=== PATIENT | female | born 1950 | race Caucasian/White ===

== ENCOUNTER 2017-10-19 19:33 | Emergency (ER) | payer MEDICARE, OTHER, SELFPAY ==
[2017-10-19 19:34] VITALS: BP 145/79; PULSE 77; RESP 16; O2SAT 100; BMI 30.2
--- NOTE | 2017-10-19 19:53 | XR_ITS ---
XR chest portable HISTORY: ITS.REASON: HEART PALPATIONS ORDERING PHYSICIAN: Nico Alexander MD PATIENT AGE: 905/11/2014 COMPARISON: None available FINDINGS: Mild cardiomegaly without failure. Lungs are clear bilaterally. No acute bony anomalies. IMPRESSION: Mild cardiomegaly otherwise negative.
[2017-10-19 20:18] LABS: Microscopic, Urine URINE MICROSCOPIC (MICROSCOPIC)
[2017-10-19 20:20] LABS: Basophils # 0.1 K/mm3 (0-0.2); Basophils % 0.8 % (0.1-2.0); Eosinophils # 0.1 K/mm3 (0.0-0.4); Eosinophils % 1.2 % (0.1-12.0); Hematocrit 39.7 % (37.0-47.0); Hemoglobin 12.9 g/dL (12.2-16.2); Lymphocytes # 1.8 K/mm3 (0.7-4.5); Mean Corpuscular HGB Conc 32.4 g/dL (31.8-35.4); Mean Corpuscular Hemoglobin 27.6 pg (27.0-31.2); Mean Corpuscular Volume 85.2 fl (81-99); Mean Platelet Volume 7.4 fl (7.4-10.4); Monocytes # 0.4 K/mm3 (0.1-1.0); Monocytes % 6.4 % (1.7-9.3); Neutrophils # 3.3 K/mm3 (1.8-7.8); Neutrophils % 59.7 % (37.0-80.0); Platelet Count 163 K/mm3 (142-424); Red Blood Count 4.66 M/mm3 (4.20-5.40); Red Cell Distribution Width 14.5 % (11.5-17.5); White Blood Count 5.5 K/mm3 (4.8-10.8)
[2017-10-19 20:28] LABS: Appearance,Urine CLEAR (Clear); Bilirubin,Urine Negative (Negative); Blood, Urine TRACE-I (Negative); Color,Urine YELLOW (Yellow); Glucose,Urine (UA) Negative (Negative); Ketones,Urine Negative (Negative); Leukocyte Esterase,Urine 1+ (Negative); Nitrate,Urine Negative (Negative); Protein,Urine Negative (Negative); Urobilinogen,Urine 0.2 EU/dl (0.2)
[2017-10-19 20:36] LABS: Alanine Aminotransferase 27 U/L (12-78); Albumin Level 4.1 gm/dL (3.4-5.0); Albumin/Globulin Ratio 1.4 (1.1-1.8); Alkaline Phosphatase 68 U/L (46-116); Anion Gap 10.5 mEq/L (5-15); Aspartate Amino Transferase 16 U/L (15-37); Bilirubin,Total 0.3 mg/dL (0.2-1.0); CKMB Relative Index 1.3 U/L (0-4.0); Calcium 8.9 mg/dL (8.5-10.1); Carbon Dioxide 30 mmol/L (21.0-32.0); Chloride 106 mmol/L (98-107); Creatine Kinase 76 U/L (26-192); Creatinine Clearance Estimated 53 mL/min (0-300); Creatinine,Serum 1.36 mg/dL (0.55-1.02); Estimated Glomerular Filt Rate 39 ml/min (>60); GFR (African American) 47 ML/MIN (>60); Globulin 2.9 gm/dl (1.3-3.2); Glucose 95 mg/dL (74-106); Potassium 3.5 mmoL/L (3.5-5.1); Sodium 143 mmol/L (136-145); Troponin I < 0.02 ng/ml (0.00-0.06)
[2017-10-19 20:41] LABS: Blood Urea Nitrogen 18 mg/dL (7-18)
[2017-10-19 20:49] LABS: Bacteria,Urine 3+ /lpf; Squamous Epithelial Cell,Urine TNTC #/hpf (0-5)
[2017-10-19 21:48] VITALS: BP 125/73; PULSE 68; RESP 16; O2SAT 98
--- NOTE | 2017-10-19 21:58 | HMH.EDARPALP ---
ED Disposition Clinical Impression: Palpitations Disposition: Home, Self-Care Condition on Discharge: Good Instructions: DI for Palpitations Additional Instructions: call pcp for follow up Referrals: Nestor Rao MD [Primary Care Provider] - - Critical Care Critical Care Time: No Attestation: On 10/19/17, the high probability of a clinically significant, sudden or life threatening deterioration of the following system(s) required my full and direct attention, intervention and personal management. The time I documented below is in addition to time spent performing reported procedures but includes the following listed in this critical care notation. Medical Decision Making - Medical Records Medical records reviewed: Yes: I reviewed the patient's medical records. Vital Signs: 10/19/17 19:34 10/19/17 21:48 Pulse Rate [Right] 77 68 Respiratory Rate 16 16 Blood Pressure [Right Arm] 145/79 125/73 Blood Pressure Mean [Right Arm] 101 90 Blood Pressure Source [Right Arm] Automatic Cuff Automatic Cuff Blood Pressure Position [Right Arm] Sitting Sitting 02 Sat by Pulse Oximetry 100 98 Oxygen Delivery Method Room Air Room Air - Lab Data Lab results reviewed: Yes: I reviewed the patient's lab results. Lab Results 10/19/17 20:00: WBC 5.5, RBC 4.66, Hgb 12.9, Hct 39.7, MCV 85.2, MCH 27.6, MCHC 32.4, RDW 14.5, Plt Count 163, MPV 7.4, Neut % (Auto) 59.7, Lymph % (Auto) 32.0, Rains % (Auto) 6.4, Eos % (Auto) 1.2, Baso % (Auto) 0.8, Neut # (Auto) 3.3, Lymph # (Auto) 1.8, Rains # (Auto) 0.4, Eos # (Auto) 0.1, Baso # (Auto) 0.1 10/19/17 20:00: Sodium 143, Potassium 3.5, Chloride 106, Carbon Dioxide 30, Anion Gap 10.5, BUN 18, Creatinine 1.36 H, Estimated Creat Clear 53, Estimated GFR 39 L, Est GFR ( Amer) 47 L, Glucose 95, Calcium 8.9, Total Bilirubin 0.3, AST 16, ALT 27, Alkaline Phosphatase 68, Total Creatine Kinase 76, CK-MB (CK-2) 1.0, CK-MB (CK-2) Rel Index 1.3, Troponin I < 0.02, Total Protein 7.0, Albumin 4.1, Globulin 2.9, Albumin/Globulin Ratio 1.4 10/19/17 20:05: Urine Color Yellow, Urine Appearance Clear, Urine pH 6.0, Ur Specific [place] 1.010, Urine Protein Negative, Urine Glucose (UA) Negative, Urine Ketones Negative, Urine Blood Trace-i, Urine Nitrate Negative, Urine Bilirubin Negative, Urine Urobilinogen 0.2, Ur Leukocyte Esterase 1+ A, Urine RBC None, Urine WBC 10-20, Ur Squamous Epith Cells Tntc, Urine Bacteria 3+ Result diagrams: 10/19/17 20:00 10/19/17 20:00 Orders (Tests/Meds): ORDERS Category Date Time Status Chest XR -- portable [XR chest portable] Stat Exams 10/19/17 19:53 Taken Urine Culture Stat Micro 10/19/17 20:05 Received ECG Request by /Jordyn Stat Y 10/19/17 19:52 Ordered - Radiology Data #1 Image(s): Chest Image Reviewed: Yes I reviewed the patient's radiology image Preliminary Findings: Normal/NAD - ECG Data Tracing #1 I reviewed this ECG and interpreted as documented below: Normal Sinus Rhythm: Yes Ischemic changes: non-specific ST-T wave changes - Narciso Inquiry Pt receiving controlled substance: No Arrhythmia/Palpitations HPI - General Chief Complaint: Arrhythmia/Palpitations Stated Complaint: Heart Palpations Time Seen by Provider: 10/19/17 20:30 Mode of Arrival: Ambulatory Source of Information: Patient, Spouse, Medical Record Limitations: No Limitations - History of Present Illness HPI narrative: pt with episode of fluttering hr with anxious and no syncope or chest pain and no sob MD complaint: palpitations Onset (ago): hour(s) Duration: intermittent Severity: moderate Arrhythmia history: atrial fibrillation Associated symptoms: anxiety Treatments prior to arrival: beta-pamela - Related Data Home Medications Medication Instructions Recorded Confirmed ALPRAZolam [Xanax 0.5mg tab] 0.5 mg PO NEEDED PRN 10/19/17 10/19/17 Aspirin [Aspirin 81mg EC Tab] 81 mg PO DAILY 10/19/17 10/19/17 Metoprolol Tartrate
--- NOTE | 2017-10-19 22:01 | ED_ITS ---
ED Disposition Clinical Impression: Palpitations Disposition: Home, Self-Care Condition on Discharge: Good Instructions: DI for Palpitations Additional Instructions: call pcp for follow up Referrals: Nestor Rao MD [Primary Care Provider] - - Critical Care Critical Care Time: No Attestation: On 10/19/17, the high probability of a clinically significant, sudden or life threatening deterioration of the following system(s) required my full and direct attention, intervention and personal management. The time I documented below is in addition to time spent performing reported procedures but includes the following listed in this critical care notation. Medical Decision Making - Medical Records Medical records reviewed: Yes: I reviewed the patient's medical records. Vital Signs: 10/19/17 19:34 10/19/17 21:48 Pulse Rate [Right] 77 68 Respiratory Rate 16 16 Blood Pressure [Right Arm] 145/79 125/73 Blood Pressure Mean [Right Arm] 101 90 Blood Pressure Source [Right Arm] Automatic Cuff Automatic Cuff Blood Pressure Position [Right Arm] Sitting Sitting 02 Sat by Pulse Oximetry 100 98 Oxygen Delivery Method Room Air Room Air - Lab Data Lab results reviewed: Yes: I reviewed the patient's lab results. Lab Results 10/19/17 20:00: WBC 5.5, RBC 4.66, Hgb 12.9, Hct 39.7, MCV 85.2, MCH 27.6, MCHC 32.4, RDW 14.5, Plt Count 163, MPV 7.4, Neut % (Auto) 59.7, Lymph % (Auto) 32.0 , [place] % (Auto) 6.4, Eos % (Auto) 1.2, Baso % (Auto) 0.8, Neut # (Auto) 3.3, Lymph # (Auto) 1.8, [place] # (Auto) 0.4, Eos # (Auto) 0.1, Baso # (Auto) 0.1 10/19/17 20:00: Sodium 143, Potassium 3.5, Chloride 106, Carbon Dioxide 30, Anion Gap 10.5, BUN 18, Creatinine 1.36 H, Estimated Creat Clear 53, Estimated GFR 39 L, Est GFR ( Amer) 47 L, Glucose 95, Calcium 8.9, Total Bilirubin 0.3, AST 16, ALT 27, Alkaline Phosphatase 68, Total Creatine Kinase 76, CK-MB ( CK-2) 1.0, CK-MB (CK-2) Rel Index 1.3, Troponin I < 0.02, Total Protein 7.0, Albumin 4.1, Globulin 2.9, Albumin/Globulin Ratio 1.4 10/19/17 20:05: Urine Color Yellow, Urine Appearance Clear, Urine pH 6.0, Ur Specific [place] 1.010, Urine Protein Negative, Urine Glucose (UA) Negative, Urine Ketones Negative, Urine Blood Trace-i, Urine Nitrate Negative, Urine Bilirubin Negative, Urine Urobilinogen 0.2, Ur Leukocyte Esterase 1+ A, Urine RBC None, Urine WBC 10-20, Ur Squamous Epith Cells Tntc, Urine Bacteria 3+ Result diagrams: 10/19/17 20:00 10/19/17 20:00 Orders (Tests/Meds): ORDERS Category Date Time Status Chest XR -- portable [XR chest portable] Stat Exams 10/19/17 19:53 Taken Urine Culture Stat Micro 10/19/17 20:05 Received ECG Request by /Jordyn Stat Y 10/19/17 19:52 Ordered - Radiology Data #1 Image(s): Chest Image Reviewed: Yes I reviewed the patient's radiology image Preliminary Findings: Normal/NAD - ECG Data Tracing #1 I reviewed this ECG and interpreted as documented below: Normal Sinus Rhythm: Yes Ischemic changes: non-specific ST-T wave changes - Narciso Inquiry Pt receiving controlled substance: No Arrhythmia/Palpitations HPI - General Chief Complaint: Arrhythmia/Palpitations Stated Complaint: Heart Palpations Time Seen by Provider: 10/19/17 20:30 Mode of Arrival: Ambulatory Source of Information: Patient, Spouse, Medical Record Limitations: No Limitations - History of Present Illness HPI narrative:
[2017-10-19 22:08] VITALS: BP 138/78; PULSE 63; RESP 12; TEMP 36.8; O2SAT 97
== END 2017-10-19 22:10 | disposition home or self-care (01) ==
PROVIDERS: Emergency Provider Emergency Medicine; Family Provider Internal Medicine Adolescent Medicine; PCP Internal Medicine Adolescent Medicine
DX: R00.2 Palpitations (principal); I48.2 Chronic atrial fibrillation; I10 Essential (primary) hypertension; Z88.1 Allergy status to other antibiotic agents; Z79.82 Long term (current) use of aspirin; R82.90 Unspecified abnormal findings in urine
CPT/HCPCS: 71045; 80053; 81001; 82550; 82553; 84484; 85025; 87086; 93005; 93041; 99283

== ENCOUNTER → 2018-05-11 06:35 | Outpatient (CLI) | payer MEDICARE, OTHER, SELFPAY ==
--- NOTE | 2018-05-11 06:37 | NM_ITS ---
CARDIOLITE SPECT MYOCARDIAL PERFUSION SCAN, REST AND STRESS: EXERCISE STRESS [facility] REVIEW QGS EF AND WALL MOTION EVALUATION: QPS - PERFUSION EVALUATION HISTORY: short f breath DOSE: 10.04 mCi technetium 99m mibi intravenously at rest followed by 31.6 mCi technetium 99m mibi following the intravenous ministration of 0.4 mg of Lexiscan. Resting blood pressure is 148/76. Stress blood pressure 145/72. FINDINGS: Ejection fraction is calculated to be 73%. Stress images reveal mildly decreased activity in the anterior wall and apex with rest images reveal uniform myocardial activity. Gated images calculated ejection fraction of 73% with normal wall motion IMPRESSION: Mild anterior wall reversible ischemia with normal ejection fraction normal wall motion. Clinical correlation is advised
--- NOTE | 2018-05-11 07:34 | HMH.ITSHM ---
ASA METOPROLOL NEXIUM SERTRALINE ALPRAZOLAM
== END ==
PROVIDERS: Family Provider Internal Medicine Adolescent Medicine; PCP Internal Medicine Adolescent Medicine; Visit Provider Internal Medicine Adolescent Medicine
DX: R07.9 Chest pain, unspecified (principal)
CPT/HCPCS: 78452; 93017; A9502; J2785

== ENCOUNTER → 2019-11-15 08:00 | Outpatient (CLI) | payer MEDICARE, OTHER, SELFPAY ==
[2019-11-15 14:20] LABS: Eosinophils # 0.1 K/mm3 (0.0-0.4); Hematocrit 41.9 % (37.0-47.0); Hemoglobin 13.2 g/dL (12.2-16.2); Lymphocytes # 1.4 K/mm3 (0.7-4.5); Mean Corpuscular HGB Conc 31.5 g/dL (31.8-35.4); Mean Corpuscular Hemoglobin 27.3 pg (27.0-31.2); Mean Corpuscular Volume 86.6 fl (81-99); Monocytes # 0.2 K/mm3 (0.1-1.0); Monocytes % 5.3 % (1.7-9.3); Neutrophils # 2.3 K/mm3 (1.8-7.8); Neutrophils % 56.6 % (37.0-80.0); Platelet Count 167 K/mm3 (142-424); Red Blood Count 4.83 M/mm3 (4.20-5.40); Red Cell Distribution Width 14.2 % (11.5-17.5)
[2019-11-15 14:45] LABS: Alanine Aminotransferase 18 U/L (12-78); Albumin Level 4.1 g/dl (3.5-5.0); Albumin/Globulin Ratio 1.6 (1.1-1.8); Alkaline Phosphatase 48 U/L (38-126); Anion Gap 13.2 mEq/L (5-15); Aspartate Amino Transferase 29 U/L (14-36); Bilirubin,Total 0.2 mg/dl (0.2-1.3); Blood Urea Nitrogen 15 mg/dl (7-17); Calcium 9.7 mg/dl (8.4-10.2); Carbon Dioxide 30 mmol/L (22.0-30.0); Chloride 103 mmol/L (98-107); Estimated Glomerular Filt Rate 55 ml/min (>60); GFR (African American) 67 ML/MIN (>60); Globulin 2.6 g/dL (1.3-3.2); Glucose 86 mg/dl (74-100); Potassium 4.2 mmoL/L (3.5-5.1); Sodium 142 mmol/L (136-145); Total Protein,Serum 6.7 g/dl (6.3-8.2)
== END ==
PROVIDERS: Visit Provider Internal Medicine Adolescent Medicine
DX: R55 Syncope and collapse (principal); R42 Dizziness and giddiness
CPT/HCPCS: 36415; 80053; 85025

== ENCOUNTER → 2020-05-15 15:45 | Outpatient (CLI) | payer MEDICARE, OTHER, SELFPAY ==
--- NOTE | 2020-05-15 15:50 | MM_ITS ---
PROCEDURE: MM DIG SCREENING MAMM BI W/CAD Digital Breast Tomosynthesis Included CLINICAL INDICATION: SCREENING There is no personal or family history of breast cancer. COMPARISON: MG DIGMAMMS MAMMOGRAM SCREEN-MULTIMEDIA SERVICES MANAGER N/C from 02/05/2010 MG DMSB DIG MAMM-SCREEN BROCK from 09/05/2013 MG DMSB DIG MAMM-SCREEN BROCK from 11/04/2015 TECHNIQUE: Standard CC and MLO images and 3D Tomosynthesis was obtained. R2 CAD reviewed. FINDINGS: Scattered fibroglandular densities are seen throughout both breast slightly more prominent upper-outer quadrant right breast. There is no suspicious lesion in either breast and no suspicious microcalcifications. There is a benign-appearing calcification left breast. IMPRESSION: Fibrofatty parenchyma with no suspicious lesions seen BI-RAD Category: 2 Benign Finding(s) FOLLOW-UP: 1YR 1 Year Follow-up (A letter has been sent to the patient regarding results of the study.) Dictated by: Dr. Devonte Bueno MD 05/17/2020 20:38 Dr. Devonte Bueno MD in [place] 05/17/2020 20:38
== END ==
PROVIDERS: PCP Internal Medicine Adolescent Medicine; Visit Provider Internal Medicine Adolescent Medicine
DX: Z12.31 Encounter for screening mammogram for malignant neoplasm of breast (principal)
CPT/HCPCS: 77063; 77067

== ENCOUNTER → 2020-06-15 16:32 | Outpatient (CLI) | payer MEDICARE, OTHER, SELFPAY | PROVIDERS: PCP Internal Medicine Adolescent Medicine; Visit Provider Internal Medicine Adolescent Medicine | DX: Z03.818 Encounter for observation for suspected exposure to other biological agents ruled out (principal) | CPT/HCPCS: U0003 ==

== ENCOUNTER → 2020-10-29 20:03 | Outpatient (CLI) | payer MEDICARE, OTHER, SELFPAY ==
[2020-10-29 20:21] LABS: Basophils # 0.1 K/mm3 (0-0.2); Basophils % 1.2 % (0.1-2.0); Eosinophils # 0.1 K/mm3 (0.0-0.4); Eosinophils % 2.5 % (0.1-12.0); Hemoglobin 12.9 g/dL (12.2-16.2); Lymphocytes # 1.5 K/mm3 (0.7-4.5); Lymphocytes % 35.9 % (10-50); Mean Corpuscular HGB Conc 30.8 g/dL (31.8-35.4); Mean Corpuscular Hemoglobin 27.2 pg (27.0-31.2); Mean Corpuscular Volume 88.4 fl (81-99); Mean Platelet Volume 8.7 fl (7.4-10.4); Monocytes # 0.3 K/mm3 (0.1-1.0); Monocytes % 7.1 % (1.7-9.3); Neutrophils # 2.2 K/mm3 (1.8-7.8); Neutrophils % 53.3 % (37.0-80.0); Platelet Count 152 K/mm3 (142-424); Red Blood Count 4.76 M/mm3 (4.20-5.40); Red Cell Distribution Width 14.4 % (11.5-17.5); White Blood Count 4.1 K/mm3 (4.8-10.8)
[2020-10-29 22:03] LABS: Chloride 106 mmol/L (98-107); Potassium 3.8 mmoL/L (3.5-5.1); Sodium 142 mmol/L (136-145)
[2020-10-29 22:06] LABS: Alanine Aminotransferase 13 U/L (12-78); Albumin Level 4.4 g/dl (3.5-5.0); Albumin/Globulin Ratio 1.8 (1.1-1.8); Alkaline Phosphatase 59 U/L (38-126); Anion Gap 8.8 mEq/L (5-15); Aspartate Amino Transferase 43 U/L (14-36); Bilirubin,Total 0.5 mg/dl (0.2-1.3); Blood Urea Nitrogen 14 mg/dl (7-17); Carbon Dioxide 31 mmol/L (22.0-30.0); Cholesterol 189 mg/dl (140-200); Estimated Glomerular Filt Rate 49 ml/min (>60); GFR (African American) 60 ML/MIN (>60); Globulin 2.5 g/dL (1.3-3.2); Total Protein,Serum 6.9 g/dl (6.3-8.2); Triglycerides 76 mg/dl (30-150); VLDL Cholesterol 15 mg/dL (0-40)
[2020-10-29 22:07] LABS: Calcium 9.8 mg/dl (8.4-10.2); Chol/HDL Ratio 3.9 (1-3.5); Glucose 87 mg/dl (74-100); HDL Cholesterol 48 mg/dl (40-60)
[2020-10-29 22:18] LABS: Direct LDL Cholesterol 115.04 mg/dL (100-129)
[2020-10-29 22:23] LABS: Triiodothryronine (T3) Uptake 34 % (23.5-40.5)
[2020-10-29 22:24] LABS: 25-OH Vitamin D, Total 54.1 ng/mL (30-100); Free Thyroxine Index 2.6 ug/dL (5.93-13.13); T4 (Thyroxine) 7.7 ug/dl (5.53-11.0)
[2020-10-29 22:57] LABS: Vitamin B12 371 pg/mL (239-931)
[2020-11-03 19:12] LABS: Methylmalonic Acid 149 nmol/L (0-378)
== END ==
PROVIDERS: Visit Provider Internal Medicine Adolescent Medicine
DX: I48.0 Paroxysmal atrial fibrillation (principal); E55.9 Vitamin D deficiency, unspecified; Z86.39 Personal history of other endocrine, nutritional and metabolic disease; Z79.899 Other long term (current) drug therapy
CPT/HCPCS: 80053; 80061; 82131; 82306; 82607; 84436; 84443; 84479; 85025

== ENCOUNTER → 2020-12-02 10:47 | Outpatient (CLI) | payer MEDICARE, OTHER, SELFPAY ==
--- NOTE | 2020-12-02 10:55 | MR_ITS ---
PROCEDURE: MR LUMBAR SPINE WO CON CLINICAL INDICATION: ACUTE RIGHT SIDED BACK PAIN COMPARISON: No exams were available for comparison TECHNIQUE: Standard multiplanar multiecho sequences are performed without contrast. 3-D MIP and myelographic images are also rendered and reviewed FINDINGS: There is normal lumbar lordosis. Vertebral body heights and alignment are maintained. Bone marrow signal intensity is within normal limits without marrow infiltrative process. The conus terminates at T12-L1 level. Paravertebral soft tissues are unremarkable. Further details as described below: T12-L1: Small broad-based disc bulge and bilateral facet joint hypertrophy causes mild canal narrowing. There is moderate right foraminal narrowing. L1-2: Broad-based disc bulge, bilateral facet joint and ligamentum flavum hypertrophy causes moderate canal narrowing. There is mild to moderate right and moderate to severe left foraminal narrowing. L2-3: Broad-based disc bulge, bilateral facet joint and ligamentum flavum hypertrophy causes moderate to severe canal narrowing with crowding of the nerve roots within the thecal sac. There is moderate bilateral foraminal narrowing. L3-4: Broad-based disc bulge with annular tear, worse on the left , and bilateral facet joint hypertrophy, [id number] canal narrowing. There is moderate bilateral foraminal narrowing. L4-5: Broad-based disc bulge, bilateral facet joint and ligamentum flavum hypertrophy causes severe right and moderate to severe left foraminal narrowing. Mild to moderate canal narrowing is noted at this level. L5-S1: Broad-based disc bulge with annular tear is noted. Mild bilateral facet joint hypertrophy. There is mild thecal sac indentation. Minor effacement of the right lateral recess is noted. There is severe bilateral foraminal narrowing. IMPRESSION: Multilevel degenerative changes, worse at L4-5 and L5-S1 as described above. Dictated by: Lizbeth Herrera 12/02/2020 12:28 Lizbeth Herrera in [place] 12/02/2020 12:28
== END ==
PROVIDERS: PCP Internal Medicine Adolescent Medicine; Visit Provider Internal Medicine Adolescent Medicine
DX: M54.41 Lumbago with sciatica, right side (principal)
CPT/HCPCS: 72148; 76376

== ENCOUNTER 2021-03-05 17:06 | Emergency (ER) | payer MEDICARE, OTHER, SELFPAY ==
[2021-03-05 17:07] VITALS: BP 138/71; PULSE 72; RESP 14; TEMP 36.8; O2SAT 99; BMI 26.5
--- NOTE | 2021-03-05 17:21 | HMH.EDWEAK ---
ED Disposition Clinical Impression: Dehydration Disposition: Home, Self-Care Condition on Discharge: Good Referrals: Nestor Rao MD [Primary Care Provider] - - Critical Care Critical Care Time: No Attestation: On 03/05/21, the high probability of a clinically significant, sudden or life threatening deterioration of the following system(s) required my full and direct attention, intervention and personal management. The time I documented below is in addition to time spent performing reported procedures but includes the following listed in this critical care notation. Medical Decision Making - Medical Records MR Comment: Patient has no symptoms in the emergency room. She was working outside [employer] for 2 hours. All labs were normal. She received 1 L of IV fluid. EKG was normal no acute findings. no chest pain. All labs were normal. She does not have any symptoms the emergency room. - Narciso Inquiry Pt receiving controlled substance: No Narciso was queried for this patient: No Vital Signs: 03/05/21 17:07 Temperature 98.3 F Temperature Source Oral Pulse Rate [Radial] 72 Respiratory Rate 14 Blood Pressure [Right Arm] 138/71 Blood Pressure Mean [Right Arm] 93 02 Sat by Pulse Oximetry 99 Oxygen Delivery Method Room Air - Lab Data Lab Results 03/05/21 17:00: WBC 6.0, RBC 5.02, Hgb 13.5, Hct 42.3, MCV 84.3, MCH 26.9 L, MCHC 31.9, RDW 14.1, Plt Count 167, MPV 7.9, Neut % (Auto) 60.4, Lymph % (Auto) 31.2, [place] % (Auto) 5.4, Eos % (Auto) 2.2, Baso % (Auto) 0.8, Neut # (Auto) 3.6, Lymph # (Auto) 1.9, [place] # (Auto) 0.3, Eos # (Auto) 0.1, Baso # (Auto) 0.1 03/05/21 17:00: Sodium 143, Potassium 3.9, Chloride 105, Carbon Dioxide 30, Anion Gap 11.9, BUN 16, Creatinine 1.10 H, Estimated Creat Clear 51, Estimated GFR 49 L, Est GFR ( Amer) 59, Glucose 99, Calcium 9.4, Troponin I < 0.01 Result diagrams: 03/05/21 17:00 03/05/21 17:00 Orders (Tests/Meds): ED MEDICATIONS Generic Name Dose Route Start Last Admin Trade Name Jyoti PRN Reason Stop Dose Admin Sodium Chloride 1,000 mls @ 999 mls/hr 03/05/21 17:30 03/05/21 17:52 Sod Chlor 0.9% 1000ml Bag IV 03/05/21 18:30 999 mls/hr .Q1H1M JESSICA Administration ORDERS Category Date Time Status Troponin I Q3H Lab 03/05/21 20:30 Ordered Troponin I Q3H Lab 03/05/21 23:30 Ordered Urinalysis and Microscopic Stat Lab 03/05/21 17:54 Ordered Blood Culture Stat Micro 03/05/21 17:00 Received Weakness HPI - General Chief complaint: Weakness Stated complaint: weakness Time Seen by Provider: 03/05/21 17:21 Source of Information: Patient Limitations: No Limitations - History of Present Illness HPI Narrative: Patient is 71 years old female walked to the emergency room complaining of weakness. She said she did walk gardening for 2 hours outside and it was hot when she came home she felt weak and so she came to the emergency room for evaluation. She denies any chest pain or shortness of breath. She denies any nausea or vomiting. She denied headache or dizziness. She denies any weakness in upper or lower extremities. She said she takes medication for UTI for the past 10 days. She denies any dysuria or urinary frequency. He looks comfortable with no distress. In the emergency room she confirmed that the symptoms resolved completely. - Related Data Home Medications Medication Instructions Recorded Confirmed ALPRAZolam [Xanax 0.5mg tab] 0.5 mg PO NEEDED PRN 10/19/17 10/19/17 Aspirin [Aspirin 81mg EC Tab] 81 mg PO DAILY 10/19/17 10/19/17 Metoprolol Tartrate [Lopressor 25 mg PO BID 10/19/17 10/19/17 25mg tablet] Sertraline HCl [Zoloft 100mg 0 mg PO DAILY 10/19/17 10/19/17 tablet] Previous Rx's Medication Instructions Recorded Apixaban [Eliquis] 5 mg PO BID #30 tab 12/26/17 Cefdinir [Omnicef 300mg Capsule] 300 mg PO BID #20 cap 04/22/18 Allergies Allergy/AdvReac Type Severity Reaction Status Date
[2021-03-05 17:38] LABS: Anion Gap 11.9 mEq/L (5-15); Blood Urea Nitrogen 16 mg/dl (7-17); Calcium 9.4 mg/dl (8.4-10.2); Carbon Dioxide 30 mmol/L (22.0-30.0); Chloride 105 mmol/L (98-107); Creatinine Clearance Estimated 51 mL/min (50-200); Estimated Glomerular Filt Rate 49 ml/min (>60); GFR (African American) 59 ML/MIN (>60); Glucose 99 mg/dl (74-100); Potassium 3.9 mmoL/L (3.5-5.1); Sodium 143 mmol/L (136-145)
[2021-03-05 17:39] LABS: Basophils # 0.1 K/mm3 (0-0.2); Basophils % 0.8 % (0.1-2.0); Eosinophils # 0.1 K/mm3 (0.0-0.4); Eosinophils % 2.2 % (0.1-12.0); Hematocrit 42.3 % (37.0-47.0); Hemoglobin 13.5 g/dL (12.2-16.2); Lymphocytes # 1.9 K/mm3 (0.7-4.5); Lymphocytes % 31.2 % (10-50); Mean Corpuscular HGB Conc 31.9 g/dL (31.8-35.4); Mean Corpuscular Hemoglobin 26.9 pg (27.0-31.2); Mean Corpuscular Volume 84.3 fl (81-99); Mean Platelet Volume 7.9 fl (7.4-10.4); Monocytes # 0.3 K/mm3 (0.1-1.0); Monocytes % 5.4 % (1.7-9.3); Neutrophils # 3.6 K/mm3 (1.8-7.8); Neutrophils % 60.4 % (37.0-80.0); Platelet Count 167 K/mm3 (142-424); Red Blood Count 5.02 M/mm3 (4.20-5.40); Red Cell Distribution Width 14.1 % (11.5-17.5)
--- NOTE | 2021-03-05 17:40 | ECG_ITS ---
APPROVED REPORT Exam: Resting ECG HR:67 bpm ECG Measurements Heart Rate 67 AXES AK 170 P 39 QRSd 80 QRS 4 QT 408 T 42 QTc 431 Conclusion Normal sinus rhythm Cannot rule out Anterior infarct, age undetermined Abnormal ECG Electronically signed by : Nestor Rao, 03/06/2021 17:01:09
[2021-03-05 17:56] LABS: Troponin I < 0.01 ng/ml (0.00-0.034)
[2021-03-05 18:11] LABS: Microscopic, Urine URINE MICROSCOPIC (MICROSCOPIC)
[2021-03-05 18:12] LABS: Appearance,Urine CLEAR (Clear); Bilirubin,Urine Negative (Negative); Blood, Urine Negative (Negative); Color,Urine YELLOW (Yellow); Glucose,Urine (UA) Negative (Negative); Ketones,Urine Negative (Negative); Leukocyte Esterase,Urine Negative (Negative); Nitrate,Urine Negative (Negative); Protein,Urine Negative (Negative); Urobilinogen,Urine 0.2 EU/dl (0.2)
[2021-03-05 18:28] LABS: Squamous Epithelial Cell,Urine Occasional #/hpf (0-5)
[2021-03-05 19:02] VITALS: BP 125/76; PULSE 78; RESP 16; TEMP 36.8; O2SAT 99
== END 2021-03-05 19:04 | disposition home or self-care (01) ==
PROVIDERS: Emergency Provider Internal Medicine; PCP Internal Medicine Adolescent Medicine
DX: E86.0 Dehydration (principal); R53.83 Other fatigue
CPT/HCPCS: 80048; 81001; 84484; 85025; 87040; 93005; 96365; 99284

== ENCOUNTER → 2022-04-23 20:00 | Outpatient (CLI) | payer MEDICARE, OTHER, SELFPAY ==
[2022-04-23 21:43] LABS: Basophils % 1.1 % (0.1-2.0); Eosinophils # 0.1 K/mm3 (0.0-0.4); Eosinophils % 3.6 % (0.1-12.0); Hemoglobin 12.7 g/dL (12.2-16.2); Lymphocytes % 29.4 % (10-50); Mean Corpuscular Hemoglobin 27.1 pg (27.0-31.2); Mean Corpuscular Volume 87.3 fl (81-99); Mean Platelet Volume 8.8 fl (7.4-10.4); Monocytes # 0.2 K/mm3 (0.1-1.0); Monocytes % 7.2 % (1.7-9.3); Neutrophils % 58.7 % (37.0-80.0); Platelet Count 166 K/mm3 (142-424); Red Blood Count 4.69 M/mm3 (4.20-5.40); Red Cell Distribution Width 14.8 % (11.5-17.5); White Blood Count 3.4 K/mm3 (4.8-10.8)
[2022-04-23 22:02] LABS: Alanine Aminotransferase 10 U/L (12-78); Albumin/Globulin Ratio 1.7 (1.1-1.8); Alkaline Phosphatase 63 U/L (38-126); Anion Gap 8.1 mEq/L (5-15); Aspartate Amino Transferase 25 U/L (14-36); Blood Urea Nitrogen 11 mg/dl (7-17); Carbon Dioxide 30 mmol/L (22.0-30.0); Chloride 106 mmol/L (98-107); Chol/HDL Ratio 4.6 (1-3.5); Cholesterol 179 mg/dl (140-200); Estimated Glomerular Filt Rate 55 ml/min (>60); GFR (African American) 66 ML/MIN (>60); Globulin 2.3 g/dL (1.3-3.2); Glucose 51 mg/dl (74-100); HDL Cholesterol 39 mg/dl (40-60); Potassium 4.1 mmoL/L (3.5-5.1); Sodium 140 mmol/L (136-145); Total Protein,Serum 6.3 g/dl (6.3-8.2); Triglycerides 81 mg/dl (30-150); VLDL Cholesterol 16 mg/dL (0-40)
[2022-04-23 22:06] LABS: Bilirubin,Total 0.1 mg/dl (0.2-1.3)
[2022-04-23 22:17] LABS: Calcium 9.5 mg/dl (8.4-10.2)
[2022-04-23 22:18] LABS: 25-OH Vitamin D, Total 51.7 ng/mL (30-100)
[2022-04-23 22:33] LABS: Thyroid Stimulating Hormone 0.83 uIU/mL (0.465-4.68)
[2022-04-23 22:51] LABS: Vitamin B12 263 pg/mL (239-931)
[2022-04-25 09:37] LABS: Direct LDL Cholesterol 120 mg/dL (100-129)
== END ==
PROVIDERS: PCP Internal Medicine Adolescent Medicine; Visit Provider Internal Medicine Adolescent Medicine
DX: R53.81 Other malaise (principal); E78.5 Hyperlipidemia, unspecified; E55.9 Vitamin D deficiency, unspecified; E53.8 Deficiency of other specified B group vitamins
CPT/HCPCS: 80053; 80061; 82306; 82607; 84443; 85025

== ENCOUNTER → 2022-05-07 12:30 | Outpatient (CLI) | payer MEDICARE, OTHER, SELFPAY ==
[2022-05-07 18:16] LABS: Chloride 104 mmol/L (98-107); Potassium 4.2 mmoL/L (3.5-5.1); Sodium 142 mmol/L (136-145)
[2022-05-07 18:19] LABS: Anion Gap 12.2 mEq/L (5-15); Blood Urea Nitrogen 13 mg/dl (7-17); Calcium 9.5 mg/dl (8.4-10.2); Carbon Dioxide 30 mmol/L (22.0-30.0); Estimated Glomerular Filt Rate 55 ml/min (>60); GFR (African American) 66 ML/MIN (>60); Glucose 85 mg/dl (74-100)
[2022-05-09 11:11] LABS: Insulin Level Total 7.3 uIU/mL (2.6-24.9)
[2022-05-09 14:13] LABS: C-Peptide 3.4 ng/mL (1.1-4.4)
== END ==
PROVIDERS: PCP Internal Medicine Adolescent Medicine; Visit Provider Internal Medicine Adolescent Medicine
DX: E16.2 Hypoglycemia, unspecified (principal); I48.0 Paroxysmal atrial fibrillation; I10 Essential (primary) hypertension
CPT/HCPCS: 80048; 83525; 84443; 84681

== ENCOUNTER → 2023-01-11 18:30 | Outpatient (CLI) | payer MEDICARE, OTHER, SELFPAY | PROVIDERS: PCP Family Medicine; Visit Provider Family Medicine | DX: R30.0 Dysuria (principal) | CPT/HCPCS: 87086 ==

== ENCOUNTER → 2023-03-24 12:24 | Outpatient (CLI) | payer MEDICARE, OTHER, SELFPAY ==
[2023-03-24 12:51] LABS: Basophils % 0.6 % (0.1-2.0); Eosinophils # 0.1 K/mm3 (0.0-0.4); Hematocrit 41.2 % (37.0-47.0); Lymphocytes # 1.2 K/mm3 (0.7-4.5); Lymphocytes % 26.5 % (10-50); Mean Corpuscular HGB Conc 31.5 g/dL (31.8-35.4); Mean Corpuscular Hemoglobin 26.3 pg (27.0-31.2); Mean Corpuscular Volume 83.3 fl (81-99); Monocytes # 0.2 K/mm3 (0.1-1.0); Neutrophils # 2.9 K/mm3 (1.8-7.8); Neutrophils % 65.9 % (37.0-80.0); Platelet Count 158 K/mm3 (142-424); Red Blood Count 4.94 M/mm3 (4.20-5.40); Red Cell Distribution Width 14.5 % (11.5-17.5); White Blood Count 4.3 K/mm3 (4.8-10.8)
[2023-03-24 13:24] LABS: Alanine Aminotransferase 14 U/L (12-78); Albumin Level 4.3 g/dl (3.5-5.0); Albumin/Globulin Ratio 1.9 (1.1-1.8); Alkaline Phosphatase 66 U/L (38-126); Anion Gap 9.5 mEq/L (5-15); Aspartate Amino Transferase 25 U/L (14-36); Bilirubin,Total 0.5 mg/dl (0.2-1.3); Blood Urea Nitrogen 15 mg/dl (7-17); Calcium 9.3 mg/dl (8.4-10.2); Carbon Dioxide 30 mmol/L (22.0-30.0); Chloride 107 mmol/L (98-107); Chol/HDL Ratio 3.3 (1-3.5); Cholesterol 179 mg/dl (140-200); Estimated Glomerular Filt Rate 49 ml/min (>60); GFR (African American) 59 ML/MIN (>60); Globulin 2.3 g/dL (1.3-3.2); Glucose 93 mg/dl (74-100); HDL Cholesterol 54 mg/dl (40-60); Potassium 4.5 mmoL/L (3.5-5.1); Sodium 142 mmol/L (136-145); Total Protein,Serum 6.6 g/dl (6.3-8.2); Triglycerides 49 mg/dl (30-150); VLDL Cholesterol 10 mg/dL (0-40)
[2023-03-24 13:36] LABS: Direct LDL Cholesterol 109.17 mg/dL (100-129)
[2023-03-24 13:42] LABS: 25-OH Vitamin D, Total 27.6 ng/mL (30-100)
[2023-03-24 13:43] LABS: Free Thyroxine Index 2.6 ug/dL (5.93-13.13); T4 (Thyroxine) 7.3 ug/dl (5.53-11.0); Triiodothryronine (T3) Uptake 35 % (23.5-40.5)
[2023-03-24 13:56] LABS: Thyroid Stimulating Hormone 0.84 uIU/mL (0.465-4.68)
[2023-03-24 14:13] LABS: Vitamin B12 241 pg/mL (239-931)
== END ==
PROVIDERS: PCP Internal Medicine Adolescent Medicine; Visit Provider Internal Medicine Adolescent Medicine
DX: I48.0 Paroxysmal atrial fibrillation (principal); E78.5 Hyperlipidemia, unspecified; E55.9 Vitamin D deficiency, unspecified; F41.1 Generalized anxiety disorder; J45.20 Mild intermittent asthma, uncomplicated; G31.84 Mild cognitive impairment of uncertain or unknown etiology; Z86.39 Personal history of other endocrine, nutritional and metabolic disease
CPT/HCPCS: 36415; 80053; 80061; 82306; 82607; 84436; 84443; 84479; 85025

== ENCOUNTER 2023-04-23 16:10 | Inpatient (IN) | payer MEDICARE, OTHER, SELFPAY ==
[2023-04-23] VITALS (11 sets, daily range): BP systolic 119–150; BP diastolic 54–82; PULSE 61–88; RESP 16–21; TEMP 36.5–37.1; O2SAT 97–100; BMI 23.1; BMI 26.1
--- NOTE | 2023-04-23 16:15 | ECG_ITS ---
APPROVED REPORT Exam: Resting ECG HR:83 bpm ECG Measurements Heart Rate 83 AXES PA 174 P 54 QRSd 89 QRS 15 QT 375 T 61 QTc 415 Conclusion SINUS RHYTHM MINIMAL ST DEPRESSION [0.025+ mV ST DEPRESSION] BORDERLINE ECG UNCONFIRMED REPORT Electronically signed by : Nestor Rao MD 04/24/2023 21:01:47
--- NOTE | 2023-04-23 16:19 | XR_ITS ---
PROCEDURE INFORMATION: Exam: XR Chest Exam date and time: 04/23/2023 5:05 PM Age: 73 years old Clinical indication: Shortness of breath; Additional info: Dizzy, SOA TECHNIQUE: Imaging protocol: Radiologic exam of the chest. Views: 1 view. COMPARISON: CR CXR2V XR chest 2V 12/26/2017 8:54 AM FINDINGS: Lungs: Unremarkable. No consolidation. Pleural spaces: Unremarkable. No pleural effusion. No pneumothorax. Heart/Mediastinum: Mild cardiac prominence. Bones/joints: Unremarkable. IMPRESSION: 1. No acute pulmonary findings. 2. Mild cardiac prominence.
--- NOTE | 2023-04-23 16:20 | HMH.EDGENADL ---
Discharge Plan Disposition Patient Disposition: Admitted Condition: Fair Chief Complaint: Arrhythmia/Palpitations Prescriptions Prescriptions: No Action ergocalciferol (vitamin D2) [Vitamin D2] 1,250 mcg (50,000 unit) capsule 50,000 unit PO WEEKLY Patient Comments: TAKE 1 CAPSULE 1 TIME EACH WEEK sertraline 100 mg tablet 150 mg PO DAILY Qty: 60 2RF alprazolam 0.5 mg tablet 0.25 mg PO TID PRN (Reason: Anxiety) Qty: 60 2RF nitrofurantoin monohyd/m-cryst [Macrobid] 100 mg capsule 100 mg PO Q12H 7 Days Qty: 14 0RF Rx Instructions: must administer with a meal/food aspirin 81 MG tablet,delayed release (DR/EC) 81 mg PO DAILY metoprolol tartrate 25 MG tablet 25 mg PO BID Referrals Follow up/Referrals: Nestor Rao MD [Primary Care Provider] - See instructions Clinical Impressions Clinical Impression: Non-sustained ventricular tachycardia Discharge ED Provider: Tommy Rubalcava General Adult HPI General Chief complaint: Arrhythmia/Palpitations Stated complaint: arrythmia Time Seen by Provider: 04/23/23 16:10 History of Present Illness HPI narrative: Patient is a 73-year-old female with history of paroxysmal atrial fibrillation, palpitations, hyperlipidemia who presents emergency department for not feeling right history is obtained by patient at bedside. Over the last few days upon rising from a seated position she has felt dizzy which is hard for her to further qualify. Patient denies falls. States she is on a blood thinner. 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 Due to not feeling right she presents here for continued evaluation. In route EMS noticed multiple episodes of nonsustained V. tach for which 300 mg of amiodarone was administered. Upon arrival patient is hemodynamically stable. Patient denies chest pain, abdominal pain, headache, isolated extremity weakness, vision changes, trauma. Related Data Home Medications Medication Instructions Recorded Confirmed aspirin 81 mg tablet,delayed 81 mg PO DAILY AFIB 10/19/17 01/11/23 release metoprolol tartrate 25 mg tablet 25 mg PO BID AFIB 10/19/17 01/11/23 ergocalciferol (vitamin D2) 1,250 50,000 unit PO WEEKLY 09/01/22 05/08/23 mcg (50,000 unit) capsule (Vitamin D2) Previous Rx's Medication Instructions Recorded sertraline 100 mg tablet 150 mg PO DAILY ANIXETY #60 tabs 05/07/22 alprazolam 0.5 mg tablet 0.25 mg PO TID PRN Anxiety #60 tabs 01/11/23 nitrofurantoin 100 mg PO Q12H 7 days #14 caps 01/11/23 monohydrate/macrocrystals 100 mg capsule (Macrobid) Allergies Allergy/AdvReac Type Severity Reaction Status Date / Time doxycycline Allergy Verified 01/11/23 15:31 Sulfa (Sulfonamide Allergy Verified 01/11/23 15:31 Antibiotics) From CIPROFLOXACIN PO TAB Allergy Unknown Uncoded 01/11/23 15:31 100 MG LIDOCAINE Allergy Unknown Hypotension Uncoded 01/11/23 15:31 From AUGMENTIN Allergy Uncoded 01/11/23 15:31 [facility] Disclaimer: The information contained in this section may have been updated after the patient was seen, as this information can be updated by other users. Medical History Asthma Chronic GERD Depression Dyspareunia Hyperlipidemia IBS (irritable bowel syndrome) Palpitations Paroxysmal atrial fibrillation Surgical History H/O: section Hx of cholecystectomy Family History Father Hypertension Mother CHF (congestive heart failure) Cancer Daughter Seizure Stroke Social History Smoking Status: Former smoker second hand exposure: No alcohol intake: never counseling given: No current occupational status: retired
[2023-04-23 16:29] LABS: Basophils % 0.6 % (0.1-2.0); Eosinophils # 0.1 K/mm3 (0.0-0.4); Eosinophils % 2.8 % (0.1-12.0); Hematocrit 39.1 % (37.0-47.0); Lymphocytes # 1.5 K/mm3 (0.7-4.5); Lymphocytes % 29.6 % (10-50); Mean Corpuscular HGB Conc 33.3 g/dL (31.8-35.4); Mean Corpuscular Hemoglobin 27.6 pg (27.0-31.2); Mean Corpuscular Volume 82.7 fl (81-99); Mean Platelet Volume 7.6 fl (7.4-10.4); Monocytes # 0.3 K/mm3 (0.1-1.0); Monocytes % 5.6 % (1.7-9.3); Neutrophils % 61.4 % (37.0-80.0); Platelet Count 165 K/mm3 (142-424); Red Blood Count 4.73 M/mm3 (4.20-5.40); Red Cell Distribution Width 14.4 % (11.5-17.5); White Blood Count 4.9 K/mm3 (4.8-10.8)
[2023-04-23 16:36] LABS: Alanine Aminotransferase 22 U/L (12-78); Albumin Level 4.4 g/dl (3.5-5.0); Albumin/Globulin Ratio 1.4 (1.1-1.8); Alkaline Phosphatase 62 U/L (38-126); Anion Gap 12.7 mEq/L (5-15); Aspartate Amino Transferase 37 U/L (14-36); Bilirubin,Total 0.4 mg/dl (0.2-1.3); Blood Urea Nitrogen 18 mg/dl (7-17); Calcium 9.5 mg/dl (8.4-10.2); Carbon Dioxide 26 mmol/L (22.0-30.0); Chloride 106 mmol/L (98-107); Creatinine Clearance Estimated 49 mL/min (50-200); Estimated Glomerular Filt Rate 55 ml/min (>60); GFR (African American) 66 ML/MIN (>60); Globulin 3.1 g/dL (1.3-3.2); Glucose 182 mg/dl (74-100); Magnesium 2.2 mg/dl (1.6-2.3); Potassium 3.7 mmoL/L (3.5-5.1); Sodium 141 mmol/L (136-145); Total Protein,Serum 7.5 g/dl (6.3-8.2)
[2023-04-23 16:40] LABS: VBG Base Excess 3.1 mmol/L (-2.4-2.3); VBG HCO3 27.2 mmol/L (23-30); VBG Oxygen Saturation 98.6 % (50-70); VBG PCO2 40.9 mmol/L (35-51); VBG PH 7.44 mmol/L (7.31-7.41); VBG PO2 125.4 mmol/L (28-40); VBG Total CO2 28.5 mmol/L (23-27)
--- NOTE | 2023-04-23 16:41 | PC.NURSE ---
paged Dr. Pickens
--- NOTE | 2023-04-23 16:42 | PC.NURSE ---
Dr. Rubalcava s/w Dr. Pickens regarding pt for cardiac consult.
[2023-04-23 16:43] LABS: Coronavirus 19, PCR Not Detected (NotDetected); Influenza A, PCR Not Detected (NotDetected); Influenza B, PCR Not Detected (NotDetected)
--- NOTE | 2023-04-23 17:45 | PC.NURSE ---
Assisted pt to stand at bedside and she tolerated well and proceeded to BSC. Obtained urine sample. Denied any dizziness or fatigue with ambulation.
[2023-04-23 17:57] LABS: Microscopic, Urine URINE MICROSCOPIC (MICROSCOPIC)
[2023-04-23 18:07] LABS: Appearance,Urine CLEAR (Clear); Bilirubin,Urine Negative (Negative); Blood, Urine TRACE-I (Negative); Color,Urine YELLOW (Yellow); Glucose,Urine (UA) Negative (Negative); Ketones,Urine Negative (Negative); Leukocyte Esterase,Urine Negative (Negative); Nitrate,Urine Negative (Negative); Protein,Urine Negative (Negative); Specific Gravity, Urine 1.015 (1.005-1.030); Urobilinogen,Urine 0.2 EU/dl (0.2)
[2023-04-23 18:48] LABS: Bacteria,Urine Trace /lpf; RBC,Urine Occasional #/hpf (0-3); Squamous Epithelial Cell,Urine Occasional #/hpf (0-5)
--- NOTE | 2023-04-23 18:51 | EXP.HP ---
History of Present Illness *Admission Date: 04/23/23 *Reason for visit:: non-sustained vtach *History of present illness: 73 year old female presented to the ED today for c/o dizziness. The patient called 911 after feeling extremely dizzy today. She states dizziness has been progressively worsening for the past few days. PMHX of paroxysmal atrial fibrillation, palpations, anxiety, and HLD. The EMS reported multiple runs of nonsustaining vtach and the patient was given 300 mg amiodarone bolus in route to [facility]. The ED physician spoke with cardiology and the hospitalist team for further medical management. The patient was admitted to the medical floor for a cardiology consult, amiodarone infusion, and increase in metoprolol to 50 mg BID from once daily. Upon admission assessment she is hemodynamically stable, on room air, and has no c/o pain or dizziness. [facility] Disclaimer: The information contained in this section may have been updated after the patient was seen, as this information can be updated by other users. Medical History Asthma Chronic GERD Depression Dyspareunia Hyperlipidemia IBS (irritable bowel syndrome) Palpitations Paroxysmal atrial fibrillation Surgical History H/O: section Hx of cholecystectomy Family History Father Hypertension Mother CHF (congestive heart failure) Cancer Daughter Seizure Stroke Social History (Updated 04/23/23 @ 19:11 by Luz Jimenez RN) Smoking Status: Never smoker second hand exposure: No alcohol intake: never counseling given: No current occupational status: retired Travel in the last 8 weeks: None household members: family housing: house marital status: Review of Systems Review of Systems Review of systems:: pertinent systems reviewed and negative unless documented below Constitutional Constitutional: Reports as per HPI Eyes Eyes: Reports system reviewed and no additional complaints, except as documented ENT Ears, Nose, Mouth, and Throat: Reports system reviewed and no additional complaints, except as documented *Cardiovascular Cardiovascular: Reports as per HPI Comments: dizziness *Respiratory Respiratory: Reports system reviewed and no additional complaints, except as documented *Gastrointestinal Gastrointestinal: Reports system reviewed and no additional complaints, except as documented *Genitourinary Genitourinary: Reports system reviewed and no additional complaints, except as documented *Musculoskeletal Musculoskeletal: Reports system reviewed and no additional complaints, except as documented Integumentary/Breasts Skin/Breast: Reports system reviewed and no additional complaints, except as documented *Neurologic Neurologic: Reports system reviewed and no additional complaints, except as documented Psychiatric Psychiatric: Reports system reviewed and no additional complaints, except as documented Meds Home Medications and Allergies Home Medications Medication Instructions Recorded Confirmed Type aspirin 81 mg tablet,delayed 81 mg PO DAILY AFIB 10/19/17 04/23/23 History release metoprolol tartrate 25 mg tablet 25 mg PO HS AFIB 10/19/17 04/23/23 History sertraline 100 mg tablet 150 mg PO DAILY ANIXETY #60 tabs 05/07/22 04/23/23 Rx alprazolam 0.5 mg tablet 0.25 mg PO TID PRN Anxiety #60 tabs 01/11/23 04/23/23 Rx New Prescriptions to Start Prescriptions: Allergies Allergy/AdvReac Type Severity Reaction Status Date / Time doxycycline Allergy Verified 01/11/23 15:31 Sulfa (Sulfonamide Allergy Verified 01/11/23 15:31 Antibiotics) From CIPROFLOXACIN PO TAB Allergy Unknown Uncoded 01/11/23 15:31 100 MG LIDOCAINE Allergy Unknown Hypotension Uncoded 01/11/23 15:31 From AUGMENTIN Allergy Uncoded 01/11/23 15:31
--- NOTE | 2023-04-23 22:58 | PC.NURSE ---
Amio drip changed to 0.5mg/min at 2254.
[2023-04-24] VITALS (10 sets, daily range): BP systolic 108–141; BP diastolic 62–75; PULSE 53–70; RESP 15–18; TEMP 36.6–37.3; O2SAT 93–98; BMI 25.7
--- NOTE | 2023-04-24 07:52 | EXP.PN ---
Subjective *Date: 04/24/23 *Time: 13:00 Interval history: No acute events overnight. No chest pain, palpitations, shortness of breath or lightheadedness. Exam Data for Last 24 hours Vital signs and Labs for Last 24 Hours: Temp Pulse Resp BP Pulse Ox O2 Del Method 97.9 F 53 L 15 119/65 94 L Room Air 04/24/23 00:00 04/24/23 06:00 04/24/23 06:00 04/24/23 06:00 04/24/23 06:00 04/24/23 07:00 Laboratory Results - last 24 hr 04/23/23 16:18: WBC 4.9, RBC 4.73, Hgb 13.0, Hct 39.1, MCV 82.7, MCH 27.6, MCHC 33.3, RDW 14.4, Plt Count 165, MPV 7.6, Neut % (Auto) 61.4, Lymph % (Auto) 29.6, [place] % (Auto) 5.6, Eos % (Auto) 2.8, Baso % (Auto) 0.6, Neut # (Auto) 3.0, Lymph # (Auto) 1.5, [place] # (Auto) 0.3, Eos # (Auto) 0.1, Baso # (Auto) 0.0, Sodium 141, Potassium 3.7, Chloride 106, Carbon Dioxide 26, Anion Gap 12.7, BUN 18 H, Creatinine 1.00, Estimated Creat Clear 49, Estimated GFR 55 L, Est GFR ( Amer) 66, Glucose 182 H, Calcium 9.5, Magnesium 2.2, Total Bilirubin 0.4, AST 37 H, ALT 22, Alkaline Phosphatase 62, Total Protein 7.5, Albumin 4.4, Globulin 3.1, Albumin/Globulin Ratio 1.4 04/23/23 16:19: VBG pH 7.44 H, VBG pCO2 40.9, VBG pO2 125.4 H, VBG HCO3 27.2, VBG Total CO2 28.5 H, VBG O2 Saturation 98.6 H, VBG Base Excess 3.1 H 04/23/23 16:40: SARS-CoV-2 (PCR) Not detected, Influenza A Untype (PCR) Not detected, Influenza Type B (PCR) Not detected 04/23/23 17:55: Urine Color Yellow, Urine Appearance Clear, Urine pH 6.0, Ur Specific Seltzer 1.015, Urine Protein Negative, Urine Glucose (UA) Negative, Urine Ketones Negative, Urine Blood Trace-i, Urine Nitrate Negative, Urine Bilirubin Negative, Urine Urobilinogen 0.2, Ur Leukocyte Esterase Negative, Urine RBC Occasional, Urine WBC None, Ur Squamous Epith Cells Occasional, Urine Bacteria Trace I & O for Last 24 hours: Intake & Output 04/21/23 04/22/23 04/23/23 04/24/23 23:59 23:59 23:59 23:59 Intake Total 759 / 759 Output Total 400 / 400 Balance -400 / -400 759 / 759 Weight 69.059 kg 68.181 kg Constitutional Constitutional: no acute distress *Routine HEENT Exam Head: Present normocephalic Eye: Present EOMI and PERRL ENT: Present mucous membranes moist *Routine Neck Exam Neck: Present supple; Absent lymphadenopathy *Routine Respiratory Exam Respiratory: Present CTA bilaterally *Routine Cardiovascular Exam Cardiovascular: Present RRR *Routine Abdominal Exam Abdominal: Present soft and normoactive bowel sounds; Absent tenderness *Routine Extremities Exam Extremities: Absent cyanosis, clubbing or edema *Routine Skin Exam Skin: Present warm; Absent rash *Routine Neurological Exam Neurological: Present alert and oriented X3 Assessment and Plan *Assessment and plan (1) Non-sustained ventricular tachycardia: Status: Acute Category: Medical Code(s): I47.29 - Other ventricular tachycardia (2) Paroxysmal atrial fibrillation: Status: Acute Category: Medical Code(s): I48.0 - Paroxysmal atrial fibrillation (3) Generalized anxiety disorder: Status: Acute Category: Medical Code(s): F41.1 - Generalized anxiety disorder Plan #nonsustained ventricular tachycardia #paroxysmal atrial fibrillation #anxiety Will transition from IV to PO amiodarone later today. Continue metoprolol PO 50mg BID. I really appreciate Cardiology's help. Continue telemetry. FULL CODE CARDIAC DIET DVT: SUB Q heparin
--- NOTE | 2023-04-24 09:44 | HMH.PHAINT1 ---
Pharmacy Intervention Comments: home medication list reviewed with patient and compared to outpatient pharmacy list. Pt reports taking metoprolol, but hasn't filled the medication since August 2022.
--- NOTE | 2023-04-24 18:30 | PC.NURSE ---
Patient has remained in NSR this shift, amiodarone drip completed at 1654 this afternoon, remains on RA, alert and oriented x4, has been up to BR with standby assist, denies any cp or soa, bed in lowest position with call light in reach, family at bedside.
[2023-04-25] VITALS: BP 125/71; PULSE 50; PULSE 60; RESP 16; TEMP 36.9; O2SAT 98
[2023-04-25 04:00] VITALS: BP 119/88; PULSE 50; PULSE 71; RESP 16; TEMP 36.9; O2SAT 99; BMI 25.2
--- NOTE | 2023-04-25 05:53 | PC.NURSE ---
Pt VSS, electronic device monitor shows NSR/Sinus Clark throughout shift. Pt has no complaints of dizziness or chest pain when standing to go to bathroom. Pt slept throughout shift with no complaints noted.
[2023-04-25 08:00] VITALS: BP 130/56; PULSE 61; PULSE 63; RESP 17; TEMP 36.9; O2SAT 97
--- NOTE | 2023-04-25 08:35 | EXP.PN ---
Subjective *Date: 04/25/23 *Time: 23:56 Interval history: No acute events overnight. No chest pain or shortness of breath. Exam Data for Last 24 hours Vital signs and Labs for Last 24 Hours: Temp Pulse Resp BP Pulse Ox O2 Del Method 98.5 F 71 16 119/88 99 Room Air 04/25/23 04:00 04/25/23 04:00 04/25/23 04:00 04/25/23 04:00 04/25/23 04:00 04/25/23 07:00 I & O for Last 24 hours: Intake & Output 04/22/23 04/23/23 04/24/23 04/25/23 23:59 23:59 23:59 23:59 Intake Total 1903 / 2143 240 / 240 Output Total 400 / 400 0 / 0 Balance -400 / -400 1903 / 2143 240 / 240 Weight 69.059 kg 68.181 kg 66.95 kg Constitutional Constitutional: no acute distress *Routine HEENT Exam Head: Present normocephalic Eye: Present EOMI and PERRL ENT: Present mucous membranes moist *Routine Neck Exam Neck: Present supple; Absent lymphadenopathy *Routine Respiratory Exam Respiratory: Present CTA bilaterally *Routine Cardiovascular Exam Cardiovascular: Present RRR *Routine Abdominal Exam Abdominal: Present soft and normoactive bowel sounds; Absent tenderness *Routine Extremities Exam Extremities: Absent cyanosis, clubbing or edema *Routine Skin Exam Skin: Present warm; Absent rash *Routine Neurological Exam Neurological: Present alert and oriented X3 Assessment and Plan *Assessment and plan (1) Non-sustained ventricular tachycardia: Status: Acute Category: Medical Code(s): I47.29 - Other ventricular tachycardia (2) Paroxysmal atrial fibrillation: Status: Acute Category: Medical Code(s): I48.0 - Paroxysmal atrial fibrillation (3) Generalized anxiety disorder: Status: Acute Category: Medical Code(s): F41.1 - Generalized anxiety disorder Plan #nonsustained ventricular tachycardia #paroxysmal atrial fibrillation #anxiety She hasn't had any more episodes of nonsustained ventricular tachycardia during this hospitalisation. Will continue telemetry. Continue amiodarone and metoprolol. Will order an echocardiogram. FULL CODE CARDIAC DIET DVT: SUB Q heparin
[2023-04-25 11:27] VITALS: BMI 25.2
[2023-04-25 12:00] VITALS: BP 130/66; PULSE 57; PULSE 60; RESP 17; TEMP 37.1; O2SAT 94
[2023-04-25 16:00] VITALS: BP 142/63; PULSE 60; PULSE 63; RESP 17; TEMP 37; O2SAT 96
--- NOTE | 2023-04-25 17:33 | PC.NURSE ---
Report given to Jens Hernandez RN who assumes care of patient at this time.
[2023-04-25 20:00] VITALS: BP 114/58; PULSE 60; PULSE 63; RESP 18; TEMP 37.1; O2SAT 99
[2023-04-26] VITALS: BP 115/55; PULSE 50; PULSE 58; RESP 16; TEMP 37; O2SAT 97
[2023-04-26 04:00] VITALS: BP 130/68; PULSE 65; PULSE 80; RESP 16; TEMP 36.7; O2SAT 95; BMI 25.1
[2023-04-26 08:00] VITALS: BP 115/69; PULSE 62; PULSE 70; RESP 18; TEMP 37.1; O2SAT 99
--- NOTE | 2023-04-26 09:17 | CA_ITS ---
APPROVED REPORT EXAM: Comprehensive 2D, Doppler, and color-flow Echocardiogram Clinic Manager: Gina Montano RVT Ht: 5 ft 4 in Wt: 147lbs BSA: 1.72 BP: 135/71 mmHg Indications: VT,AF,PALPS 2D Dimensions LVOT 1.81 cm (M/F) 1.5-2.5 M-Mode Dimensions RVDd 2.15 cm (0.9-2.6) LA Diam 2.44 cm (1.9-4.0) LVDd 5.22 cm (3.5-5.7) Ao Diam 3.12 cm (2.0-3.7) LVDs 3.58 cm (3.5-5.7) IVSd 0.72 cm (0.6-1.1) PWd 0.68 cm (0.6-1.1) EF (Teich) 58.90% FS 31.40% EDV (Teich) 130.70 mL TAPSE 2.18 (<1.7) ESV (Teich) 53.70 mL LV Diastology E Decel Time 200.00 (160-240 msec) E/A Ratio 0.8 MED E' 7.90 (< 7 cm/sec) E'/MED E' Ratio 5.30 (>14) LAT E' 6.00 (<10 cm/sec) E/LAT E' Ratio 6.98 (>14) Mitral Valve MV E Max Travis. 42.00 (40-130 cm/s) MV A Velocity 55.00 (40-130 cm/s) E/A Ratio 0.76 MV Decel. Time 200.00 (160-240 ms) MV PHT 59.00 ms Left Ventricle The left ventricle is normal size. The left ventricular systolic function is normal. The left ventricular ejection fraction is within the normal range. There is normal left ventricular wall thickness. There is normal LV segmental wall motion. The left ventricular diastolic function is normal. LVEF is 65%. Right Ventricle The right ventricle is normal size. The right ventricular systolic function is normal. Atria The left atrium size is normal. The right atrium size is normal. There is no Doppler evidence of interatrial shunt. Aortic Valve The aortic valve is mildly thickened. There is no aortic valvular stenosis. No aortic regurgitation is present. Mitral Valve The mitral valve is normal in structure. No evidence of mitral valve stenosis. Trace mitral regurgitation. Tricuspid Valve The tricuspid valve leaflets are thin and pliable. Trace tricuspid regurgitation. There is insufficient TR jet to estimate RVSP. Pulmonic Valve The pulmonary valve is normal in structure. Trace pulmonic regurgitation. Great Vessels The aortic root is normal in size. The ascending aorta is normal in size. IVC is normal in size and collapses >50% with inspiration. Pericardium There is no pericardial effusion. Other Information Study Quality: Adequate Conclusion Normal biventricular systolic function. No significant valvular disease. Electronically signed by : Soniya Waite, 04/26/2023 13:33:30
--- NOTE | 2023-04-26 09:23 | EXP.CARD.CON ---
History of Present Illness History of Present Illness Consult date: 04/26/23 Requesting physician: Garham Mast Chief complaint: palpitations, nsvt History of present illness: 73-year-old white female with past medical history of paroxysmal atrial fibrillation with no oac, palpitations, anxiety and hyperlipidemia presented to emergency department on 04/23 with complaints of dizziness and palpitations. Patient reports she was working outside and got very hot when symptoms started. Patient reports when symptoms did not subside she decided to call EMS. EMS reported multiple runs of nonsustained VT in route to emergency department in which amiodarone 300 mg was given, patient was in normal sinus rhythm upon presentation to emergency department with minimal symptoms. Patient was started on amiodarone drip and home dose of metoprolol was increased to 50 mg twice daily. Patient was admitted for observation and cardiology evaluation. This morning patient is sitting up in chair reporting no complaints. [facility] Disclaimer: The information contained in this section may have been updated after the patient was seen, as this information can be updated by other users. Medical History Asthma Chronic GERD Depression Dyspareunia Hyperlipidemia IBS (irritable bowel syndrome) Palpitations Paroxysmal atrial fibrillation Surgical History H/O: section Hx of cholecystectomy Family History Father Hypertension Mother CHF (congestive heart failure) Cancer Daughter Seizure Stroke Social History (Updated 04/23/23 @ 19:11 by Luz Jimenez RN) Smoking Status: Never smoker second hand exposure: No alcohol intake: never counseling given: No current occupational status: retired Travel in the last 8 weeks: None household members: family housing: house marital status: Review of Systems Review of Systems Review of systems:: pertinent systems reviewed and negative unless documented below *Cardiovascular Comments: Palpitations *Neurologic Neurologic: Reports system reviewed and no additional complaints, except as documented Exam Data for Last 24 hours Vital signs and Labs for Last 24 Hours: Temp Pulse Resp BP Pulse Ox O2 Del Method 98.7 F 62 18 115/69 99 Room Air 04/26/23 08:00 04/26/23 08:00 04/26/23 08:00 04/26/23 08:00 04/26/23 08:00 04/26/23 08:00 I & O for Last 24 hours: Intake & Output 04/23/23 04/24/23 04/25/23 04/26/23 23:59 23:59 23:59 23:59 Intake Total 1902 / 2142 1440 / 1440 360 / 360 Output Total 400 / 400 0 / 0 200 / 200 0 / 0 Balance -400 / -400 1903 / 214 1240 / 1240 360 / 360 Weight 152 lb 4 oz 150 lb 5 oz 147 lb 7.828 oz 147 lb 3.2 oz Constitutional Constitutional: no acute distress *Routine Respiratory Exam Respiratory: Present CTA bilaterally and symmetric chest movement *Routine Cardiovascular Exam Cardiovascular: Present RRR, Normal S1 and Normal S2 *Routine Abdominal Exam Abdominal: Present soft and normoactive bowel sounds; Absent tenderness *Routine Extremities Exam Extremities: Present full ROM and normal capillary refill; Absent edema *Routine Skin Exam Skin: Present intact, dry and warm Detailed Neck Exam: Thyroids Thyroid: Absent bruit Meds Home Medications and Allergies Home Medications Medication Instructions Recorded Confirmed Type aspirin 81 mg tablet,delayed 81 mg PO DAILY Heart health 10/19/17 04/23/23 History release sertraline 100 mg tablet 150 mg PO DAILY ANIXETY #60 tabs 05/07/22 04/23/23 Rx alprazolam 0.5 mg tablet 0.25 mg PO TID PRN Anxiety #60 tabs 01/11/23 04/23/23 Rx memantine 5 mg tablet 5 mg PO BID memory 04/24/23 04/24/23 History metoprolol tartrate 25 mg tablet 25 mg PO HS heart rate 04/24/23 04/24/23 History New Prescriptions to S
[2023-04-26 11:55] VITALS: BP 123/64; PULSE 63; RESP 17; TEMP 36.6; O2SAT 99
[2023-04-26 12:00] VITALS: PULSE 60
[2023-04-26 16:00] VITALS: BP 115/64; PULSE 60; RESP 16; TEMP 36.6; O2SAT 100
--- NOTE | 2023-04-27 14:17 | CARE MANAGER ---
Contacted patient related to hospital discharge. She has her medications and is aware of follow up appointments. Denies questions or concerns at this time. JYOTSNA Rodriguez
== END 2023-04-26 16:47 | disposition home or self-care (01) | DRG 310 ==
LOC: ER 17:52 → 2ND 18:34
PROVIDERS: Admitting Provider Internal Medicine; Emergency Provider Emergency Medicine; PCP Internal Medicine Adolescent Medicine; Visit Provider Internal Medicine
DX: I47.29 Other ventricular tachycardia (principal); I48.0 Paroxysmal atrial fibrillation; E78.5 Hyperlipidemia, unspecified; K21.9 Gastro-esophageal reflux disease without esophagitis; F32.A Depression, unspecified; Z87.891 Personal history of nicotine dependence; F41.1 Generalized anxiety disorder
CPT/HCPCS: 71045; 80053; 81001; 82803; 83735; 85025; 87636; 93005; 93225; 93306; 99291; J0282; J2405; J7060

== ENCOUNTER → 2023-04-27 16:54 | Outpatient (CLI) | payer MEDICARE, OTHER, SELFPAY | PROVIDERS: PCP Internal Medicine Adolescent Medicine; Visit Provider Internal Medicine | DX: R00.2 Palpitations (principal) | CPT/HCPCS: 93270 ==

== ENCOUNTER 2023-09-15 16:39 | Outpatient (CLI) | payer MEDICARE, OTHER, SELFPAY ==
[2023-09-15 18:23] LABS: Hemoglobin A1C 5.3 % (4.0-6.0)
== END 2023-09-15 23:59 ==
LOC: LAB.DROPOF 16:40
PROVIDERS: PCP Family Medicine; Visit Provider Family Medicine
DX: R73.9 Hyperglycemia, unspecified (principal)
CPT/HCPCS: 83036

== ENCOUNTER 2023-11-24 02:44 | Emergency (ER) | payer MEDICARE, OTHER, SELFPAY ==
[2023-11-24 02:44] VITALS: BP 155/81; PULSE 60; RESP 18; TEMP 36.5; O2SAT 100; BMI 23.3
--- NOTE | 2023-11-24 02:45 | HMH.EDGENADL ---
Discharge Plan Disposition Patient Disposition: Home, Self-Care Chief Complaint: Nausea/Vomiting/Diarrhea Prescriptions Prescriptions: No Action alprazolam 0.5 mg tablet 0.25 mg PO TID PRN (Reason: Anxiety) Qty: 60 2RF sertraline 100 mg tablet 150 mg PO DAILY Qty: 60 2RF amiodarone 200 mg tablet 100 mg PO BID memantine 10 mg tablet 10 mg PO BID Patient Comments: TAKE 1 TABLET 2 TIMES EACH DAY Xarelto 20 mg tablet 20 mg PO DAILY metoprolol tartrate 50 mg tablet 50 mg PO BID Qty: 120 3RF aspirin 81 MG tablet,delayed release (DR/EC) 81 mg PO DAILY Referrals Follow up/Referrals: Provider,Referral, MD [Primary Care Provider] - See instructions Activity Restrictions/Add. Instructions Additional Instructions/Restrictions: Your labs show that your kidney function is worsening. It is important that you follow-up with Dr. Lynne in the next 24 to 48 hours for recheck of your labs. Please return to the emergency department with any new or worsening symptoms or if you become concerned for your health. Clinical Impressions Clinical Impression: CELINA (acute kidney injury), Nausea Instructions Patient Instructions: DI for Diarrhea and Traveler's Diarrhea -- Adult, DI for Diarrhea and Traveler's Diarrhea -- Child, DI for Nausea -- Adult, DI for Nausea -- Child Discharge ED Provider: Sandeep Hunt General Adult HPI General Chief complaint: Nausea/Vomiting/Diarrhea Stated complaint: nausea/chills Time Seen by Provider: 11/24/23 02:45 History of Present Illness HPI narrative: 73-year-old female with history of paroxysmal A-fib and anxiety presents with nausea. Patient reports that she thinks that she might have food poisoning. She reports that she ate at a restaurant in [place] last night, and she awoke with nausea this morning approximately 2 hours prior to arrival by EMS. She reports the nausea was very severe and it was making her shaky. She denies any vomiting however. She denies any chest pain at any time, denies any abdominal pain or shortness of breath either.. She and report that she has had similar symptoms once before after eating at that restaurant. She denies any cardiac history. She was given some Zofran by EMS and is already feeling much better. She denies any urinary symptoms. She reports that when she has had paroxysmal A-fib in the past she has gotten shaky, but did not feel like this. Related Data Home Medications Medication Instructions Recorded Confirmed aspirin 81 mg tablet,delayed 81 mg PO DAILY Heart health 10/19/17 09/15/23 release amiodarone 200 mg tablet 100 mg PO BID 05/27/23 09/15/23 memantine 10 mg tablet 10 mg PO BID 06/15/23 09/15/23 rivaroxaban 20 mg tablet (Xarelto) 20 mg PO DAILY 06/15/23 09/15/23 Previous Rx's Medication Instructions Recorded sertraline 100 mg tablet 150 mg (1.5 x 100 mg) PO DAILY 05/07/22 ANIXETY #60 tabs metoprolol tartrate 50 mg tablet 50 mg PO BID #120 tabs 06/25/23 alprazolam 0.5 mg tablet 0.25 mg (1/2 x 0.5 mg) PO TID PRN 09/15/23 Anxiety #60 tabs Allergies Allergy/AdvReac Type Severity Reaction Status Date / Time doxycycline Allergy Verified 09/15/23 13:11 Sulfa (Sulfonamide Allergy Verified 09/15/23 13:11 Antibiotics) From CIPROFLOXACIN PO TAB Allergy Unknown Uncoded 09/15/23 13:11 100 MG LIDOCAINE Allergy Unknown Hypotension Uncoded 09/15/23 13:11 From AUGMENTIN Allergy Uncoded 09/15/23 13:11 PFSH [facility] Disclaimer: The information contained in this section may have been updated after the patient was seen, as this information can be updated by other users. Medical History Asthma Chronic GERD Depression Dyspareunia Hyperlipidemia IBS (irritable bowel syndrome) Palpitations Paroxysmal atrial fibrillation Surgical History H/O: section Hx of cholecystectomy Family History Father Hypertension Mother CHF (congestive heart failure) Cancer Daughter Seizure Stroke Social History Smoking Status: Never smoker second hand exposure: No alcohol intake: never counseling given: No current occupational status: retired Travel in the last 8 weeks: None household members: family housing: house marital status: ROS Obtained: Yes All systems reviewed & no additional complaints except as documented Physical Exam General General appearance: alert and in no apparent distress Head Head exam: atraumatic and normocephalic Eye Eye exam: Present normal appearance, PERRL and EOMI ENT ENT exam: Present normal oropharynx and normal external ear exam Neck Neck exam: Present normal inspection and full ROM Chest Chest inspection: Present normal inspection and symmetric chest wall rise; Absent tenderness Respiratory Respiratory exam: Present normal lung sounds bilaterally; Absent respiratory distress Cardiovascular Cardiovascular exam: Present normal rhythm and bradycardia Abdominal Exam Abdominal exam: Present soft; Absent distention, tenderness or guarding Extremities Exam Extremities exam: Present normal inspection; Absent edema or joint swelling Back Exam Back exam: Present normal inspection; Absent tenderness Neurological Exam Neurological exam: Present alert and oriented X3; Absent motor sensory deficit Psychiatric Psychiatric exam: Present normal affect and normal mood Skin Skin exam: Present warm, dry and normal color Lymphatic Lymphatic Findings: no adenopathy Medical Decision Making Medical Records Medical records reviewed: Yes I reviewed the patient's medical records. Narciso Inquiry Pt receiving controlled substance: No Narciso was queried for this patient: No Vital Signs: 11/24/23 02:44 Temperature 97.7 F Temperature Source Oral Pulse Rate [Left] 60 Respiratory Rate 18 Blood Pressure [Right Arm] 155/81 H Blood Pressure Mean [Right Arm] 105 Blood Pressure Source [Right Arm] Automatic Cuff 02 Sat by Pulse Oximetry 100 Oxygen Delivery Method Room Air Lab Data Lab results reviewed: Yes I reviewed the patient's lab results. Lab Results 11/24/23 02:50: WBC 4.8, RBC 4.86, Hgb 13.6, Hct 42.1, MCV 86.7, MCH 27.9, MCHC 32.2, RDW 15.0, Plt Count 147, MPV 8.3, Neut % (Auto) 54.2, Lymph % (Auto) 35.3, [place] % (Auto) 6.3, Eos % (Auto) 2.2, Baso % (Auto) 2.0, Neut # (Auto) 2.6, Lymph # (Auto) 1.7, [place] # (Auto) 0.3, Eos # (Auto) 0.1, Baso # (Auto) 0.1, Sodium 139, Potassium 4.0, Chloride 105, Carbon Dioxide 31 H, Anion Gap 7.0, BUN 19 H, Creatinine 1.70 H, Estimated Creat Clear 30, Estimated GFR 30 L, Est GFR ( Amer) 36 L, Glucose 105 H, Calcium 9.4, Total Bilirubin 0.5, AST 36, ALT 22, Alkaline Phosphatase 61, Total Protein 6.8, Albumin 4.2, Globulin 2.6, Albumin/Globulin Ratio 1.6 11/24/23 02:50 11/24/23 02:50 Orders (Tests/Meds): ED MEDICATIONS Generic Name Dose Route Start Last Admin Trade Name Freq PRN Reason Stop Dose Admin Lactated Ringer's 1,000 mls @ 999 mls/hr 11/24/23 03:00 11/24/23 03:04 Lactated Ringer's 1000 Ml Bag IV 11/24/23 04:00 999 mls/hr .Q1H1M JESSICA Administration Discontinued Medications Generic Name Dose Route Start Last Admin Trade Name Freq PRN Reason Stop Dose Admin Belladonna Alkaloids 60 ml 11/24/23 02:57 11/24/23 03:04 Belladonna Alkaloids 60 Ml Ml PO 11/24/23 02:58 60 ml ONCE ONE Administration ORDERS Category Date Time Status CBC w/Auto Diff [Complete Blood Count Auto Diff] Stat Lab 11/24/23 02:50 Completed CMP [Comprehensive Metabolic Panel] Stat Lab 11/24/23 02:50 Results Troponin I Q3H Lab 11/24/23 02:50 Results Troponin I Q3H Lab 11/24/23 06:00 Ordered ECG Data Tracing #1: I reviewed this ECG and interpreted as documented below: Sinus rhythm, bradycardic rate at 57, no concerning ST changes, no T wave changes, normal intervals. ECG initial impression date: 11/24/23 ECG initial impression time: 03:07 HEART Score History (anamnesis): Slightly suspicious ECG: Normal Age: >65 years Risk factors: No known risk factors Troponin: </= normal limit HEART Score: 2 Medical Decision Narrative: 73-year-old female with history of paroxysmal atrial fibrillation presents with nausea that awoke her from sleep, she thinks she ate something bad from a restaurant in [place] last night, nausea markedly improved prior to arrival with EMS administration of Zofran. History was obtained interactive discussion with patient, EMS, family, chart review. On arrival, patient is [afebrile, hemodynamically stable, satting appropriately, alert, oriented x4, GCS 15], moving all extremities spontaneously. Full physical exam performed and significant for benign abdominal exam. On my interpretation of rivet tapping machine operator, patient is in normal sinus rhythm, intermittently mildly bradycardic with rates in the high 50s. Differential includes but is not limited to ACS, GERD, gastroenteritis, food poisoning, hypoglycemia, arrhythmia. Patient was given 4 mg IV Zofran prior to arrival with EMS, received a cocktail and 1 L fluid bolus in ED for symptomatic management and correction of underlying abnormalities. Workup initiated including CBC CMP troponin EKG. Considered aspirin, but felt to be very low risk for ACS. It is possible that patient has cardiac pathology that is presenting as isolated nausea without chest pain, but given no history of ischemic heart disease, no significant risk factors, normal EKG and symptomatic improvement with antiemetics, it is felt to be extremely unlikely. Given this, we will obtain single set of labs including at least 1 troponin. The troponin was drawn approximately 2 hours after symptom onset. On re-evaluation, patient [remains afebrile, HD stable.] On my interpretation of rivet tapping machine operator, patient remains in sinus rhythm. Laboratory workup independently interpreted by me and significant for no leukocytosis, no hypoglycemia, elevated creatinine at 1.7 with baseline around 1.1. Initial troponin negative. EKG independently interpreted by me and significant for normal sinus rhythm with mild bradycardia. Radiographic imaging was considered, but deemed unnecessary due to benign physical exam. Given patient history, exam and workup, patient's presentation most likely represents nausea of uncertain etiology, may be related to what patient ate at this restaurant. She also has a mild acute kidney injury with creatinine 1.7, up from baseline of 1.1. I had extensive discussion with patient regarding her symptoms. She has had no recent medication changes. She has been eating and drinking normally. She has had no other significant symptoms or illness recently. I do not suspect that her CELINA is related to her relatively sudden onset (and now resolved) nausea, likely it was found incidentally. It is possible that it is related to her chronic amiodarone use, she is otherwise on no medications that should cause renal dysfunction. I offered the patient admission for further evaluation of CELINA. However, given she is otherwise well, I also discussed with her the possibility of discharge with rapid PCP follow-up. She reports that she sees Dr. Rao and is confident that she can be seen to have her labs rechecked in the next 24 to 48 hours. Given this, utilizing shared decision-making, we elected to discharge patient in stable condition with plans for PCP follow-up prior to the weekend. Return precautions were given. Procedures Risk/Benefits of Procedure(s) Were Explained: Yes Critical Care Critical Care Time Critical Care Time: No
--- NOTE | 2023-11-24 02:56 | PC.NURSE ---
[facility] administered 4 mg zofran IV
[2023-11-24] MEDS: BELLADONNA ALKALOIDS 60 ML ML PO (03:04)
[2023-11-24] MEDS: LACTATED RINGERS 1000ML 1,000 ML 999 ML IV (03:04)
[2023-11-24 03:05] LABS: Basophils # 0.1 K/mm3 (0-0.2); Eosinophils # 0.1 K/mm3 (0.0-0.4); Eosinophils % 2.2 % (0.1-12.0); Hematocrit 42.1 % (37.0-47.0); Hemoglobin 13.6 g/dL (12.2-16.2); Lymphocytes # 1.7 K/mm3 (0.7-4.5); Lymphocytes % 35.3 % (10-50); Mean Corpuscular HGB Conc 32.2 g/dL (31.8-35.4); Mean Corpuscular Hemoglobin 27.9 pg (27.0-31.2); Mean Corpuscular Volume 86.7 fl (81-99); Mean Platelet Volume 8.3 fl (7.4-10.4); Monocytes # 0.3 K/mm3 (0.1-1.0); Monocytes % 6.3 % (1.7-9.3); Neutrophils # 2.6 K/mm3 (1.8-7.8); Neutrophils % 54.2 % (37.0-80.0); Platelet Count 147 K/mm3 (142-424); Red Blood Count 4.86 M/mm3 (4.20-5.40); White Blood Count 4.8 K/mm3 (4.8-10.8)
--- NOTE | 2023-11-24 03:07 | ECG_ITS ---
APPROVED REPORT Exam: Resting ECG HR:57 bpm ECG Measurements Heart Rate 57 AXES [place] 203 P 89 QRSd 88 QRS 14 QT 438 T 62 QTc 433 Conclusion SINUS BRADYCARDIA LOW QRS VOLTAGE Electronically signed by : NORRIS BRINK, 11/24/2023 12:46:46
[2023-11-24 03:11] LABS: Chloride 105 mmol/L (98-107); Sodium 139 mmol/L (136-145)
[2023-11-24 03:13] LABS: Blood Urea Nitrogen 19 mg/dl (7-17); Creatinine Clearance Estimated 30 mL/min (50-200); Estimated Glomerular Filt Rate 30 ml/min (>60); GFR (African American) 36 ML/MIN (>60)
[2023-11-24 03:14] LABS: Alanine Aminotransferase 22 U/L (12-78); Albumin Level 4.2 g/dl (3.5-5.0); Albumin/Globulin Ratio 1.6 (1.1-1.8); Alkaline Phosphatase 61 U/L (38-126); Aspartate Amino Transferase 36 U/L (14-36); Bilirubin,Total 0.5 mg/dl (0.2-1.3); Calcium 9.4 mg/dl (8.4-10.2); Carbon Dioxide 31 mmol/L (22.0-30.0); Globulin 2.6 g/dL (1.3-3.2); Glucose 105 mg/dl (74-100); Total Protein,Serum 6.8 g/dl (6.3-8.2)
[2023-11-24 03:26] LABS: Troponin I < 0.01 ng/ml (0.00-0.034)
[2023-11-24 03:30] VITALS: BP 143/71; PULSE 59; O2SAT 99
[2023-11-24 03:51] VITALS: BP 141/73; PULSE 61; RESP 16; TEMP 36.5; O2SAT 99
== END 2023-11-24 03:58 | disposition home or self-care (01) ==
PROVIDERS: Emergency Provider Emergency Medicine
DX: N17.9 Acute kidney failure, unspecified (principal); R11.0 Nausea; I48.0 Paroxysmal atrial fibrillation; J45.909 Unspecified asthma, uncomplicated; E78.5 Hyperlipidemia, unspecified; R00.1 Bradycardia, unspecified
CPT/HCPCS: 80053; 84484; 85025; 93005; 96360; 99285

== ENCOUNTER 2024-01-24 12:57 | Emergency (ER) | payer MEDICARE, OTHER, SELFPAY ==
[2024-01-24 12:58] VITALS: BP 115/64; PULSE 66; RESP 13; TEMP 36.9; O2SAT 98; BMI 22.3
--- NOTE | 2024-01-24 13:22 | XR_ITS ---
FINAL REPORT TECHNIQUE: Chest PA & Lateral CLINICAL HISTORY: cough, congestion COMPARISON: 12/26/2017 FINDINGS: 2 views of the chest were performed. The heart size is normal. The mediastinum is within normal limits. There is no acute cardiopulmonary process. There are mild chronic changes in the lungs, similar to the prior study. There are no pleural effusions. There is no pneumothorax. The bony thorax appears intact. IMPRESSION: Mild chronic changes without acute cardiopulmonary process. Reviewed, Interpreted and Dictated by Nick Glynn MD Transcribed by Elizabeth Rowland Authenticated and [facility]
--- NOTE | 2024-01-24 13:28 | ED_ITS ---
Discharge Plan Disposition Patient Disposition: Home, Self-Care Prescriptions Prescriptions: New benzonatate 100 mg capsule 100 mg PO TID PRN (Reason: cough) 5 Days Qty: 20 0RF albuterol sulfate 90 mcg/actuation HFA aerosol inhaler 4 inh inhalation Q4H PRN (Reason: shortness of breath or wheezing) Qty: 8.5 0RF Rx Instructions: 4 puffs every 4 hours for 48 hours then as needed for shortness of breath or wheezing following loperamide 2 mg capsule 2 mg PO Q6H PRN (Reason: loose stool) 5 Days Qty: 20 0RF Rx Instructions: Please take 4 mg initially, followed by 2 mg after each loose stool, maximum 16 mg/day ondansetron 4 mg tablet,disintegrating 4 mg PO Q6H PRN (Reason: nausea and vomiting) 5 Days Qty: 20 0RF prednisone 50 mg tablet 50 mg PO DAILY 5 Days Qty: 5 0RF Rx Instructions: Please begin 1 day after ED visit No Action alprazolam 0.5 mg tablet 0.25 mg PO TID PRN (Reason: Anxiety) Qty: 60 2RF sertraline 100 mg tablet 150 mg PO DAILY Qty: 60 2RF amiodarone 200 mg tablet 100 mg PO BID memantine 10 mg tablet 10 mg PO BID Patient Comments: TAKE 1 TABLET 2 TIMES EACH DAY Xarelto 20 mg tablet 20 mg PO DAILY metoprolol tartrate 50 mg tablet 50 mg PO BID Qty: 120 3RF aspirin 81 MG tablet,delayed release (DR/EC) 81 mg PO DAILY ondansetron HCl 4 mg tablet 4 mg PO Q8H PRN (Reason: nausea and vomiting) 5 Days Qty: 30 0RF Referrals Follow up/Referrals: Nestor Rao MD [Primary Care Provider] - See instructions Activity Restrictions/Add. Instructions Additional Instructions/Restrictions: No evidence of cardiopulmonary emergency specifically pneumonia. With the laryngitis cough congestion and diarrhea this is consistent with a viral syndrome. COVID and flu are negative. Treatment is supportive return with any significant worsening of your symptoms. You may take Tylenol as needed at home for pain or fever. Otherwise supportive symptomatic medications have been prescribed. Clinical Impressions Clinical Impression: Cough, Laryngitis, Diarrhea, Viral syndrome Discharge ED Provider: Razia Iyer General Adult HPI General Chief complaint: Weakness Stated complaint: abd pain, nausea, weak, confusion, light headed Time Seen by Provider: 01/24/24 13:14 Mode of Arrival: Ambulatory Source of Information: Patient Limitations: No Limitations Description of Symptoms (Recalled from ER Triage Doc. by RN): pt presents to ED with granddaughter. pt reports feeling dizziness, weakness, nausea, productive cough. symptoms ongoing for the past week. granddaughter reports pt has been having times of confusion. pt reports last night she began to have hoarseness. History of Present Illness HPI narrative: Patient is a 74-year-old female brought in by granddaughter for multiple complaints. The patient states that she has had congestion diarrhea and cough over the last few days. She states she feels like she is cannot cough everythi ng up but has had some green sputum. She has subjective fever at home no objective temperature measurements. No antipyretics such as Tylenol or ibuprofen prior to arrival. She denies any significant shortness of breath or chest pain. She did not discuss with me feeling dizzy or weak but did disclose this in triage. She also has had some hoarseness to her voice that she previously had not had prior to yesterday. Related Data Home Medications Medication Instructions Recorded Confirmed aspirin 81 mg tablet,delayed 81 mg PO DAILY Heart health 10/19/17 09/15/23 release amiodarone 200 mg tablet 100 mg PO BID 05/27/23 09/15/23 memantine 10 mg tablet 10 mg PO BID 06/15/23 09/15/23 rivaroxaban 20 mg tablet (Xarelto) 20 mg PO DAILY 06/15/23 09/15/23 Previous Rx's Medication Instructions Recorded sertraline 100 mg tablet 150 mg (1.5 x 100 mg) PO DAILY 05/07/22 ANIXETY #60 tabs metoprolol tartrate 50 mg tablet 50 mg PO BID #120 tabs 06/25/23 alprazolam 0.5 mg tablet 0.25 mg (1/2 x 0.5 mg) PO TID PRN 09/15/23 Anxiety #60 tabs ondansetron HCl 4 mg tablet 4 mg PO Q8H PRN nausea and 11/24/23 vomiting 5 days #30 tabs albuterol sulfate 90 mcg/actuation 4 inh inhalation Q4H PRN shortness 01/24/24 aerosol inhaler of breath or wheezing #8.5 grams benzonatate 100 mg capsule 100 mg PO TID PRN cough 5 days #20 01/24/24 caps loperamide 2 mg capsule 2 mg PO Q6H PRN loose stool 5 days 01/24/24 #20 caps ondansetron 4 mg disintegrating 4 mg PO Q6H PRN nausea and 01/24/24 tablet vomiting 5 days #20 tabs prednisone 50 mg tablet 50 mg PO DAILY 5 days #5 tabs 01/24/24 Allergies Allergy/AdvReac Type Severity Reaction Status Date / Time doxycycline Allergy Verified 09/15/23 13:11 Sulfa (Sulfonamide Allergy Verified 09/15/23 13:11 Antibiotics) From CIPROFLOXACIN PO TAB Allergy Unknown Uncoded 09/15/23 13:11 100 MG LIDOCAINE Allergy Unknown Hypotension Uncoded 09/15/23 13:11 From AUGMENTIN Allergy Uncoded 09/15/23 13:11 PFSH [facility] Disclaimer: The information contained in this section may have been updated after the patient was seen, as this information can be updated by other users. Medical History Asthma Chronic GERD Depression Dyspareunia Hyperlipidemia IBS (irritable bowel syndrome) Palpitations Paroxysmal atrial fibrillation Surgical History H/O: section Hx of cholecystectomy Family History Father Hypertension Mother CHF (congestive heart failure) Cancer Daughter Seizure Stroke Social History Smoking Status: Never smoker second hand exposure: No alcohol intake: never counseling given: No current occupational status: retired Travel in the last 8 weeks: None household members: family housing: house marital status: ROS Obtained: Yes All systems reviewed & no additional complaints except as documented Physical Exam General General appearance: alert and in no apparent distress ENT ENT exam: Present normal exam and normal oropharynx Neck Neck exam: Present normal inspection and full ROM Chest Chest inspection: Present normal inspection and symmetric chest wall rise Respiratory Respiratory exam: Present normal lung sounds bilaterally and other (Oxygen saturation 100% on room air patient has a hoarse voice); Absent respiratory distress Cardiovascular Cardiovascular exam: Present regular rate and normal rhythm Abdominal Exam Abdominal exam: Present soft; Absent distention or tenderness Neurological Exam Neurological exam: Present alert and oriented X3 Medical Decision Making Narciso Inquiry Pt receiving controlled substance: No Vital Signs: 01/24/24 12:58 01/24/24 13:30 01/24/24 13:59 Temperature 98.5 F Temperature Source Oral Pulse Rate 60 60 Pulse Rate [Left Radial] 66 Respiratory Rate 13 Blood Pressure 107/54 L 121/62 Blood Pressure [Right Arm] 115/64 Blood Pressure Mean 78 Blood Pressure Mean [Right Arm] 81 02 Sat by Pulse Oximetry 98 98 100 Oxygen Delivery Method Room Air Room Air 01/24/24 14:30 Temperature Temperature Source Pulse Rate 58 L Pulse Rate [Left Radial] Respiratory Rate Blood Pressure 123/60 Blood Pressure [Right Arm] Blood Pressure Mean Blood Pressure Mean [Right Arm] 02 Sat by Pulse Oximetry 100 Oxygen Delivery Method Room Air Lab Data Lab results reviewed: Yes I reviewed the patient's lab results. Lab Results 01/24/24 13:30: SARS-CoV-2 (PCR) Not detected, Influenza A Untype (PCR) Not detected, Influenza Type B (PCR) Not detected Orders (Tests/Meds): ED MEDICATIONS Discontinued Medications Generic Name Dose Route Start Last Admin Trade Name Freq PRN Reason Stop Dose Admin Acetaminophen 1,000 mg 01/24/24 13:22 01/24/24 13:42 Acetaminophen 500mg Tab PO 01/24/24 13:23 1,000 mg ONCE ONE Administration Albuterol/Ipratropium 3 ml 01/24/24 13:22 01/24/24 13:43 Ipratropium/Albuterol 3 Ml Neb IH 01/24/24 13:23 3 ml ONCE ONE Administration Benzonatate 100 mg 01/24/24 13:30 01/24/24 13:42 Benzonatate 100mg Capsule PO 01/24/24 13:31 100 mg ONCE ONE Administration Prednisone 60 mg 01/24/24 13:30 01/24/24 14:00 Prednisone 20mg Tab PO 01/24/24 13:31 60 mg ONCE ONE Administration ORDERS Category Date Time Status Chest XR 2 view (NOT portable) [XR chest 2V] Stat Exams 01/24/24 13:22 Completed Rapid PCR Covid and Flu A/B Stat Lab 01/24/24 13:30 Completed Medical Decision Narrative: Very well-appearing 74-year-old female presents today with a hoarse voice cough and congestion subjective fever at home and some diarrhea. This is all consistent with a viral syndrome. Oxygen saturations respiratory effort or respiratory exam are normal at the low pretest probability for pneumonia but is certainly still in the differential we will get a two-view chest x-ray to further evaluate this. Will treat symptomatically with a DuoNeb benzonatate and steroids specifically for the laryngitis component of what is going on. I do not feel there is any indication for labs at the moment. Vital signs are completely stable and exam is otherwise unremarkable. I will reassess after initial workup is complete. Chest x-ray performed to person interpreted shows no acute cardiopulmonary emergency specifically no evidence of a focal or large lobar consolidation Reassessment 3:03 PM patient feeling much better serial respiratory exams are normal this is consistent with a viral syndrome COVID and flu were negative. Chest x-ray was unremarkable. Will treat symptomatically with albuterol benzonatate also Zofran and loperamide. Additionally 5 days of prednisone have been prescribed for laryngitis. Return precautions emphasized patient discharged in stable improved condition. Critical Care Critical Care Time Critical Care Time: No
[2024-01-24 13:30] VITALS: BP 107/54; PULSE 60; O2SAT 98
[2024-01-24 13:32] LABS: Coronavirus 19, PCR Not Detected (NotDetected); Influenza A, PCR Not Detected (NotDetected); Influenza B, PCR Not Detected (NotDetected)
[2024-01-24] MEDS: ACETAMINOPHEN 500MG TAB 1000 MG PO (13:42)
[2024-01-24] MEDS: BENZONATATE 100MG CAPSULE 100 MG PO (13:42)
[2024-01-24] MEDS: IPRATROPIUM/ALBUTEROL 3 ML NEB IH (13:43)
[2024-01-24 13:59] VITALS: BP 121/62; PULSE 60; O2SAT 100
[2024-01-24] MEDS: predniSONE 20MG TAB 60 MG PO (14:00)
[2024-01-24 14:30] VITALS: BP 123/60; PULSE 58; O2SAT 100
[2024-01-24 15:00] VITALS: BP 110/56; PULSE 57; O2SAT 100
[2024-01-24 15:22] VITALS: BP 110/56; PULSE 58; RESP 13; TEMP 36.7
== END 2024-01-24 15:23 | disposition home or self-care (01) ==
PROVIDERS: Emergency Provider Student in an Organized Health Care Education/Training Program; PCP Internal Medicine Adolescent Medicine
DX: R05.9 Cough, unspecified (principal); J04.0 Acute laryngitis; R19.7 Diarrhea, unspecified; B34.9 Viral infection, unspecified; R50.9 Fever, unspecified
CPT/HCPCS: 71046; 87636; 99283

== ENCOUNTER 2024-02-16 13:56 | Emergency (ER) | payer MEDICARE, OTHER, SELFPAY ==
--- NOTE | 2024-02-16 14:06 | ED_ITS ---
<Statement entered by Razia Iyer MD - 02/17/24 07:14> I was consulted by the DANIKA, and we discussed the complexity of the problems being addressed. I approved the treatment and management plan for this patient's care in the emergency department, thus performing a substantive portion of the medical decision making. Razia Iyer MD, ALBERT, FACEP Discharge Plan Disposition Patient Disposition: Home, Self-Care Condition: Good Prescriptions Prescriptions: No Action alprazolam 0.5 mg tablet 0.25 mg PO TID PRN (Reason: Anxiety) Qty: 60 2RF sertraline 100 mg tablet 150 mg PO DAILY Qty: 60 2RF amiodarone 200 mg tablet 100 mg PO BID memantine 10 mg tablet 10 mg PO BID Patient Comments: TAKE 1 TABLET 2 TIMES EACH DAY Xarelto 20 mg tablet 20 mg PO DAILY metoprolol tartrate 50 mg tablet 50 mg PO BID Qty: 120 3RF aspirin 81 MG tablet,delayed release (DR/EC) 81 mg PO DAILY benzonatate 100 mg capsule 100 mg PO TID PRN (Reason: cough) 5 Days Qty: 20 0RF albuterol sulfate 90 mcg/actuation HFA aerosol inhaler 4 inh inhalation Q4H PRN (Reason: shortness of breath or wheezing) Qty: 8.5 0RF Rx Instructions: 4 puffs every 4 hours for 48 hours then as needed for shortness of breath or wheezing following loperamide 2 mg capsule 2 mg PO Q6H PRN (Reason: loose stool) 5 Days Qty: 20 0RF Rx Instructions: Please take 4 mg initially, followed by 2 mg after each loose stool, maximum 16 mg/day ondansetron 4 mg tablet,disintegrating 4 mg PO Q6H PRN (Reason: nausea and vomiting) 5 Days Qty: 20 0RF prednisone 50 mg tablet 50 mg PO DAILY 5 Days Qty: 5 0RF Rx Instructions: Please begin 1 day after ED visit ondansetron HCl 4 mg tablet 4 mg PO Q8H PRN (Reason: nausea and vomiting) 5 Days Qty: 30 0RF Referrals Follow up/Referrals: Nestor Rao MD [Primary Care Provider] - See instructions Activity Restrictions/Add. Instructions Additional Instructions/Restrictions: Please call and schedule follow-up with your primary care physician for close follow-up and further workup of your adrenal mass. I recommend scheduling a colonoscopy with the provider your PCP recommends. Return to ER for any worsening signs or symptoms as needed. Clinical Impressions Clinical Impression: Asthenia, Constipation Instructions Patient Instructions: DI for Constipation, DI for Muscle Weakness Discharge ED Provider: Zechariah Madison General Adult HPI General Chief complaint: Weakness Stated complaint: Pain in L side of back Time Seen by Provider: 02/16/24 14:06 History of Present Illness HPI narrative: Patient presents for evaluation of generalized weakness and left-sided flank pain. Patient states for the last month she has been feeling weak in a nonspecific way. However yesterday and today she reports sitting down and falling immediately asleep and feeling groggy when she woke up. She denies any memory loss, difficulty with speech or memory, no chest pain short of breath fever chills hemoptysis hematochezia melena hematemesis hematuria vomiting or diarrhea but does endorse some nausea Related Data Home Medications Medication Instructions Recorded Confirmed aspirin 81 mg tablet,delayed 81 mg PO DAILY [facility] 10/19/17 09/15/23 release amiodarone 200 mg tablet 100 mg PO BID 05/27/23 09/15/23 memantine 10 mg tablet 10 mg PO BID 06/15/23 09/15/23 rivaroxaban 20 mg tablet (Xarelto) 20 mg PO DAILY 06/15/23 09/15/23 Previous Rx's Medication Instructions Recorded sertraline 100 mg tablet 150 mg (1.5 x 100 mg) PO DAILY 05/07/22 ANIXETY #60 tabs metoprolol tartrate 50 mg tablet 50 mg PO BID #120 tabs 06/25/23 alprazolam 0.5 mg tablet 0.25 mg (1/2 x 0.5 mg) PO TID PRN 09/15/23 Anxiety #60 tabs ondansetron HCl 4 mg tablet 4 mg PO Q8H PRN nausea and 11/24/23 vomiting 5 days #30 tabs albuterol sulfate 90 mcg/actuation 4 inh inhalation Q4H PRN shortness 01/24/24 aerosol inhaler of breath or wheezing #8.5 grams benzonatate 100 mg capsule 100 mg PO TID PRN cough 5 days #20 01/24/24 caps loperamide 2 mg capsule 2 mg PO Q6H PRN loose stool 5 days 01/24/24 #20 caps ondansetron 4 mg disintegrating 4 mg PO Q6H PRN nausea and 01/24/24 tablet vomiting 5 days #20 tabs prednisone 50 mg tablet 50 mg PO DAILY 5 days #5 tabs 01/24/24 Allergies Allergy/AdvReac Type Severity Reaction Status Date / Time doxycycline Allergy Verified 09/15/23 13:11 Sulfa (Sulfonamide Allergy Verified 09/15/23 13:11 Antibiotics) From CIPROFLOXACIN PO TAB Allergy Unknown Uncoded 09/15/23 13:11 100 MG LIDOCAINE Allergy Unknown Hypotension Uncoded 09/15/23 13:11 From AUGMENTIN Allergy Uncoded 09/15/23 13:11 PFSH PFS Disclaimer: The information contained in this section may have been updated after the patient was seen, as this information can be updated by other users. Medical History Asthma Chronic GERD Depression Dyspareunia Hyperlipidemia IBS (irritable bowel syndrome) Palpitations Paroxysmal atrial fibrillation Surgical History H/O: section Hx of cholecystectomy Family History Father Hypertension Mother CHF (congestive heart failure) Cancer Daughter Seizure Stroke Social History Smoking Status: Never smoker second hand exposure: No alcohol intake: never counseling given: No current occupational status: retired Travel in the last 8 weeks: None household members: family housing: house marital status: ROS Obtained: Yes Systems reviewed as appropriate & no additional complaints except as documented Physical Exam General General appearance: alert and in no apparent distress Head Head exam: atraumatic and normal inspection Eye Eye exam: Present normal appearance, PERRL and EOMI ENT ENT exam: Present normal exam, normal oropharynx and mucous membranes moist; Absent TM's normal bilaterally (Right TM is normal left TM is occluded by cerumen) Neck Neck exam: Present normal inspection, full ROM, trachea midline and other (No carotid bruits); Absent tenderness or lymphadenopathy Chest Chest inspection: Present normal inspection and symmetric chest wall rise Respiratory Respiratory exam: Present normal lung sounds bilaterally; Absent respiratory distress, wheezes or stridor Cardiovascular Cardiovascular exam: Present regular rate, normal rhythm, normal heart sounds, +S1 and +S2 Abdominal Exam Abdominal exam: Present soft and normal bowel sounds; Absent tenderness Extremities Exam Extremities exam: Present normal inspection and full ROM Back Exam Back exam: Present normal inspection, full ROM and tenderness (Tenderness to percussion on the left flank) Neurological Exam Neurological exam: Present alert, oriented X3 and CN II-XII intact Psychiatric Psychiatric exam: Present normal affect and normal mood Skin Skin exam: Present warm, dry and normal color Medical Decision Making Medical Records Medical records reviewed: Yes I reviewed the patient's medical records. Narciso Inquiry Pt receiving controlled substance: No Vital Signs: 02/16/24 14:11 Temperature 98.6 F Temperature Source Oral Pulse Rate [Left Radial] 62 Respiratory Rate 16 Blood Pressure [Right Arm] 150/70 H Blood Pressure Mean [Right Arm] 96 02 Sat by Pulse Oximetry 100 Oxygen Delivery Method Room Air Lab Data Lab results reviewed: Yes I reviewed the patient's lab results. Lab Results 02/16/24 14:39: WBC 3.2 L, RBC 4.52, Hgb 12.5, Hct 38.4, MCV 85.0, MCH 27.7, MCHC 32.5, RDW 14.8, Plt Count 120 L, MPV 8.4, Neut % (Auto) 65.8, Lymph % (Auto) 25.8, [place] % (Auto) 5.5, Eos % (Auto) 1.8, Baso % (Auto) 1.1, Neut # (Auto) 2.1, Lymph # (Auto) 0.8, [place] # (Auto) 0.2, Eos # (Auto) 0.1, Baso # (Auto) 0.0, PT 11.2, INR 1.04, Sodium 139, Potassium 4.0, Chloride 102, Carbon Dioxide 26, Anion Gap 15.0, BUN 19 H, Creatinine 1.30 H, Estimated Creat Clear 38, Estimated GFR 40 L, Est GFR ( Amer) 49 L, Glucose 83, Calcium 9.3, Magnesium 2.2, Total Bilirubin 0.6, AST 25, ALT 11 L, Alkaline Phosphatase 48, Troponin I < 0.01, Total Protein 6.3, Albumin 3.7, Globulin 2.6, Albumin/Globulin Ratio 1.4, TSH 0.82 02/16/24 14:53: Urine Color Yellow, Urine Appearance Clear, Urine pH 5.5, Ur Specific [place] >= 1.030, Urine Protein Negative, Urine Glucose (UA) Negative, Urine Ketones 1+, Urine Blood 1+, Urine Nitrate Negative, Urine Bilirubin 1+ A, Urine Urobilinogen 0.2, Ur Leukocyte Esterase Negative, Urine RBC Occasional, Urine WBC None, Ur Squamous Epith Cells Occasional, Urine Bacteria None 02/16/24 14:39 02/16/24 14:39 Orders (Tests/Meds): ED MEDICATIONS Discontinued Medications Generic Name Dose Route Start Last Admin Trade Name Freq PRN Reason Stop Dose Admin Acetaminophen 1,000 mg 02/16/24 14:25 02/16/24 14:42 Acetaminophen 1,000mg/100ml Vial IV 02/16/24 14:26 1,000 mg ONCE ONE Administration Lactated Ringer's 1,000 mls @ 999 mls/hr 02/16/24 14:25 02/16/24 14:42 Lactated Ringer's 1000 Ml Bag IV 02/16/24 15:25 999 mls/hr .Q1H1M ONE Administration Iopamidol 75 ml 02/16/24 15:24 02/16/24 15:25 Iopamidol-370 (76%);100ml Bottle IV 02/16/24 15:25 75 ml ONCE ONE Administration Iopamidol 75 ml 02/16/24 15:30 02/16/24 15:30 Iopamidol-370 (76%);100ml Bottle IV 02/16/24 15:31 75 ml ONCE ONE Administration Ondansetron HCl 4 mg 02/16/24 14:25 02/16/24 14:42 Ondansetron 4mg/2ml Vial IV 02/16/24 14:26 4 mg ONCE ONE Administration Sodium Chloride 10 ml 02/16/24 15:24 02/16/24 15:25 Sodium Chloride 0.9% 10ml Syr (Rad Only) IV 02/16/24 15:25 10 ml ONCE ONE Administration ORDERS Category Date Time Status CT abdomen pelvis w con Stat Cat Scan 02/16/24 14:25 Completed Chest XR -- portable [XR chest portable] Stat Exams 02/16/24 14:25 Completed CBC w/Auto Diff [Complete Blood Count Auto Diff] Stat Lab 02/16/24 14:39 Completed CMP [Comprehensive Metabolic Panel] Stat Lab 02/16/24 14:39 Completed INR [Prothrombin Time INR] Stat Lab 02/16/24 14:39 Completed Magnesium Stat Lab 02/16/24 14:39 Completed TSH [Thyroid Stimulating Hormone] Stat Lab 02/16/24 14:39 Completed Trop I [Troponin I] Stat Lab 02/16/24 14:39 Completed Troponin I Q3H Lab 02/16/24 17:30 Ordered Troponin I Q3H Lab 02/16/24 20:30 Ordered UA [Urinalysis and Microscopic] Stat Lab 02/16/24 14:53 Completed Medical Decision Narrative: In summary patient is a 74-year-old female who presents to the emergency department for evaluation of asthenia and actually abdominal pain. Patient is hemodynamically stable upon arrival, afebrile. Physical exam is unremarkable and nonfocal including known neurologic deficits Foley Coma Score 15 no focal abdominal tenderness slightly tenderness to percussion in the left flank. Differential diagnosis includes stroke versus heart attack versus infection versus constipation etc. Initial workup will be conducted with hematologic labs CT scan of the abdomen pelvis urinalysis. I considered CT scan of the head however patient has no focal neurologic deficits to suggest stroke and no acute changes to suggest the same. Initial interventions include crystalloid bolus Tylenol Zofran continuous cardiac monitoring continuous pulse oximetry. Initial workup reviewed by me shows that her hematologic labs are nonactionable including normal white count with no shift normal H&H chronic kidney disease with no worsening of her renal function and my informal interpretation of her CT scan of her abdomen pelvis shows significant sigmoid and descending colon diverticulosis without diverticulitis patient has incidentally found left adrenal cystic mass of undetermined significance prior to radiology read. Upon repeat evaluation patient reports moderate symptomatic improvement after initial interventions. Given this, have not specifically answer the question of her weakness but I have ruled out any serious or life-threatening problems today and patient is referred back to her PCP for close follow-up and further workup of her adrenal mass. I recommend a gastroenterology consult for colonoscopy given her CT scan findings Critical Care Critical Care Time Critical Care Time: No
--- NOTE | 2024-02-16 14:07 | ECG_ITS ---
APPROVED REPORT Exam: Resting ECG HR:60 bpm ECG Measurements Heart Rate 60 AXES OH 189 P 77 QRSd 86 QRS 36 QT 446 T 65 QTc 446 Conclusion SINUS RHYTHM LOW QRS VOLTAGE IN PRECORDIAL LEADS [QRS DEFLECTION < 1.0 mV IN CHEST LEADS] BORDERLINE ECG Electronically signed by : VIRY PATTON, 02/17/2024 19:10:36
[2024-02-16 14:11] VITALS: BP 150/70; PULSE 62; RESP 16; TEMP 37; O2SAT 100; BMI 22.9
--- NOTE | 2024-02-16 14:25 | CT_ITS ---
FINAL REPORT CLINICAL HISTORY: Abdominal pain, constipation COMPARISON: None FINDINGS: CT OF THE ABDOMEN AND PELVIS WITH CONTRAST Axial CT images of the abdomen and pelvis were obtained after the administration of IV contrast. Coronal reformatted images were also obtained and reviewed.This study was performed with techniques to keep radiation doses as low as reasonably achievable (ALARA). Individualized dose reduction techniques using automated exposure control or adjustment of mA and/or kV according to the patient's size were employed. Abdomen: There is mild bibasilar atelectasis. The heart is normal in size. Post cholecystectomy. There is mild biliary dilatation favored to be related to post cholecystectomy change. There is low-attenuation in the medial segment of the left hepatic lobe favored to represent an area of sparing fatty infiltration. The spleen is unremarkable. No adrenal mass is present. The pancreas has an unremarkable appearance. The kidneys are normal, without evidence of mass or hydronephrosis. The aorta is normal in caliber. There is no free fluid or adenopathy. No mass or abnormal fluid collection is seen. Descending and sigmoid diverticulosis is noted. Pelvis: The appendix is not seen but there are no secondary signs of appendicitis. The urinary bladder is unremarkable. There is a cystic left adrenal mass measuring 4.1 cm which may represent cyst or possibly cystic neoplasm. There is a small amount of pelvic free fluid which is likely reactive. There is no evidence of bowel obstruction. IMPRESSION: Left adrenal mass may represent cyst or possibly cystic neoplasm. Diverticulosis. Reviewed, Interpreted and Dictated by Iban Alexander III, MD Transcribed by Elizabeth Rowland Authenticated and . [facility]
--- NOTE | 2024-02-16 14:25 | XR_ITS ---
FINAL REPORT TECHNIQUE: 01/24/2024 CLINICAL HISTORY: asthenia COMPARISON: 01/24/2024 FINDINGS: A single portable view of the chest was obtained. The heart size and pulmonary vascularity are within normal limits. The mediastinum is within normal limits. No acute pulmonary abnormality is identified. The bony thorax is intact. IMPRESSION: No active cardiopulmonary disease. Reviewed, Interpreted and Dictated by Iban Alexander III, MD Transcribed by Elizabeth Rowland Authenticated and [facility]
[2024-02-16] MEDS: ACETAMINOPHEN 1,000MG/100ML VIAL 1000 MG IV (14:42)
[2024-02-16] MEDS: LACTATED RINGERS 1000ML 1,000 ML 999 ML IV (14:42)
[2024-02-16] MEDS: ONDANSETRON 4MG/2ML VIAL 4 MG IV (14:42)
[2024-02-16 14:50] LABS: Basophils % 1.1 % (0.1-2.0); Eosinophils # 0.1 K/mm3 (0.0-0.4); Eosinophils % 1.8 % (0.1-12.0); Hematocrit 38.4 % (37.0-47.0); Hemoglobin 12.5 g/dL (12.2-16.2); Lymphocytes # 0.8 K/mm3 (0.7-4.5); Lymphocytes % 25.8 % (10-50); Mean Corpuscular HGB Conc 32.5 g/dL (31.8-35.4); Mean Corpuscular Hemoglobin 27.7 pg (27.0-31.2); Mean Platelet Volume 8.4 fl (7.4-10.4); Monocytes # 0.2 K/mm3 (0.1-1.0); Monocytes % 5.5 % (1.7-9.3); Neutrophils # 2.1 K/mm3 (1.8-7.8); Neutrophils % 65.8 % (37.0-80.0); Platelet Count 120 K/mm3 (142-424); Red Blood Count 4.52 M/mm3 (4.20-5.40); Red Cell Distribution Width 14.8 % (11.5-17.5); White Blood Count 3.2 K/mm3 (4.8-10.8)
[2024-02-16 14:51] LABS: Chloride 102 mmol/L (98-107); Sodium 139 mmol/L (136-145)
[2024-02-16 14:54] LABS: Alanine Aminotransferase 11 U/L (12-78); Albumin Level 3.7 g/dl (3.5-5.0); Albumin/Globulin Ratio 1.4 (1.1-1.8); Alkaline Phosphatase 48 U/L (38-126); Aspartate Amino Transferase 25 U/L (14-36); Bilirubin,Total 0.6 mg/dl (0.2-1.3); Blood Urea Nitrogen 19 mg/dl (7-17); Calcium 9.3 mg/dl (8.4-10.2); Creatinine Clearance Estimated 38 mL/min (50-200); Estimated Glomerular Filt Rate 40 ml/min (>60); GFR (African American) 49 ML/MIN (>60); Globulin 2.6 g/dL (1.3-3.2); Glucose 83 mg/dl (74-100); Total Protein,Serum 6.3 g/dl (6.3-8.2)
[2024-02-16 14:55] LABS: Magnesium 2.2 mg/dl (1.6-2.3)
[2024-02-16 14:56] LABS: INR 1.04 (0.9-1.1); Prothrombin Time 11.2 seconds (10.1-12.5)
[2024-02-16 14:57] LABS: Microscopic, Urine URINE MICROSCOPIC (MICROSCOPIC)
[2024-02-16 15:02] LABS: Appearance,Urine CLEAR (Clear); Blood, Urine 1+ (Negative); Color,Urine YELLOW (Yellow); Glucose,Urine (UA) Negative (Negative); Ketones,Urine 1+ (Negative); Leukocyte Esterase,Urine Negative (Negative); Nitrate,Urine Negative (Negative); PH,Urine 5.5 (5.0-8.5); Protein,Urine Negative (Negative); Specific Gravity, Urine >= 1.030 (1.005-1.030); Urobilinogen,Urine 0.2 EU/dl (0.2)
[2024-02-16 15:06] LABS: Bilirubin,Urine 1+ (Negative)
[2024-02-16 15:10] LABS: Troponin I < 0.01 ng/ml (0.00-0.034)
[2024-02-16 15:25] LABS: Thyroid Stimulating Hormone 0.82 uIU/mL (0.465-4.68)
[2024-02-16] MEDS: SODIUM CHLORIDE 0.9% 10ML SYR (RAD ONLY) 10 ML IV (15:25)
[2024-02-16] MEDS: IOPAMIDOL-370 (76%);100ML BOTTLE 75 ML IV ×2 (15:25→15:30)
[2024-02-16 15:27] LABS: RBC,Urine Occasional #/hpf (0-3); Squamous Epithelial Cell,Urine Occasional #/hpf (0-5)
[2024-02-16 16:11] LABS: Carbon Dioxide 26 mmol/L (22.0-30.0)
[2024-02-16 16:53] VITALS: BP 124/64; PULSE 57; RESP 19; TEMP 36.9; O2SAT 100
== END 2024-02-16 16:57 | disposition home or self-care (01) ==
PROVIDERS: Physician Assistant; Emergency Provider Emergency Medicine; PCP Internal Medicine Adolescent Medicine
DX: R10.32 Left lower quadrant pain (principal); M54.59 Other low back pain; K59.00 Constipation, unspecified; R93.89 Abnormal findings on diagnostic imaging of other specified body structures; R53.1 Weakness; K21.9 Gastro-esophageal reflux disease without esophagitis; E78.5 Hyperlipidemia, unspecified
CPT/HCPCS: 71045; 74177; 80053; 81001; 83735; 84443; 84484; 85025; 85610; 93005; 96361; 96374; 96375; 99285; J0131; J2405; J7120; Q9967

== ENCOUNTER 2024-03-12 14:39 | Emergency (ER) | payer MEDICARE, OTHER, SELFPAY ==
[2024-03-12 14:39] VITALS: BP 154/70; PULSE 55; RESP 18; TEMP 36.6; O2SAT 100; BMI 22.4
--- NOTE | 2024-03-12 14:42 | ED_ITS ---
<Statement entered by Tommy Rubalcava MD - 03/12/24 22:30> I was consulted by the DANIKA, and we discussed the complexity of the problems being addressed. I approved the treatment and management plan for this patient's care in the emergency department, thus performing a substantive portion of the medical decision making. Tommy Rubalcava MD Discharge Plan Disposition Patient Disposition: Home, Self-Care Condition: Good Chief Complaint: Extremity Problem,Nontraumatic Prescriptions Prescriptions: No Action escitalopram oxalate 10 mg tablet 10 mg PO DAILY Patient Comments: TAKE 1 TABLET 1 TIME EACH DAY Xarelto 15 mg tablet 15 mg PO DAILY Rx Instructions: must administer with evening meal metoprolol tartrate 25 mg tablet 50 mg PO BID Patient Comments: TAKE 1 TABLET 1 TIME DAILY amiodarone 100 mg tablet 100 mg PO BID 90 Days Qty: 180 1RF cephalexin 500 mg capsule 500 mg PO QID Qty: 40 0RF memantine 10 mg tablet 10 mg PO BID Qty: 60 3RF aspirin 81 MG tablet,delayed release (DR/EC) 81 mg PO DAILY albuterol sulfate 90 mcg/actuation HFA aerosol inhaler 4 inh inhalation Q4H PRN (Reason: shortness of breath or wheezing) Qty: 8.5 0RF Rx Instructions: 4 puffs every 4 hours for 48 hours then as needed for shortness of breath or wheezing following Activity Restrictions/Add. Instructions Additional Instructions/Restrictions: Please hold your blood thinner until seen by your primary care physician. Return to ER for any worsening signs or symptoms including pain numbness tingling active bleeding. Clinical Impressions Clinical Impression: Nontraumatic hematoma, Acute pain of right hip Instructions Patient Instructions: DI for Hip Pain Discharge ED Provider: Tommy Rubalcava General Adult HPI General Chief complaint: Extremity Problem,Nontraumatic Stated complaint: hip pain Time Seen by Provider: 03/12/24 14:42 History of Present Illness HPI narrative: Patient presents for evaluation of right hip pain. Patient states that she awoke this morning with right hip pain. She is able to bear weight however it is very painful and has painful range of motion. Patient states the pain is sharp and there is some tingling at the right hip and slightly down the lateral right thigh. Patient went dancing last night with her but otherwise no trauma no previous injury to this hip. She is neurovascular intact distally. Related Data Home Medications Medication Instructions Recorded Confirmed aspirin 81 mg tablet,delayed 81 mg PO DAILY [facility] 10/19/17 03/07/24 release escitalopram oxalate 10 mg tablet 10 mg PO DAILY 02/18/24 03/07/24 metoprolol tartrate 25 mg tablet 50 mg PO BID 02/18/24 03/07/24 rivaroxaban 15 mg tablet (Xarelto) 15 mg PO DAILY 02/18/24 03/07/24 Previous Rx's Medication Instructions Recorded albuterol sulfate 90 mcg/actuation 4 inh inhalation Q4H PRN shortness 01/24/24 aerosol inhaler of breath or wheezing #8.5 grams amiodarone 100 mg tablet 100 mg PO BID 90 days #180 tabs 02/18/24 cephalexin 500 mg capsule 500 mg PO QID #40 caps 03/07/24 memantine 10 mg tablet 10 mg PO BID #60 tabs 03/07/24 Allergies Allergy/AdvReac Type Severity Reaction Status Date / Time doxycycline Allergy Verified 03/07/24 12:52 Sulfa (Sulfonamide Allergy Verified 03/07/24 12:52 Antibiotics) From CIPROFLOXACIN PO TAB Allergy Unknown Uncoded 03/07/24 12:52 100 MG LIDOCAINE Allergy Unknown Hypotension Uncoded 03/07/24 12:52 From AUGMENTIN Allergy Uncoded 03/07/24 12:52 PFSH PFS Disclaimer: The information contained in this section may have been updated after the patient was seen, as this information can be updated by other users. Medical History Chronic GERD IBS (irritable bowel syndrome) Hyperlipidemia Depression Dyspareunia Asthma Paroxysmal atrial fibrillation Palpitations Surgical History H/O: section Hx of cholecystectomy Family History Father Hypertension Mother CHF (congestive heart failure) Cancer Daughter Seizure Stroke Social History Smoking Status: Never smoker second hand exposure: No alcohol intake: never counseling given: No current occupational status: retired Travel in the last 8 weeks: None household members: family housing: house marital status: ROS Obtained: Yes Systems reviewed as appropriate & no additional complaints except as documented Physical Exam General General appearance: alert and in no apparent distress Respiratory Respiratory exam: Present normal lung sounds bilaterally Cardiovascular Cardiovascular exam: Present regular rate, normal rhythm and +S2 Neurological Exam Neurological exam: Present alert and oriented X3 Other Other exam information: Patient has tenderness to palpation about the right hip. No obvious deformities. She is neurovascular intact distally. No evidence of ecchymosis erythema edema joint swelling. Pelvis is stable. Medical Decision Making Medical Records Medical records reviewed: Yes I reviewed the patient's medical records. Narciso Inquiry Pt receiving controlled substance: No Vital Signs: 03/12/24 14:39 03/12/24 15:00 03/12/24 15:31 Temperature 97.9 F Temperature Source Oral Pulse Rate 56 L 54 L Pulse Rate [Right] 55 L Respiratory Rate 18 Blood Pressure 154/65 H 128/59 L Blood Pressure [Right Arm] 154/70 H Blood Pressure Mean [Right Arm] 98 02 Sat by Pulse Oximetry 100 99 100 Oxygen Delivery Method Room Air 03/12/24 16:01 03/12/24 17:00 Temperature Temperature Source Pulse Rate 58 L 58 L Pulse Rate [Right] Respiratory Rate Blood Pressure 136/62 132/59 L Blood Pressure [Right Arm] Blood Pressure Mean [Right Arm] 02 Sat by Pulse Oximetry 100 99 Oxygen Delivery Method Room Air Lab Data Lab results reviewed: Yes I reviewed the patient's lab results. Lab Results 03/12/24 15:25: WBC 3.9 L, RBC 4.19 L, Hgb 11.6 L, Hct 36.5 L, MCV 87.0, MCH 27.7, MCHC 31.8, RDW 14.9, Plt Count 118 L, MPV 9.0, Neut % (Auto) 71.8, Lymph % (Auto) 21.2, [place] % (Auto) 4.5, Eos % (Auto) 1.8, Baso % (Auto) 0.7, Neut # (Auto) 2.8, Lymph # (Auto) 0.8, [place] # (Auto) 0.2, Eos # (Auto) 0.1, Baso # (Auto) 0.0, ESR 8, Sodium 137, Potassium 3.8, Chloride 106, Carbon Dioxide 29, Anion Gap 5.8, BUN 16, Creatinine 1.20 H, Estimated Creat Clear 40, Estimated GFR 44 L, Est GFR ( Amer) 53 L, Glucose 88, Calcium 8.7, C-Reactive Protein < 0.3 03/12/24 15:25 03/12/24 15:25 Orders (Tests/Meds): ED MEDICATIONS Discontinued Medications Generic Name Dose Route Start Last Admin Trade Name Jyoti PRN Reason Stop Dose Admin Acetaminophen 1,000 mg 03/12/24 14:42 03/12/24 14:58 Acetaminophen 1,000mg/100ml Vial IV 03/12/24 14:43 1,000 mg ONCE ONE Administration Dexamethasone Sodium Phosphate 10 mg 03/12/24 14:42 03/12/24 14:58 Dexamethasone 4mg/Ml 5ml Mdv IV 03/12/24 14:43 10 mg ONCE ONE Administration Iopamidol 100 ml 03/12/24 16:32 03/12/24 16:33 Iopamidol-370 (76%);100ml Bottle IV 03/12/24 16:33 100 ml ONCE ONE Administration Ketorolac Tromethamine 15 mg 03/12/24 14:42 03/12/24 14:58 Ketorolac 30mg/Ml Vial IV 03/12/24 14:43 15 mg ONCE ONE Administration Methocarbamol 500 mg 03/12/24 14:42 03/12/24 14:58 Methocarbamol 500mg Tablet PO 03/12/24 14:43 500 mg ONCE ONE Administration Sodium Chloride 10 ml 03/12/24 16:32 03/12/24 16:33 Sodium Chloride 0.9% 10ml Syr (Rad Only) IV 03/12/24 16:33 10 ml ONCE ONE Administration Sodium Chloride 50 ml 03/12/24 16:32 03/12/24 16:33 0.9 % Sodium Chloride 50 Ml Vial IV 03/12/24 16:33 50 ml ONCE ONE Administration ORDERS Category Date Time Status CT angio femur RT Stat Cat Scan 03/12/24 16:[address] hip RT wo con Stat Cat Scan 03/12/24 15:07 Completed Hip XR right minimum 2 views [XR hip RT 2-3V w/pelvis] Exams 03/12/24 14:44 Completed Stat BMP [Basic Metabolic Panel] Stat Lab 03/12/24 15:25 Completed CBC w/Auto Diff [Complete Blood Count Auto Diff] Stat Lab 03/12/24 15:25 Completed CRP [C-Reactive Protein] Stat Lab 03/12/24 15:25 Completed ESR [Erythrocyte Sedimentation Rate] Stat Lab 03/12/24 15:25 Completed Medical Decision Narrative: In summary patient is a 74-year-old female who presents to the emergency department for evaluation of right hip pain. Patient is dynamically stable upon arrival, afebrile. Exam is remarkable for tenderness palpation about the right hip without evidence of trauma. She is neurovascular intact distally.. Differential diagnosis includes sciatica versus osteoarthritis flare versus occult fracture etc. Initial workup will be conducted with hematologic labs plain film x-ray.. Initial interventions include Toradol Tylenol Robaxin Decadron. Initial workup reviewed by me shows that her hematologic labs are nonactionable however plain film is suggestive of osteoarthritis but no obvious acute fracture. Given that I ordered a Noncon of the hip that showed a hematoma posterior to the greater trochanter and at that point I ordered a CTA to determine if there was any active bleeding which there was no extravasation of contrast indicating unlikely that she is actively bleeding. Upon repeat evaluation patient did have some improvement in her symptoms. Given this appropriate for discharge with close follow-up with her PCP within 48 hours or return to ER as needed Critical Care Critical Care Time Critical Care Time: No
--- NOTE | 2024-03-12 14:44 | XR_ITS ---
PROCEDURE INFORMATION: Exam: XR Right Hip Exam date and time: 03/12/2024 2:51 PM Age: 74 years old Clinical indication: Hip pain; Right hip TECHNIQUE: Imaging protocol: Radiologic exam of the right hip. Views: 2 or 3 views hip with pelvis when performed. COMPARISON: CT ABDOMEN PELVIS W CON 02/16/2024 3:20 PM FINDINGS: Bones/joints: Mild degenerative changes both hips, right worse than left. No acute fracture or dislocation. Degenerative changes lower lumbar spine. Soft tissues: Unremarkable. IMPRESSION: No acute findings.
[2024-03-12] MEDS: DEXAMETHASONE 4MG/ML 5ML MDV 10 MG IV (14:58)
[2024-03-12] MEDS: KETOROLAC 30MG/ML VIAL 15 MG IV (14:58)
[2024-03-12] MEDS: METHOCARBAMOL 500MG TABLET 500 MG PO (14:58)
[2024-03-12] MEDS: ACETAMINOPHEN 1,000MG/100ML VIAL 1000 MG IV (14:58)
[2024-03-12 15:00] VITALS: BP 154/65; PULSE 56; O2SAT 99
--- NOTE | 2024-03-12 15:07 | CT_ITS ---
PROCEDURE INFORMATION: Exam: CT Right Lower Extremity Without Contrast, Hip Exam date and time: 03/12/2024 3:43 PM Age: 74 years old Clinical indication: Pain; Hip; Right; Additional info: Right hip pain TECHNIQUE: Imaging protocol: CT of the right lower extremity without contrast was performed. Exam focused on the hip. Radiation optimization: All CT scans at this facility use at least one of these dose optimization techniques: automated exposure control; mA and/or kV adjustment per patient size (includes targeted exams where dose is matched to clinical indication); or iterative reconstruction. COMPARISON: CR XR HIP RT 2-3V W/PELVIS 03/12/2024 2:51 PM FINDINGS: Bones/joints: No acute fracture or dislocation. Mild joint space narrowing. Soft tissues: Large hematoma lateral to the greater trochanter with blood products of varying ages. Measures approximately 8 x 6 x 10 cm (AP/TV/SI). IMPRESSION: Large hematoma lateral to the greater trochanter with blood products of varying ages. Measures approximately 8 x 6 x 10 cm (AP/TV/SI).
[2024-03-12 15:31] VITALS: BP 128/59; PULSE 54; O2SAT 100
[2024-03-12 15:35] LABS: Basophils % 0.7 % (0.1-2.0); Eosinophils # 0.1 K/mm3 (0.0-0.4); Eosinophils % 1.8 % (0.1-12.0); Hematocrit 36.5 % (37.0-47.0); Hemoglobin 11.6 g/dL (12.2-16.2); Lymphocytes # 0.8 K/mm3 (0.7-4.5); Lymphocytes % 21.2 % (10-50); Mean Corpuscular HGB Conc 31.8 g/dL (31.8-35.4); Mean Corpuscular Hemoglobin 27.7 pg (27.0-31.2); Monocytes # 0.2 K/mm3 (0.1-1.0); Monocytes % 4.5 % (1.7-9.3); Neutrophils # 2.8 K/mm3 (1.8-7.8); Neutrophils % 71.8 % (37.0-80.0); Platelet Count 118 K/mm3 (142-424); Red Blood Count 4.19 M/mm3 (4.20-5.40); Red Cell Distribution Width 14.9 % (11.5-17.5); White Blood Count 3.9 K/mm3 (4.8-10.8)
[2024-03-12 15:46] LABS: Anion Gap 5.8 mEq/L (5-15); Blood Urea Nitrogen 16 mg/dl (7-17); Calcium 8.7 mg/dl (8.4-10.2); Carbon Dioxide 29 mmol/L (22.0-30.0); Chloride 106 mmol/L (98-107); Creatinine Clearance Estimated 40 mL/min (50-200); Estimated Glomerular Filt Rate 44 ml/min (>60); GFR (African American) 53 ML/MIN (>60); Glucose 88 mg/dl (74-100); Potassium 3.8 mmoL/L (3.5-5.1); Sodium 137 mmol/L (136-145)
[2024-03-12 16:01] VITALS: BP 136/62; PULSE 58; O2SAT 100
[2024-03-12 16:06] LABS: C-Reactive Protein < 0.3 mg/L (0-4)
--- NOTE | 2024-03-12 16:12 | CT_ITS ---
PROCEDURE INFORMATION: Exam: CTA Right Lower Extremity With Contrast Exam date and time: 03/12/2024 4:32 PM Age: 74 years old Clinical indication: Pain; Hip; Right; Additional info: R hip pain, hematoma TECHNIQUE: Imaging protocol: Computed tomographic angiography of the right lower extremity with contrast. 3D rendering (Not supervised by radiologist): MIP and/or 3D reconstructed images were created by the technologist. Radiation optimization: All CT scans at this facility use at least one of these dose optimization techniques: automated exposure control; mA and/or kV adjustment per patient size (includes targeted exams where dose is matched to clinical indication); or iterative reconstruction. Contrast material: ISO 370; Contrast volume: 75 ml; Contrast route: INTRAVENOUS (IV); COMPARISON: CT HIP RT WO CON 03/12/2024 3:43 PM FINDINGS: Right femoral/popliteal arteries: No occlusion or significant stenosis. Right infrapopliteal arteries: No occlusion or significant stenosis. Bones/joints: heterogeneous soft tissue mass in the region of the right trochanteric bursa. Findings suboptimally visualized on this examination however compatible with hematoma. Soft tissues: See Bones/joints finding. IMPRESSION: 1. No findings to suggest active hemorrhage. 2. Hematoma in the region of the right trochanteric bursa.
[2024-03-12 16:33] LABS: Erythrocyte Sedimentation Rate 8 mm/hr (0-30)
[2024-03-12] MEDS: IOPAMIDOL-370 (76%);100ML BOTTLE 100 ML IV (16:33)
[2024-03-12] MEDS: 0.9 % SODIUM CHLORIDE 50 ML VIAL IV (16:33)
[2024-03-12] MEDS: SODIUM CHLORIDE 0.9% 10ML SYR (RAD ONLY) 10 ML IV (16:33)
[2024-03-12 17:00] VITALS: BP 132/59; PULSE 58; O2SAT 99
[2024-03-12 18:10] VITALS: BP 115/55; PULSE 55; RESP 16; TEMP 36.6; O2SAT 98
== END 2024-03-12 18:15 | disposition home or self-care (01) ==
PROVIDERS: Physician Assistant; Emergency Provider Emergency Medicine; PCP Internal Medicine Adolescent Medicine
DX: M25.551 Pain in right hip (principal); M79.81 Nontraumatic hematoma of soft tissue; K21.9 Gastro-esophageal reflux disease without esophagitis; E78.5 Hyperlipidemia, unspecified
CPT/HCPCS: 73502; 73700; 73706; 80048; 85025; 85651; 86140; 96374; 96375; 99285; J0131; J1885; Q9967

== ENCOUNTER 2024-04-03 08:41 | Emergency (ER) | payer MEDICARE, OTHER, SELFPAY ==
[2024-04-03 08:50] VITALS: BP 142/66; PULSE 54; RESP 17; TEMP 36.8; O2SAT 100; BMI 23.3
[2024-04-03 09:01] VITALS: BP 138/68; PULSE 52; O2SAT 98
--- NOTE | 2024-04-03 09:14 | XR_ITS ---
FINAL REPORT CLINICAL HISTORY: weakness, soa COMPARISON: None FINDINGS: A portable view of the chest was obtained. Cardiac and mediastinal silhouettes are within normal limits. The lungs are clear. There is no pleural effusion or pneumothorax. Changes of emphysema are likely present. IMPRESSION: No acute process on this portable exam. Reviewed, Interpreted and Dictated by Brooklyn Carolina MD Transcribed by Berta Phillips Authenticated and [facility]
[2024-04-03 09:36] LABS: Microscopic, Urine URINE MICROSCOPIC (MICROSCOPIC)
[2024-04-03] MEDS: LACTATED RINGERS 1000ML 1,000 ML 999 ML IV (09:43)
--- NOTE | 2024-04-03 09:52 | HMH.EDGENADL ---
Discharge Plan Disposition Patient Disposition: Home, Self-Care Prescriptions Prescriptions: New nitrofurantoin monohyd/m-cryst [Macrobid] 100 mg capsule 100 mg PO BID 5 Days Qty: 10 0RF Rx Instructions: must administer with a meal/food No Action escitalopram oxalate 10 mg tablet 10 mg PO DAILY Patient Comments: TAKE 1 TABLET 1 TIME EACH DAY Xarelto 15 mg tablet 15 mg PO DAILY Rx Instructions: must administer with evening meal metoprolol tartrate 25 mg tablet 50 mg PO BID Patient Comments: TAKE 1 TABLET 1 TIME DAILY amiodarone 100 mg tablet 100 mg PO BID 90 Days Qty: 180 1RF cephalexin 500 mg capsule 500 mg PO QID Qty: 40 0RF memantine 10 mg tablet 10 mg PO BID Qty: 60 3RF aspirin 81 MG tablet,delayed release (DR/EC) 81 mg PO DAILY albuterol sulfate 90 mcg/actuation HFA aerosol inhaler 4 inh inhalation Q4H PRN (Reason: shortness of breath or wheezing) Qty: 8.5 0RF Rx Instructions: 4 puffs every 4 hours for 48 hours then as needed for shortness of breath or wheezing following Referrals Follow up/Referrals: Alonso Mejia MD [Primary Care Provider] - See instructions Activity Restrictions/Add. Instructions Additional Instructions/Restrictions: Follow-up with cardiology in clinic on April 13 at 9 AM. Call your family doctor to establish care for this visit to the emergency department and schedule follow-up within 48 hours to ensure improvement. If you have any worsening of your condition or any other concerning signs or symptoms, return to the emergency department or your primary care doctor for further evaluation. Macrobid twice daily for 5 days. Clinical Impressions Clinical Impression: Acute UTI, Generalized weakness Print Language Print Language: Bangladeshi Discharge ED Provider: Zechariah Madison General Adult HPI General Chief complaint: Weakness Stated complaint: weakness blood in mouth sent by doctor Time Seen by Provider: 04/03/24 08:46 Mode of Arrival: Ambulatory Source of Information: Patient Limitations: No Limitations Description of Symptoms (Recalled from ER Triage Doc. by RN): pt to ed c/o generalized weakness and blood in her mouth. pt states x1 month ago she was seen in the ed and was told she had a left adrenal mass. pt reports she never followed up with pcp or additional imaging. pt states she woke up this am, felt more weak than baseline and had blood in her mouth. pt denies cough. History of Present Illness HPI narrative: Please note that above description of symptoms, in this electronic medical record under categorization of recalled from ER triage doctor by RN are reflective of an initial nursing assessment, however, is not reflective of my full history and physical exam that was personally taken and clarified. Consequentially, this preceding description of symptoms, which may include the patient's categorized chief complaint in the EMR, do not reflect my personal clinical impression, and the ultimate description of history of present illness and patient stated complaints should be deferred to this section of the note. Unless stated otherwise or congruent with this section of the note, additional signs, symptoms, or incongruence should be interpreted as inaccurate with my clinical impression. Related Data Home Medications ?Medication ?Instructions ?Recorded ?Confirmed aspirin 81 mg tablet,delayed 81 mg PO DAILY Heart health 10/19/17 03/07/24 release escitalopram oxalate 10 mg tablet 10 mg PO DAILY 02/18/24 03/07/24 metoprolol tartrate 25 mg tablet 50 mg PO BID 02/18/24 03/07/24 rivaroxaban 15 mg tablet (Xarelto) 15 mg PO DAILY 02/18/24 03/07/24 Previous Rx's ?Medication ?Instructions ?Recorded albuterol sulfate 90 mcg/actuation 4 inh inhalation Q4H PRN shortness 01/24/24 aerosol inhaler of breath or wheezing #8.5 grams amiodarone 100 mg tablet 100 mg PO BID 90 days #180 tabs 02/18/24 cephalexin 500 mg capsule 500 mg PO QID #40 caps 03/07/24 memantine 10 mg tablet 10 mg PO BID #60 tabs 03/07/24 nitrofurantoin 100 mg PO BID 5 days #10 caps 04/03/24 monohydrate/macrocrystals 100 mg capsule (Macrobid) Allergies Allergy/AdvReac Type Severity Reaction Status Date / Time doxycycline Allergy Verified 03/07/24 12:52 Sulfa (Sulfonamide Allergy Verified 03/07/24 12:52 Antibiotics) From CIPROFLOXACIN PO TAB Allergy Unknown Uncoded 03/07/24 12:52 100 MG LIDOCAINE Allergy Unknown Hypotension Uncoded 03/07/24 12:52 From AUGMENTIN Allergy Uncoded 03/07/24 12:52 PFSH PFS Disclaimer: The information contained in this section may have been updated after the patient was seen, as this information can be updated by other users. Medical History Chronic GERD IBS (irritable bowel syndrome) Hyperlipidemia Depression Dyspareunia Asthma Paroxysmal atrial fibrillation Palpitations Surgical History H/O: section Hx of cholecystectomy Family History Father Hypertension Mother CHF (congestive heart failure) Cancer Daughter Seizure Stroke Social History Smoking Status: Never smoker second hand exposure: No alcohol intake: never counseling given: No current occupational status: retired Travel in the last 8 weeks: None household members: family housing: house marital status: ROS Obtained: Yes All systems reviewed & no additional complaints except as documented Physical Exam General General appearance: alert Head Head exam: atraumatic and normocephalic Eye Eye exam: Present normal appearance, PERRL and EOMI Neck Neck exam: Present normal inspection, full ROM and trachea midline Respiratory Respiratory exam: Present normal lung sounds bilaterally; Absent respiratory distress, wheezes, stridor, accessory muscle use or prolonged expiratory phase Cardiovascular Cardiovascular exam: Present regular rate, normal rhythm and other (Pulses equal symmetric in upper and lower extremities) Abdominal Exam Abdominal exam: Present soft; Absent distention, tenderness or pulsatile mass Extremities Exam Extremities exam: Present edema (Bilateral nonpitting) Neurological Exam Neurological exam: Present alert, oriented X3, CN II-XII intact and normal gait; Absent motor sensory deficit Skin Skin exam: Present warm and dry; Absent diaphoresis or erythema Medical Decision Making Medical Records Medical records reviewed: Yes I reviewed the patient's medical records. Narciso Inquiry Pt receiving controlled substance: No Narciso was queried for this patient: No Vital Signs: 04/03/24 08:50 04/03/24 09:01 04/03/24 10:00 Temperature 98.2 F Temperature Source Oral Pulse Rate 52 L 50 L Pulse Rate [Left Radial] 54 L Respiratory Rate 17 Blood Pressure 138/68 144/65 H Blood Pressure [Right Arm] 142/66 H Blood Pressure Mean [Right Arm] 91 02 Sat by Pulse Oximetry 100 98 100 Oxygen Delivery Method Room Air Room Air Room Air Lab Data Lab Results 04/03/24 09:33: Urine Color Yellow, Urine Appearance Clear, Urine pH 7.0, Ur Specific [place] 1.020, Urine Protein Negative, Urine Glucose (UA) Negative, Urine Ketones Negative, Urine Blood Trace-i, Urine Nitrate Negative, Urine Bilirubin Negative, Urine Urobilinogen 0.2, Ur Leukocyte Esterase 1+ A, Urine RBC Occasional, Urine WBC 3-5, Ur Squamous Epith Cells Occasional, Urine Bacteria Trace 04/03/24 09:41: WBC 3.8 L, RBC 4.55, Hgb 13.7, Hct 39.6, MCV 87.0, MCH 30.2, MCHC 34.7, RDW 15.3, Plt Count 140 L, MPV 8.3, Neut % (Auto) 72.8, Lymph % (Auto) 21.0, [place] % (Auto) 4.0, Eos % (Auto) 1.2, Baso % (Auto) 1.0, Neut # (Auto) 2.8, Lymph # (Auto) 0.8, [place] # (Auto) 0.2, Eos # (Auto) 0.0, Baso # (Auto) 0.0, Sodium 144, Potassium 3.7, Chloride 106, Carbon Dioxide 33 H, Anion Gap 8.7, BUN 12, Creatinine 1.40 H, Estimated Creat Clear 35, Estimated GFR 37 L, Est GFR ( Amer) 45 L, Glucose 99, Calcium 9.1, Phosphorus 3.7, Magnesium 2.3, Total Bilirubin 0.7, AST 33, ALT 18, Alkaline Phosphatase 49, NT-Pro-B Natriuret Pep 1680 H, Total Protein 6.9, Albumin 4.3, Globulin 2.6, Albumin/Globulin Ratio 1.7, TSH 1.25, Thyroxine (T4) 14.1 H 04/03/24 09:41 04/03/24 09:41 Orders (Tests/Meds): ED MEDICATIONS Discontinued Medications Generic Name Dose Route Start Last Admin Trade Name Freq PRN Reason Stop Dose Admin Lactated Ringer's 1,000 mls @ 999 mls/hr 04/03/24 09:14 04/03/24 09:43 Lactated Ringer's 1000 Ml Bag IV 04/03/24 10:14 999 mls/hr .Q1H1M ONE Administration ORDERS Category Date Time Status Cardiology Consult [Consult to Cardiology] [CONS] Cons 04/03/24 11:09 Active Routine CXR --portable [XR chest portable] Stat Exams 04/03/24 09:14 Completed CBC w/Auto Diff [Complete Blood Count Auto Diff] Stat Lab 04/03/24 09:41 Completed CMP [Comprehensive Metabolic Panel] Stat Lab 04/03/24 09:41 Completed Cortisol Stat Lab 04/03/24 09:41 Received Magnesium Stat Lab 04/03/24 09:41 Completed NT Pro Brain Natriuretic Pep. Stat Lab 04/03/24 09:41 Completed Phosphorous Stat Lab 04/03/24 09:41 Completed T4 (Thyroxine) Stat Lab 04/03/24 09:41 Completed TSH [Thyroid Stimulating Hormone] Stat Lab 04/03/24 09:41 Completed UA [Urinalysis and Microscopic] Stat Lab 04/03/24 09:33 Completed Urine Culture Stat Micro 04/03/24 09:33 Received HEART Score History (anamnesis): Slightly suspicious ECG: Normal Age: >65 years Risk factors: 1-2 risk factors Medical Decision Narrative: 74-year-old female history of hypertension, hyperlipidemia, paroxysmal A-fib no longer on anticoagulation, IBS?C presenting with weakness. Patient and state the patient has been progressively weak over the past few months. No acute symptoms. Patient states she just has no energy. No other associated symptoms. She states she has not had much of an appetite, but no unintended weight loss, chest pain, shortness of breath, night sweats, fevers or chills, urinary symptoms, cough, neurologic deficits, etc. They have not seen their family doctor for any of the symptoms. History was obtained via conversation with patient and . On arrival, patient hemodynamically stable, alert, oriented x4, appropriate, GCS 15, moving all extremities spontaneously, pupils equal and reactive to light. Full physical exam performed and significant for 74-year-old female in no acute distress. Very well-appearing. Cardiopulmonary exam within normal limits, pulses equal symmetric, no abdominal pulsatile mass, no abdominal tenderness. No flank tenderness. Neurologically intact including cranial nerve, cerebellar, motor, sensory, ambulatory. Lungs are clear to auscultation. Differential includes depression, functional decline, dementia, physical deconditioning, medication side effect, UTI, sepsis, congestive heart failure new onset, among others. Patient placed on continuous cardiac monitoring and continuous pulse ox with initial blood pressure 138/68, heart rate 52, saturation 98% on room air breathing 17 times a minute. Patient was given 1 L fluids for symptomatic management and correction of underlying abnormalities. Workup independently interpreted and significant for mild leukopenia 3.8 as well as thrombocytopenia 140, these appear to be chronic for patient. Hemoglobin normal at 13.7. Patient's chemistry with stable CKD creatinine 1.4 and BUN 12. LFTs normal. UA with concern for UTI leukocyte Estrace and bacteria. Patient's BNP elevated at 1680, no baseline with which to compare, but on independent rotation chest x-ray, no evidence of cardiomegaly, airspace disease, or other abnormality. See radiology read for full review of final results. Cardiology contacted and case was discussed at length, patient be evaluated here in the emergency department for need for admission versus home-going. Ultimately, I feel patient is appropriate for home-going, should she be deemed appropriate for outpatient management with cardiology. Cardiology recommended outpatient follow-up, I feel this is appropriate. Because patient at baseline without signs or symptoms of clinical decompensation, deemed appropriate for discharge. Results were relayed to patient who voiced understanding and were agreeable to outpatient management and follow up. I discussed my clinical impression with patient and answered all questions. At this time, the evidence for any other entities in the differential is insufficient to warrant any further testing or ED observation. This was explained as well. Advisory was given that persistent or worsening symptoms require further evaluation. I confirmed the understanding of this discussion. Digital Producer disclaimer Much of this encounter note is an electronic mail distributor spoken language to printed text. Electronic mail distributor of the spoken language may permit errors. Although I have reviewed the note, some errors may still exist. Critical Care Critical Care Time Critical Care Time: No
[2024-04-03 09:53] LABS: Eosinophils % 1.2 % (0.1-12.0); Hematocrit 39.6 % (37.0-47.0); Hemoglobin 13.7 g/dL (12.2-16.2); Lymphocytes # 0.8 K/mm3 (0.7-4.5); Mean Corpuscular HGB Conc 34.7 g/dL (31.8-35.4); Mean Corpuscular Hemoglobin 30.2 pg (27.0-31.2); Mean Platelet Volume 8.3 fl (7.4-10.4); Monocytes # 0.2 K/mm3 (0.1-1.0); Neutrophils # 2.8 K/mm3 (1.8-7.8); Neutrophils % 72.8 % (37.0-80.0); Platelet Count 140 K/mm3 (142-424); Red Blood Count 4.55 M/mm3 (4.20-5.40); Red Cell Distribution Width 15.3 % (11.5-17.5); White Blood Count 3.8 K/mm3 (4.8-10.8)
[2024-04-03 09:55] LABS: Appearance,Urine CLEAR (Clear); Bilirubin,Urine Negative (Negative); Blood, Urine TRACE-I (Negative); Color,Urine YELLOW (Yellow); Glucose,Urine (UA) Negative (Negative); Ketones,Urine Negative (Negative); Leukocyte Esterase,Urine 1+ (Negative); Nitrate,Urine Negative (Negative); Protein,Urine Negative (Negative); Urobilinogen,Urine 0.2 EU/dl (0.2)
[2024-04-03 10:00] VITALS: BP 144/65; PULSE 50; O2SAT 100
[2024-04-03 10:01] LABS: Chloride 106 mmol/L (98-107)
[2024-04-03 10:02] LABS: Albumin Level 4.3 g/dl (3.5-5.0); Potassium 3.7 mmoL/L (3.5-5.1); Sodium 144 mmol/L (136-145)
[2024-04-03 10:05] LABS: Alanine Aminotransferase 18 U/L (12-78); Albumin/Globulin Ratio 1.7 (1.1-1.8); Alkaline Phosphatase 49 U/L (38-126); Anion Gap 8.7 mEq/L (5-15); Aspartate Amino Transferase 33 U/L (14-36); Bilirubin,Total 0.7 mg/dl (0.2-1.3); Blood Urea Nitrogen 12 mg/dl (7-17); Carbon Dioxide 33 mmol/L (22.0-30.0); Creatinine Clearance Estimated 35 mL/min (50-200); Estimated Glomerular Filt Rate 37 ml/min (>60); GFR (African American) 45 ML/MIN (>60); Globulin 2.6 g/dL (1.3-3.2); Phosphorous 3.7 mg/dl (2.5-4.5); Total Protein,Serum 6.9 g/dl (6.3-8.2)
[2024-04-03 10:06] LABS: Calcium 9.1 mg/dl (8.4-10.2); Glucose 99 mg/dl (74-100); Magnesium 2.3 mg/dl (1.6-2.3)
[2024-04-03 10:15] LABS: NT Pro Brain Natriuretic Pep. 1680 pg/mL (0-125)
[2024-04-03 10:17] LABS: Bacteria,Urine Trace /lpf; RBC,Urine Occasional #/hpf (0-3); Squamous Epithelial Cell,Urine Occasional #/hpf (0-5)
[2024-04-03 10:23] LABS: T4 (Thyroxine) 14.1 ug/dl (5.53-11.0)
[2024-04-03 10:37] LABS: Thyroid Stimulating Hormone 1.25 uIU/mL (0.465-4.68)
[2024-04-03 11:00] VITALS: BP 143/70; PULSE 54; O2SAT 99
--- NOTE | 2024-04-03 11:21 | PC.NURSE ---
DR BRINK SPEAKING WITH CARDIOLOGY [employer]
[2024-04-03 11:30] VITALS: BP 150/70; PULSE 51; O2SAT 99
--- NOTE | 2024-04-03 11:34 | PC.NURSE ---
CARDIOLOGY AT BEDSIDE
--- NOTE | 2024-04-03 11:52 | EXP.CARD.CON ---
History of Present Illness History of Present Illness Consult date: 04/03/24 Requesting physician: Zechariah Madison Chief complaint: weakness History of present illness: This is a 74-year-old white female with past medical history of hypertension, hyperlipidemia and questionable paroxysmal atrial fibrillation- not on oac who presented to emergency department with complaints of generalized fatigue and weakness over the past few months. Patient reports she just had no energy and feels tired all of the time. Denies chest pain, shortness of breath, palpitations, night sweats, fever, chills or weight loss. Upon presentation to emergency department heart rate noted to be 52 with a blood pressure of 138/68 and oxygen saturation of 98% on room air. Labs were as follow: WBC 3.8, hemoglobin 13.7, platelets 140, sodium 144, potassium 3.7, creatinine 1.4, proBNP 1680 and TSH 1.25. Urine concerning for 1+ leukocyte esterase with trace bacteria. Chest x-ray negative for acute process. Cardiology was asked to evaluate for elevated proBNP. Of note patient denies any chest pain, shortness of breath, lower extremity edema and oxygen saturation is 98% on room air. [facility] Disclaimer: The information contained in this section may have been updated after the patient was seen, as this information can be updated by other users. Medical History Chronic GERD IBS (irritable bowel syndrome) Hyperlipidemia Depression Dyspareunia Asthma Paroxysmal atrial fibrillation Palpitations Surgical History H/O: section Hx of cholecystectomy Family History Father Hypertension Mother CHF (congestive heart failure) Cancer Daughter Seizure Stroke Social History Smoking Status: Never smoker second hand exposure: No alcohol intake: never counseling given: No current occupational status: retired Travel in the last 8 weeks: None household members: family housing: house marital status: Review of Systems Review of Systems Review of systems:: pertinent systems reviewed and negative unless documented below Constitutional Constitutional: Reports fatigue Endocrine Endocrine: Reports fatigue Exam Data for Last 24 hours Vital signs and Labs for Last 24 Hours: Temp Pulse Resp BP Pulse Ox O2 Del Method 98.2 F 51 L 17 150/70 H 99 Room Air 07/29/24 08:50 04/03/24 11:30 04/03/24 08:50 04/03/24 11:30 04/03/24 11:30 04/03/24 11:30 Laboratory Results - last 24 hr 04/03/24 09:33: Urine Color Yellow, Urine Appearance Clear, Urine pH 7.0, Ur Specific [place] 1.020, Urine Protein Negative, Urine Glucose (UA) Negative, Urine Ketones Negative, Urine Blood Trace-i, Urine Nitrate Negative, Urine Bilirubin Negative, Urine Urobilinogen 0.2, Ur Leukocyte Esterase 1+ A, Urine RBC Occasional, Urine WBC 3-5, Ur Squamous Epith Cells Occasional, Urine Bacteria Trace 04/03/24 09:41: WBC 3.8 L, RBC 4.55, Hgb 13.7, Hct 39.6, MCV 87.0, MCH 30.2, MCHC 34.7, RDW 15.3, Plt Count 140 L, MPV 8.3, Neut % (Auto) 72.8, Lymph % (Auto) 21.0, [place] % (Auto) 4.0, Eos % (Auto) 1.2, Baso % (Auto) 1.0, Neut # (Auto) 2.8, Lymph # (Auto) 0.8, [place] # (Auto) 0.2, Eos # (Auto) 0.0, Baso # (Auto) 0.0, Sodium 144, Potassium 3.7, Chloride 106, Carbon Dioxide 33 H, Anion Gap 8.7, BUN 12, Creatinine 1.40 H, Estimated Creat Clear 35, Estimated GFR 37 L, Est GFR ( Amer) 45 L, Glucose 99, Calcium 9.1, Phosphorus 3.7, Magnesium 2.3, Total Bilirubin 0.7, AST 33, ALT 18, Alkaline Phosphatase 49, NT-Pro-B Natriuret Pep 1680 H, Total Protein 6.9, Albumin 4.3, Globulin 2.6, Albumin/Globulin Ratio 1.7, TSH 1.25, Thyroxine (T4) 14.1 H I & O for Last 24 hours: Intake & Output 03/31/24 04/01/24 04/02/24 04/03/24 23:59 23:59 23:59 23:59 Weight 136 lb Constitutional Constitutional: no acute distress *Routine Respiratory Exam Respiratory: Present CTA bilaterally and symmetric chest movement *Routine Cardiovascular Exam Cardiovascular: Present RRR, Normal S1 and Normal S2 *Routine Abdominal Exam Abdominal: Present soft and normoactive bowel sounds; Absent tenderness *Routine Extremities Exam Extremities: Present full ROM and normal capillary refill; Absent edema *Routine Skin Exam Skin: Present intact, dry and warm Detailed Neck Exam: Thyroids Thyroid: Absent bruit Meds Home Medications and Allergies Home Medications ?Medication ?Instructions ?Recorded ?Confirmed ?Type aspirin 81 mg tablet,delayed 81 mg PO DAILY Heart health 10/19/17 03/07/24 History release albuterol sulfate 90 mcg/actuation 4 inh inhalation Q4H PRN shortness 01/24/24 03/07/24 Rx aerosol inhaler of breath or wheezing #8.5 grams amiodarone 100 mg tablet 100 mg PO BID 90 days #180 tabs 02/18/24 03/07/24 Rx escitalopram oxalate 10 mg tablet 10 mg PO DAILY 02/18/24 03/07/24 History metoprolol tartrate 25 mg tablet 50 mg PO BID 02/18/24 03/07/24 History rivaroxaban 15 mg tablet (Xarelto) 15 mg PO DAILY 02/18/24 03/07/24 History cephalexin 500 mg capsule 500 mg PO QID #40 caps 03/07/24 03/07/24 Rx memantine 10 mg tablet 10 mg PO BID #60 tabs 03/07/24 03/07/24 Rx nitrofurantoin 100 mg PO BID 5 days #10 caps 04/03/24 Rx monohydrate/macrocrystals 100 mg capsule (Macrobid) New Prescriptions to Start Prescriptions: nitrofurantoin monohyd/m-cryst [Macrobid] Zechariah Madison Allergies Allergy/AdvReac Type Severity Reaction Status Date / Time doxycycline Allergy Verified 03/07/24 12:52 Sulfa (Sulfonamide Allergy Verified 03/07/24 12:52 Antibiotics) From CIPROFLOXACIN PO TAB Allergy Unknown Uncoded 03/07/24 12:52 100 MG LIDOCAINE Allergy Unknown Hypotension Uncoded 03/07/24 12:52 From AUGMENTIN Allergy Uncoded 03/07/24 12:52 Assessment and Plan *Assessment and plan (1) Paroxysmal atrial fibrillation: Status: Acute Category: Medical Code(s): I48.0 - Paroxysmal atrial fibrillation (2) Chronic kidney disease: Status: Acute Category: Medical Code(s): N18.9 - Chronic kidney disease, unspecified (3) Weakness: Status: Acute Category: Medical Code(s): R53.1 - Weakness (4) Elevated brain natriuretic peptide (BNP) level: Status: Acute Category: Medical Code(s): R79.89 - Other specified abnormal findings of blood chemistry Plan Elevated BNP BNP 1680, no previous to compare Denies chest pain, soa, or LE edema Echo 04/2023: shows normal biventricular systolic function, no significant valvular disease Questionable hx of PAF Chadsvasc score 3 Reports a hx of PAF, wore event monitor 05/2023 that was negative Was on oac but pcp stopped Denies palpitations On amio and Metoprolol Generalized weakness Urine concerning for uti, ER is treating CKD Creatinine 1.4 CV summary: Patient reports would like to go home if possible. Patient is cv stable for dc home. Can follow up in cardiology clinic April 13 at 9am for further eval. Consider stopping amio and restarting OAC at follow up.
[2024-04-03 12:04] VITALS: BP 148/71; PULSE 54; RESP 20; TEMP 36.8; O2SAT 97
== END 2024-04-03 12:05 | disposition home or self-care (01) ==
PROVIDERS: Emergency Provider Emergency Medicine; PCP Family Medicine
DX: N39.0 Urinary tract infection, site not specified; B96.89 Other specified bacterial agents as the cause of diseases classified elsewhere; I48.0 Paroxysmal atrial fibrillation; N18.9 Chronic kidney disease, unspecified; R53.1 Weakness; R79.89 Other specified abnormal findings of blood chemistry
CPT/HCPCS: 71045; 80050; 80053; 81001; 82533; 83735; 83880; 84100; 84436; 84443; 85025; 87086; 96360; 99284; J7120

== ENCOUNTER 2024-04-13 09:21 | Outpatient (CLI) | payer MEDICARE, OTHER, SELFPAY | END 2024-04-13 23:59 | disposition home or self-care (01) | LOC: RT 09:22 | PROVIDERS: PCP Family Medicine; Visit Provider Nurse Practitioner Family | DX: R53.1 Weakness (principal); I48.0 Paroxysmal atrial fibrillation; R00.1 Bradycardia, unspecified | CPT/HCPCS: 93225; 93227 ==

== ENCOUNTER 2024-04-19 08:51 | Outpatient (CLI) | payer MEDICARE, OTHER, SELFPAY ==
[2024-04-19 09:08] VITALS: BP 156/76; PULSE 51; RESP 18; O2SAT 100; BMI 21.8
[2024-04-19] MEDS: 0.9 % SODIUM CHLORIDE 1000ML 1,000 ML 999 ML IV (09:15)
[2024-04-19 10:05] VITALS: BP 170/67; PULSE 55; RESP 18; O2SAT 98
[2024-04-19] MEDS: NITROGLYCERIN 0.4MG SL TABLET SL (10:05)
[2024-04-19 10:10] VITALS: BP 137/67; PULSE 54; O2SAT 98
[2024-04-19 10:20] VITALS: BP 127/65; PULSE 59; O2SAT 98
[2024-04-19] MEDS: 0.9 % SODIUM CHLORIDE 50 ML VIAL IV (10:23)
[2024-04-19] MEDS: SODIUM CHLORIDE 0.9% 10ML SYR (RAD ONLY) 10 ML IV (10:24)
[2024-04-19] MEDS: IOPAMIDOL-370 (76%);100ML BOTTLE 85 ML IV (10:24)
== END 2024-04-19 11:00 | disposition home or self-care (01) ==
LOC: RAD 08:52
PROVIDERS: PCP Internal Medicine Adolescent Medicine; Visit Provider Nurse Practitioner Family
DX: R94.31 Abnormal electrocardiogram [ECG] [EKG] (principal); I48.0 Paroxysmal atrial fibrillation; R93.1 Abnormal findings on diagnostic imaging of heart and coronary circulation; R06.00 Dyspnea, unspecified; R53.1 Weakness
CPT/HCPCS: 75574; Q9967

== ENCOUNTER 2024-05-05 13:03 | Outpatient (CLI) | payer MEDICARE, OTHER, SELFPAY ==
--- NOTE | 2024-05-05 13:06 | CA_ITS ---
APPROVED REPORT EXAM: Comprehensive 2D, Doppler, and color-flow Echocardiogram Celebrity [employer] Ent[employer]ur Media Personality: DONTE Bhatt, RVS Ht: 5 ft 4 in Wt: 129lbs BSA: 1.62 BP: 138/64 mmHg Indications: SOB, Afib Abn BNP, Fatigue, HTN, HLD Echo Enhancing Agent Comments: Lung impedence throughout exam 2D Dimensions Left Atrium 1.99 cm F: 2.7 - 3.8 LA Volume 48.10 mL LA Volume Index 29.678947 mL/m2 (M/F) 16-34 M-Mode Dimensions RVDd 2.35 cm (0.9-2.6) LA Diam 2.76 cm (1.9-4.0) LVDd 5.03 cm (3.5-5.7) LVDs 3.15 cm (3.5-5.7) IVSd 0.77 cm (0.6-1.1) PWd 0.94 cm (0.6-1.1) EF (Teich) 67.10% EPSs 0.34 cm FS 37.40% EDV (Teich) 119.90 mL TAPSE 1.98 (<1.7) ESV (Teich) 39.40 mL LV Diastology E Decel Time 310 (160-240 msec) E/A Ratio 0.80 MED A' 10.10 cm/s LAT A' 10.00 cm/s Aortic Valve JUDIE Index 1.20 cm2/m2 AoV Peak Travis. 115.0 (50-130 cm/s) AO Peak GR. 5.30 mmHg AO Mean GR. 2.60 (<5 mmHg) AO VTI 26.8 (18-25 cm) JUDIE (VTI) 2.00 (2.5-4.5 cm2) Mitral Valve MV A Velocity 60.0 (40-130 cm/s) E/A Ratio 0.80 Tricuspid Valve TR P. Velocity 186.00 cm/s RAP Estimate 10.00 mmHg RVSP 23.80 mmHg Left Ventricle The left ventricle is normal size. The left ventricular systolic function is normal. The left ventricular ejection fraction is within the normal range. There is increased LV wall thickness. There is normal LV segmental wall motion. The left ventricular diastolic function is normal. LVEF is 60%. Right Ventricle The right ventricle is normal size. The right ventricular systolic function is normal. Atria The left atrium size is normal. The right atrium size is normal. There is no Doppler evidence of interatrial shunt. Aortic Valve The aortic valve is mildly thickened. There is no aortic valvular stenosis. Mild aortic regurgitation. Mitral Valve The mitral valve is normal in structure. No evidence of mitral valve stenosis. There is no mitral valve regurgitation noted. Tricuspid Valve Tricuspid valve is grossly normal in structure and function. Trace tricuspid regurgitation. There is insufficient TR jet to estimate RVSP. Pulmonic Valve The pulmonary valve is normal in structure. Trace pulmonic regurgitation. Great Vessels The aortic root is normal in size. IVC is normal in size and collapses >50% with inspiration. Pericardium There is no pericardial effusion. Other Information Study Quality: Fair Conclusion Normal biventricular systolic function. Mild AI. Electronically signed by : Soniya Waite MD 05/11/2024 12:49:54
== END 2024-05-05 23:59 | disposition home or self-care (01) ==
LOC: RT 13:04
PROVIDERS: PCP Internal Medicine Adolescent Medicine; Visit Provider Nurse Practitioner Family
DX: R06.09 Other forms of dyspnea (principal); R79.89 Other specified abnormal findings of blood chemistry; I48.0 Paroxysmal atrial fibrillation
CPT/HCPCS: 93306

== ENCOUNTER 2024-08-08 00:26 | Observation (INO) | payer MEDICARE, OTHER, SELFPAY ==
[2024-08-08] VITALS (12 sets, daily range): BP systolic 133–166; BP diastolic 31–76; PULSE 50–55; RESP 16–19; TEMP 36.4–36.7; O2SAT 94–100; BMI 20.9; BMI 19.1
--- NOTE | 2024-08-08 00:38 | CT_ITS ---
PROCEDURE INFORMATION: Exam: CT Head Without Contrast Exam date and time: 08/08/2024 1:00 AM Age: 74 years old Clinical indication: Other: Hallucinations; Additional info: Sudden hallucinations TECHNIQUE: Imaging protocol: Computed tomography of the head without contrast. Radiation optimization: All CT scans at this facility use at least one of these dose optimization techniques: automated exposure control; mA and/or kV adjustment per patient size (includes targeted exams where dose is matched to clinical indication); or iterative reconstruction. COMPARISON: No relevant prior studies available. FINDINGS: Brain: Moderate generalized cerebral atrophy. No intracranial mass, hemorrhage or evidence of acute ischemia. Cerebral ventricles: No ventriculomegaly. Paranasal sinuses: Visualized sinuses are unremarkable. No fluid levels. Mastoid air cells: Visualized mastoid air cells are well aerated. Bones: Unremarkable. No acute fracture. Soft tissues: Unremarkable. IMPRESSION: No acute intracranial abnormality
--- NOTE | 2024-08-08 00:49 | XR_ITS ---
PROCEDURE INFORMATION: Exam: XR Chest Exam date and time: 08/08/2024 12:51 AM Age: 74 years old Clinical indication: Other: AMS TECHNIQUE: Imaging protocol: Radiologic exam of the chest. Views: 1 view. COMPARISON: CR XR CHEST PORTABLE 04/03/2024 9:18 AM FINDINGS: Lungs: Unremarkable. No consolidation. Pleural spaces: Unremarkable. No pleural effusion. No pneumothorax. Heart/Mediastinum: Unremarkable. No cardiomegaly. Bones/joints: Mild thoracic scoliosis and moderate multilevel degenerative disc changes. Mild degenerative changes in both shoulders. No acute fracture. IMPRESSION: No acute disease
--- NOTE | 2024-08-08 01:07 | ECG_ITS ---
APPROVED REPORT Exam: Resting ECG HR:50 bpm ECG Measurements Heart Rate 50 AXES PA 203 P 73 QRSd 96 QRS 46 QT 479 T 61 QTc 452 Conclusion SINUS BRADYCARDIA LOW QRS VOLTAGE IN PRECORDIAL LEADS [QRS DEFLECTION < 1.0 mV IN CHEST LEADS] BORDERLINE ECG No Stemi Electronically signed by : SKY PENNY, 08/08/2024 06:30:07
[2024-08-08 01:26] LABS: Basophils # 0.1 K/mm3 (0-0.2); Basophils % 1.5 % (0.1-2.0); Hemoglobin 13.9 g/dL (12.2-16.2); Lymphocytes # 1.6 K/mm3 (0.7-4.5); Lymphocytes % 36.4 % (10-50); Mean Corpuscular HGB Conc 33.2 g/dL (31.8-35.4); Mean Corpuscular Hemoglobin 27.8 pg (27.0-31.2); Mean Corpuscular Volume 83.6 fl (81-99); Mean Platelet Volume 8.1 fl (7.4-10.4); Monocytes # 0.3 K/mm3 (0.1-1.0); Monocytes % 6.4 % (1.7-9.3); Neutrophils # 2.4 K/mm3 (1.8-7.8); Neutrophils % 54.7 % (37.0-80.0); Platelet Count 126 K/mm3 (142-424); Red Blood Count 5.02 M/mm3 (4.20-5.40); Red Cell Distribution Width 15.1 % (11.5-17.5); White Blood Count 4.3 K/mm3 (4.8-10.8)
--- NOTE | 2024-08-08 01:32 | PC.NURSE ---
Pt cathed for urine specimen
[2024-08-08 01:33] LABS: Alanine Aminotransferase 28 U/L (12-78); Albumin Level 4.5 g/dl (3.5-5.0); Albumin/Globulin Ratio 1.7 (1.1-1.8); Alkaline Phosphatase 40 U/L (38-126); Anion Gap 9.7 mEq/L (5-15); Aspartate Amino Transferase 41 U/L (14-36); Bilirubin,Total 0.8 mg/dl (0.2-1.3); Blood Urea Nitrogen 18 mg/dl (7-17); Calcium 9.2 mg/dl (8.4-10.2); Carbon Dioxide 30 mmol/L (22.0-30.0); Chloride 105 mmol/L (98-107); Creatinine Clearance Estimated 31 mL/min (50-200); Estimated Glomerular Filt Rate 34 ml/min (>60); GFR (African American) 41 ML/MIN (>60); Globulin 2.6 g/dL (1.3-3.2); Glucose 90 mg/dl (74-100); Potassium 3.7 mmoL/L (3.5-5.1); Sodium 141 mmol/L (136-145); Total Protein,Serum 7.1 g/dl (6.3-8.2)
[2024-08-08 01:38] LABS: Microscopic, Urine URINE MICROSCOPIC (MICROSCOPIC)
[2024-08-08 01:39] LABS: Appearance,Urine CLEAR (Clear); Bilirubin,Urine Negative (Negative); Blood, Urine TRACE-I (Negative); Color,Urine YELLOW (Yellow); Glucose,Urine (UA) Negative (Negative); Ketones,Urine Negative (Negative); Leukocyte Esterase,Urine Negative (Negative); Nitrate,Urine Negative (Negative); PH,Urine 6.5 (5.0-8.5); Protein,Urine Negative (Negative); Urobilinogen,Urine 0.2 EU/dl (0.2)
[2024-08-08 01:45] LABS: Troponin I < 0.01 ng/ml (0.00-0.034)
[2024-08-08 01:48] LABS: Bacteria,Urine Trace /lpf; RBC,Urine Occasional #/hpf (0-3)
--- NOTE | 2024-08-08 02:48 | ED_ITS ---
Discharge Plan Disposition Patient Disposition: Admitted Clinical Impressions Clinical Impression: Failure to thrive, General weakness, Hallucinations Discharge ED Provider: Will Orozco Adult HPI General Chief complaint: Altered Mental Status Stated complaint: confusion Time Seen by Provider: 08/08/24 00:38 Mode of Arrival: Ambulatory Source of Information: Significant Other Limitations: Altered Mental Status Description of Symptoms (Recalled from ER Triage Doc. by RN): Patients states she has been confused today, and was hallucinating people in her home. States she does have short term memory issues, but today has been worse. History of Present Illness HPI narrative: Patient presents to ER with her for concerns of episode of confusion and hallucination. Patient has a history of short-term memory loss as well as atrial fibrillation on aspirin, no other anticoagulants. Patient states yesterday she had a very brief episode where everything going on around her felt blurry but she does not describe vision changes. She just describes a lapse in her memory of what was going on. She denies any hallucinations at that time. Patient and report that tonight, she suddenly did not know where she was but she did recognize her . She just did not appreciate that she was at home and was asking to go home. Her states she was seeing people in the house and asking how they got in there. Patient reports she did not recognize the people, reports she was not calling them by name. Reportedly this episode lasted only briefly, it spontaneously gradually cleared and by the time patient was in the ER she was no longer having hallucinations. She states she was partially aware of the hallucinations but is not aware that she did not know where she was. Patient does report mild recent dysuria but no hematuria, no fevers, she denies chest pain, shortness of breath, cough, congestion, headache, numbness, tingling, or weakness. She states she has chronic lightheaded/dizziness which is unchanged. She states this is at baseline. Her supports this statement. Patient ambulated independently into the ER. She denies being sick recently. She denies any alcohol or illicit drug use, she does not smoke. Patient has not had any medication changes recently and takes all her medications as prescribed. During her episode, she was not combative, aggressive, and did not have any suicidal or homicidal thoughts or ideations, she denies suicidal or homicidal ideation now. Related Data Home Medications ?Medication ?Instructions ?Recorded ?Confirmed escitalopram oxalate 10 mg tablet 10 mg PO DAILY 02/18/24 05/11/24 famotidine 20 mg tablet 20 mg PO DAILY 05/11/24 05/11/24 Previous Rx's ?Medication ?Instructions ?Recorded albuterol sulfate 90 mcg/actuation 4 inh inhalation Q4H PRN shortness 01/24/24 aerosol inhaler of breath or wheezing #8.5 grams memantine 10 mg tablet 10 mg PO BID #60 tabs 03/07/24 nitrofurantoin 100 mg PO BID 5 days #10 caps 04/03/24 monohydrate/macrocrystals 100 mg capsule (Macrobid) metoprolol tartrate 50 mg tablet 50 mg PO BID #180 tabs 05/02/24 aspirin 81 mg tablet,delayed 81 mg PO DAILY #30 tabs 05/11/24 release (Adult Aspirin Regimen) atorvastatin 20 mg tablet (Lipitor) 20 mg PO DAILY #30 tabs 05/11/24 amiodarone 200 mg tablet See Rx Instructions .Route 05/16/24 .COMPLEX #90 tabs Allergies Allergy/AdvReac Type Severity Reaction Status Date / Time doxycycline Allergy Verified 04/19/24 09:04 Sulfa (Sulfonamide Allergy Verified 04/19/24 09:04 Antibiotics) From CIPROFLOXACIN PO TAB Allergy Unknown Uncoded 04/13/24 08:52 100 MG LIDOCAINE Allergy Unknown Hypotension Uncoded 04/13/24 08:52 From AUGMENTIN Allergy Uncoded 04/13/24 08:52 [facility] Disclaimer: The information contained in this section may have been updated after the patient was seen, as this information can be updated by other users. Medical History (Updated 08/08/24 @ 03:29 by Will Orozco MD) Coronary artery disease Elevated brain natriuretic peptide (BNP) level Abnormal electrocardiogram [ECG] [EKG] Fatigue HTN (hypertension) Dyspnea Abnormal ECG Abnormal findings on diagnostic imaging of heart and coronary circulation Sinus bradycardia Chronic GERD IBS (irritable bowel syndrome) Hyperlipidemia Depression Dyspareunia Asthma Paroxysmal atrial fibrillation Palpitations Surgical History H/O: section Hx of cholecystectomy Family History Father Hypertension Mother CHF (congestive heart failure) Cancer Daughter Seizure Stroke Social History Smoking Status: Never smoker second hand exposure: No alcohol intake: never counseling given: No current occupational status: retired Travel in the last 8 weeks: None household members: family housing: house marital status: Other Medical History Have you received the Flu Vaccine for this season: No Have you received the Pneumonia Vaccine: Yes ROS Obtained: Yes Systems reviewed as appropriate & no additional complaints except as documented ROS per HPI Physical Exam General General appearance: alert and in no apparent distress Head Head exam: atraumatic and normocephalic Eye Eye exam: Present PERRL, EOMI and other (No nystagmus); Absent conjunctival injection ENT ENT exam: Present mucous membranes moist Neck Neck exam: Present normal inspection and full ROM Chest Chest inspection: Present symmetric chest wall rise Respiratory Respiratory exam: Present normal lung sounds bilaterally; Absent respiratory distress, wheezes or stridor Cardiovascular Cardiovascular exam: Present regular rate and normal rhythm Abdominal Exam Abdominal exam: Present soft; Absent distention, tenderness, guarding or rebound Extremities Exam Extremities exam: Present full ROM and edema (Very mild +1 pitting edema in the bilateral lower extremity, patient reports her swelling is at baseline, supports this); Absent tenderness Back Exam Back exam: Present full ROM; Absent tenderness Neurological Exam Neurological exam: Present alert, oriented X3, CN II-XII intact and normal gait (Ambulated into the ER with a slow gait); Absent motor sensory deficit (5 out of 5 strength in all extremities, normal sensation, normal [id number] and [id number], negative pronator drift) Psychiatric Psychiatric exam: Present normal affect and normal mood Skin Skin exam: Present warm and dry Medical Decision Making Medical Records Medical records reviewed: Yes I reviewed the patient's medical records. Screening: Per USPSTF and CDC recommendations, given the prevalence of disease in our region, it is our hospital?s policy to screen for HIV and viral Hepatitis for all patients aged 18 and over and those with ongoing risk factors. MR Comment: Last visit to the ER was for Generalized weakness, discharged with a UTI on Macrobid. Most recent cardiology note from May was reviewed. EKG at that time was sinus bradycardia with a rate of 47, they were starting Lipitor, aspirin. Narciso Inquiry Pt receiving controlled substance: No Vital Signs: 08/08/24 00:46 08/08/24 00:54 08/08/24 01:04 Temperature 97.9 F Temperature Source Oral Pulse Rate 50 L 51 L Pulse Rate [Right Radial] 53 L Respiratory Rate 18 Blood Pressure Blood Pressure [Right Arm] 166/76 H Blood Pressure Mean Blood Pressure Mean [Right Arm] 106 Blood Pressure Source Blood Pressure Source [Right Arm] Automatic Cuff Blood Pressure Position Blood Pressure Position [Right Arm] Supine 02 Sat by Pulse Oximetry 99 100 98 Oxygen Delivery Method Room Air 08/08/24 01:31 08/08/24 02:00 08/08/24 02:08 Temperature Temperature Source Pulse Rate 54 L 51 L Pulse Rate [Right Radial] Respiratory Rate Blood Pressure 141/31 H 141/67 H 133/59 L Blood Pressure [Right Arm] Blood Pressure Mean 70 Blood Pressure Mean [Right Arm] Blood Pressure Source Blood Pressure Source [Right Arm] Blood Pressure Position Blood Pressure Position [Right Arm] 02 Sat by Pulse Oximetry 99 99 Oxygen Delivery Method 08/08/24 02:10 08/08/24 02:11 08/08/24 02:33 Temperature Temperature Source Pulse Rate Pulse Rate [Right Radial] Respiratory Rate Blood Pressure 139/64 139/70 165/65 H Blood Pressure [Right Arm] Blood Pressure Mean 82 80 Blood Pressure Mean [Right Arm] Blood Pressure Source Blood Pressure Source [Right Arm] Blood Pressure Position Blood Pressure Position [Right Arm] 02 Sat by Pulse Oximetry 94 L Oxygen Delivery Method 08/08/24 03:04 Temperature 97.9 F Temperature Source Oral Pulse Rate 50 L Pulse Rate [Right Radial] Respiratory Rate 16 Blood Pressure 165/65 H Blood Pressure [Right Arm] Blood Pressure Mean Blood Pressure Mean [Right Arm] Blood Pressure Source Automatic Cuff Blood Pressure Source [Right Arm] Blood Pressure Position Supine Blood Pressure Position [Right Arm] 02 Sat by Pulse Oximetry Oxygen Delivery Method Room Air Lab Data Lab Results 08/08/24 00:43: WBC 4.3 L, RBC 5.02, Hgb 13.9, Hct 42.0, MCV 83.6, MCH 27.8, MCHC 33.2, RDW 15.1, Plt Count 126 L, MPV 8.1, Neut % (Auto) 54.7, Lymph % (Auto) 36.4, Armstrong % (Auto) 6.4, Eos % (Auto) 1.0, Baso % (Auto) 1.5, Neut # (Auto) 2.4, Lymph # (Auto) 1.6, Armstrong # (Auto) 0.3, Eos # (Auto) 0.0, Baso # (Auto) 0.1, Sodium 141, Potassium 3.7, Chloride 105, Carbon Dioxide 30, Anion Gap 9.7, BUN 18 H, Creatinine 1.50 H, Estimated Creat Clear 31, Estimated GFR 34 L, Est GFR ( Amer) 41 L, Glucose 90, Calcium 9.2, Total Bilirubin 0.8, A ST 41 H, ALT 28, Alkaline Phosphatase 40, Troponin I < 0.01, Total Protein 7.1, Albumin 4.5, Globulin 2.6, Albumin/Globulin Ratio 1.7 08/08/24 01:30: Urine Color Yellow, Urine Appearance Clear, Urine pH 6.5, Ur Specific Hull 1.010, Urine Protein Negative, Urine Glucose (UA) Negative, Urine Ketones Negative, Urine Blood Trace-i, Urine Nitrate Negative, Urine Bilirubin Negative, Urine Urobilinogen 0.2, Ur Leukocyte Esterase Negative, Urine RBC Occasional, Urine WBC None, Ur Squamous Epith Cells None, Urine Bacteria Trace, Plasma/Serum Alcohol < 10 08/08/24 00:43 08/08/24 00:43 Orders (Tests/Meds): ED MEDICATIONS Generic Name Dose Route Start Last Admin Trade Name Freq PRN Reason Stop Dose Admin Acetaminophen 650 mg 08/08/24 03:10 Acetaminophen 325mg Tab PO 09/07/24 03:09 Q4HP PRN Fever or Mild Pain (1-3) Enoxaparin Sodium 40 mg 08/08/24 09:00 Enoxaparin 40mg/0.4ml Syringe SUBCUT 09/07/24 08:59 DAILY [facility] [place] Ondansetron HCl 4 mg 08/08/24 03:10 Ondansetron 4mg/2ml Vial IV 09/07/24 03:09 Q8HP PRN Nausea Pantoprazole Sodium 40 mg 08/08/24 21:00 Pantoprazole 40mg Tablet PO 09/07/24 20:59 HS [facility] ORDERS Category Date Time Status CT head/brain wo con Stat Cat Scan 08/08/24 00:38 Completed CXR --portable [XR chest portable] Stat Exams 08/08/24 00:49 Completed CBC w/Auto Diff [Complete Blood Count Auto Diff] Stat Lab 08/08/24 00:43 Completed CMP [Comprehensive Metabolic Panel] Stat Lab 08/08/24 00:43 Completed Ethanol [Ethyl Alcohol] Stat Lab 08/08/24 01:30 Completed Trop I [Troponin I] Stat Lab 08/08/24 00:43 Completed Troponin I Q3H Lab 08/08/24 04:00 Ordered Troponin I Q3H Lab 08/08/24 07:00 Ordered UDS [Drug Screen,Urine] Stat Lab 08/08/24 01:30 Received Urinalysis and Microscopic Stat Lab 08/08/24 01:30 Completed Medical Decision Narrative: In summary, this 74-year-old female presents to the emergency department today with concerns of hallucination, very brief episode of altered mental status, also complaining of dysuria. On initial evaluation patient is hemodynamically stable, afebrile, disoriented to time which is her baseline but otherwise appropriately oriented and behaving normally, no focal neurologic deficits, cardiopulmonary exam and abdominal exam benign, remainder of exam normal. Differential diagnosis includes but is not limited to dementia, sundowning, I considered medication side effect the patient has not had any medication changes, considered arrhythmia, ACS, intracranial mass or bleed, pneumonia, intoxication, encephalopathy, UTI. Based on these concerns, I ordered serum labs, cardiac workup, chest x-ray, CT head, urine studies. ECG personally interpreted demonstrates sinus bradycardia, rate 50, normal axis, normal OK, QTc 452, no STEMI. No medications were administered in the ER. Labs personally reviewed demonstrate mild leukopenia slightly improved from previous, no anemia, thrombocytopenia which is previously known, CMP with kidney dysfunction, creatinine 1.5 but this is similar to prior, no CELINA, initial troponin undetectably low less than 0.01 very reassuring in the setting of patient not having any chest pain or shortness of breath, transaminases with very slight elevation in AST, nonspecific and nonactionable, UA negative for findings of infection, trace blood likely from the catheter process. UDS and EtOH negative. XR personally interpreted demonstrates no acute intrathoracic abnormality, see radiology read for final interpretation. CT imaging personally interpreted demonstrate no acute intracranial abnormality such as bleed or mass, see radiology read for final interpretation On reassessment, patient ambulated to the restroom but seemed slightly more unsteady. She stated her legs feel weak, equal, bilateral. On further discussion with her and her , she reported that they did a a lot of [place] shopping today and she did significantly more walking than normal. She and her states she often gets quite fatigued after events like this and has some difficulty with ambulation. Orthostatics were performed which were normal and reassuring. We attempted to ambulate the patient but she required a 1 person assist, stating that her legs felt like Jell-O. She still has a benign neuroexam with no deficits appreciated, but due to her unsteadiness I do not believe she is appropriate to go home at this time. She does not have any supportive devices at home and only has her elderly for support. I am very concerned she could fall due to her fatigue and weakness. I am also concerned about failure to thrive. I discussed admission with the patient and family, they are in agreement with this plan, I discussed this case with the hospitalist who graciously excepted the patient for admission. Patient admitted in stable condition Critical Care Critical Care Time Critical Care Time: No
[2024-08-08 03:06] LABS: Ethyl Alcohol < 10 mg/dl (0-10)
[2024-08-08 03:12] LABS: Amphetamine/Metha Screen,Urine Negative ng/ml (<1000); Barbiturates Screen,Urine Negative ng/ml (<200)
[2024-08-08 03:13] LABS: Benzodiazepines Screen,Urine Negative ng/ml (<200); Cannabinoid Screen,Urine Negative ng/ml (<50)
[2024-08-08 03:14] LABS: Cocaine Screen,Urine Negative ng/ml (<300)
[2024-08-08 03:15] LABS: Methadone Screen,Urine Negative ng/ml (<300); Opiate Screen,Urine Negative ng/ml (<300)
[2024-08-08 03:16] LABS: Phencyclidine Screen,Urine Negative ng/ml (<25)
--- NOTE | 2024-08-08 03:17 | PC.NURSE ---
Patient arrived to floor via wheelchair from ED at 03:12.
[2024-08-08 03:18] LABS: Coronavirus 19, PCR Not Detected (NotDetected); Influenza A, PCR Not Detected (NotDetected); Influenza B, PCR Not Detected (NotDetected)
--- NOTE | 2024-08-08 03:48 | P.HP_ITS ---
<Statement entered by Graham Barry MD - 08/13/24 14:25> I personally evaluated patient and agree with plan of care as outlined by BINDER FIXER below. History of Present Illness *Admission Date: 08/08/24 *Reason for visit:: Hallucinations, failure to thrive, ambulation issues *History of present illness: This 74-year-old female, according to her was having visual hallucinations today at the house. Also was not able to ambulate without assistance of basically at least 1 person but needing to most the time. Have talked with the ER physician patient has improved since being in the ER, has orientation to place time and self., Patient is noted to be on a Alzheimer's type medication., says her short-term memory is poor mainly with time. There has been no indication of an in infectious disease event taking place but she has been around people who have been sick.. I have talked with the ER physician gone over the labs which are basically negative but showing a renal insufficiency with a decreased GFR. That is slightly worse than usual. Also noting went back through her records and have found since the May 2022 her weight was 151 today her weight is 119 pounds about a 22% weight loss in 2 years.. Due to the patient requiring assistance just to stand. I feel that it is necessary to admit her do a physical therapy consult, have her evaluated for neurologic and failure to thrive problems. With the plan of either having her f ollow-up with her primary care referral to neurology, versus having to enter into rehab if her is unable to care for her at home. Have evaluated CT scan of head and chest and saw nothing unusual. To indicate a biologic wheezing for her weight loss., Question dementia and just loss of appetite at this point in time. Noting in the old records, that she has a vascular age of an 85-year-old. [facility] Disclaimer: The information contained in this section may have been updated after the patient was seen, as this information can be updated by other users. Medical History (Updated 08/08/24 @ 04:01 by Wellington Garibay APRN) Coronary artery disease Elevated brain natriuretic peptide (BNP) level Abnormal electrocardiogram [ECG] [EKG] Fatigue HTN (hypertension) Dyspnea Abnormal ECG Abnormal findings on diagnostic imaging of heart and coronary circulation Sinus bradycardia Chronic GERD IBS (irritable bowel syndrome) Hyperlipidemia Depression Dyspareunia Asthma Paroxysmal atrial fibrillation Palpitations Surgical History H/O: section Hx of cholecystectomy Family History Father Hypertension Mother CHF (congestive heart failure) Cancer Daughter Seizure Stroke Social History (Updated 08/08/24 @ 03:35 by Thelma Correa RN) Smoking Status: Never smoker second hand exposure: No alcohol intake: never counseling given: No current occupational status: retired Travel in the last 8 weeks: None household members: family housing: house marital status: Other Medical History Have you received the Flu Vaccine for this season: Yes Have you received the Pneumonia Vaccine: Yes Review of Systems Review of Systems Review of systems:: pertinent systems reviewed and negative unless documented below Constitutional Constitutional: Reports as per HPI Comments: Patient is alert and oriented answer some questions., Able to follow my commands while I was doing the neurologic exam,. Eyes Eyes: Reports as per HPI ENT Ears, Nose, Mouth, and Throat: Reports as per HPI and Reports disequilibrium *Cardiovascular Cardiovascular: Reports as per HPI *Respiratory Respiratory: Reports as per HPI *Gastrointestinal Gastrointestinal: Reports as per HPI Comments: 32 pound weight loss in 2 years *Genitourinary Genitourinary: Reports as per HPI *Musculoskeletal Musculoskeletal: Reports as per HPI Comments: Requiring assistance to walk today Integumentary/Breasts Skin/Breast: Reports as per HPI *Neurologic Neurologic: Reports as per HPI, Reports behavioral changes, Reports confusion, Reports disequilibrium, Reports localized weakness and Reports lack of coordination Psychiatric Psychiatric: Reports system reviewed and no additional complaints, except as documented, Reports as per HPI, Reports behavioral changes and Reports confusion Endocrine Endocrine: Reports as per HPI Hematologic/Lymphatic Hematologic/Lymphatic: Reports as per HPI Allergic/Immunologic Allergic/Immunologic: Reports as per HPI Meds Home Medications and Allergies Home Medications ?Medication ?Instructions ?Recorded ?Confirmed ?Type albuterol sulfate 90 mcg/actuation 4 inh inhalation Q4H PRN shortness 01/24/24 08/08/24 Rx aerosol inhaler of breath or wheezing #8.5 grams escitalopram oxalate 10 mg tablet 10 mg PO DAILY 02/18/24 08/08/24 History memantine 10 mg tablet 10 mg PO BID #60 tabs 03/07/24 08/08/24 Rx metoprolol tartrate 50 mg tablet 50 mg PO BID #180 tabs 05/02/24 08/08/24 Rx aspirin 81 mg tablet,delayed 81 mg PO DAILY #30 tabs 05/11/24 08/08/24 Rx release (Adult Aspirin Regimen) atorvastatin 20 mg tablet (Lipitor) 20 mg PO DAILY #30 tabs 05/11/24 08/08/24 Rx famotidine 20 mg tablet 20 mg PO BID 05/11/24 08/08/24 History amiodarone 200 mg tablet 100 mg PO BID 08/08/24 08/08/24 History New Prescriptions to Start Prescriptions: Allergies Allergy/AdvReac Type Severity Reaction Status Date / Time doxycycline Allergy Verified 04/19/24 09:04 Sulfa (Sulfonamide Allergy Verified 04/19/24 09:04 Antibiotics) From CIPROFLOXACIN PO TAB Allergy Unknown Uncoded 04/13/24 08:52 100 MG LIDOCAINE Allergy Unknown Hypotension Uncoded 04/13/24 08:52 From AUGMENTIN Allergy Uncoded 04/13/24 08:52 Exam Data for Last 24 hours Vital signs and Labs for Last 24 Hours: Temp Pulse Resp BP Pulse Ox O2 Del Method 97.6 F 50 L 18 135/65 100 Room Air 08/08/24 03:10 08/08/24 03:10 08/08/24 03:10 08/08/24 03:10 08/08/24 03:10 08/08/24 03:10 Laboratory Results - last 24 hr 08/08/24 00:43: WBC 4.3 L, RBC 5.02, Hgb 13.9, Hct 42.0, MCV 83.6, MCH 27.8, MCH C 33.2, RDW 15.1, Plt Count 126 L, MPV 8.1, Neut % (Auto) 54.7, Lymph % (Auto) 36.4, [place] % (Auto) 6.4, Eos % (Auto) 1.0, Baso % (Auto) 1.5, Neut # (Auto) 2.4, Lymph # (Auto) 1.6, [place] # (Auto) 0.3, Eos # (Auto) 0.0, Baso # (Auto) 0.1, Sodium 141, Potassium 3.7, Chloride 105, Carbon Dioxide 30, Anion Gap 9.7, BUN 18 H, Creatinine 1.50 H, Estimated Creat Clear 31, Estimated GFR 34 L, Est GFR ( Amer) 41 L, Glucose 90, Calcium 9.2, Total Bilirubin 0.8, AST 41 H, ALT 28, Alkaline Phosphatase 40, Troponin I < 0.01, Total Protein 7.1, Albumin 4.5, Globulin 2.6, Albumin/Globulin Ratio 1.7 08/08/24 01:30: Urine Color Yellow, Urine Appearance Clear, Urine pH 6.5, Ur Specific [place] 1.010, Urine Protein Negative, Urine Glucose (UA) Negative, Urine Ketones Negative, Urine Blood Trace-i, Urine Nitrate Negative, Urine Bilirubin Negative, Urine Urobilinogen 0.2, Ur Leukocyte Esterase Negative, Urine RBC Occasional, Urine WBC None, Ur Squamous Epith Cells None, Urine Bacteria Trace, Urine Opiates Screen Negative, Urine Methadone Screen Negative, Ur Barbituates Screen Negative, Ur Phencyclidine Scrn Negative, Ur Amphetamines Screen Negative, U Benzodiazepines Scrn Negative, Urine Cocaine Screen Negative, U Marijuana (THC) Screen Negative, Plasma/Serum Alcohol < 10 I & O for Last 24 hours: Intake & Output 08/05/24 08/06/24 08/07/24 08/08/24 05:59 05:59 05:59 05:59 Weight 119 lb Radiology Reports for the Last 24 Hours: No acute findings on chest x-ray are CT of the head Constitutional Constitutional: no acute distress and thin *Routine HEENT Exam Head: Present normocephalic and atraumatic Eye: Present EOMI, PERRL and normal accommodation ENT: Present mucous membranes moist *Routine Neck Exam Neck: Present supple and full ROM Routine Chest/Breast/Axilla Exam Comments: Chest wall exam was normal *Routine Respiratory Exam Respiratory: Present CTA bilaterally, normal respiratory effort, able to speak in complete sentences and symmetric chest movement *Routine Cardiovascular Exam Cardiovascular: Present RRR, Normal S1, Normal S2 and bradycardia *Routine Abdominal Exam Abdominal: Present soft and normoactive bowel sounds *Routine Rectal Exam Rectal:: deferred *Routine Genitalia Exam Genitalia:: deferred *Routine Extremities Exam Extremities: Present full ROM and pulses intact Routine Back/Spine/Pelvis Exam Back/Spine: Present full ROM Comments: No back tenderness found patient is able to sit and move in the stretcher I did not stand her due to the history of requiring people to hold her up while she is walking *Routine Skin Exam Skin: Present intact *Routine Neurological Exam Neurological: Present alert, CN II-XII intact, vision grossly intact, hearing grossly intact and normal speech Comments: Able to talk and follows most commands., She does know who she is and who her is and that she is at the hospital Routine Psychiatric Exam Psychiatric: Present normal affect and cooperative H&P: Result Impressions 1. 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 Sudden onset of weakness not able to ambulate by the herself 3. Visual hallucinations today Imaging and Cardiology Chest x-ray: Additional comments: No acute findings CT scan - head: Status: image reviewed by me Additional comments: No acute findings Assessment and Plan *Assessment and plan (1) Hallucinations: Status: Acute Category: Medical Code(s): R44.3 - Hallucinations, unspecified (2) General weakness: Status: Acute Category: Medical Code(s): R53.1 - Weakness (3) Failure to thrive: Status: Acute Qualifiers: Failure to thrive age range: in adult Qualified Code(s): R62.7 - Adult failure to thrive Category: Medical (4) Abnormal findings on diagnostic imaging of heart and coronary circulation: Status: Acute Category: Medical Code(s): R93.1 - Abnormal findings on diagnostic imaging of heart and coronary circulation (5) Dementia: Status: Acute Qualifiers: Dementia behavioral or psychological symptom: with psychotic disturbance Dementia severity: moderate Dementia type: vascular dementia Qualified Code(s): F01.B2 - Vascular dementia, moderate, with psychotic disturbance Category: Medical Code(s): F03.90 - Unspecified dementia, unspecified severity, without behavioral dist urbance, psychotic disturbance, mood disturbance, and anxiety (6) Impaired ambulation: Status: Acute Category: Medical Code(s): R26.2 - Difficulty in walking, not elsewhere classified (7) Weight loss of more than 10% body weight: Status: Acute Category: Medical Code(s): R63.4 - Abnormal weight loss Plan 1. For increased dementia with now problems with ambulation. And now hallucinations we will need to place the patient in the hospital overnight have her evaluated by physical therapy to see her ambulation ability., Then possible to refer to primary care than to neurology. If not may need workup to be placed up in rehab or long-term care facility depend upon the wishes of the patient and her . 2. Weight loss of 32 pounds in the last 2 years 22% of body weight, unintentional unsure if she is just eating less and not hungry, with the limited scans I have been reading her past medical history no signs of cancer have been found. 3. Patient will be cared for at this time to provide protection for her while she is in the hospital to determine the best course of action for her and her fa dina.
[2024-08-08 04:27] LABS: Troponin I < 0.01 ng/ml (0.00-0.034)
[2024-08-08 08:40] LABS: Free T4 (Free Thyroxine) 2.24 ng/dl (0.78-2.19)
[2024-08-08 08:47] LABS: Troponin I < 0.01 ng/ml (0.00-0.034)
[2024-08-08] MEDS: ENOXAPARIN 40MG/0.4ML SYRINGE 40 MG SUBCUT (08:54)
--- NOTE | 2024-08-08 09:27 | [facility].PTEV ---
Physical Therapy Evaluation Rehab PT IP Evaluation Start: 08/08/24 03:10 Freq: ONCE Status: Active Protocol: Document 08/08/24 08:08 DICK (Rec: 08/08/24 09:27 DICK [id number]) Subjective/History History History Per H&P: This 74-year-old female, according to her was having visual hallucinations today at the house. Also was not able to ambulate without assistance of basically at least 1 person but needing to most the time. Have talked with the ER physician patient has improved since being in the ER, has orientation to place time and self., Patient is noted to be on a Alzheimer's type medication., says her short-term memory is poor mainly with time. There has been no indication of an in infectious disease event taking place but she has been around people who have been sick.. I have talked with the ER physician gone over the labs which are basically negative but showing a renal insufficiency with a decreased GFR. That is slightly worse than usual. Also noting went back through her records and have found since the May 2022 her weight was 151 today her weight is 119 pounds about a 22% weight loss in 2 years.. Due to the patient requiring assistance just to stand. I feel that it is necessary to admit her do a physical therapy consult, have her evaluated for neurologic and failure to thrive problems. With the plan of either having her follow-up with her primary care referral to neurology, versus having to enter into rehab if her is unable to care for her at home. Have evaluated CT scan of head and chest and saw nothing unusual. To indicate a biologic wheezing for her weight loss., Question dementia and just loss of appetite at this point in time. Subjective Subjective Pt is oriented to self. Not oriented to birthday. PLOF: IND with all mobility ( community and household). Does not use or own any assistive devices. Quit driving ~1 year ago. Does have history of one fall in past 1-2 years. Home: Lives with her in a 2-story home. Pt's grand- daughter lives upstairs. No [place] home. Available assistance: does the driving. is available during the day to assist if needed. New diagnosis of cancer in past 12 No months? Rehab PT IP Eval Objective Appearance Patient Behavior Appropriate,Cooperative Patient Orientation Person,Situation Difficulty following instructions none Speech Pattern Clear Ambulation Patient Able to Ambulate Yes Ambulation Observation IP General Gait Pattern Observation Narrow Based Gait Ambulation Distance (feet) 90 Ambulation Assistive Device None Ambulation Ability Supervision/Stand by,Contact Guard/Hand Hold Balance Ability to Arise Able, uses arms to help Sitting Balance Steady, safe Standing Balance Narrow stance w/o support Dynamic Sitting Balance Ability Normal Dynamic Standing Balance Ability Good Transfers Bed Transfer Ability Independent Sit to Stand Bed Transfer Ability Supervision/Stand by Rehab PT IP prob,goals,plan Problems Date of Evaluation: 08/08/24 Rehab Potential Rehab Potential Innapropriate for Skilled Therapy Discharge Plan PT Discharge Plan Initial physical therapy mobility evaluation performed. Pt demo'd ability to ambulate safely without an AD. Pt was IND-SUP with bed mobility and transfers. PT provided CGA to keep gown closed but pt did not require physical assistance for ambulation. Pt able to stand feet together eyes open and closed with minimal sway and no LOB. Pt is at baseline with her mobility and is not appropriate for skilled acute-care PT. PT recommending pt return home with assistance/supervision provided by . Eval Complexity Eval Charge Codes 15837 - Moderate Complexity PHYSICIAN CERTIFICATION: I certify the specified therapy services for Geovanna Garner are required, authorized, and reviewed every 30 days.
--- NOTE | 2024-08-08 09:42 | P.DS_ITS ---
General Admission date:: 08/08/24 HPI HPI HPI: This 74-year-old female, according to her was having visual hallucinations today at the house. Also was not able to ambulate without assistance of basically at least 1 person but needing to most the time. Have talked with the ER physician patient has improved since being in the ER, has orientation to place time and self., Patient is noted to be on a Alzheimer's type medication., says her short-term memory is poor mainly with time. There has been no indication of an in infectious disease event taking place but she has been around people who have been sick.. I have talked with the ER physician gone over the labs which are basically negative but showing a renal insufficiency with a decreased GFR. That is slightly worse than usual. Also noting went back through her records and have found since the May 2022 her weight was 151 today her weight is 119 pounds about a 22% weight loss in 2 years.. Due to the patient requiring assistance just to stand. I feel that it is necessary to admit her do a physical therapy consult, have her evaluated for neurologic and failure to thrive problems. With the plan of either having her follow-up with her primary care referral to neurology, versus having to enter into rehab if her is unable to care for her at home. Have evaluated CT scan of head and chest and saw nothing unusual. To indicate a biologic wheezing for her weight loss., Question dementia and just loss of appetite at this point in time. Noting in the old records, that she has a vascular age of an 85-year-old. Hospital Course Hospital Course Hospital Course: Patient is back to baseline. No hallucinations, or significant confusion outside o of her Alzheimer's dementia. at bedside. Will treat with cefdinir days given symptoms. #Hallucinations #Confusion #Alzheimer's dementia #UTI - Patient is pleasant, back to baseline this morning. Still has some difficulty remembering past events but at bedside states this is baseline. - PT/OT consulted, did not recommend further rehab. - Patient does endorse dysuria ongoing for a few days, though UA unremarkable which may be false negative. - SYmptoms may be related to sundowning vs UTI. - Continue home memantine. - Discharged with cefdinir for 3 days. - Will follow-up with neurology. #History of Vtach - Stable here. Continue home amiodorone, metoprolol. #Anxiety/depression - Continue home Lexapro. #Severe protein calorie malnutrition - Nutrition consulted and provided counseling. Exam Data for Last 24 hours Vital signs and Labs for Last 24 Hours: Temp Pulse Resp BP Pulse Ox O2 Del Method 98.1 F 55 L 19 141/60 H 100 Room Air 08/08/24 07:47 08/08/24 07:47 08/08/24 07:47 08/08/24 07:47 08/08/24 07:47 08/08/24 07:47 Laboratory Results - last 24 hr 08/08/24 00:43: WBC 4.3 L, RBC 5.02, Hgb 13.9, Hct 42.0, MCV 83.6, MCH 27.8, MCHC 33.2, RDW 15.1, Plt Count 126 L, MPV 8.1, Neut % (Auto) 54.7, Lymph % (Auto) 36.4, [place] % (Auto) 6.4, Eos % (Auto) 1.0, Baso % (Auto) 1.5, Neut # (Auto) 2.4, Lymph # (Auto) 1.6, [place] # (Auto) 0.3, Eos # (Auto) 0.0, Baso # (Auto) 0.1, Sodium 141, Potassium 3.7, Chloride 105, Carbon Dioxide 30, Anion Gap 9.7, BUN 18 H, Creatinine 1.50 H, Estimated Creat Clear 31, Estimated GFR 34 L, Est GFR ( Amer) 41 L, Glucose 90, Calcium 9.2, Total Bilirubin 0.8, AST 41 H, ALT 28, Alkaline Phosphatase 40, Troponin I < 0.01, Total Protein 7.1, Albumin 4.5, Globulin 2.6, Albumin/Globulin Ratio 1.7 08/08/24 01:30: Urine Color Yellow, Urine Appearance Clear, Urine pH 6.5, Ur Specific [place] 1.010, Urine Protein Negative, Urine Glucose (UA) Negative, Urine Ketones Negative, Urine Blood Trace-i, Urine Nitrate Negative, Urine Bilirubin Negative, Urine Urobilinogen 0.2, Ur Leukocyte Esterase Negative, Urine RBC Occasional, Urine WBC None, Ur Squamous Epith Cells None, Urine Bacteria Trace, Urine Opiates Screen Negative, Urine Methadone Screen Negative, Ur Barbituates Screen Negative, Ur Phencyclidine Scrn Negative, Ur Amphetamines Screen Negative, U Benzodiazepines Scrn Negative, Urine Cocaine Screen Negative, U Marijuana (THC) Screen Negative, Plasma/Serum Alcohol < 10 08/08/24 02:24: SARS-CoV-2 (PCR) Not detected, Influenza A Untype (PCR) Not detected, Influenza Type B (PCR) Not detected 08/08/24 03:55: Troponin I < 0.01, Free T4 2.24 H 08/08/24 07:55: Troponin I < 0.01 I & O for Last 24 hours: Intake & Output 08/05/24 08/06/24 08/07/24 08/08/24 23:59 23:59 23:59 23:59 Intake Total 360 / 360 Output Total 0 / 0 Balance 360 / 360 Weight 53.977 kg Constitutional Constitutional: no acute distress *Routine HEENT Exam Head: Present normocephalic Eye: Present EOMI and PERRL ENT: Present mucous membranes moist *Routine Neck Exam Neck: Present supple; Absent lymphadenopathy *Routine Respiratory Exam Respiratory: Present CTA bilaterally *Routine Cardiovascular Exam Cardiovascular: Present RRR *Routine Abdominal Exam Abdominal: Present soft and normoactive bowel sounds; Absent tenderness *Routine Extremities Exam Extremities: Absent cyanosis, clubbing or edema *Routine Skin Exam Skin: Present warm; Absent rash *Routine Neurological Exam Neurological: Present alert Results Data Completed and Pending Labs on day of discharge: Labs from last 24 hours 08/08/24 08/08/24 08/08/24 07:55 03:55 02:24 WBC RBC Hgb Hct MCV MCH MCHC RDW Plt Count MPV Neut % (Auto) Lymph % (Auto) [place] % (Auto) Eos % (Auto) Baso % (Auto) Neut # (Auto) Lymph # (Auto) [place] # (Auto) Eos # (Auto) Baso # (Auto) Sodium Potassium Chloride Carbon Dioxide Anion Gap BUN Creatinine Estimated Creat Clear Estimated GFR Est GFR ( Amer) Glucose Calcium Total Bilirubin AST ALT Alkaline Phosphatase Troponin I < 0.01 < 0.01 Total Protein Albumin Globulin Albumin/Globulin Ratio Free T4 2.24 H Urine Color Urine Appearance Urine pH Ur Specific [place] Urine Protein Urine Glucose (UA) Urine Ketones Urine Blood Urine Nitrate Urine Bilirubin Urine Urobilinogen Ur Leukocyte Esterase Urine RBC Urine WBC Ur Squamous Epith Cells Urine Bacteria Urine Opiates Screen Urine Methadone Screen Ur Barbituates Screen Ur Phencyclidine Scrn Ur Amphetamines Screen U Benzodiazepines Scrn Urine Cocaine Screen U Marijuana (THC) Screen Plasma/Serum Alcohol SARS-CoV-2 (PCR) Not detected Influenza A Untype (PCR) Not detected Influenza Type B (PCR) Not detected 08/08/24 08/08/24 01:30 00:43 WBC 4.3 L RBC 5.02 Hgb 13.9 Hct 42.0 MCV 83.6 MCH 27.8 MCHC 33.2 RDW 15.1 Plt Count 126 L MPV 8.1 Neut % (Auto) 54.7 Lymph % (Auto) 36.4 [place] % (Auto) 6.4 Eos % (Auto) 1.0 Baso % (Auto) 1.5 Neut # (Auto) 2.4 Lymph # (Auto) 1.6 [place] # (Auto) 0.3 Eos # (Auto) 0.0 Baso # (Auto) 0.1 Sodium 141 Potassium 3.7 Chloride 105 Carbon Dioxide 30 Anion Gap 9.7 BUN 18 H Creatinine 1.50 H Estimated Creat Clear 31 Estimated GFR 34 L Est GFR ( Amer) 41 L Glucose 90 Calcium 9.2 Total Bilirubin 0.8 AST 41 H ALT 28 Alkaline Phosphatase 40 Troponin I < 0.01 Total Protein 7.1 Albumin 4.5 Globulin 2.6 Albumin/Globulin Ratio 1.7 Free T4 Urine Color Yellow Urine Appearance Clear Urine pH 6.5 Ur Specific [place] 1.010 Urine Protein Negative Urine Glucose (UA) Negative Urine Ketones Negative Urine Blood Trace-i Urine Nitrate Negative Urine Bilirubin Negative Urine Urobilinogen 0.2 Ur Leukocyte Esterase Negative Urine RBC Occasional Urine WBC None Ur Squamous Epith Cells None Urine Bacteria Trace Urine Opiates Screen Negative Urine Methadone Screen Negative Ur Barbituates Screen Negative Ur Phencyclidine Scrn Negative Ur Amphetamines Screen Negative U Benzodiazepines Scrn Negative Urine Cocaine Screen Negative U Marijuana (THC) Screen Negative Plasma/Serum Alcohol < 10 SARS-CoV-2 (PCR) Influenza A Untype (PCR) Influenza Type B (PCR) DS: Diagnosis Discharge Diagnosis (1) Hallucinations: Status: Acute Code(s): R44.3 - Hallucinations, unspecified (2) General weakness: Status: Acute Code(s): R53.1 - Weakness (3) Failure to thrive: Status: Acute Qualifiers: Failure to thrive age range: in adult Qualified Code(s): R62.7 - Adult failure to thrive (4) Abnormal findings on diagnostic imaging of heart and coronary circulation: Status: Acute Code(s): R93.1 - Abnormal findings on diagnostic imaging of heart and coronary circulation (5) Dementia: Status: Acute Code(s): F03.90 - Unspecified dementia, unspecified severity, without behavioral disturbance, psychotic disturbance, mood disturbance, and anxiety Qualifiers: Dementia behavioral or psychological symptom: with psychotic disturbance Dementia severity: moderate Dementia type: vascular dementia Qualified Code(s): F01.B2 - Vascular dementia, moderate, with psychotic disturbance (6) Impaired ambulation: Status: Acute Code(s): R26.2 - Difficulty in walking, not elsewhere classified (7) Weight loss of more than 10% body weight: Status: Acute Code(s): R63.4 - Abnormal weight loss Meds Home Medications and Allergies Home Medications ?Medication ?Instructions ?Recorded ?Confirmed ?Type escitalopram oxalate 10 mg tablet 10 mg PO DAILY 02/18/24 08/08/24 History memantine 10 mg tablet 10 mg PO BID #60 tabs 03/07/24 08/08/24 Rx metoprolol tartrate 50 mg tablet 50 mg PO BID #180 tabs 05/02/24 08/08/24 Rx aspirin 81 mg tablet,delayed 81 mg PO DAILY #30 tabs 05/11/24 08/08/24 Rx release (Adult Aspirin Regimen) atorvastatin 20 mg tablet (Lipitor) 20 mg PO DAILY #30 tabs 05/11/24 08/08/24 Rx famotidine 20 mg tablet 20 mg PO BID 05/11/24 08/08/24 History albuterol sulfate 90 mcg/actuation 4 inh inhalation Q4HP PRN 08/08/24 History aerosol inhaler shortness of breath or wheezing amiodarone 200 mg tablet 100 mg PO BID 08/08/24 08/08/24 History cefdinir 300 mg capsule 300 mg PO BID 3 days #6 caps 08/08/24 Rx New Prescriptions to Start Prescriptions: Graham Zapata Allergies Allergy/AdvReac Type Severity Reaction Status Date / Time amoxicillin (From Augmentin) Allergy Unknown Verified 08/08/24 07:09 allergy reaction ciprofloxacin (From Cipro) Allergy Unknown Verified 08/08/24 07:09 allergy reaction clavulanic acid (From Allergy Unknown Verified 08/08/24 07:09 Augmentin) allergy reaction doxycycline Allergy Unknown Verified 08/08/24 07:09 allergy reaction lidocaine Allergy Unknown Verified 08/08/24 07:09 allergy reaction Sulfa (Sulfonamide Allergy Unknown Verified 08/08/24 07:09 Antibiotics) allergy reaction Discharge Plan Disposition Patient Disposition: Home, Self-Care Follow up Plan Follow up with: Nestor Rao MD [Primary Care Provider] - 08/14/24 10:00 am Prescriptions/Medication Reconciliation: New cefdinir 300 mg Capsule 300 mg PO BID 3 Days Qty: 6 0RF Continued escitalopram oxalate 10 mg tablet 10 mg PO DAILY Patient Comments: TAKE 1 TABLET 1 TIME EACH DAY memantine 10 mg tablet 10 mg PO BID Qty: 60 3RF famotidine 20 mg tablet 20 mg PO BID atorvastatin [Lipitor] 20 mg tablet 20 mg PO DAILY Qty: 30 5RF aspirin [Adult Aspirin Regimen] 81 mg tablet,delayed release (DR/EC) 81 mg PO DAILY Qty: 30 5RF metoprolol tartrate 50 mg tablet 50 mg PO BID Qty: 180 1RF Patient Comments: TAKE 1 TABLET 1 TIME DAILY amiodarone 200 mg tablet 100 mg PO BID albuterol sulfate 90 mcg/actuation HFA aerosol inhaler 4 inh inhalation Q4HP PRN (Reason: shortness of breath or wheezing) Rx Instructions: 4 puffs every 4 hours for 48 hours then as needed for shortness of breath or wheezing following Problem Reconciliation Problems Reviewed?: Yes Patient Discharge Instructions Patient Instructions: DI for Failure to Thrive Print Language: [place] Providers Primary Care Provider: Nestor Rao Admit Provider: Sudhir Chong Attending Provider: Sudhir Chong
--- NOTE | 2024-08-08 09:58 | HMH.OTEV ---
OT Inpatient Evaluation Rehab OT IP Evaluation Start: 08/08/24 03:10 Freq: ONCE Status: Active Protocol: Document 08[facility]08/24 09:[facility] (Rec: 08/08/24 09:58 [facility] [id number]) Rehab OT IP Assessment Subjective History Pt oriented x 3 on arrival. Pt agreeable to engage in therapy session; pt's is present and supportive. Pt admitted on 08/08/24 due to hallucination and failure to thrive. History and physical report: This 74-year-old female, according to her was having visual hallucinations today at the house. Also was not able to ambulate without assistance of basically at least 1 person but needing to most the time. Have talked with the ER physician patient has improved since being in the ER, has orientation to place time and self., Patient is noted to be on a Alzheimer 's type medication., says her short-term memory is poor mainly with time. There has been no indication of an in infectious disease event taking place but she has been around people who have been sick.. I have talked with the ER physician gone over the labs which are basically negative but showing a renal insufficiency with a decreased GFR. That is slightly worse than usual. Also noting went back through her records and have found since the May 2022 her weight was 151 today her weight is 119 pounds about a 22% weight loss in 2 years.. Due to the patient requiring assistance just to stand. I feel that it is necessary to admit her do a physical therapy consult, have her evaluated for neurologic and failure to thrive problems. With the plan of either having her follow-up with her primary care referral to neurology, versus having to enter into rehab if her is unable to care for her at home. Have evaluated CT scan of head and chest and saw nothing unusual. To indicate a biologic wheezing for her weight loss., Question dementia and just loss of appetite at this point in time. Noting in the old records, that she has a vascular age of an 85-year-old. Subjective I am ready to go home now. Prior to being in the hospital , pt lived at home with her . Pt claims normally she is independent with all ADLs and IADLs. agrees with this information. Pt claims she no longer drives. Pt does not use a walker or cane during functional transfers. Objective Patient Orientation Person,Place,Birthday Right Upper Extremity Gross ROM WFL Left Upper Extremity Gross ROM WFL Bed Mobility bed mobility-scooting,bed mobility - supine/sit Assist Level Supervision/Stand by Transfer Training Sit/Stand Transfer Assist Level Supervision/Stand by Lower Body Dressing Ability Standby Assistance Overall Commode/Toilet Transfer Ability Standby Assistance Commode/Toilet Transfer Technique Sit to/from Ambulatory Rehab OT IP prob,goals,plan Problems Date of Evaluation: 08/08/24 Rehab Potential Rehab Potential Innapropriate for Skilled Therapy Discharge Plan OT Discharge Plan Pt appears to be at her baseline with functional transfers and ADL independence . Pt can return home with once she is medically stable per physician. Eval Complexity Eval Charge Codes 53675 - Low Complexity PHYSICIAN CERTIFICATION: I certify the specified therapy services for Geovanna Garner are required, authorized, and reviewed every 30 days.
[2024-08-08 10:12] LABS: Vitamin B12 209 pg/mL (239-931)
[2024-08-08] MEDS: CEFDINIR 300MG CAPSULE 300 MG PO (10:22)
--- NOTE | 2024-08-08 13:33 | SW/DCPLANNER ---
Per PT/OT no needs at this time.
[2024-08-08 14:41] LABS: Folate 9.84 ng/mL
--- NOTE | 2024-08-10 10:41 | SW/DCPLANNER ---
Phoned patient x2 and no answer on both tries. Left messages with call back number. Nereyda Concepcion
== END 2024-08-08 12:32 | disposition home or self-care (01) ==
LOC: ER 00:33 → 2ND 03:05
PROVIDERS: Student in an Organized Health Care Education/Training Program; Admitting Provider Internal Medicine Adolescent Medicine; Emergency Provider Emergency Medicine; PCP Internal Medicine Adolescent Medicine; Visit Provider Internal Medicine Adolescent Medicine
DX: R44.3 Hallucinations, unspecified (principal); R53.1 Weakness; R62.7 Adult failure to thrive; R93.1 Abnormal findings on diagnostic imaging of heart and coronary circulation; F01.B2 Vascular dementia, moderate, with psychotic disturbance; R26.2 Difficulty in walking, not elsewhere classified; R63.4 Abnormal weight loss; I48.91 Unspecified atrial fibrillation; I10 Essential (primary) hypertension; I25.10 Atherosclerotic heart disease of native coronary artery without angina pectoris; Z68.1 Body mass index [BMI] 19.9 or less, adult; N39.0 Urinary tract infection, site not specified; E43 Unspecified severe protein-calorie malnutrition; Z79.899 Other long term (current) drug therapy; G30.9 Alzheimer's disease, unspecified; F02.82 Dementia in other diseases classified elsewhere, unspecified severity, with psychotic disturbance; Z74.1 Need for assistance with personal care
CPT/HCPCS: 36415; 70450; 71045; 80053; 80307; 80320; 81001; 82607; 82746; 84439; 84443; 84484; 85025; 87636; 93005; 97162; 97165; 99285; G0378; G0480; J1650

== ENCOUNTER 2024-08-28 23:26 | Emergency (ER) | payer MEDICARE, OTHER, SELFPAY ==
[2024-08-28 23:27] VITALS: BP 161/71; PULSE 60; RESP 16; TEMP 36.6; O2SAT 99; BMI 20.2
--- NOTE | 2024-08-28 23:32 | HMH.EDGENADL ---
Discharge Plan Disposition Patient Disposition: Home, Self-Care Condition: Good Prescriptions Prescriptions: New meclizine 25 mg tablet 25 mg PO TID PRN (Reason: dizziness) Qty: 30 0RF No Action escitalopram oxalate 10 mg tablet 10 mg PO DAILY Patient Comments: TAKE 1 TABLET 1 TIME EACH DAY memantine 10 mg tablet 10 mg PO BID Qty: 60 3RF famotidine 20 mg tablet 20 mg PO BID atorvastatin [Lipitor] 20 mg tablet 20 mg PO DAILY Qty: 30 5RF aspirin [Adult Aspirin Regimen] 81 mg tablet,delayed release (DR/EC) 81 mg PO DAILY Qty: 30 5RF metoprolol tartrate 50 mg tablet 50 mg PO BID Qty: 180 1RF Patient Comments: TAKE 1 TABLET 1 TIME DAILY amiodarone 200 mg tablet 100 mg PO BID albuterol sulfate 90 mcg/actuation HFA aerosol inhaler 4 inh inhalation Q4HP PRN (Reason: shortness of breath or wheezing) Rx Instructions: 4 puffs every 4 hours for 48 hours then as needed for shortness of breath or wheezing following cefdinir 300 mg Capsule 300 mg PO BID 3 Days Qty: 6 0RF Referrals Follow up/Referrals: Nestor Rao MD [Primary Care Provider] - See instructions Activity Restrictions/Add. Instructions Additional Instructions/Restrictions: Please take the meclizine as needed for dizziness. Please follow-up with your primary care provider for further assessment. Please return to the emergency department if you develop any new or worsening symptoms or become concerned for your health. Clinical Impressions Clinical Impression: Dizziness of unknown etiology Print Language Print Language: Samoan Discharge ED Provider: Sandeep Hunt Adult HPI General Chief complaint: Dizziness Stated complaint: weakness, dizziness Time Seen by Provider: 08/28/24 23:32 History of Present Illness HPI narrative: 74-year-old female with history of dementia, hypertension, hyperlipidemia, bradycardia, paroxysmal A-fib presents for dizziness. She reports that she was sitting at the dinner table when she suddenly felt dizzy as she was standing up. It continued to worsen. She reports the room does not feel like it spinning but she feels lightheaded and dizzy when she looks around. She denies any numbness tingling or weakness. Nothing like this has happened before. She reports a mild headache earlier today. Related Data Home Medications ?Medication ?Instructions ?Recorded ?Confirmed escitalopram oxalate 10 mg tablet 10 mg PO DAILY 02/18/24 08/08/24 famotidine 20 mg tablet 20 mg PO BID 05/11/24 08/08/24 albuterol sulfate 90 mcg/actuation 4 inh inhalation Q4HP PRN 08/08/24 aerosol inhaler shortness of breath or wheezing amiodarone 200 mg tablet 100 mg PO BID 08/08/24 08/08/24 Previous Rx's ?Medication ?Instructions ?Recorded memantine 10 mg tablet 10 mg PO BID #60 tabs 03/07/24 metoprolol tartrate 50 mg tablet 50 mg PO BID #180 tabs 05/02/24 aspirin 81 mg tablet,delayed 81 mg PO DAILY #30 tabs 05/11/24 release (Adult Aspirin Regimen) atorvastatin 20 mg tablet (Lipitor) 20 mg PO DAILY #30 tabs 05/11/24 cefdinir 300 mg capsule 300 mg PO BID 3 days #6 caps 08/08/24 meclizine 25 mg tablet 25 mg PO TID PRN dizziness #30 tabs 08/29/24 Allergies Allergy/AdvReac Type Severity Reaction Status Date / Time amoxicillin (From Augmentin) Allergy Unknown Verified 08/08/24 07:09 allergy reaction ciprofloxacin (From Cipro) Allergy Unknown Verified 08/08/24 07:09 allergy reaction clavulanic acid (From Allergy Unknown Verified 08/08/24 07:09 Augmentin) allergy reaction doxycycline Allergy Unknown Verified 08/08/24 07:09 allergy reaction lidocaine Allergy Unknown Verified 08/08/24 07:09 allergy reaction Sulfa (Sulfonamide Allergy Unknown Verified 08/08/24 07:09 Antibiotics) allergy reaction PFSH PFSH Disclaimer: The information contained in this section may have been updated after the patient was seen, as this information can be updated by other users. Medical History (Updated 08/29/24 @ 02:10 by Sandeep Hunt MD) Coronary artery disease Elevated brain natriuretic peptide (BNP) level Abnormal electrocardiogram [ECG] [EKG] Fatigue HTN (hypertension) Dyspnea Abnormal ECG Abnormal findings on diagnostic imaging of heart and coronary circulation Sinus bradycardia Chronic GERD IBS (irritable bowel syndrome) Hyperlipidemia Depression Dyspareunia Asthma Paroxysmal atrial fibrillation Palpitations Surgical History H/O: section Hx of cholecystectomy Family History Father Hypertension Mother CHF (congestive heart failure) Cancer Daughter Seizure Stroke Social History (Updated 08/08/24 @ 03:35 by Thelma Correa RN) Smoking Status: Never smoker second hand exposure: No alcohol intake: never counseling given: No current occupational status: retired Travel in the last 8 weeks: None household members: family housing: house marital status: Have you lived/traveled outside [place] in past 30 days?: No Contact w/someone who lives/traveled outside US past 30 days?: No Exposure to someone with infectious disease in past 14 days?: No Do you have a fever (greater than 100.4 F or 38 C)?: No Have you tested positive for COVID-19: No Exposed to someone with COVID-19 in past 14 days?: No Do you have a sore throat?: No Do you have a cough?: No Do you have any weakness?: Yes Do you have any diarrhea?: No Are you experiencing any unusual bleeding?: No Do you have any muscle aches/pain?: No Do you have any abdominal pain?: No Are you experiencing loss of taste or smell?: No Other Medical History Have you received the Flu Vaccine for this season: No Have you received the Pneumonia Vaccine: No ROS Obtained: Yes All systems reviewed & no additional complaints except as documented Physical Exam General General appearance: alert and in no apparent distress Head Head exam: atraumatic and normocephalic Eye Eye exam: Present normal appearance, PERRL and EOMI (Mild horizontal nystagmus with lateral gaze bilaterally) ENT ENT exam: Present normal oropharynx and normal external ear exam Neck Neck exam: Present normal inspection and full ROM Chest Chest inspection: Present normal inspection and symmetric chest wall rise; Absent tenderness Respiratory Respiratory exam: Present normal lung sounds bilaterally; Absent respiratory distress Cardiovascular Cardiovascular exam: Present regular rate and normal rhythm Abdominal Exam Abdominal exam: Present soft; Absent distention, tenderness or guarding Extremities Exam Extremities exam: Present normal inspection; Absent edema or joint swelling Back Exam Back exam: Present normal inspection; Absent tenderness Neurological Exam Neurological exam: Present alert, oriented X3, CN II-XII intact and other (No dysdiadochokinesis, [id number] and [id number] normal, no aphasia, no dysarthria); Absent motor sensory deficit Psychiatric Psychiatric exam: Present normal affect and normal mood Skin Skin exam: Present warm, dry and normal color Lymphatic Lymphatic Findings: no adenopathy Medical Decision Making Medical Records Medical records reviewed: Yes I reviewed the patient's medical records. Screening: Per USPSTF and CDC recommendations, given the prevalence of disease in our region, it is our hospital?s policy to screen for HIV and viral Hepatitis for all patients aged 18 and over and those with ongoing risk factors. Narciso Inquiry Pt receiving controlled substance: No Narciso was queried for this patient: No Vital Signs: 08/28/24 23:27 08/29/24 00:00 08/29/24 00:30 Temperature 97.9 F Temperature Source Oral Pulse Rate 56 L 55 L Pulse Rate [Right Radial] 60 Respiratory Rate 16 Blood Pressure 155/70 H 149/61 H Blood Pressure [Right Arm] 161/71 H Blood Pressure Mean [Right Arm] 101 Blood Pressure Source Blood Pressure Source [Right Arm] Automatic Cuff Blood Pressure Position Blood Pressure Position [Right Arm] Supine 02 Sat by Pulse Oximetry 99 99 100 Oxygen Delivery Method Room Air 08/29/24 00:48 08/29/24 02:11 Temperature 97.9 F Temperature Source Oral Pulse Rate 55 L 74 Pulse Rate [Right Radial] Respiratory Rate 14 Blood Pressure 158/73 H 122/74 Blood Pressure [Right Arm] Blood Pressure Mean [Right Arm] Blood Pressure Source Automatic Cuff Blood Pressure Source [Right Arm] Blood Pressure Position Supine Blood Pressure Position [Right Arm] 02 Sat by Pulse Oximetry 99 Oxygen Delivery Method Room Air Lab Data Lab results reviewed: Yes I reviewed the patient's lab results. Lab Results 08/28/24 00:47: Urine Color Yellow, Urine Appearance Clear, Urine pH 6.0, Ur Specific [place] 1.025, Urine Protein Negative, Urine Glucose (UA) Negative, Urine Ketones Negative, Urine Blood Negative, Urine Nitrate Negative, Urine Bilirubin Negative, Urine Urobilinogen 0.2, Ur Leukocyte Esterase Trace, Urine RBC Occasional, Urine WBC 3-5, Ur Squamous Epith Cells 3-5, Urine Bacteria 1+, Urine Mucus 1+ 08/28/24 23:52: WBC 5.2, RBC 4.69, Hgb 12.9, Hct 40.1, MCV 85.5, MCH 27.5, MCHC 32.2, RDW 15.2, Plt Count 135 L, MPV 10.0, Neut % (Auto) 57.1, Lymph % (Auto) 32.3, [place] % (Auto) 8.8, Eos % (Auto) 0.8, Baso % (Auto) 0.6, Neut # (Auto) 3.0, Lymph # (Auto) 1.7, [place] # (Auto) 0.5, Eos # (Auto) 0.0, Baso # (Auto) 0.0, PT 11.2, INR 1.00, APTT 25.3, Sodium 141, Potassium 3.7, Chloride 105, Carbon Dioxide 31 H, Anion Gap 8.7, BUN 24 H, Creatinine 1.40 H, Estimated Creat Clear 30, Estimated GFR 37 L, Est GFR ( Amer) 45 L, Glucose 126 H, Calcium 9.5, Total Bilirubin 0.7, AST 34, ALT 21, Alkaline Phosphatase 37 L, Troponin I < 0.01, Total Protein 6.4, Albumin 4.1, Globulin 2.3, Albumin/Globulin Ratio 1.8 08/29/24 00:23: SARS-CoV-2 (PCR) Not detected, Influenza A Untype (PCR) Not detected, Influenza Type B (PCR) Not detected 08/28/24 23:52 08/28/24 23:52 Orders (Tests/Meds): ED MEDICATIONS Discontinued Medications Generic Name Dose Route Start Last Admin Trade Name Freq PRN Reason Stop Dose Admin Lactated Ringer's 1,000 mls @ 999 mls/hr 08/28/24 23:50 08/29/24 00:07 Lactated Ringer's 1000 Ml Bag IV 08/29/24 00:50 999 mls/hr .Q1H1M ONE Administration Iopamidol 80 ml 08/29/24 00:19 08/29/24 00:20 Iopamidol-370 (76%);100ml Bottle IV 08/29/24 00:20 80 ml ONCE ONE Administration Meclizine HCl 25 mg 08/28/24 23:50 08/29/24 00:07 Meclizine 25mg Tablet PO 08/28/24 23:51 25 mg ONCE ONE Administration Sodium Chloride 10 ml 08/28/24 23:50 Sodium Chloride 0.9% 10ml Flush Syringe IV 09/27/24 23:49 NEEDED PRN Maintain IV Site Sodium Chloride 40 ml 08/29/24 00:19 08/29/24 00:20 0.9 % Sodium Chloride 50 Ml Vial IV 08/29/24 00:20 40 ml ONCE ONE Administration Sodium Chloride 10 ml 08/29/24 00:19 08/29/24 00:20 Sodium Chloride 0.9% 10ml Syr (Rad Only) IV 08/29/24 00:20 10 ml ONCE ONE Administration ORDERS Category Date Time Status CT angio head Stat Cat Scan 08/28/24 23:[address] angio neck Stat Cat Scan 08/28/24 23:[address] head/brain wo con Stat Cat Scan 08/28/24 23:50 Completed Activated Partial Thrombo Time Stat Lab 08/28/24 23:52 Completed Complete Blood Count Auto Diff Stat Lab 08/28/24 23:52 Completed Comprehensive Metabolic Panel Stat Lab 08/28/24 23:52 Completed Prothrombin Time INR Stat Lab 08/28/24 23:52 Completed Rapid PCR Covid and Flu A/B Stat Lab 08/29/24 00:23 Completed Troponin I Stat Lab 08/28/24 23:52 Completed Urinalysis and Microscopic Stat Lab 08/28/24 00:47 Completed Medical Decision Narrative: 74-year-old female with history of hypertension hyperlipidemia chronic kidney disease paroxysmal A-fib dementia presents for onset of dizziness while standing up after eating dinner.. History was obtained via interactive discussion with patient, for. On arrival, patient is [afebrile, hemodynamically stable, satting appropriately, alert, oriented x4, GCS 15], moving all extremities spontaneously. Full physical exam performed and significant for no focal neurologic deficit, mild horizontal nystagmus with lateral gaze, no nystagmus at rest. NIH is 0. Fingerstick normal on arrival. Last known normal 10 PM. Differential includes but is not limited to electrolyte derangement, BPPV, inner ear pathology, posterior stroke. Patient was given 1 L IV fluids and meclizine for symptomatic management and correction of underlying abnormalities. Workup initiated including emergent CTA head and neck, Noncon CT head, basic labs and EKG. On re-evaluation, patient [remains afebrile, HD stable.] Reports marked symptomatic improvement. Laboratory workup independently interpreted by me and significant for no significant electrolyte derangement, renal function at baseline, no leukocytosis. Imaging independently interpreted by me and significant for no evidence of acute stroke or large vessel occlusion, does show some calcifications within the posterior circulation. See radiology read for full review of final results. EKG independently interpreted by me and significant for sinus bradycardia with first-degree AV block, no concerning ST or T wave changes.. tPA was considered, but deemed unnecessary due to NIH of 0. No evidence of LVO or other acute pathology on workup or imaging. Given patient history, exam and workup, patient's presentation most likely represents dizziness of uncertain etiology. I had extensive discussion with patient regarding her presentation. I offered admission for expedited MRI as I cannot rule out a posterior stroke based on her presentation. however, given patient has no other neurologic deficits and symptoms are improving, I think the likelihood of a stroke is somewhat low. She is already on aspirin and statin for secondary stroke prophylaxis. They were given strict return precautions including for any new or worsening neurologic symptoms. They are encouraged to follow-up with PCP as soon as possible for further assessment. Procedures Risk/Benefits of Procedure(s) Were Explained: Yes Critical Care Critical Care Time Critical Care Time: No
--- NOTE | 2024-08-28 23:50 | CT_ITS ---
PROCEDURE INFORMATION: Exam: CT Head Without Contrast Exam date and time: 08/29/2024 12:08 AM Age: 74 years old Clinical indication: Dizziness; Additional info: Possible stroke TECHNIQUE: Imaging protocol: Computed tomography of the head without contrast. Radiation optimization: All CT scans at this facility use at least one of these dose optimization techniques: automated exposure control; mA and/or kV adjustment per patient size (includes targeted exams where dose is matched to clinical indication); or iterative reconstruction. Other technique: STROKE PROTOCOL was implemented. COMPARISON: CT HEAD/BRAIN WO CON 08/08/2024 1:00 AM FINDINGS: Brain: No evidence for intracranial hemorrhage, mass lesions or acute stroke. Intracranial vascular calcifications predominantly of the intracranial left vertebral artery.. Mild small vessel ischemic change in the periventricular white matter. Cerebral ventricles: No ventriculomegaly. Pituitary gland and sella: Negative Paranasal sinuses: Visualized sinuses are unremarkable. No fluid levels. Mastoid air cells: Visualized mastoid air cells are well aerated. Orbital cavities: Bilateral cataract extractions. Parotid and submandibular glands: Negative Bones: Unremarkable. No acute fracture. Soft tissues: Unremarkable. Vasculature: Negative. Other findings: Mild generalized atrophy. IMPRESSION: 1. No evidence for intracranial hemorrhage, mass lesions or acute stroke. 2. Intracranial vascular calcifications predominantly of the intracranial left vertebral artery.. 3. Mild generalized atrophy. 4. Mild small vessel ischemic change in the periventricular white matter. ASSESSMENT: ASPECTS ([place] Stroke Program Early CT Score) is 10.
--- NOTE | 2024-08-28 23:50 | CT_ITS ---
PROCEDURE INFORMATION: Exam: CTA Neck With Contrast Exam date and time: 08/29/2024 12:11 AM Age: 74 years old Clinical indication: Dizziness and giddiness; Additional info: Possible stroke TECHNIQUE: Imaging protocol: Computed tomographic angiography of the neck with contrast. Exam focused on the cervical segments of the vasculature. 3D rendering (Not supervised by radiologist): MIP and/or 3D reconstructed images were created by the technologist. Radiation optimization: All CT scans at this facility use at least one of these dose optimization techniques: automated exposure control; mA and/or kV adjustment per patient size (includes targeted exams where dose is matched to clinical indication); or iterative reconstruction. Contrast material: ISOVUE 370; Contrast volume: 80 ml; Contrast route: INTRAVENOUS (IV); COMPARISON: CT ANGIO HEAD 08/29/2024 12:11 AM FINDINGS: Right common carotid artery: No stenosis. No dissection or occlusion. Right internal carotid artery: No stenosis of the extracranial segment. No dissection or occlusion. Right external carotid artery: No occlusion or stenosis of the origin. Left common carotid artery: No stenosis. No dissection or occlusion. Left internal carotid artery: No stenosis of the extracranial segment. No dissection or occlusion. Left external carotid artery: No occlusion or stenosis of the origin. Right vertebral artery: Atretic intracranial right vertebral artery. Diminutive right PICA vessel. Left vertebral artery: Patent. Soft tissues: Normal. No significant soft tissue swelling. Bones/joints: No acute fracture. Other findings: No evidence for large vessel occlusion. IMPRESSION: No evidence for occlusion, stenosis or dissection of the cervical vessels. REFERENCES: NASCET CRITERIA. The degree of stenosis in the cervical segment of the internal carotid artery is based on NASCET criteria. Normal is no stenosis. Mild is less than 50% stenosis. Moderate is 50-69% stenosis. Severe is 70% to 99% stenosis. Total occlusion is no detectable patent lumen.
--- NOTE | 2024-08-28 23:50 | CT_ITS ---
PROCEDURE INFORMATION: Exam: CTA Head With Contrast, Arteriography Exam date and time: 08/29/2024 12:11 AM Age: 74 years old Clinical indication: Dizziness and giddiness; Additional info: Possible stroke TECHNIQUE: Imaging protocol: Computed tomographic angiography of the head with contrast. Exam focused on the arteries. 3D rendering (Not supervised by radiologist): MIP and/or 3D reconstructed images were created by the technologist. Radiation optimization: All CT scans at this facility use at least one of these dose optimization techniques: automated exposure control; mA and/or kV adjustment per patient size (includes targeted exams where dose is matched to clinical indication); or iterative reconstruction. Contrast material: ISOVUE 370; Contrast volume: 80 ml; Contrast route: INTRAVENOUS (IV); COMPARISON: CT HEAD/BRAIN WO CON 08/29/2024 12:08 AM FINDINGS: ANTERIOR CIRCULATION: Right internal carotid artery: Intracranial segment is patent with no significant stenosis. No aneurysm. Right middle cerebral artery: No occlusion or significant stenosis. No aneurysm. Right anterior cerebral artery: No occlusion or significant stenosis. No aneurysm. Left internal carotid artery: Intracranial segment is patent with no significant stenosis. No aneurysm. Left middle cerebral artery: No occlusion or significant stenosis. No aneurysm. Left anterior cerebral artery: No occlusion or significant stenosis. No aneurysm. POSTERIOR CIRCULATION: Right vertebral artery: Atretic intracranial right vertebral artery. Diminutive right PICA vessel. Left vertebral artery: Dominant intracranial left vertebral artery. Basilar artery: No occlusion or significant stenosis. No aneurysm. Right posterior cerebral artery: origin right posterior cerebral artery. Left posterior cerebral artery: No occlusion or significant stenosis. No aneurysm. Brain: No definite mass, mass effect, or midline shift. Cerebral ventricles: No ventriculomegaly. Bones/joints: Unremarkable. No acute fracture. Soft tissues: Unremarkable. Other findings: No evidence for large vessel occlusion. IMPRESSION: 1. No evidence for large vessel occlusion. 2. origin right posterior cerebral artery. 3. Dominant intracranial left vertebral artery. 4. Atretic intracranial right vertebral artery. Diminutive right PICA vessel.
[2024-08-29] VITALS: BP 155/70; PULSE 56; O2SAT 99
[2024-08-29 00:04] LABS: Eosinophils % 0.8 % (0.1-12.0); Hematocrit 40.1 % (37.0-47.0); Hemoglobin 12.9 g/dL (12.2-16.2); Lymphocytes % 32.3 % (10-50); Mean Corpuscular HGB Conc 32.2 g/dL (31.8-35.4); Mean Corpuscular Hemoglobin 27.5 pg (27.0-31.2); Mean Corpuscular Volume 85.5 fl (81-99); Monocytes % 8.8 % (1.7-9.3); Neutrophils % 57.1 % (37.0-80.0); Platelet Count 135 K/mm3 (142-424); Red Blood Count 4.69 M/mm3 (4.20-5.40); Red Cell Distribution Width 15.2 % (11.5-17.5); White Blood Count 5.2 K/mm3 (4.8-10.8)
[2024-08-29 00:05] LABS: Basophils % 0.6 % (0.1-2.0); Lymphocytes # 1.7 K/mm3 (0.7-4.5); Monocytes # 0.5 K/mm3 (0.1-1.0)
[2024-08-29] MEDS: MECLIZINE 25MG TABLET 25 MG PO (00:07)
[2024-08-29] MEDS: LACTATED RINGERS 1000ML 1,000 ML 999 ML IV (00:07)
[2024-08-29 00:15] LABS: Alanine Aminotransferase 21 U/L (12-78); Albumin Level 4.1 g/dl (3.5-5.0); Albumin/Globulin Ratio 1.8 (1.1-1.8); Alkaline Phosphatase 37 U/L (38-126); Anion Gap 8.7 mEq/L (5-15); Aspartate Amino Transferase 34 U/L (14-36); Bilirubin,Total 0.7 mg/dl (0.2-1.3); Blood Urea Nitrogen 24 mg/dl (7-17); Calcium 9.5 mg/dl (8.4-10.2); Carbon Dioxide 31 mmol/L (22.0-30.0); Chloride 105 mmol/L (98-107); Creatinine Clearance Estimated 30 mL/min (50-200); Estimated Glomerular Filt Rate 37 ml/min (>60); GFR (African American) 45 ML/MIN (>60); Globulin 2.3 g/dL (1.3-3.2); Glucose 126 mg/dl (74-100); Potassium 3.7 mmoL/L (3.5-5.1); Sodium 141 mmol/L (136-145); Total Protein,Serum 6.4 g/dl (6.3-8.2)
[2024-08-29 00:16] LABS: Activated Partial Thrombo Time 25.3 seconds (22.8-30.6); Prothrombin Time 11.2 seconds (10.1-12.5)
[2024-08-29] MEDS: SODIUM CHLORIDE 0.9% 10ML SYR (RAD ONLY) 10 ML IV (00:20)
[2024-08-29] MEDS: IOPAMIDOL-370 (76%);100ML BOTTLE 80 ML IV (00:20)
[2024-08-29] MEDS: 0.9 % SODIUM CHLORIDE 50 ML VIAL 40 ML IV (00:20)
--- NOTE | 2024-08-29 00:22 | ECG_ITS ---
APPROVED REPORT Exam: Resting ECG HR:55 bpm ECG Measurements Heart Rate 55 AXES OR 213 P 67 QRSd 99 QRS 19 QT 445 T 51 QTc 434 Conclusion SINUS BRADYCARDIA WITH FIRST DEGREE AV BLOCK POSSIBLE RIGHT VENTRICULAR CONDUCTION DELAY [RSR (QR) IN V1/V2] NONSPECIFIC T-WAVE ABNORMALITY ABNORMAL ECG UNCONFIRMED REPORT Electronically signed by : TAYLOR ROD, 08/29/2024 07:06:18
[2024-08-29 00:29] LABS: Troponin I < 0.01 ng/ml (0.00-0.034)
[2024-08-29 00:30] VITALS: BP 149/61; PULSE 55; O2SAT 100
[2024-08-29 00:36] LABS: Coronavirus 19, PCR Not Detected (NotDetected); Influenza A, PCR Not Detected (NotDetected); Influenza B, PCR Not Detected (NotDetected)
[2024-08-29 00:48] VITALS: BP 158/73; PULSE 55; O2SAT 99
[2024-08-29 00:52] LABS: Microscopic, Urine URINE MICROSCOPIC (MICROSCOPIC)
[2024-08-29 00:59] LABS: Appearance,Urine CLEAR (Clear); Bilirubin,Urine Negative (Negative); Blood, Urine Negative (Negative); Color,Urine YELLOW (Yellow); Glucose,Urine (UA) Negative (Negative); Ketones,Urine Negative (Negative); Leukocyte Esterase,Urine TRACE (Negative); Nitrate,Urine Negative (Negative); Protein,Urine Negative (Negative); Specific Gravity, Urine 1.025 (1.005-1.030); Urobilinogen,Urine 0.2 EU/dl (0.2)
[2024-08-29 01:18] LABS: Bacteria,Urine 1+ /lpf; Mucus,Urine 1+ /lpf; RBC,Urine Occasional #/hpf (0-3)
[2024-08-29 02:11] VITALS: BP 122/74; PULSE 74; RESP 14; TEMP 36.6; O2SAT 98
--- NOTE | 2024-08-29 02:13 | PC.NURSE ---
Patients IV removed. Iv catheter tip intact. Bleeding controlled.
== END 2024-08-29 02:18 | disposition home or self-care (01) ==
PROVIDERS: Emergency Provider Emergency Medicine; PCP Internal Medicine Adolescent Medicine
DX: R42 Dizziness and giddiness (principal); R53.1 Weakness; R51.9 Headache, unspecified
CPT/HCPCS: 70450; 70496; 70498; 80053; 81001; 84484; 85025; 85610; 85730; 87636; 93005; 96360; 99285; J7120; Q9967

== ENCOUNTER 2024-09-17 18:23 | Emergency (ER) | payer MEDICARE, OTHER, SELFPAY ==
[2024-09-17] VITALS (8 sets, daily range): BP systolic 134–177; BP diastolic 60–80; PULSE 56–68; RESP 12–18; TEMP 36.8; O2SAT 97–100; BMI 20.9
--- NOTE | 2024-09-17 18:34 | ECG_ITS ---
APPROVED REPORT Exam: Resting ECG HR:58 bpm ECG Measurements Heart Rate 58 AXES FL 205 P 66 QRSd 88 QRS 23 QT 458 T 53 QTc 455 Conclusion SINUS BRADYCARDIA BORDERLINE ECG Electronically signed by : GREG KELLOGG, 09/17/2024 23:40:02
--- NOTE | 2024-09-17 18:52 | CT_ITS ---
PROCEDURE INFORMATION: Exam: CTA Head With Contrast, Arteriography Exam date and time: 09/17/2024 7:20 PM Age: 74 years old Clinical indication: Stroke-like symptoms; Altered mental status/memory loss; Additional info: AMS, discoordination (chastity lue) TECHNIQUE: Imaging protocol: Computed tomographic angiography of the head with contrast. Exam focused on the arteries. 3D rendering (Not supervised by radiologist): MIP and/or 3D reconstructed images were created by the technologist. Radiation optimization: All CT scans at this facility use at least one of these dose optimization techniques: automated exposure control; mA and/or kV adjustment per patient size (includes targeted exams where dose is matched to clinical indication); or iterative reconstruction. Contrast material: ISO 370; Contrast volume: 80 ml; Contrast route: INTRAVENOUS (IV); COMPARISON: CT ANGIO HEAD 08/29/2024 12:11 AM FINDINGS: ANTERIOR CIRCULATION: Right internal carotid artery: Intracranial segment is patent with no significant stenosis. No aneurysm. Right middle cerebral artery: No occlusion or significant stenosis. No aneurysm. Right anterior cerebral artery: No occlusion or significant stenosis. No aneurysm. Left internal carotid artery: Intracranial segment is patent with no significant stenosis. No aneurysm. Left middle cerebral artery: No occlusion or significant stenosis. No aneurysm. Left anterior cerebral artery: No occlusion or significant stenosis. No aneurysm. POSTERIOR CIRCULATION: Right vertebral artery: See Brain finding. Left vertebral artery: Dominant left vertebral artery which is completely patent. Basilar artery: No occlusion or significant stenosis. No aneurysm. Right posterior cerebral artery: No occlusion or significant stenosis. No aneurysm. Left posterior cerebral artery: No occlusion or significant stenosis. No aneurysm. Brain: Diminutive intracranial (V4) segment of the right vertebral artery with a linear filling defect at the most proximal segment and decreased enhancement to the most distal segments. Partially seen intraparenchymal hematoma in the left occipital/parietal lobe with mild surrounding subarachnoid hemorrhage. No midline shift or brain herniation. Cerebral ventricles: No ventriculomegaly. Bones/joints: Unremarkable. No acute fracture. Soft tissues: Unremarkable. IMPRESSION: 1. Diminutive intracranial (V4) segment of the right vertebral artery with a linear filling defect at the most proximal segment and decreased enhancement to the most distal segments. 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 DSA follow-up is recommended if warranted. 2. No large vessel occlusion or stenosis. 3. Partially seen intraparenchymal hematoma in the left occipital/parietal lobe with mild surrounding subarachnoid hemorrhage. Please review CT of the head without contrast performed concomitantly.
--- NOTE | 2024-09-17 18:52 | CT_ITS ---
PROCEDURE INFORMATION: Exam: CT Head Without Contrast Exam date and time: 09/17/2024 7:20 PM Age: 74 years old Clinical indication: Stroke-like symptoms; Altered mental status/memory loss; Additional info: AMS, discoordination (chastity lue) TECHNIQUE: Imaging protocol: Computed tomography of the head without contrast. Radiation optimization: All CT scans at this facility use at least one of these dose optimization techniques: automated exposure control; mA and/or kV adjustment per patient size (includes targeted exams where dose is matched to clinical indication); or iterative reconstruction. Other technique: STROKE PROTOCOL was implemented. COMPARISON: CT ANGIO HEAD 09/17/2024 7:20 PM FINDINGS: Brain: 2.8 x 3.4 x 2.6 cm left occipital/parietal lobe acute intraparenchymal hematoma with a moderate amount of surrounding subarachnoid hemorrhage and white matter edema. Age related brain involution is present. Diffuse subcortical and periventricular white matter hypodensities are most in favor with chronic small vessel disease. Slight effacement to the valdes-white matter differentiation in the right temporal lobe. No midline shift or brain herniation. Cerebral ventricles: Mild ex vacuo ventriculomegaly. Paranasal sinuses: Visualized sinuses are unremarkable. No fluid levels. Mastoid air cells: Visualized mastoid air cells are well aerated. Bones: Unremarkable. No acute fracture. Soft tissues: Unremarkable. Other findings: Mild intracranial atherosclerosis. IMPRESSION: 1. 2.8 x 3.4 x 2.6 cm left occipital/parietal lobe acute intraparenchymal hematoma with a moderate amount of surrounding subarachnoid hemorrhage and white matter edema. 2. Slight effacement to the valdes-white matter differentiation in the right temporal lobe. Questioning acute/subacute ischemic changes versus artifact. Follow-up MRI of the brain stroke protocol is recommended. ASSESSMENT: ASPECTS ([place] Stroke Program Early CT Score) is 8/9. (hemorrhagic segment was not included in the aspects score) COMMENTS: THIS REPORT CONTAINS FINDINGS THAT MAY BE CRITICAL TO PATIENT CARE. The findings were verbally communicated via telephone conference with Lissett Moore at 7:50 PM EST on 09/17/2024. The findings were acknowledged and understood.
--- NOTE | 2024-09-17 18:52 | CT_ITS ---
PROCEDURE INFORMATION: Exam: CTA Neck With Contrast Exam date and time: 09/17/2024 7:20 PM Age: 74 years old Clinical indication: Stroke-like symptoms; Altered mental status/memory loss; Additional info: AMS, discoordination (chastity lue) TECHNIQUE: Imaging protocol: Computed tomographic angiography of the neck with contrast. Exam focused on the cervical segments of the vasculature. 3D rendering (Not supervised by radiologist): MIP and/or 3D reconstructed images were created by the technologist. Radiation optimization: All CT scans at this facility use at least one of these dose optimization techniques: automated exposure control; mA and/or kV adjustment per patient size (includes targeted exams where dose is matched to clinical indication); or iterative reconstruction. Contrast material: ISO 370; Contrast volume: 80 ml; Contrast route: INTRAVENOUS (IV); COMPARISON: CT ANGIO NECK 08/29/2024 12:11 AM FINDINGS: Right common carotid artery: No stenosis. No dissection or occlusion. Right internal carotid artery: No stenosis of the extracranial segment. No dissection or occlusion. Right external carotid artery: No occlusion or stenosis of the origin. Left common carotid artery: No stenosis. No dissection or occlusion. Left internal carotid artery: No stenosis of the extracranial segment. No dissection or occlusion. Left external carotid artery: No occlusion or stenosis of the origin. Right vertebral artery: Linear filling defect in the V4 segment of the right vertebral artery with decreased to nearly absent contrast enhancement at the distal segments. Left vertebral artery: No stenosis. No dissection or occlusion. Thyroid: Multinodular thyroid, measuring up to 7 mm on the right. Consider follow-up ultrasound. Soft tissues: Normal. No significant soft tissue swelling. Bones/joints: There is a reversal of the normal lordosis, related to positioning or spasm. Multilevel degenerative changes of the vertebra are present, as manifested by multilevel anterior osteophytes, endplate sclerosis, and multilevel posterior disc osteophyte complexes. Degenerative grade 1 anterolisthesis of C3 in relation to C4. IMPRESSION: Linear filling defect in the V4 segment of the right vertebral artery with decreased to nearly absent contrast enhancement at the distal segments. Very concerning for a nonocclusive thrombus or small dissection. DSA evaluation is recommended. REFERENCES: NASCET CRITERIA. The degree of stenosis in the cervical segment of the internal carotid artery is based on NASCET criteria. Normal is no stenosis. Mild is less than 50% stenosis. Moderate is 50-69% stenosis. Severe is 70% to 99% stenosis. Total occlusion is no detectable patent lumen.
[2024-09-17 18:53] LABS: Microscopic, Urine URINE MICROSCOPIC (MICROSCOPIC)
--- NOTE | 2024-09-17 18:53 | CT_ITS ---
PROCEDURE INFORMATION: Exam: CT Abdomen And Pelvis Without Contrast Exam date and time: 09/17/2024 7:17 PM Age: 74 years old Clinical indication: Abdominal pain; Additional info: Recurrent UTI TECHNIQUE: Imaging protocol: Computed tomography of the abdomen and pelvis without contrast. Radiation optimization: All CT scans at this facility use at least one of these dose optimization techniques: automated exposure control; mA and/or kV adjustment per patient size (includes targeted exams where dose is matched to clinical indication); or iterative reconstruction. COMPARISON: CT ABDOMEN PELVIS W CON 02/16/2024 3:20 PM FINDINGS: Liver: Normal. No mass. Gallbladder and biliary ducts: Surgically absent gallbladder. Pancreas: Normal. No ductal dilation. Spleen: Normal. No splenomegaly. Adrenal glands: Normal. No mass. Kidneys and ureters: Mild left hydroureter. No nephroureterolithiasis or hydroureter identified. Stomach and bowel: Diffuse sigmoid colonic diverticula without pericolonic fat stranding. Appendix: Not visualized. Intraperitoneal space: Unremarkable. No free air. No significant fluid collection. Vasculature: Unremarkable. No abdominal aortic aneurysm. Lymph nodes: Unremarkable. No enlarged lymph nodes. Urinary bladder: Unremarkable as visualized. Reproductive: Persistent cystic structure in left pelvis measuring 3.8 x 5.6 cm. Ovaries not visualized. Bones/joints: Unremarkable. No acute fracture. Soft tissues: Unremarkable. IMPRESSION: 1. No acute findings identified. 2. Mild left hydroureter without radiopaque urinary tract calculus identified. Although nonspecific sequela of vesiculcoureteral reflux consideration. 3. Sigmoid colonic diverticulosis. 4. Similar left pelvic cyst without suspicious features likely ovarian/adnexal in origin.
--- NOTE | 2024-09-17 18:54 | [facility].EDGENADL ---
Discharge Plan Disposition Patient Disposition: Xfer Short-Term Hosp Condition: Fair Prescriptions Prescriptions: No Action escitalopram oxalate 10 mg tablet 10 mg PO DAILY Patient Comments: TAKE 1 TABLET 1 TIME EACH DAY memantine 10 mg tablet 10 mg PO BID Qty: 60 3RF famotidine 20 mg tablet 20 mg PO BID atorvastatin [Lipitor] 20 mg tablet 20 mg PO DAILY Qty: 30 5RF aspirin [Adult Aspirin Regimen] 81 mg tablet,delayed release (DR/EC) 81 mg PO DAILY Qty: 30 5RF metoprolol tartrate 50 mg tablet 50 mg PO BID Qty: 180 1RF Patient Comments: TAKE 1 TABLET 1 TIME DAILY amiodarone 200 mg tablet 100 mg PO BID albuterol sulfate 90 mcg/actuation HFA aerosol inhaler 4 inh inhalation Q4HP PRN (Reason: shortness of breath or wheezing) Rx Instructions: 4 puffs every 4 hours for 48 hours then as needed for shortness of breath or wheezing following cefdinir 300 mg Capsule 300 mg PO BID 3 Days Qty: 6 0RF meclizine 25 mg tablet 25 mg PO TID PRN (Reason: dizziness) Qty: 30 0RF Referrals Follow up/Referrals: Nestor Rao MD [Primary Care Provider] - See instructions Clinical Impressions Clinical Impression: Acute spontaneous intraparenchymal intracranial hemorrhage, Hypertension Instructions Patient Instructions: DI for Urinary Tract Infection (UTI), DI for Urinary Tract Infection in Children Print Language Print Language: [place] Discharge ED Provider: Lissett Moore General Adult HPI General Chief complaint: Urogenital-Female Stated complaint: confusion Time Seen by Provider: 09/17/24 18:38 Mode of Arrival: Ambulatory Source of Information: Patient Limitations: No Limitations Description of Symptoms (Recalled from ER Triage Doc. by RN): pt c/o burning with urination, pain to the right side of lower back, states that pt had a UTI about 1mo ago with confusion, and states she has the same S/S, with more confusion this time. History of Present Illness HPI narrative: This patient is a 74-year-old female with a history of dementia, hypertension, hyperlipidemia, CAD, paroxysmal atrial fibrillation presenting to the emergency department for evaluation with concern for altered mental status and urinary symptoms. According to the patient, she has had burning when she pees for 2 days. She also has some right-sided low back pain. She was admitted to the hospital for urinary tract infection, renal insufficiency, altered mental status about a month ago and was discharged home. Symptoms are similar this time however the patient seems more confused. Her notes that she has had progressively worsening mental status over the last year with increasing confusion, hallucinations, and memory issues at home. He also notes that for a while now, probably about a month, she has had balance issues, discoordination. He states that if you try to hand her something, she is not able to grab it because she reaches off to the side. Things seem to have peaked over the last few days with these complaints of urinary symptoms, prompting her evaluation here today. Related Data Home Medications ?Medication ?Instructions ?Recorded ?Confirmed escitalopram oxalate 10 mg tablet 10 mg PO DAILY 02/18/24 08/08/24 famotidine 20 mg tablet 20 mg PO BID 05/11/24 08/08/24 albuterol sulfate 90 mcg/actuation 4 inh inhalation Q4HP PRN 08/08/24 aerosol inhaler shortness of breath or wheezing amiodarone 200 mg tablet 100 mg PO BID 08/08/24 08/08/24 Previous Rx's ?Medication ?Instructions ?Recorded memantine 10 mg tablet 10 mg PO BID #60 tabs 03/07/24 metoprolol tartrate 50 mg tablet 50 mg PO BID #180 tabs 05/02/24 aspirin 81 mg tablet,delayed 81 mg PO DAILY #30 tabs 05/11/24 release (Adult Aspirin Regimen) atorvastatin 20 mg tablet (Lipitor) 20 mg PO DAILY #30 tabs 05/11/24 cefdinir 300 mg capsule 300 mg PO BID 3 days #6 caps 08/08/24 meclizine 25 mg tablet 25 mg PO TID PRN dizziness #30 tabs 08/29/24 Allergies Allergy/AdvReac Type Severity Reaction Status Date / Time amoxicillin (From Augmentin) Allergy Unknown Verified 08/08/24 07:09 allergy reaction ciprofloxacin (From Cipro) Allergy Unknown Verified 08/08/24 07:09 allergy reaction clavulanic acid (From Allergy Unknown Verified 08/08/24 07:09 Augmentin) allergy reaction doxycycline Allergy Unknown Verified 08/08/24 07:09 allergy reaction lidocaine Allergy Unknown Verified 08/08/24 07:09 allergy reaction Sulfa (Sulfonamide Allergy Unknown Verified 08/08/24 07:09 Antibiotics) allergy reaction PFSH PFSH Disclaimer: The information contained in this section may have been updated after the patient was seen, as this information can be updated by other users. Medical History Chronic kidney disease Generalized weakness Acute UTI Acute pain of right hip Nontraumatic hematoma Constipation Asthenia Viral syndrome Diarrhea Laryngitis Cough Nausea CELINA (acute kidney injury) Cystitis Cerumen impaction Mild cognitive impairment Hypoglycemia Dehydration Coronary artery disease Elevated brain natriuretic peptide (BNP) level Abnormal electrocardiogram [ECG] [EKG] Fatigue HTN (hypertension) Dyspnea Abnormal ECG Abnormal findings on diagnostic imaging of heart and coronary circulation Sinus bradycardia Chronic GERD IBS (irritable bowel syndrome) Hyperlipidemia Depression Dyspareunia Asthma Paroxysmal atrial fibrillation Palpitations Surgical History H/O: section Hx of cholecystectomy Family History Father Hypertension Mother CHF (congestive heart failure) Cancer Daughter Seizure Stroke Social History Smoking Status: Never smoker second hand exposure: No alcohol intake: never counseling given: No current occupational status: retired Travel in the last 8 weeks: None household members: family housing: house marital status: Have you lived/traveled outside [place] in past 30 days?: No Contact w/someone who lives/traveled outside [place] past 30 days?: No Exposure to someone with infectious disease in past 14 days?: No Do you have a fever (greater than 100.4 F or 38 C)?: No Have you tested positive for COVID-19: No Exposed to someone with COVID-19 in past 14 days?: No Do you have a sore throat?: No Do you have a cough?: No Do you have any weakness?: No Do you have any diarrhea?: No Are you experiencing any unusual bleeding?: No Do you have any muscle aches/pain?: No Do you have any abdominal pain?: No Are you experiencing loss of taste or smell?: No Other Medical History Have you received the Flu Vaccine for this season: No Have you received the Pneumonia Vaccine: No ROS Obtained: Yes All systems reviewed & no additional complaints except as documented Physical Exam General General appearance: alert and in no apparent distress Head Head exam: atraumatic and normocephalic Eye Eye exam: Present normal appearance, PERRL and EOMI ENT ENT exam: Present normal exam, normal oropharynx, mucous membranes moist and normal external ear exam Neck Neck exam: Present normal inspection, full ROM and trachea midline; Absent tenderness Chest Chest inspection: Present normal inspection and symmetric chest wall rise; Absent tenderness Respiratory Respiratory exam: Present normal lung sounds bilaterally; Absent respiratory distress, wheezes, stridor or accessory muscle use Cardiovascular Cardiovascular exam: Present regular rate and normal rhythm Abdominal Exam Abdominal exam: Present soft; Absent distention, tenderness or guarding Extremities Exam Extremities exam: Present normal inspection, full ROM and normal capillary refill; Absent tenderness or edema Back Exam Back exam: Present normal inspection and full ROM; Absent tenderness Neurological Exam Neurological exam: Present alert, CN II-XII intact and other (Discoordination of the left upper extremity); Absent oriented X3 (Oriented to person and place but not time) or motor sensory deficit Psychiatric Psychiatric exam: Present normal affect and normal mood Skin Skin exam: Present warm and dry Medical Decision Making Medical Records Medical records reviewed: Yes I reviewed the patient's medical records. Screening: Per USPSTF and CDC recommendations, given the prevalence of disease in our region, it is our hospital?s policy to screen for HIV and viral Hepatitis for all patients aged 18 and over and those with ongoing risk factors. Narciso Inquiry Pt receiving controlled substance: No Vital Signs: 09/17/24 18:30 09/17/24 18:36 Temperature 98.3 F Temperature Source Oral Pulse Rate 60 Pulse Rate [Right Radial] 56 L Respiratory Rate 18 Blood Pressure 145/75 H Blood Pressure [Right Radial Artery] 145/75 H Blood Pressure Mean [Right Radial Artery] 98 02 Sat by Pulse Oximetry 98 97 Oxygen Delivery Method Room Air Room Air Lab Data Lab results reviewed: Yes I reviewed the patient's lab results. Lab Results 09/17/24 18:31: Urine Color Yellow, Urine Appearance Clear, Urine pH 6.0, Ur Specific [place] 1.025, Urine Protein Negative, Urine Glucose (UA) Negative, Urine Ketones Negative, Urine Blood Trace-i, Urine Nitrate Negative, Urine Bilirubin Negative, Urine Urobilinogen 1.0, Ur Leukocyte Esterase Negative, Urine RBC 5-10, Urine WBC Occasional, Ur Squamous Epith Cells 3-5, Urine Bacteria Trace 09/17/24 18:40: WBC 6.4, RBC 4.52, Hgb 12.3, Hct 38.8, MCV 85.8, MCH 27.2, MCHC 31.7 L, RDW 15.0, Plt Count 125 L, MPV 9.9, Neut % (Auto) 68.4, Lymph % (Auto) 22.0, Harris % (Auto) 8.4, Eos % (Auto) 0.5, Baso % (Auto) 0.5, Neut # (Auto) 4.4, Lymph # (Auto) 1.4, Harris # (Auto) 0.5, Eos # (Auto) 0.0, Baso # (Auto) 0.0, Sodium 140, Potassium 3.8, Chloride 106, Carbon Dioxide 31 H, Anion Gap 6.8, BUN 22 H, Creatinine 1.40 H, Estimated Creat Clear 31, Estimated GFR 37 L, Est GFR ( Amer) 45 L, Glucose 122 H, Calcium 9.5, Total Bilirubin 0.6, AST 40 H, ALT 33, Alkaline Phosphatase 60, Total Protein 6.6, Albumin 4.2, Globulin 2.4, Albumin/Globulin Ratio 1.8, TSH 1.26, Thyroxine (T4) 13.0 H 09/17/24 18:40 09/17/24 18:40 Orders (Tests/Meds): ED MEDICATIONS Generic Name Dose Route Start Last Admin Trade Name Freq PRN Reason Stop Dose Admin Nicardipine HCl 25 mg/ Sodium 250 mls @ 50 mls/hr 09/17/24 19:45 Chloride IV 10/17/24 19:44 .Q5H JESSICA Protocol 5 MG/HR Sodium Chloride 10 ml 09/17/24 19:17 09/17/24 19:18 Sodium Chloride 0.9% 10ml Syr (Rad Only) IV 10/17/24 19:16 10 ml NEEDED PRN Administration Maintain IV Site Discontinued Medications Generic Name Dose Route Start Last Admin Trade Name Freq PRN Reason Stop Dose Admin Levetiracetam 1,600 mg/ Sodium 116 mls @ 232 mls/hr 09/17/24 19:45 Chloride IV 09/17/24 19:46 ONCE ONE Iopamidol 80 ml 09/17/24 19:17 09/17/24 19:18 Iopamidol-370 (76%);100ml Bottle IV 09/17/24 19:18 80 ml ONCE ONE Administration Sodium Chloride 50 ml 09/17/24 19:17 09/17/24 19:18 0.9 % Sodium Chloride 50 Ml Vial IV 09/17/24 19:18 50 ml ONCE ONE Administration ORDERS Category Date Time Status CT abdomen pelvis wo con Stat Cat Scan 09/17/24 18:[address] angio head Stat Cat Scan 09/17/24 18:[address] angio neck Stat Cat Scan 09/17/24 18:[address] head/brain wo con Stat Cat Scan 09/17/24 18:52 Completed Complete Blood Count Auto Diff Stat Lab 09/17/24 18:40 Completed Comprehensive Metabolic Panel Stat Lab 09/17/24 18:40 Completed T4 (Thyroxine) Stat Lab 09/17/24 18:40 Completed TSH [Thyroid Stimulating Hormone] Stat Lab 09/17/24 18:40 Completed UA [Urinalysis and Microscopic] Stat Lab 09/17/24 18:31 Completed ECG Data Tracing #1: I reviewed this ECG and interpreted as documented below: Sinus bradycardia with a ventricular rate of 58 bpm. No acute STEMI. Normal intervals ECG initial impression date: 09/17/24 ECG initial impression time: 18:35 Medical Decision Narrative: In summary, this patient is a 74-year-old female presenting to the Emergency Department for evaluation of altered mental status, hallucinations, discoordination, right flank pain, and dysuria. Differential diagnoses considered include but are not limited to cystitis, pyelonephritis, ureterolithiasis, CVA, dementia, other cause of metabolic encephalopathy. Ruling out the most morbid conditions drove assessment. It should be noted patient's history includes dementia, hyperlipidemia, paroxysmal atrial fibrillation which may or may not be at goal therapy. This complicates all aspects of care by increasing patient's risk for morbidity. I reviewed patient's past medical records and noted admission at the beginning of August for UTI type symptoms as well as altered mental status, hallucinations. Patient had renal insufficiency at that time. I did not see that abdominal imaging was obtained. I also noted evaluation at the end of August for vertigo, and CT stroke evaluation at that time was negative. Patient declined admission for MRI. No intervention administered given NIH stroke scale of 0 on assessment. On my assessment of the patient, she is sitting upright in bed in no acute distress. Vitals are reassuring on cardiac telemetry. On her neurologic exam, she does have disorientation in the setting of dementia and is unable to tell me the year/her age. She also has discoordination of her left upper extremity. Otherwise, I do not note any significant focal neurologic deficit. Given this, an extra scale is 2. Symptoms have been ongoing for an extended period of time, likely a month according to her . Given this, she is outside of any sort of window for tPA/TNK or thrombectomy and was not stroke alerted. Workup included CBC, CMP, urinalysis, urine culture, TSH, T4, EKG, CT head without contrast, CT angiogram head and neck, and CT abdomen and pelvis without IV contrast to evaluate for obstructive ureterolithiasis. Please see their read for final interpretation. Labs were obtained that demonstrated reassuring CBC with no significant leukocytosis. She does have mild thrombocytopenia with a platelet count of 125,000. Creatinine is around her baseline at 1.4. AST mildly elevated with normal ALT. T4 mildly elevated with normal TSH. She has small amount of blood in her urine but urine is not overtly concerning for infection with negative leukocyte esterase and nitrates. I independently interpreted CT scan of the head without contrast prior to the radiologist read and noted intraparenchymal hemorrhage. Patient has had no known trauma. She does take aspirin but no other anticoagulation. Initially her blood pressure was in the 140s, however it has increased to the 170s. Given this, ordered Cardene drip to start on the patient to titrate to a goal of systolic less than 150. Given concern for hemorrhagic stroke, I immediately initiated transfer process with . I spoke with Dr. Goff with Neurosurgery who advised likely hemorrhagic stroke and BP control. I then was connected with Dr. Hernandez with neurology who accepted the patient to [facility] ED, Dr. Wheat transfer physician was on the call. I considered ordering Keppra, however after interactive discussion with neurology at [facility] they advise not indicated. I had an interactive discussion with radiologist who confirmed findings. I also discussed findings with the patient and family and they are agreeable to transfer to . At this time, blood pressure is stable and I feel the patient is stabilized for transfer to higher level of care for neurology/neurosurgical evaluation in the setting of acute hemorrhagic stroke. She was transported in stable condition by EMS Critical Care Critical Care Time Critical Care Time: Yes Attestation: On 09/17/24, the high probability of a clinically significant, sudden or life threatening deterioration of the following system(s) required my full and direct attention, intervention and personal management. The time I documented below is in addition to time spent performing reported procedures but includes the following listed in this critical care notation. Total Time Total Critical Care Time: 40
[2024-09-17 18:55] LABS: Appearance,Urine CLEAR (Clear); Bilirubin,Urine Negative (Negative); Blood, Urine TRACE-I (Negative); Color,Urine YELLOW (Yellow); Glucose,Urine (UA) Negative (Negative); Ketones,Urine Negative (Negative); Leukocyte Esterase,Urine Negative (Negative); Nitrate,Urine Negative (Negative); Protein,Urine Negative (Negative); Specific Gravity, Urine 1.025 (1.005-1.030)
[2024-09-17 18:58] LABS: Basophils % 0.5 % (0.1-2.0); Eosinophils % 0.5 % (0.1-12.0); Hematocrit 38.8 % (37.0-47.0); Hemoglobin 12.3 g/dL (12.2-16.2); Lymphocytes # 1.4 K/mm3 (0.7-4.5); Mean Corpuscular HGB Conc 31.7 g/dL (31.8-35.4); Mean Corpuscular Hemoglobin 27.2 pg (27.0-31.2); Mean Corpuscular Volume 85.8 fl (81-99); Mean Platelet Volume 9.9 fl (7.4-10.4); Monocytes # 0.5 K/mm3 (0.1-1.0); Monocytes % 8.4 % (1.7-9.3); Neutrophils # 4.4 K/mm3 (1.8-7.8); Neutrophils % 68.4 % (37.0-80.0); Platelet Count 125 K/mm3 (142-424); Red Blood Count 4.52 M/mm3 (4.20-5.40); White Blood Count 6.4 K/mm3 (4.8-10.8)
[2024-09-17 18:59] LABS: Albumin Level 4.2 g/dl (3.5-5.0); Chloride 106 mmol/L (98-107); Sodium 140 mmol/L (136-145)
[2024-09-17 19:00] LABS: Potassium 3.8 mmoL/L (3.5-5.1)
[2024-09-17 19:02] LABS: Alanine Aminotransferase 33 U/L (12-78); Anion Gap 6.8 mEq/L (5-15); Aspartate Amino Transferase 40 U/L (14-36); Blood Urea Nitrogen 22 mg/dl (7-17); Carbon Dioxide 31 mmol/L (22.0-30.0); Creatinine Clearance Estimated 31 mL/min (50-200); Estimated Glomerular Filt Rate 37 ml/min (>60); GFR (African American) 45 ML/MIN (>60)
[2024-09-17 19:03] LABS: Albumin/Globulin Ratio 1.8 (1.1-1.8); Alkaline Phosphatase 60 U/L (38-126); Bilirubin,Total 0.6 mg/dl (0.2-1.3); Calcium 9.5 mg/dl (8.4-10.2); Globulin 2.4 g/dL (1.3-3.2); Glucose 122 mg/dl (74-100); Total Protein,Serum 6.6 g/dl (6.3-8.2)
[2024-09-17 19:15] LABS: Bacteria,Urine Trace /lpf; WBC,Urine Occasional #/hpf (0-3)
[2024-09-17] MEDS: 0.9 % SODIUM CHLORIDE 50 ML VIAL IV (19:18)
[2024-09-17] MEDS: IOPAMIDOL-370 (76%);100ML BOTTLE 80 ML IV (19:18)
[2024-09-17] MEDS: SODIUM CHLORIDE 0.9% 10ML SYR (RAD ONLY) 10 ML IV (19:18)
[2024-09-17 19:34] LABS: Thyroid Stimulating Hormone 1.26 uIU/mL (0.465-4.68)
--- NOTE | 2024-09-17 19:42 | PC.NURSE ---
Contacted [facility] regarding transfer for this patient waiting call back at this time.
[2024-09-17] MEDS: NICARDIPINE HCL 25 MG in 0.9 % SODIUM CHLORIDE 240 ML 50 MG IV (20:00)
--- NOTE | 2024-09-17 21:02 | PC.NURSE ---
Report given to [facility] [place] [facility] staff and [facility] ED RN Aggie Pt awake and alert at time of transfer.
== END 2024-09-17 21:02 | disposition short-term general hospital (02) ==
PROVIDERS: Emergency Provider Emergency Medicine; PCP Internal Medicine Adolescent Medicine
DX: I62.9 Nontraumatic intracranial hemorrhage, unspecified (principal); D69.6 Thrombocytopenia, unspecified; R31.9 Hematuria, unspecified; I10 Essential (primary) hypertension; R41.82 Altered mental status, unspecified; M54.50 Low back pain, unspecified; R30.9 Painful micturition, unspecified
CPT/HCPCS: 70450; 70496; 70498; 74176; 80053; 81001; 84436; 84443; 85025; 93005; 96365; 96366; 99291; J2404; Q9967

== ENCOUNTER 2024-09-21 01:00 | Emergency (ER) | payer MEDICARE, OTHER, SELFPAY ==
[2024-09-21 01:15] VITALS: BP 140/68; PULSE 61; RESP 21; TEMP 36.7; O2SAT 97; BMI 20.9
--- NOTE | 2024-09-21 01:15 | CT_ITS ---
PROCEDURE INFORMATION: Exam: CT Head Without Contrast Exam date and time: 09/21/2024 1:22 AM Age: 74 years old Clinical indication: Stroke-like symptoms; Visual disturbance; Additional info: Possible stroke TECHNIQUE: Imaging protocol: Computed tomography of the head without contrast. Radiation optimization: All CT scans at this facility use at least one of these dose optimization techniques: automated exposure control; mA and/or kV adjustment per patient size (includes targeted exams where dose is matched to clinical indication); or iterative reconstruction. Other technique: STROKE PROTOCOL was implemented. COMPARISON: CT HEAD/BRAIN WO CON 09/21/2024 1:22 AM FINDINGS: Brain: Intraparenchymal hematoma involving the left occipital lobe that measures 4.1 x 2.8 x 2.4 cm in size. Trace hemorrhage along the surface of the left tentorium. There is no other area of intracranial hemorrhage. There is no focal mass. There is no significant midline shift. Cerebral ventricles: No ventriculomegaly. Paranasal sinuses: Visualized sinuses are unremarkable. No fluid levels. Mastoid air cells: Visualized mastoid air cells are well aerated. Bones: Unremarkable. No acute fracture. Soft tissues: Unremarkable. IMPRESSION: 1. Intraparenchymal hematoma involving the left occipital lobe that measures 4.1 x 2.8 x 2.4 cm in size. This is unchanged compared with previous. 2. Trace hemorrhage along the surface of the left tentorium. 3. The remainder of the examination is unremarkable. There is no other area of hemorrhage present. ASSESSMENT: ASPECTS (Jen Stroke Program Early CT Score) is 10.
--- NOTE | 2024-09-21 01:15 | CT_ITS ---
PROCEDURE INFORMATION: Exam: CTA Head With Contrast, Arteriography Exam date and time: 09/21/2024 1:24 AM Age: 74 years old Clinical indication: Stroke-like symptoms; Visual disturbance; Additional info: Possible stroke TECHNIQUE: Imaging protocol: Computed tomographic angiography of the head with contrast. Exam focused on the arteries. 3D rendering (Not supervised by radiologist): MIP and/or 3D reconstructed images were created by the technologist. Radiation optimization: All CT scans at this facility use at least one of these dose optimization techniques: automated exposure control; mA and/or kV adjustment per patient size (includes targeted exams where dose is matched to clinical indication); or iterative reconstruction. Contrast material: ISOVUE; Contrast volume: 70 ml; Contrast route: INTRAVENOUS (IV); COMPARISON: CT ANGIO HEAD 09/17/2024 7:20 PM FINDINGS: ANTERIOR CIRCULATION: Right internal carotid artery: Intracranial segment is patent with no significant stenosis or occlusion. No aneurysm. Right middle cerebral artery: No occlusion or significant stenosis. No aneurysm. Right anterior cerebral artery: No occlusion or significant stenosis. No aneurysm. Left internal carotid artery: Intracranial segment is patent with no significant stenosis. No aneurysm. Left middle cerebral artery: 0.3 x 0.3 mm aneurysm arising from the superior surface of the left middle cerebral artery trifurcation. Left anterior cerebral artery: No occlusion or significant stenosis. No aneurysm. POSTERIOR CIRCULATION: Right vertebral artery: No occlusion or significant stenosis. No aneurysm. Left vertebral artery: No occlusion or significant stenosis. No aneurysm. Basilar artery: No occlusion or significant stenosis. No aneurysm. Right posterior cerebral artery: No occlusion or significant stenosis. No aneurysm. Left posterior cerebral artery: No occlusion or significant stenosis. No aneurysm. Veins: There is no venous thrombosis. Brain: Intraparenchymal hematoma involving the left occipital lobe that measures 4.0 x 2.8 cm in size. There is no associated vascular abnormality. Cerebral ventricles: Normal. No ventriculomegaly. Bones/joints: Unremarkable. No acute fracture. Soft tissues: Unremarkable. IMPRESSION: 1. Intraparenchymal hematoma involving the left occipital lobe that measures 4.0 x 2.8 cm in size. There is no associated vascular abnormality. 2. 0.3 x 0.3 mm aneurysm arising from the superior surface of the left middle cerebral artery trifurcation. 3. No significant stenosis, occlusion, or dissection. There is no other aneurysm.
--- NOTE | 2024-09-21 01:15 | CT_ITS ---
PROCEDURE INFORMATION: Exam: CTA Neck With Contrast Exam date and time: 09/21/2024 1:24 AM Age: 74 years old Clinical indication: Stroke-like symptoms; Visual disturbance; Additional info: Possible stroke TECHNIQUE: Imaging protocol: Computed tomographic angiography of the neck with contrast. Exam focused on the cervical segments of the vasculature. 3D rendering (Not supervised by radiologist): MIP and/or 3D reconstructed images were created by the technologist. Radiation optimization: All CT scans at this facility use at least one of these dose optimization techniques: automated exposure control; mA and/or kV adjustment per patient size (includes targeted exams where dose is matched to clinical indication); or iterative reconstruction. Contrast material: ISOVUE; Contrast volume: 70 ml; Contrast route: INTRAVENOUS (IV); COMPARISON: CT ANGIO NECK 09/17/2024 7:20 PM FINDINGS: Right common carotid artery: No stenosis. No dissection or occlusion. Right internal carotid artery: No significant stenosis. No dissection or occlusion. Right external carotid artery: No occlusion or stenosis of the origin. Left common carotid artery: No stenosis. No dissection or occlusion. Left internal carotid artery: No significant stenosis. No dissection or occlusion. Left external carotid artery: No occlusion or stenosis of the origin. Right vertebral artery: No stenosis. No dissection or occlusion. Left vertebral artery: No stenosis. No dissection or occlusion. Soft tissues: Normal. No significant soft tissue swelling. Bones/joints: No acute fracture. IMPRESSION: Unremarkable examination with no significant stenosis, dissection, or occlusion. REFERENCES: NASCET CRITERIA. The degree of stenosis in the cervical segment of the internal carotid artery is based on NASCET criteria. Normal is no stenosis. Mild is less than 50% stenosis. Moderate is 50-69% stenosis. Severe is 70% to 99% stenosis. Total occlusion is no detectable patent lumen.
[2024-09-21 01:29] LABS: Basophils # 0.1 K/mm3 (0-0.2); Basophils % 0.8 % (0.1-2.0); Eosinophils # 0.1 K/mm3 (0.0-0.4); Hematocrit 38.1 % (37.0-47.0); Hemoglobin 12.2 g/dL (12.2-16.2); Lymphocytes # 1.1 K/mm3 (0.7-4.5); Lymphocytes % 13.8 % (10-50); Mean Corpuscular Hemoglobin 27.6 pg (27.0-31.2); Mean Corpuscular Volume 86.2 fl (81-99); Mean Platelet Volume 10.9 fl (7.4-10.4); Monocytes # 0.5 K/mm3 (0.1-1.0); Monocytes % 5.9 % (1.7-9.3); Neutrophils % 78.1 % (37.0-80.0); Platelet Count 109 K/mm3 (142-424); Red Blood Count 4.42 M/mm3 (4.20-5.40); Red Cell Distribution Width 14.6 % (11.5-17.5); White Blood Count 7.7 K/mm3 (4.8-10.8)
--- NOTE | 2024-09-21 01:30 | ED_ITS ---
Discharge Plan Disposition Patient Disposition: Xfer Short-Term Hosp Condition: Serious Chief Complaint: Weakness Prescriptions Prescriptions: No Action escitalopram oxalate 10 mg tablet 10 mg PO DAILY Patient Comments: TAKE 1 TABLET 1 TIME EACH DAY memantine 10 mg tablet 10 mg PO BID Qty: 60 3RF famotidine 20 mg tablet 20 mg PO BID atorvastatin [Lipitor] 20 mg tablet 20 mg PO DAILY Qty: 30 5RF aspirin [Adult Aspirin Regimen] 81 mg tablet,delayed release (DR/EC) 81 mg PO DAILY Qty: 30 5RF metoprolol tartrate 50 mg tablet 50 mg PO BID Qty: 180 1RF Patient Comments: TAKE 1 TABLET 1 TIME DAILY amiodarone 200 mg tablet 100 mg PO BID albuterol sulfate 90 mcg/actuation HFA aerosol inhaler 4 inh inhalation Q4HP PRN (Reason: shortness of breath or wheezing) Rx Instructions: 4 puffs every 4 hours for 48 hours then as needed for shortness of breath or wheezing following cefdinir 300 mg Capsule 300 mg PO BID 3 Days Qty: 6 0RF meclizine 25 mg tablet 25 mg PO TID PRN (Reason: dizziness) Qty: 30 0RF Referrals Follow up/Referrals: Provider,Referral, MD [Primary Care Provider] - See instructions Clinical Impressions Clinical Impression: Intraparenchymal hemorrhage of brain Print Language Print Language: Malian Discharge ED Provider: Will Orozco Adult HPI General Chief complaint: Weakness Stated complaint: weakness, nausea Time Seen by Provider: 09/21/24 01:14 Mode of Arrival: Ambulatory Source of Information: Spouse Limitations: No Limitations Description of Symptoms (Recalled from ER Triage Doc. by RN): pt reports that she was D/C from this afternoon, she was seen there for monitoring of a subdural hematoma. tonight the pt became nausous and had diarrhea, upon entering the [facility] she became weak and her helped her down to the floor. pt is mentally st her baseline according to her . History of Present Illness HPI narrative: 74-year-old female history of recent hemorrhagic stroke that was identified on 09/17/2024 presents to the ER for concerns of weakness. Patient was evaluated on the and identified to have a spontaneous intracranial bleed. At that time she had findings of disorientation, discoordination in her left upper extremity. at bedside reports that the patient had been admitted to until the afternoon of 09/20/2024. She was discharged with reportedly stable, unchanged intracranial blood. He reports patient had problems with vision in her right eye, discoordination of the left arm, and her baseline confusion from a history of dementia. Patient was getting up to use the bathroom tonight when she got weak and her guided her to the floor. She did not lose consciousness or strike her head. EMS initially evaluated the patient on scene and the family refused transport to the hospital, however after thinking about it briefly, he decided to bring the patient in for evaluation. He reports she does not seem any different than her new baseline except she seems generally more weak. Patient is not complaining of any pain. Related Data Home Medications ?Medication ?Instructions ?Recorded ?Confirmed escitalopram oxalate 10 mg tablet 10 mg PO DAILY 02/18/24 08/08/24 famotidine 20 mg tablet 20 mg PO BID 05/11/24 08/08/24 albuterol sulfate 90 mcg/actuation 4 inh inhalation Q4HP PRN 08/08/24 aerosol inhaler shortness of breath or wheezing amiodarone 200 mg tablet 100 mg PO BID 08/08/24 08/08/24 Previous Rx's ?Medication ?Instructions ?Recorded memantine 10 mg tablet 10 mg PO BID #60 tabs 03/07/24 metoprolol tartrate 50 mg tablet 50 mg PO BID #180 tabs 05/02/24 aspirin 81 mg tablet,delayed 81 mg PO DAILY #30 tabs 05/11/24 release (Adult Aspirin Regimen) atorvastatin 20 mg tablet (Lipitor) 20 mg PO DAILY #30 tabs 05/11/24 cefdinir 300 mg capsule 300 mg PO BID 3 days #6 caps 08/08/24 meclizine 25 mg tablet 25 mg PO TID PRN dizziness #30 tabs 08/29/24 Allergies Allergy/AdvReac Type Severity Reaction Status Date / Time amoxicillin (From Augmentin) Allergy Unknown Verified 08/08/24 07:09 allergy reaction ciprofloxacin (From Cipro) Allergy Unknown Verified 08/08/24 07:09 allergy reaction clavulanic acid (From Allergy Unknown Verified 08/08/24 07:09 Augmentin) allergy reaction doxycycline Allergy Unknown Verified 08/08/24 07:09 allergy reaction lidocaine Allergy Unknown Verified 08/08/24 07:09 allergy reaction Sulfa (Sulfonamide Allergy Unknown Verified 08/08/24 07:09 Antibiotics) allergy reaction [facility] Disclaimer: The information contained in this section may have been updated after the patient was seen, as this information can be updated by other users. Medical History Chronic kidney disease Generalized weakness Acute UTI Acute pain of right hip Nontraumatic hematoma Constipation Asthenia Viral syndrome Diarrhea Laryngitis Cough Nausea CELINA (acute kidney injury) Cystitis Cerumen impaction Mild cognitive impairment Hypoglycemia Dehydration Coronary artery disease Elevated brain natriuretic peptide (BNP) level Abnormal electrocardiogram [ECG] [EKG] Fatigue HTN (hypertension) Dyspnea Abnormal ECG Abnormal findings on diagnostic imaging of heart and coronary circulation Sinus bradycardia Chronic GERD IBS (irritable bowel syndrome) Hyperlipidemia Depression Dyspareunia Asthma Paroxysmal atrial fibrillation Palpitations Surgical History H/O: section Hx of cholecystectomy Family History Father Hypertension Mother CHF (congestive heart failure) Cancer Daughter Seizure Stroke Social History Smoking Status: Never smoker second hand exposure: No alcohol intake: never counseling given: No current occupational status: retired Travel in the last 8 weeks: None household members: family housing: house marital status: Have you lived/traveled outside [place] in past 30 days?: No Contact w/someone who lives/traveled outside US past 30 days?: No Exposure to someone with infectious disease in past 14 days?: No Do you have a fever (greater than 100.4 F or 38 C)?: No Have you tested positive for COVID-19: No Exposed to someone with COVID-19 in past 14 days?: No Do you have a sore throat?: No Do you have a cough?: No Do you have any weakness?: Yes Do you have any diarrhea?: No Are you experiencing any unusual bleeding?: No Do you have any muscle aches/pain?: No Do you have any abdominal pain?: No Are you experiencing loss of taste or smell?: No Other Medical History Have you received the Flu Vaccine for this season: No Have you received the Pneumonia Vaccine: No ROS Obtained: Yes Systems reviewed as appropriate & no additional complaints except as documented Per HPI Physical Exam General General appearance: alert and in no apparent distress Head Head exam: atraumatic and normocephalic Eye Eye exam: Present PERRL, EOMI and other (Decreased visual acuity in the right eye, diffuse visual field deficit of the right eye, left eye peripheral post intact) ENT ENT exam: Present mucous membranes moist Neck Neck exam: Present normal inspection and full ROM Chest Chest inspection: Present symmetric chest wall rise Respiratory Respiratory exam: Present normal lung sounds bilaterally; Absent respiratory distress, wheezes or stridor Cardiovascular Cardiovascular exam: Present regular rate and normal rhythm Abdominal Exam Abdominal exam: Present soft; Absent distention or tenderness Extremities Exam Extremities exam: Present full ROM and edema (+1 bilaterally) Neurological Exam Neurological exam: Present alert, CN II-XII intact (Visual deficits as described in eye exam) and other (Discoordination with [id number] testing in bilateral upper extremities, patient points past and below my finger with both hands; difficult heel to taylor with RLE); Absent oriented X3 (Disoriented to age and month, oriented to self) or motor sensory deficit Psychiatric Psychiatric exam: Present normal affect and normal mood Skin Skin exam: Present warm and dry Medical Decision Making Medical Records Medical records reviewed: Yes I reviewed the patient's medical records. Screening: Per USPSTF and CDC recommendations, given the prevalence of disease in our region, it is our hospital?s policy to screen for HIV and viral Hepatitis for all patients aged 18 and over and those with ongoing risk factors. MR Comment: Left occipital region bleed identified 09/17/[address] which I reviewed Narciso Inquiry Pt receiving controlled substance: No Vital Signs: 09/21/24 01:15 09/21/24 02:06 Temperature 98.1 F Temperature Source Oral Pulse Rate 59 L Pulse Rate [Right] 61 Respiratory Rate 21 16 Blood Pressure 128/59 L Blood Pressure [Right Radial Artery] 140/68 Blood Pressure Mean [Right Radial Artery] 92 02 Sat by Pulse Oximetry 97 99 Oxygen Delivery Method Room Air Lab Data Lab Results 09/21/24 01:18: WBC 7.7, RBC 4.42, Hgb 12.2, Hct 38.1, MCV 86.2, MCH 27.6, MCHC 32.0, RDW 14.6, Plt Count 109 L, MPV 10.9 H, Neut % (Auto) 78.1, Lymph % (Auto) 13.8, Heard % (Auto) 5.9, Eos % (Auto) 1.0, Baso % (Auto) 0.8, Neut # (Auto) 6.0, Lymph # (Auto) 1.1, Heard # (Auto) 0.5, Eos # (Auto) 0.1, Baso # (Auto) 0.1, S odium 135 L, Potassium 4.1, Chloride 105, Carbon Dioxide 25, Anion Gap 9.1, BUN 24 H, Creatinine 1.20 H, Estimated Creat Clear 36, Estimated GFR 44 L, Est GFR ( Amer) 53 L, Glucose 116 H, Calcium 9.2, Total Bilirubin 0.8, AST 51 H, ALT 29, Alkaline Phosphatase 73, Troponin I < 0.01, Total Protein 6.5, Albumin 4.0, Globulin 2.5, Albumin/Globulin Ratio 1.6, Triglycerides 76, Cholesterol 127 L, LDL Cholesterol Direct 63.48 L, VLDL Cholesterol 15, HDL Cholesterol 36 L, Cholesterol/HDL Ratio 3.5, Plasma/Serum Alcohol < 10 09/21/24 01:48: Urine Color Yellow, Urine Appearance Clear, Urine pH 6.0, Ur Specific [place] >= 1.030, Urine Protein Negative, Urine Glucose (UA) Negative, Urine Ketones Negative, Urine Blood Trace-i, Urine Nitrate Negative, Urine Bilirubin Negative, Urine Urobilinogen 0.2, Ur Leukocyte Esterase Trace 09/21/24 01:18 09/21/24 01:18 Orders (Tests/Meds): ED MEDICATIONS Generic Name Dose Route Start Last Admin Trade Name Freq PRN Reason Stop Dose Admin Sodium Chloride 10 ml 09/21/24 01:14 Sodium Chloride 0.9% 10ml Flush Syringe IV 10/21/24 01:13 NEEDED PRN Maintain IV Site Discontinued Medications Generic Name Dose Route Start Last Admin Trade Name Freq PRN Reason Stop Dose Admin Iopamidol 70 ml 09/21/24 01:30 09/21/24 01:31 Iopamidol-370 (76%);100ml Bottle IV 09/21/24 01:31 70 ml ONCE ONE Administration Sodium Chloride 10 ml 09/21/24 01:30 09/21/24 01:31 Sodium Chloride 0.9% 10ml Syr (Rad Only) IV 09/21/24 01:31 10 ml ONCE ONE Administration Sodium Chloride 50 ml 09/21/24 01:30 09/21/24 01:31 0.9 % Sodium Chloride 50 Ml Vial IV 09/21/24 01:31 50 ml ONCE ONE Administration ORDERS Category Date Time Status CT angio head Stat Cat Scan 09/21/24 01:[address] angio neck Stat Cat Scan 09/21/24 01:[address] head/brain wo con Stat Cat Scan 09/21/24 01:15 Completed Activated Partial Thrombo Time Stat Lab 09/21/24 01:18 Received Complete Blood Count Auto Diff Stat Lab 09/21/24 01:18 Completed Comprehensive Metabolic Panel Stat Lab 09/21/24 01:18 Completed Diarrhea 6-11 Panel, Cdiff PCR Stat Lab 09/21/24 01:40 Ordered Drug Screen,Urine Stat Lab 09/21/24 01:48 Received Ethyl Alcohol Stat Lab 09/21/24 01:18 Completed Lipid Panel Stat Lab 09/21/24 01:18 Completed Prothrombin Time INR Stat Lab 09/21/24 01:18 Received Troponin I Q3H Lab 09/21/24 04:15 Ordered Troponin I Q3H Lab 09/21/24 07:15 Ordered Troponin I Stat Lab 09/21/24 01:18 Completed Urinalysis and Microscopic Stat Lab 09/21/24 01:48 Results Medical Decision Narrative: In summary, this 74-year-old female with comorbidities described in the HPI presents to the emergency department today with concerns of weakness in the setting of recent intracranial bleed. On initial evaluation patient is hemodynamically stable, afebrile, GCS 14 secondary to confusion which reportedly is at baseline, patient has an NIH of 5 with discoordination, disorientation, visual field deficits in the right eye. Mild +1 pitting edema bilateral lower extremities. No traumatic findings or other acute abnormalities on exam. Differential diagnosis includes but is not limited to worsening intracranial bleed, ischemic stroke, viral syndrome, electrolyte abnormality, dehydration, UTI, dementia, viral illness, encephalopathy, among others. Patient was not stroke alerted since her deficits are reportedly at baseline according to her and he is mostly concerned about her diffuse weakness, deficits identified on exam are consistent with what described patient having at the time of discharge from , however she is receiving emergent CT scans including CT angiography of the head and neck in case she is having new bleeding despite not having new deficits. ECG personally interpreted demonstrates sinus rhythm with first-degree AV block, rate 60, normal axis, normal QTc, no STEMI. Noncontrast CT head personally interpreted prior to radiology read demonstrates persistent left occipital bleed, it does not appear significantly changed from prior. Her blood pressure is currently controlled and she is normotensive currently 126/99. 0146 I received a call from [facility] radiologist Dr. Watson who indicates that patient does not have any new acute findings, the previous bleed appears unchanged according to the radiologist. Patient does not have any new acute findings on CT angiography either according to the radiologist. See radiology reads for full interpretations. I further reviewed previous documentation from our ER regarding patient's initial evaluation a few days ago when the stroke was initially identified. Despite the bleed not being changed on imaging, deficits appear to be worsened compared to what was previously documented by the provider on 09/17/2023. Therefore, I called [facility] to discuss the patient's imaging findings and her current deficits. The [facility] did not initially work to share images so they were power shared, eventually [facility] was able to push images as well for transfer initiation. I spoke with Dr. Pantoja and Dr. Mclain with neurology and with the transfer center, respectively. After further discussion with them including discussing the patient's discharge NIH that they report was a 3 per their records, my score of her having an NIH of 5 at this time, but her reassuring imaging, they did eventually agree that patient is appropriate for transfer. Patient was graciously accepted to [facility] ER for ED to ED transfer. She is going by ambulance. Labs reviewed demonstrate patient has stable kidney function, no leukocytosis or anemia, initial opponent undetectably low less than 0.01. No UTI. UDS and EtOH negative. Patient transferred in serious but stable condition, airway intact, stable vitals. Critical Care Critical Care Time Critical Care Time: Yes Attestation: On 09/21/24, the high probability of a clinically significant, sudden or life threatening deterioration of the following system(s) (neuro) required my full and direct attention, intervention and personal management. The time I documented below is in addition to time spent performing reported procedures but includes the following listed in this critical care notation. Total Time Total Critical Care Time: 35
[2024-09-21] MEDS: SODIUM CHLORIDE 0.9% 10ML SYR (RAD ONLY) 10 ML IV (01:31)
[2024-09-21] MEDS: IOPAMIDOL-370 (76%);100ML BOTTLE 70 ML IV (01:31)
[2024-09-21] MEDS: 0.9 % SODIUM CHLORIDE 50 ML VIAL IV (01:31)
--- NOTE | 2024-09-21 01:33 | ECG_ITS ---
APPROVED REPORT Exam: Resting ECG HR:60 bpm ECG Measurements Heart Rate 60 AXES FL 217 P 68 QRSd 100 QRS 23 QT 439 T 56 QTc 440 Conclusion SINUS RHYTHM WITH FIRST DEGREE AV BLOCK POSSIBLE RIGHT VENTRICULAR CONDUCTION DELAY [RSR (QR) IN V1/V2] NONSPECIFIC T-WAVE ABNORMALITY No STEMI Electronically signed by : SKY PENNY, 09/22/2024 07:11:33
[2024-09-21 01:39] LABS: Chloride 105 mmol/L (98-107); Potassium 4.1 mmoL/L (3.5-5.1); Sodium 135 mmol/L (136-145)
[2024-09-21 01:41] LABS: Alanine Aminotransferase 29 U/L (12-78); Anion Gap 9.1 mEq/L (5-15); Aspartate Amino Transferase 51 U/L (14-36); Blood Urea Nitrogen 24 mg/dl (7-17); Carbon Dioxide 25 mmol/L (22.0-30.0); Creatinine Clearance Estimated 36 mL/min (50-200); Estimated Glomerular Filt Rate 44 ml/min (>60); GFR (African American) 53 ML/MIN (>60)
[2024-09-21 01:42] LABS: Albumin/Globulin Ratio 1.6 (1.1-1.8); Alkaline Phosphatase 73 U/L (38-126); Bilirubin,Total 0.8 mg/dl (0.2-1.3); Calcium 9.2 mg/dl (8.4-10.2); Chol/HDL Ratio 3.5 (1-3.5); Cholesterol 127 mg/dl (140-200); Globulin 2.5 g/dL (1.3-3.2); Glucose 116 mg/dl (74-100); HDL Cholesterol 36 mg/dl (40-60); Total Protein,Serum 6.5 g/dl (6.3-8.2); Triglycerides 76 mg/dl (30-150); VLDL Cholesterol 15 mg/dL (0-40)
[2024-09-21 01:53] LABS: Direct LDL Cholesterol 63.48 mg/dL (100-129)
[2024-09-21 01:54] LABS: INR 0.89 (0.9-1.1); Prothrombin Time 9.9 seconds (9.2-12.1)
[2024-09-21 01:57] LABS: Troponin I < 0.01 ng/ml (0.00-0.034)
[2024-09-21 01:58] LABS: Microscopic, Urine URINE MICROSCOPIC (MICROSCOPIC)
[2024-09-21 02:05] LABS: Appearance,Urine CLEAR (Clear); Bilirubin,Urine Negative (Negative); Blood, Urine TRACE-I (Negative); Color,Urine YELLOW (Yellow); Glucose,Urine (UA) Negative (Negative); Ketones,Urine Negative (Negative); Leukocyte Esterase,Urine TRACE (Negative); Nitrate,Urine Negative (Negative); Protein,Urine Negative (Negative); Specific Gravity, Urine >= 1.030 (1.005-1.030); Urobilinogen,Urine 0.2 EU/dl (0.2)
[2024-09-21 02:06] VITALS: BP 128/59; PULSE 59; RESP 16; O2SAT 99
[2024-09-21 02:11] LABS: Ethyl Alcohol < 10 mg/dl (0-10)
[2024-09-21 02:15] LABS: Benzodiazepines Screen,Urine Negative ng/ml (<200)
[2024-09-21 02:16] LABS: Amphetamine/Metha Screen,Urine Negative ng/ml (<1000); Barbiturates Screen,Urine Negative ng/ml (<200)
[2024-09-21 02:17] LABS: Cannabinoid Screen,Urine Negative ng/ml (<50); Cocaine Screen,Urine Negative ng/ml (<300)
[2024-09-21 02:18] LABS: Methadone Screen,Urine Negative ng/ml (<300)
[2024-09-21 02:19] LABS: Opiate Screen,Urine Negative ng/ml (<300); Phencyclidine Screen,Urine Negative ng/ml (<25)
[2024-09-21 02:22] LABS: Bacteria,Urine 1+ /lpf; Mucus,Urine 1+ /lpf
[2024-09-21 02:33] VITALS: BP 105/59; PULSE 59; RESP 18; TEMP 37.2; O2SAT 100
--- NOTE | 2024-09-21 02:59 | PC.NURSE ---
[facility] at bedside for pt transfer
== END 2024-09-21 03:01 | disposition short-term general hospital (02) ==
PROVIDERS: Emergency Provider Emergency Medicine
DX: I61.9 Nontraumatic intracerebral hemorrhage, unspecified (principal); R53.1 Weakness; R11.0 Nausea; R19.7 Diarrhea, unspecified
CPT/HCPCS: 51702; 70450; 70496; 70498; 80053; 80061; 80307; 80320; 81001; 84484; 85025; 85610; 93005; 99291; G0480; Q9967

== ENCOUNTER 2024-10-28 19:59 | Emergency (ER) | payer MEDICARE, OTHER, SELFPAY ==
[2024-10-28 20:16] VITALS: BP 153/68; PULSE 60; RESP 20; TEMP 36.8; O2SAT 99; BMI 20.5
--- NOTE | 2024-10-28 20:19 | PC.NURSE ---
Pt awake and alert Skin pink warm and dry Resp full and easy speech clear and appropriate. Abd soft and flat. at bedside Report given to Blaine GOYAL
--- NOTE | 2024-10-28 20:25 | HMH.EDGENADL ---
Discharge Plan Disposition Patient Disposition: Home, Self-Care Prescriptions Prescriptions: New nitrofurantoin monohyd/m-cryst 100 mg capsule 100 mg PO BID 5 Days Qty: 10 0RF Rx Instructions: must administer with a meal/food No Action escitalopram oxalate 10 mg tablet 10 mg PO DAILY Patient Comments: TAKE 1 TABLET 1 TIME EACH DAY memantine 10 mg tablet 10 mg PO BID Qty: 60 3RF famotidine 20 mg tablet 20 mg PO BID atorvastatin [Lipitor] 20 mg tablet 20 mg PO DAILY Qty: 30 5RF aspirin [Adult Aspirin Regimen] 81 mg tablet,delayed release (DR/EC) 81 mg PO DAILY Qty: 30 5RF metoprolol tartrate 50 mg tablet 50 mg PO BID Qty: 180 1RF Patient Comments: TAKE 1 TABLET 1 TIME DAILY amiodarone 200 mg tablet 100 mg PO BID albuterol sulfate 90 mcg/actuation HFA aerosol inhaler 4 inh inhalation Q4HP PRN (Reason: shortness of breath or wheezing) Rx Instructions: 4 puffs every 4 hours for 48 hours then as needed for shortness of breath or wheezing following cefdinir 300 mg Capsule 300 mg PO BID 3 Days Qty: 6 0RF meclizine 25 mg tablet 25 mg PO TID PRN (Reason: dizziness) Qty: 30 0RF Referrals Follow up/Referrals: Nestor Rao MD [Primary Care Provider] - See instructions Activity Restrictions/Add. 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 Return with any significant worsening of her symptoms. You do have a urinary tract infection return with any high fevers or other concerns. Clinical Impressions Clinical Impression: Acute UTI, Acute constipation Instructions Patient Instructions: DI for Acute Abdominal Pain Print Language Print Language: American Discharge ED Provider: Razia Iyer General Adult HPI General Chief complaint: Abdominal Pain Stated complaint: abdominal pain Time Seen by Provider: 10/28/24 20:11 Mode of Arrival: Ambulatory Source of Information: Patient Limitations: No Limitations Description of Symptoms (Recalled from ER Triage Doc. by RN): Pt states she has been constipated for 4 days has tried miralax and mineral oil History of Present Illness HPI narrative: 74-year-old female presenting today with 2 complaints first is she believes she has a urinary tract infection with dysuria over the last week. Additionally she states that she feels like she is constipated has not had a bowel movement over the last 4 days. She has tried some mineral oil suppositories and MiraLAX at home without any improvement. Denies any significant abdominal pain nausea and vomiting has been constipated in the past. Related Data Home Medications ?Medication ?Instructions ?Recorded ?Confirmed escitalopram oxalate 10 mg tablet 10 mg PO DAILY 02/18/24 08/08/24 famotidine 20 mg tablet 20 mg PO BID 05/11/24 08/08/24 albuterol sulfate 90 mcg/actuation 4 inh inhalation Q4HP PRN 08/08/24 aerosol inhaler shortness of breath or wheezing amiodarone 200 mg tablet 100 mg PO BID 08/08/24 08/08/24 Previous Rx's ?Medication ?Instructions ?Recorded memantine 10 mg tablet 10 mg PO BID #60 tabs 03/07/24 aspirin 81 mg tablet,delayed 81 mg PO DAILY #30 tabs 05/11/24 release (Adult Aspirin Regimen) atorvastatin 20 mg tablet (Lipitor) 20 mg PO DAILY #30 tabs 05/11/24 cefdinir 300 mg capsule 300 mg PO BID 3 days #6 caps 08/08/24 meclizine 25 mg tablet 25 mg PO TID PRN dizziness #30 tabs 08/29/24 metoprolol tartrate 50 mg tablet 50 mg PO BID #180 tabs 10/27/24 nitrofurantoin 100 mg PO BID 5 days #10 caps 10/28/24 monohydrate/macrocrystals 100 mg capsule Allergies Allergy/AdvReac Type Severity Reaction Status Date / Time amoxicillin (From Augmentin) Allergy Unknown Verified 08/08/24 07:09 allergy reaction ciprofloxacin (From Cipro) Allergy Unknown Verified 08/08/24 07:09 allergy reaction clavulanic acid (From Allergy Unknown Verified 08/08/24 07:09 Augmentin) allergy reaction doxycycline Allergy Unknown Verified 08/08/24 07:09 allergy reaction lidocaine Allergy Unknown Verified 08/08/24 07:09 allergy reaction Sulfa (Sulfonamide Allergy Unknown Verified 08/08/24 07:09 Antibiotics) allergy reaction PFSH PFSH Disclaimer: The information contained in this section may have been updated after the patient was seen, as this information can be updated by other users. Medical History Chronic kidney disease Generalized weakness Acute UTI Acute pain of right hip Nontraumatic hematoma Constipation Asthenia Viral syndrome Diarrhea Laryngitis Cough Nausea CELINA (acute kidney injury) Cystitis Cerumen impaction Mild cognitive impairment Hypoglycemia Dehydration Coronary artery disease Elevated brain natriuretic peptide (BNP) level Abnormal electrocardiogram [ECG] [EKG] Fatigue HTN (hypertension) Dyspnea Abnormal ECG Abnormal findings on diagnostic imaging of heart and coronary circulation Sinus bradycardia Chronic GERD IBS (irritable bowel syndrome) Hyperlipidemia Depression Dyspareunia Asthma Paroxysmal atrial fibrillation Palpitations Surgical History H/O: section Hx of cholecystectomy Family History Father Hypertension Mother CHF (congestive heart failure) Cancer Daughter Seizure Stroke Social History Smoking Status: Never smoker second hand exposure: No alcohol intake: never counseling given: No current occupational status: retired Travel in the last 8 weeks: None household members: family housing: house marital status: Have you lived/traveled outside [place] in past 30 days?: No Contact w/someone who lives/traveled outside [place] past 30 days?: No Exposure to someone with infectious disease in past 14 days?: No Do you have a fever (greater than 100.4 F or 38 C)?: No Have you tested positive for COVID-19: No Exposed to someone with COVID-19 in past 14 days?: No Do you have a sore throat?: No Do you have a cough?: No Do you have any weakness?: No Do you have any diarrhea?: No Are you experiencing any unusual bleeding?: No Do you have any muscle aches/pain?: No Do you have any abdominal pain?: Yes Are you experiencing loss of taste or smell?: No Other Medical History Have you received the Flu Vaccine for this season: No Have you received the Pneumonia Vaccine: No ROS Obtained: Yes All systems reviewed & no additional complaints except as documented Physical Exam General General appearance: alert and in no apparent distress Respiratory Respiratory exam: Present normal lung sounds bilaterally Cardiovascular Cardiovascular exam: Present regular rate Abdominal Exam Abdominal exam: Present soft; Absent distention or tenderness Neurological Exam Neurological exam: Present alert and oriented X3 Medical Decision Making Medical Records Screening: Per USPSTF and CDC recommendations, given the prevalence of disease in our region, it is our hospital?s policy to screen for HIV and viral Hepatitis for all patients aged 18 and over and those with ongoing risk factors. Narciso Inquiry Pt receiving controlled substance: No Vital Signs: 10/28/24 20:16 Temperature 98.2 F Temperature Source Oral Pulse Rate [Right Brachial] 60 Respiratory Rate 20 Blood Pressure [Right Arm] 153/68 H Blood Pressure Mean [Right Arm] 96 Blood Pressure Source [Right Arm] Automatic Cuff Blood Pressure Position [Right Arm] Sitting 02 Sat by Pulse Oximetry 99 Oxygen Delivery Method Room Air Lab Data Lab results reviewed: Yes I reviewed the patient's lab results. Lab Results 10/28/24 20:15: Urine Color Yellow, Urine Appearance Slightly cloudy, Urine pH 6.5, Ur Specific Brickeys 1.015, Urine Protein Trace, Urine Glucose (UA) Negative, Urine Ketones Negative, Urine Blood Trace-i, Urine Nitrate Negative, Urine Bilirubin Negative, Urine Urobilinogen 1.0, Ur Leukocyte Esterase 1+ A, Urine RBC Occasional, Urine WBC 3-5, Ur Squamous Epith Cells Occasional, Urine Bacteria None Orders (Tests/Meds): ORDERS Category Date Time Status HIV Combo Routine Lab 10/28/24 20:19 Ordered Hepatitis C Ab Qual. W/ RFX Routine Lab 10/28/24 20:19 Ordered UA [Urinalysis and Microscopic] Stat Lab 10/28/24 20:15 Completed Urine Culture Stat Micro 10/28/24 20:15 Received Medical Decision Narrative: Well-appearing nontoxic 74-year-old presenting with UTI symptoms will obtain a urinalysis and reassess from that standpoint. Her abdominal exam is benign not concerned about surgical pathology but she does have clinical signs symptoms of constipation has tried MiraLAX and mineral oil suppositories at home offered her an enema which she would like to have done in the ED. Will reassess after that is completed. Reassessments [id number] patient was given a soapsuds enema did have a successful bowel movement serial abdominal exams are benign and improved she feels much better. Urinalysis is consistent with urinary tract infection prescription of nitrofurantoin was sent in for her given empiric coverage of local resistance patterns. Patient was discharged in stable improved condition with return precautions emphasized. Critical Care Critical Care Time Critical Care Time: No
[2024-10-28 20:26] LABS: Microscopic, Urine URINE MICROSCOPIC (MICROSCOPIC)
[2024-10-28 20:27] LABS: Bilirubin,Urine Negative (Negative); Blood, Urine TRACE-I (Negative); Color,Urine YELLOW (Yellow); Glucose,Urine (UA) Negative (Negative); Ketones,Urine Negative (Negative); Leukocyte Esterase,Urine 1+ (Negative); Nitrate,Urine Negative (Negative); PH,Urine 6.5 (5.0-8.5); Protein,Urine TRACE (Negative); Specific Gravity, Urine 1.015 (1.005-1.030)
[2024-10-28 20:28] LABS: Appearance,Urine Slightly Cloudy (Clear)
--- NOTE | 2024-10-28 20:30 | PC.NURSE ---
Soap suds enema administered. Patient tolerated well. Small stool burden disimpacted at this time. Patient placed on bedside commode. Call light in place and instructed to call out once finished.
[2024-10-28 20:48] LABS: RBC,Urine Occasional #/hpf (0-3); Squamous Epithelial Cell,Urine Occasional #/hpf (0-5)
[2024-10-28 22:26] VITALS: BP 135/68; PULSE 60; RESP 15; TEMP 36.7; O2SAT 100
== END 2024-10-28 22:27 | disposition home or self-care (01) ==
PROVIDERS: Emergency Provider Student in an Organized Health Care Education/Training Program; PCP Internal Medicine Adolescent Medicine
DX: N39.0 Urinary tract infection, site not specified (principal); K59.00 Constipation, unspecified; R10.9 Unspecified abdominal pain; R30.0 Dysuria
CPT/HCPCS: 81001; 87086; 99283

== ENCOUNTER 2024-11-01 11:00 | Outpatient (RCR) | payer MEDICARE, OTHER, SELFPAY | END 2024-11-01 23:59 | disposition home or self-care (01) | LOC: PT 11:00 | PROVIDERS: Visit Provider Nurse Practitioner Acute Care | DX: I61.1 Nontraumatic intracerebral hemorrhage in hemisphere, cortical (principal) | CPT/HCPCS: 97110; 97112; 97163; 97530 ==

== ENCOUNTER 2024-11-13 11:00 | Outpatient (RCR) | payer MEDICARE, OTHER, SELFPAY | END 2024-11-20 11:00 | disposition home or self-care (01) | LOC: PT 11:00 | PROVIDERS: PCP Internal Medicine Adolescent Medicine; Visit Provider Nurse Practitioner Acute Care | DX: I62.9 Nontraumatic intracranial hemorrhage, unspecified (principal) | CPT/HCPCS: 97110; 97112; 97530 ==

== ENCOUNTER 2025-01-15 20:57 | Emergency (ER) | payer MEDICARE, OTHER, SELFPAY ==
[2025-01-15 21:05] VITALS: BP 149/71; PULSE 60; RESP 16; TEMP 36.6; O2SAT 98; BMI 20.9
--- NOTE | 2025-01-15 21:05 | ED_ITS ---
<Statement entered by Lissett Moore DO - 01/17/25 21:17> I was consulted by the DANIKA, and we discussed the complexity of the problems being addressed. I approved the treatment and management plan for this patient's care in the emergency department, thus performing a substantive portion of the medical decision making. Lissett Moore DO Discharge Plan Disposition Patient Disposition: Home, Self-Care Condition: Good Prescriptions Prescriptions: No Action escitalopram oxalate 10 mg tablet 10 mg PO DAILY Patient Comments: TAKE 1 TABLET 1 TIME EACH DAY memantine 10 mg tablet 10 mg PO BID Qty: 60 3RF famotidine 20 mg tablet 20 mg PO BID atorvastatin [Lipitor] 20 mg tablet 20 mg PO DAILY Qty: 30 5RF aspirin [Adult Aspirin Regimen] 81 mg tablet,delayed release (DR/EC) 81 mg PO DAILY Qty: 30 5RF metoprolol tartrate 50 mg tablet 50 mg PO BID Qty: 180 1RF Patient Comments: TAKE 1 TABLET 1 TIME DAILY amiodarone 200 mg tablet 100 mg PO BID albuterol sulfate 90 mcg/actuation HFA aerosol inhaler 4 inh inhalation Q4HP PRN (Reason: shortness of breath or wheezing) Rx Instructions: 4 puffs every 4 hours for 48 hours then as needed for shortness of breath or wheezing following cefdinir 300 mg Capsule 300 mg PO BID 3 Days Qty: 6 0RF meclizine 25 mg tablet 25 mg PO TID PRN (Reason: dizziness) Qty: 30 0RF nitrofurantoin monohyd/m-cryst 100 mg capsule 100 mg PO BID 5 Days Qty: 10 0RF Rx Instructions: must administer with a meal/food Referrals Follow up/Referrals: Syed Franklin II, MD [Staff Physician] - See instructions (Chronic constipation) Nestor Rao MD [Primary Care Provider] - See instructions Activity Restrictions/Add. Instructions Additional Instructions/Restrictions: Recommend continuing your bowel regimen. I have given you a disimpaction sheet to try at home when you have these episodes. Additionally have referred you to gastroenterology for further workup and management. Please call tomorrow to make your appointment. If you have any continued new or worsening signs or symptoms follow-up with your PCP return to the ER as needed. Clinical Impressions Clinical Impression: Constipation Qualifiers: Constipation type: unspecified constipation type Qualified Code(s): K59.00 - Constipation, unspecified Instructions Patient Instructions: DI for Acute Abdominal Pain Print Language Print Language: Haitian Discharge ED Provider: Lissett Moore General Adult HPI General Chief complaint: Abdominal Pain Stated complaint: Constipated Time Seen by Provider: 01/15/25 21:05 History of Present Illness HPI narrative: Patient presents for evaluation of constipation. Patient states that for the last 3 days she is feeling like she is constipated. She has had some discomfort but no nausea vomiting diarrhea. Patient's actually had a small bowel movement today. She is fearful as she had a previous episode of constipation that was very painful. She denies any fever chills chest pain shortness of breath hemoptysis hematochezia melena hematemesis hematuria. Related Data Home Medications ?Medication ?Instructions ?Recorded ?Confirmed escitalopram oxalate 10 mg tablet 10 mg PO DAILY 02/18/24 08/08/24 famotidine 20 mg tablet 20 mg PO BID 05/11/24 08/08/24 albuterol sulfate 90 mcg/actuation 4 inh inhalation Q4HP PRN 08/08/24 aerosol inhaler shortness of breath or wheezing amiodarone 200 mg tablet 100 mg PO BID 08/08/24 08/08/24 Previous Rx's ?Medication ?Instructions ?Recorded memantine 10 mg tablet 10 mg PO BID #60 tabs 03/07/24 aspirin 81 mg tablet,delayed 81 mg PO DAILY #30 tabs 05/11/24 release (Adult Aspirin Regimen) atorvastatin 20 mg tablet (Lipitor) 20 mg PO DAILY #30 tabs 05/11/24 cefdinir 300 mg capsule 300 mg PO BID 3 days #6 caps 08/08/24 meclizine 25 mg tablet 25 mg PO TID PRN dizziness #30 tabs 08/29/24 metoprolol tartrate 50 mg tablet 50 mg PO BID #180 tabs 10/27/24 nitrofurantoin 100 mg PO BID 5 days #10 caps 10/28/24 monohydrate/macrocrystals 100 mg capsule Allergies Allergy/AdvReac Type Severity Reaction Status Date / Time amoxicillin (From Augmentin) Allergy Unknown Verified 08/08/24 07:09 allergy reaction ciprofloxacin (From Cipro) Allergy Unknown Verified 08/08/24 07:09 allergy reaction clavulanic acid (From Allergy Unknown Verified 08/08/24 07:09 Augmentin) allergy reaction doxycycline Allergy Unknown Verified 08/08/24 07:09 allergy reaction lidocaine Allergy Unknown Verified 08/08/24 07:09 allergy reaction Sulfa (Sulfonamide Allergy Unknown Verified 08/08/24 07:09 Antibiotics) allergy reaction PFSH [facility] Disclaimer: The information contained in this section may have been updated after the patient was seen, as this information can be updated by other users. Medical History Chronic kidney disease Generalized weakness Acute UTI Acute pain of right hip Nontraumatic hematoma Constipation Asthenia Viral syndrome Diarrhea Laryngitis Cough Nausea CELINA (acute kidney injury) Cystitis Cerumen impaction Mild cognitive impairment Hypoglycemia Dehydration Coronary artery disease Elevated brain natriuretic peptide (BNP) level Abnormal electrocardiogram [ECG] [EKG] Fatigue HTN (hypertension) Dyspnea Abnormal ECG Abnormal findings on diagnostic imaging of heart and coronary circulation Sinus bradycardia Chronic GERD IBS (irritable bowel syndrome) Hyperlipidemia Depression Dyspareunia Asthma Paroxysmal atrial fibrillation Palpitations Surgical History H/O: section Hx of cholecystectomy Family History Father Hypertension Mother CHF (congestive heart failure) Cancer Daughter Seizure Stroke Social History Smoking Status: Never smoker second hand exposure: No alcohol intake: never counseling given: No current occupational status: retired Travel in the last 8 weeks?: None household members: family housing: house marital status: Other Medical History Have you received the Flu Vaccine for this season: No Have you received the Pneumonia Vaccine: No ROS Obtained: Yes Systems reviewed as appropriate & no additional complaints except as documented Physical Exam General General appearance: alert and in no apparent distress Respiratory Respiratory exam: Present normal lung sounds bilaterally Cardiovascular Cardiovascular exam: Present regular rate Neurological Exam Neurological exam: Present alert and oriented X3 Medical Decision Making Medical Records Medical records reviewed: Yes I reviewed the patient's medical records. Screening: Per USPSTF and CDC recommendations, given the prevalence of disease in our region, it is our hospital?s policy to screen for HIV and viral Hepatitis for all patients aged 18 and over and those with ongoing risk factors. Narciso Inquiry Pt receiving controlled substance: No Vital Signs: 01/15/25 21:05 Temperature 97.9 F Temperature Source Oral Pulse Rate [Left] 60 Respiratory Rate 16 Blood Pressure [Right Arm] 149/71 H Blood Pressure Mean [Right Arm] 97 Blood Pressure Source [Right Arm] Automatic Cuff Blood Pressure Position [Right Arm] Sitting 02 Sat by Pulse Oximetry 98 Oxygen Delivery Method Room Air Orders (Tests/Meds): ORDERS Category Date Time Status KUB (single view) [XR KUB] Stat Exams 01/15/25 21:12 Ordered HIV Combo Stat Lab 01/15/25 21:11 Ordered Hepatitis C Ab Qual. W/ RFX Stat Lab 01/15/25 21:11 Ordered Medical Decision Narrative: In summary patient is a 74-year-old female who presents to the emergency department for evaluation of self-reported constipation. Patient is hemodynamically stable upon arrival, afebrile. Sickle exam is remarkable for a very soft abdomen no rebound or guarding no rigidity no tenderness. Bowel sounds normal active.. Differential diagnosis includes constipation versus obstipation versus delayed transit etc. Initial workup will be conducted with KUB. Initial interventions include deferred as patient has no nausea no vomiting no red flags indicating need for intervention as she is hemodynamically stable initial workup reviewed by me and her KUB does show constipation and particularly in the rectum but no acute obstipation signs. Upon repeat evaluation patient reports that she actually had a small bowel bowel movement just try to get up on the x-ray table. Given this I had a shared decision- making discussion with the patient and I offered her an enema here or the option of attempting disimpaction at home and via patient directed decision making discharge she preferred to go home and try. To that end I will refer the patient to gastroenterology for further workup as she has chronic problems in this area. I have also sent the patient home with a disimpaction sheet. Patient verbalized understanding agreement. Critical Care Critical Care Time Critical Care Time: No
--- NOTE | 2025-01-15 21:12 | XR_ITS ---
PROCEDURE INFORMATION: Exam: XR Abdomen Exam date and time: 01/15/2025 9:11 PM Age: 74 years old Clinical indication: Abdominal pain; Additional info: Self-reported constipation TECHNIQUE: Imaging protocol: Radiologic exam of the abdomen. Views: Frontal supine view of the abdomen. 1 View. COMPARISON: CT ABDOMEN PELVIS WO CON 09/17/2024 7:17 PM FINDINGS: Gastrointestinal tract: Extensive retained stool in the rectosigmoid colon. No bowel dilation. Bones/joints: Unremarkable. IMPRESSION: Extensive retained stool in the rectosigmoid colon.
[2025-01-15 21:49] VITALS: BP 130/67; PULSE 59; RESP 16; TEMP 36.6; O2SAT 97
== END 2025-01-15 22:09 | disposition home or self-care (01) ==
LOC: ER 21:37
PROVIDERS: Emergency Provider Emergency Medicine; PCP Internal Medicine Adolescent Medicine
DX: K59.00 Constipation, unspecified (principal)
CPT/HCPCS: 74018; 99283

== ENCOUNTER 2025-01-20 14:34 | Emergency (ER) | payer MEDICARE, OTHER, SELFPAY ==
--- NOTE | 2025-01-20 14:38 | ECG_ITS ---
APPROVED REPORT Exam: Resting ECG HR:61 bpm ECG Measurements Heart Rate 61 AXES MI 200 P 83 QRSd 89 QRS 60 QT 439 T 68 QTc 443 Conclusion SINUS RHYTHM POSSIBLE LEFT ATRIAL ENLARGEMENT [-0.1mV P-WAVE IN V1/V2] POSSIBLE RIGHT VENTRICULAR CONDUCTION DELAY [RSR (QR) IN V1/V2] NONSPECIFIC T-WAVE ABNORMALITY No STEMI Electronically signed by : SKY PENNY, 01/21/2025 06:16:05
[2025-01-20 14:40] VITALS: BP 153/75; PULSE 62; RESP 12; O2SAT 100
--- NOTE | 2025-01-20 14:45 | PC.NURSE ---
Pt denies any chest pain. Pt states she just feels off and anxious. Pt states she didn't want to go to the birthday.
[2025-01-20 14:46] VITALS: BP 153/75; PULSE 62; RESP 16; TEMP 36.7; O2SAT 97; BMI 25.7
--- NOTE | 2025-01-20 15:34 | ED_ITS ---
<Statement entered by Tommy Rubalcava MD - 01/20/25 23:57> I was consulted by the DANIKA, and we discussed the complexity of the problems being addressed. I approved the treatment and management plan for this patient's care in the emergency department, thus performing a substantive portion of the medical decision making. Tommy Rubalcava MD Discharge Plan Disposition Patient Disposition: Home, Self-Care Condition: Good Prescriptions Prescriptions: New hydralazine 25 mg tablet 12.5 mg PO TID PRN (Reason: anxiety) Qty: 30 0RF No Action escitalopram oxalate 10 mg tablet 10 mg PO DAILY Patient Comments: TAKE 1 TABLET 1 TIME EACH DAY memantine 10 mg tablet 10 mg PO BID Qty: 60 3RF famotidine 20 mg tablet 20 mg PO BID atorvastatin [Lipitor] 20 mg tablet 20 mg PO DAILY Qty: 30 5RF aspirin [Adult Aspirin Regimen] 81 mg tablet,delayed release (DR/EC) 81 mg PO DAILY Qty: 30 5RF metoprolol tartrate 50 mg tablet 50 mg PO BID Qty: 180 1RF Patient Comments: TAKE 1 TABLET 1 TIME DAILY amiodarone 200 mg tablet 100 mg PO BID albuterol sulfate 90 mcg/actuation HFA aerosol inhaler 4 inh inhalation Q4HP PRN (Reason: shortness of breath or wheezing) Rx Instructions: 4 puffs every 4 hours for 48 hours then as needed for shortness of breath or wheezing following cefdinir 300 mg Capsule 300 mg PO BID 3 Days Qty: 6 0RF polyethylene glycol 3350 [Miralax] 17 gram/dose powder 17 g PO DAILY Qty: 510 0RF sennosides [Senna Lax] 8.6 mg tablet 8.6 mg PO HS PRN (Reason: constipation) Qty: 30 0RF meclizine 25 mg tablet 25 mg PO TID PRN (Reason: dizziness) Qty: 30 0RF nitrofurantoin monohyd/m-cryst 100 mg capsule 100 mg PO BID 5 Days Qty: 10 0RF Rx Instructions: must administer with a meal/food Referrals Follow up/Referrals: Melva Payton APRN [Nurse Practitioner] - See instructions (Generalized anxiety query early dementia) Nestor Rao MD [Primary Care Provider] - See instructions Activity Restrictions/Add. Instructions Additional Instructions/Restrictions: I have sent a prescription for anxiety med into your pharmacy. I have also referred you to an anxiety specialist. Please call on Wednesday to make your appointment. I recommend following up within 48 hours with your PCP for reevaluation if you have persistent new or worsening signs or symptoms or you can return to the ER as needed. Clinical Impressions Clinical Impression: Generalized anxiety disorder Print Language Print Language: Kyrgyz Discharge ED Provider: Tommy Rubalcava General Adult HPI <LUÍS Godwin - Last Filed: 01/20/25 23:13> General Chief complaint: Anxiety Stated complaint: chest pain Time Seen by Provider: 01/20/25 15:20 Mode of Arrival: Ambulatory Source of Information: Patient and Spouse Description of Symptoms (Recalled from ER Triage Doc. by RN): pt reports feeling anxious about going to a birthday democrat. She was too nervous to go and told her she needed to come to the er. Denies any cp,SOA, or any other symptoms besides feeling anxious History of Present Illness HPI narrative: Patient presents for evaluation of anxiety. Patient states that she has had anxiety all day with hyper animation. She denies any specific provoking factors however patient states that she had a birthday planned today and she was very nervous about people coming to her house. concurs. He also reports that she has had some periods of being fearful that people are trying to get into her house to steal things from her however that is never occurred. She denies any chest pain shortness of breath fever chills hemoptysis hematochezia melena nausea vomiting diarrhea. Related Data Home Medications ?Medication ?Instructions ?Recorded ?Confirmed escitalopram oxalate 10 mg tablet 10 mg PO DAILY 02/18/24 08/08/24 famotidine 20 mg tablet 20 mg PO BID 05/11/24 08/08/24 albuterol sulfate 90 mcg/actuation 4 inh inhalation Q4HP PRN 08/08/24 aerosol inhaler shortness of breath or wheezing amiodarone 200 mg tablet 100 mg PO BID 08/08/24 08/08/24 Previous Rx's ?Medication ?Instructions ?Recorded memantine 10 mg tablet 10 mg PO BID #60 tabs 03/07/24 aspirin 81 mg tablet,delayed 81 mg PO DAILY #30 tabs 05/11/24 release (Adult Aspirin Regimen) atorvastatin 20 mg tablet (Lipitor) 20 mg PO DAILY #30 tabs 05/11/24 cefdinir 300 mg capsule 300 mg PO BID 3 days #6 caps 08/08/24 meclizine 25 mg tablet 25 mg PO TID PRN dizziness #30 tabs 08/29/24 metoprolol tartrate 50 mg tablet 50 mg PO BID #180 tabs 10/27/24 nitrofurantoin 100 mg PO BID 5 days #10 caps 10/28/24 monohydrate/macrocrystals 100 mg capsule polyethylene glycol 3350 17 17 g PO DAILY #510 grams 01/15/25 gram/dose oral powder (Miralax) sennosides 8.6 mg tablet (Senna 8.6 mg PO HS PRN constipation #30 01/15/25 Lax) tabs hydralazine 25 mg tablet 12.5 mg (1/2 x 25 mg) PO TID PRN 01/20/25 anxiety #30 tabs Allergies Allergy/AdvReac Type Severity Reaction Status Date / Time amoxicillin (From Augmentin) Allergy Unknown Verified 08/08/24 07:09 allergy reaction ciprofloxacin (From Cipro) Allergy Unknown Verified 08/08/24 07:09 allergy reaction clavulanic acid (From Allergy Unknown Verified 08/08/24 07:09 Augmentin) allergy reaction doxycycline Allergy Unknown Verified 08/08/24 07:09 allergy reaction lidocaine Allergy Unknown Verified 08/08/24 07:09 allergy reaction Sulfa (Sulfonamide Allergy Unknown Verified 08/08/24 07:09 Antibiotics) allergy reaction PFSH <LUÍS Godwin - Last Filed: 01/20/25 23:13> [facility] Disclaimer: The information contained in this section may have been updated after the patient was seen, as this information can be updated by other users. Medical History Chronic kidney disease Generalized weakness Acute UTI Acute pain of right hip Nontraumatic hematoma Constipation Asthenia Viral syndrome Diarrhea Laryngitis Cough Nausea CELNIA (acute kidney injury) Cystitis Cerumen impaction Mild cognitive impairment Hypoglycemia Dehydration Coronary artery disease Elevated brain natriuretic peptide (BNP) level Abnormal electrocardiogram [ECG] [EKG] Fatigue HTN (hypertension) Dyspnea Abnormal ECG Abnormal findings on diagnostic imaging of heart and coronary circulation Sinus bradycardia Chronic GERD IBS (irritable bowel syndrome) Hyperlipidemia Depression Dyspareunia Asthma Paroxysmal atrial fibrillation Palpitations Surgical History H/O: section Hx of cholecystectomy Family History Father Hypertension Mother CHF (congestive heart failure) Cancer Daughter Seizure Stroke Social History Smoking Status: Never smoker second hand exposure: No alcohol intake: never counseling given: No current occupational status: retired Travel in the last 8 weeks?: None household members: family housing: house marital status: Have you lived/traveled outside [place] in past 30 days?: No Contact w/someone who lives/traveled outside US past 30 days?: No Exposure to someone with infectious disease in past 14 days?: No Do you have a fever (greater than 100.4 F or 38 C)?: No Have you tested positive for COVID-19?: No Exposed to someone with COVID-19 in past 14 days?: No Do you have a sore throat?: No Do you have a cough?: No Do you have any weakness?: No Do you have any diarrhea?: No Are you experiencing any unusual bleeding?: No Do you have any muscle aches/pain?: No Do you have any abdominal pain?: No Are you experiencing loss of taste or smell?: No Other Medical History Have you received the Flu Vaccine for this season: No Have you received the Pneumonia Vaccine: No <LUÍS Godwin - Last Filed: 01/20/25 23:13> ROS Obtained: Yes Systems reviewed as appropriate & no additional complaints except as documented Physical Exam <LUÍS Godwin - Last Filed: 01/20/25 23:13> General General appearance: alert Respiratory Respiratory exam: Present normal lung sounds bilaterally Cardiovascular Cardiovascular exam: Present regular rate Neurological Exam Neurological exam: Present alert and oriented X3 Medical Decision Making <LUÍS Godwin - Last Filed: 01/20/25 23:13> Medical Records Medical records reviewed: Yes I reviewed the patient's medical records. Screening: Per USPSTF and CDC recommendations, given the prevalence of disease in our region, it is our hospital?s policy to screen for HIV and viral Hepatitis for all patients aged 18 and over and those with ongoing risk factors. Narciso Inquiry Pt receiving controlled substance: No Vital Signs: 01/20/25 14:40 01/20/25 14:46 01/20/25 16:03 Temperature 98.1 F 98.3 F Temperature Source Oral Oral Pulse Rate 62 60 Pulse Rate [Right] 62 Respiratory Rate 12 16 18 Blood Pressure 153/75 H 153/75 H Blood Pressure [Right Arm] 153/75 H Blood Pressure Mean [Right Arm] 101 Blood Pressure Position Sitting 02 Sat by Pulse Oximetry 100 97 Oxygen Delivery Method Room Air Room Air Room Air Orders (Tests/Meds): ED MEDICATIONS Discontinued Medications Generic Name Dose Route Start Last Admin Trade Name Freq PRN Reason Stop Dose Admin Hydralazine HCl 12.5 mg 01/20/25 21:00 Hydralazine Hcl 25mg Tablet PO 02/19/25 20:59 TID JESSICA Hydroxyzine Pamoate 25 mg 01/20/25 16:00 01/20/25 16:02 Hydroxyzine Pamoate 25mg Capsule PO 01/20/25 16:01 25 mg ONCE ONE Administration Medical Decision Narrative: In summary patient is a 75-year-old female who presents to the emergency department for evaluation of anxiety. Patient is hemodynamically stable upon arrival, afebrile. Physical exam is remarkable for a well-nourished well- developed 75-year-old female who reports anxiety but otherwise is no acute distress. Lopez Coma Score is 15 patient is awake alert and oriented to person place and circumstance she has no focal neurologic deficits. Breath sounds clear and equal bilateral to the bases without adventitious sounds patient has no chest pain on palpation.. Differential diagnosis includes generalized anxiety versus early dementia. Initial workup considered with labs and imaging however patient has no red flags to suggest alternative diagnoses so they were not pursued after shared decision-making discussion with the patient and her .. Initial interventions include hydroxyzine. On repeat evaluation patient reports that her anxiety is better and she feels less nervous. I again had a shared decision-making discussion with the patient and family and I recommended referral to behavioral health for better anxiety management and possible further workup of possible dementia with close follow-up with her PCP. Patient and her both verbalized understanding and agreement. I have also offered as needed Vistaril for anxiety symptoms and the patient was agreeable with that given her improvement while here. Given that patient is appropriate for discharge with referral to behavioral health and close follow-up with her PCP with a prescription for Vistaril. <Tommy Rubalcava MD - Last Filed: 01/20/25 15:36> Vital Signs: 01/20/25 14:40 01/20/25 14:46 01/20/25 16:03 Temperature 98.1 F 98.3 F Temperature Source Oral Oral Pulse Rate 62 60 Pulse Rate [Right] 62 Respiratory Rate 12 16 18 Blood Pressure 153/75 H 153/75 H Blood Pressure [Right Arm] 153/75 H Blood Pressure Mean [Right Arm] 101 Blood Pressure Position Sitting 02 Sat by Pulse Oximetry 100 97 Oxygen Delivery Method Room Air Room Air Room Air Orders (Tests/Meds): ED MEDICATIONS Discontinued Medications Generic Name Dose Route Start Last Admin Trade Name Freq PRN Reason Stop Dose Admin Hydralazine HCl 12.5 mg 01/20/25 21:00 Hydralazine Hcl 25mg Tablet PO 02/19/25 20:59 TID JESSICA Hydroxyzine Pamoate 25 mg 01/20/25 16:00 01/20/25 16:02 Hydroxyzine Pamoate 25mg Capsule PO 01/20/25 16:01 25 mg ONCE ONE Administration ECG Data Tracing #1: Independently inter by me rate is 61, rhythm is regular, axis is normal, no ST elevation in anatomical contiguous leads, QTc 443. Critical Care <LUÍS Godwin - Last Filed: 01/20/25 23:13> Critical Care Time Critical Care Time: No
[2025-01-20] MEDS: hydrOXYzine pamoate 25MG CAPSULE 25 MG PO (16:02)
[2025-01-20 16:03] VITALS: BP 153/75; PULSE 60; RESP 18; TEMP 36.8; O2SAT 100
== END 2025-01-20 16:04 | disposition home or self-care (01) ==
PROVIDERS: Emergency Provider Emergency Medicine; PCP Internal Medicine Adolescent Medicine
DX: F41.1 Generalized anxiety disorder (principal)
CPT/HCPCS: 93005; 99283

== ENCOUNTER 2025-04-12 11:39 | Emergency (ER) | payer MEDICARE, OTHER, SELFPAY ==
--- OUTSIDE RECORDS SUMMARY | 2025-02-27 07:30 | XMS_ITS ---
Author Organization [facility] GABRIEL Address [address] [place] [address] Care [address] Shaft And Steering Post Repairer Name Role Phone Nestor Rao Primary Care [...] 02/27/2025 Encounters Encounter Location Date Provider Diagnosis [facility] [address] [address] 02/27/2025 Nestor Rao Moderate dementia wi th [...] Reason: Provider Name:Nestor Rao, 05/01/2025 11:15:00 AM, [address] [place] [address], [id number], Progress Notes * Geovanna GARNER TDOB: (75 yo F)Acc No.[id number]:02/27/2025 Progress Notes Patient: Geovanna LI Provider: Siobhan Rao MD :1950 A ge:75 Y S ex:Female Date:02/27/2025 Address:[address] [place], [place] [id number] Subjective: * Chief Complaints: * 1 . MED CK. 2. Due for [employer] PAF. * HPI: g en: Here for follow-up of her weight and memory issues and blood pressure. Overall feels a little better. Has gained 4 pounds. No issues with recent falls or neurologic changes over her significantly affected baseline. Has an appointment with [facility] neurovascular, Dr. Grewal, and he has scheduled [...] Diagno stic Procedure: A -fib H 09/2014, [facility] - AFIB 04/23/23, [facility]- UTI 08/07/24-08/08/24, stroke 09/2024. * Family [...] * Procedure Codes: 9 6160 HEALTH RISK [id number] * Follow Up: p rn * * Sign off status: Completed true * Provider: Siobhan Rao MD Date: 0 02/27/2025 Generated for Brendon andrews/Wendi/eTransmitting on: 0 04/12/2025 11:43 AM EDT History and Physical Notes * HPI (History of Present Illness) Category Sub-Category Detail Notes Category Not es gen Here for follow-up of her weight and memory issues and blood pressure. Overall feels a little better. Has gained 4 pounds. No issues with recent falls or neurologic changes over her significantly affected baseline. Has an appointment with [facility] neurovascular, Dr. Grewal, and he has scheduled [...]
--- OUTSIDE RECORDS SUMMARY | 2025-03-30 11:38 | XMS_ITS | Encounter Summary ---
Author Organization Healthcare Address [address] [place] [address] Care Team Providers Care Pharmacist Hospital Name Role Phone Nestor Rao MD Primary Care Provider [phone] Reason for Visit * Imaging (Routine) - Closed Specialty Diagnoses / Procedures Referred By Contac t Referred To Contact Radiology Diagnoses Acute spontaneous intraparenchymal intracranial hemorrhage (CMS/HCC) Procedures MR Head w and wo IV Contrast Talia Blanton, ADJUSTER LEADER [address] [address] Phone: tel: fax: Referral ID Status Reason Start Date Expiration Date Visits Re quested Visits Authorized [id number] Closed 09/20/2024 03/22/2026 1 1 Encounter Details Date Type Department Care Team (Latest Contact Info) Description 03/30/2025 11:38 AM EDT - 03/30/2025 11:59 PM EDT Hospital Encounter [facility] MRI [address] [place] [address] Discharge Disposition: Home or Self [...] any time in the past 12 m [facility], were you homeless or living in a nursing home (including now)? No 09/18/2024 Utilities Answer Date Recorded In the past 12 months has th e [employer], gas, oil, or water company threatened to [...] Info) Description 04/12/2026 12:30 PM EDT Appointment [facility] [address] [place] [address] 04/12/2026 2:15 PM EDT Office Visit [place] [facility] [address], [address] [place] [address] Doyle Grewal MD [address] [place] [address] documented as of this encounter [...] documented as of this encounter Care Teams Pharmacist Hospital Relationship Specialty Start Date End Date Nestor Rao MD [address] [place] [address] PCP - General 01/17/21 documented as of this encounter
--- OUTSIDE RECORDS SUMMARY | 2025-03-30 14:45 | XMS_ITS | Encounter Summary ---
Author Organization Healthcare Address [address] [place] [address] Care Team Providers Care Logistics/Shipper Name Role Phone Nestor Rao MD Primary Care Provider [phone] Reason for Referral * Consultation (Urgent) - Authorized Specialty Diagnoses / Procedures Referred By Arnulfo t Referred To Contact Neurology Diagnoses Memory changes Doyle Grewal MD [address] [address] Phone: tel: fax: [place] [facility] [address], [address] [place] [address] Phone: tel: fax: Referral ID Status Reason Start Date Expiration Date Visits Requested Visits Authorized [id number] Authorized Specialty Services Required 03/30/2025 09/29/2026 1 1 Scheduling Instructions ARIEL MEDRANO-PLEASE SCHEDULE FIRST AVAILABLE APPT FOR TREATMENT OF MEMORY CHANGES. * Imaging (Routine) - Pending Review Specialty Diagnoses / Procedures Referred By Contkay t Referred To Contact Radiology Diagnoses Cavernous malformation Procedures MR Head w and wo IV Contrast Doyle Grewal MD [address] [address] Phone: tel: fax: Referral ID Status Reason Start Date Expiration Date V isits Requested Visits Authorized [id number] Pending Review 03/30/2025 09/29/2026 1 1 Reason for Visit * Reason Comments Follow-up Encounter Details Date Type Department Care Team (Late st Contact Info) Description 03/30/2025 2:45 PM EDT Office Visit [place] [facility] [address] [place] [address] Doyle Grewal MD [address] [place] [address] Cavernous malformation (Primary Dx); Pre-procedural [...] any time in the past 12 m [facility], were you homeless or living in a senior care (including now)? No 09/18/2024 Utilities Answer Date Recorded In the past 12 months has th e [employer], gas, oil, or water company threatened to [...] a past medical history of Brain bleed (CMS/[facility]) (09/16/2023), Dementia ([facility]), Poor vision, and Stroke ([facility]) (09/16/2024). Surgical History She has a past [...] year with MRI sella Dementia Refer to [facility] Counseling: The patient and [...] Jermaine Obando PA-C I saw the patient [id number], obtained and documented the medical history, performed and documented the physical exam, and reviewed imaging. I documented the plan of care in the EMR prior to any revisions made by the attending physician. Thank you. If there are any questions or concerns please feel free to contact us: [facility] Department of Neurosurgery [address], [place] [address] [place] [phone] ; [1] Family History Problem Relation Name [...] tablet (30 mg) by mouth every night. gpwitvttorir-fkngrgwf-jyfvr acid-coenzyme q10 (Preservision AREDS 2) capsule Take 1 capsule by mouth 2 times a day. No current facility-administered medications for this visit. documented in this encounter Plan of Treatment Upcoming Encounters Date Type Department Care Team (Late st Contact Info) Description 04/12/2026 12:30 PM EDT Appointment [facility] [address] [place] [address] 04/12/2026 2:15 PM EDT Office Visit [place] [facility] [address] [place] [address] Doyle Grewal MD [address] [place] [address] Scheduled Orders Name Type Priority [...] documented as of this encounter Care Teams Logistics/Shipper Relationship Specialty Start Date End Date Nestor Rao MD [address] [place] [address] PCP - General 01/17/21 documented as of this encounter
--- OUTSIDE RECORDS SUMMARY | 2025-04-03 07:50 | XMS_ITS ---
Author Organization [facility] GABRIEL Address [address] [place] [address] Care Team Providers Care Bobbin Collector Name Role Phone Nestor Rao Primary Care Provider Results Component Value Reference Range Notes COMPREHENSIVE METABOLIC PANRajendra Aldrich (53124) Reviewed date:04/06/2025 10:47:35 AM Interpretation: Performing Lab:[facility], [facility] [id number], [place] [id number] Maciej Kennedy Notes/Report: GLUCOSE 116 65-99 mg/dL Fasting reference interval For someone without known diabetes, a glucose value between 100 and 125 mg/dL is consistent with prediabetes and should be confirmed with a follow-up test. UREA NITROGEN (BUN) 19 7-25 mg/dL CREATININE 1.41 0.60-1.00 mg/dL EGFR 39 > OR = 60 mL/min/1.73m2 BUN/CREATININE RATIO 13 6-22 (calc) SODIUM 145 135-146 mmol/L POTASSIUM 4.1 3.5-5.3 mmol/L CHLORIDE 106 98-110 mmol/L CARBON DIOXIDE 34 20-32 mmol/L CALCIUM 9.5 8.6-10.4 mg/dL PROTEIN, TOTAL 6.7 6.1-8.1 g/dL ALBUMIN 4.4 3.6-5.1 g/dL GLOBULIN 2.3 1.9-3.7 g/dL (calc) ALBUMIN/GLOBULIN RATIO 1.9 1.0-2.5 (calc) BILIRUBIN, TOTAL 0.5 0.2-1.2 mg/dL ALKALINE PHOSPHATASE 71 37-153 U/L AST 19 10-35 U/L ALT 13 6-29 U/L CBC (INCLUDES DIFF/PLT) (639 9) Reviewed date:04/06/2025 10:47:35 AM Interpretation: Performing Lab:[facility] [id number], [place] [id number] Maciej Kennedy Notes/Report: WHITE BLOOD CELL COUNT 4.3 3.8-10.8 Thousand/ uL RED BLOOD CELL COUNT 4.55 3.80-5.10 Million/uL HEMOGLOBIN 12.6 11.7-15.5 g/dL HEMATOCRIT 42.4 35.0-45.0 % MCV 93.2 80.0-100.0 fL MCH 27.7 27.0-33.0 pg MCHC 29.7 32.0-36.0 g/dL For adults, a slight decrease in the calculated MCHC value (in the range of 30 to 32 g/dL) is most likely not clinically significant; however, it should be interpreted with caution in correlation with other red cell parameters and the patient's clinical condition. RDW 14.1 11.0-15.0 % PLATELET COUNT 120 140-400 Thousand/uL MPV 11.2 7.5-12.5 fL ABSOLUTE NEUTROPHILS 3014 2352-8935 cells/uL ABSOLUTE LYMPHOCYTES 632 169-2274 cells/uL ABSOLUTE MONOCYTES 292 200-950 cells/uL ABSOLUTE EOSINOPHILS 60 15-500 cells/uL ABSOLUTE BASOPHILS 30 0-200 cells/uL NEUTROPHILS 70.1 LYMPHOCYTES 21.0 MONOCYTES 6.8 EOSINOPHILS 1.4 BASOPHILS 0.7 COMMENT(S) Review of peripheral smear confirms automated results. HEMOGLOBIN A1c (496) Reviewed date:04/06/2025 10:47:35 AM Interpretation: Performing Lab:[facility] [id number], [place] [id number] Maciej Kennedy Notes/Report: HEMOGLOBIN A1c 5.5 <5.7 % For the purpose of screening for the presence of diabetes: <5.7% Consistent with the absence of diabetes 5.7-6.4% Consistent with increased risk for diabetes (prediabetes) > or =6.5% Consistent with diabetes This assay result is consistent with a decreased risk of diabetes. Currently, no consensus exists regarding use of hemoglobin A1c for diagnosis of diabetes in children. According to [place] [employer] (ADA) guidelines, hemoglobin A1c <7.0% represents optimal control in non- diabetic patients. Different metrics may apply to specific patient populations. Standards of Medical Care in Diabetes(ADA). TSH (899) Reviewed date:04/06/2025 10:47:35 AM Interpretation: Performing Lab:[facility], [facility] [id number], [place] [id number] aMciej Kennedy Notes/Report: TSH 0.82 0.40-4.50 mIU/L Problems Problem Type SNOMED Code ICD Code Onset Dates Problem Status W/U Status Risk Notes Problem Hypoglycemia (279612263) Hypoglycemia (E16.2) Active confirmed Encounters Encounter Location Date Provider Diagnosis [facility] [address] [place] [address] 04/03/2025 Nestor Rao Hypoglycemia E16.2 a nd Paroxysmal atrial fibrillation I48.0 Assessments Encounter Date Diagnosis (ICD Code) Assessment Notes Treatment Notes Treatment Clinical Notes Section Notes 04/03/2025 Hypoglycemia (ICD-10 - E16.2) 04/03/2025 Paroxysmal atrial fibrillation (ICD-10 - I48.0) Plan Of Treatment Next Appt Details Provider Name:Nestor Rao, 05/01/2025 11:15:00 AM, [address] [place] [address], [address], Progress Notes * Geovanna GARNER TDOB: (75 yo F)Acc No.[id number]:04/03/2025 Patient: Geovanna LI :1950 A ge:75 Y S ex:Female Address:[address] [place] [phone] Subjective: * Chief Complaints: * * Medical History: * Surgical History: * Hospitalization/Major Diagno stic Procedure: * Medications: Objective: * Vitals: * Physical Examination: Assessment: * Assessment: 1. H ypoglycemia - E16.2 (Primary) 2 . P aroxysmal atrial fibrillation - I48.0 Plan: * Treatment: Value Reference Range G LUCOSE 116 H 65-99 - mg/dL * U JANETH NITROGEN (BUN) 19 7-25 - mg/dL * C REATININE 1.41 H 0.60-1.00 - mg/dL * B UN/CREATININE RATIO 13 6-22 - (calc) * S ODIUM 145 135-146 - mmol/L * P OTASSIUM 4.1 3.5-5.3 - mmol/L * C HLORIDE 106 98-110 - mmol/L * C ARBON DIOXIDE 34 H 20-32 - mmol/L * C ALCIUM 9.5 8.6-10.4 - mg/dL * P ROTEIN, TOTAL 6.7 6.1-8.1 - g/dL * A LBUMIN 4.4 3.6-5.1 - g/dL * G LOBULIN 2.3 1.9-3.7 - g/dL (calc ) * A LBUMIN/GLOBULIN RATIO 1.9 1.0-2.5 - (calc) * B ILIRUBIN, TOTAL 0.5 0.2-1.2 - mg/dL * A LKALINE PHOSPHATASE 71 37-153 - U/L * A ST 19 10-35 - U/L * A LT 13 6-29 - U/L * E GFR 39 L > OR = 60 - mL/min/1 .73m2 * Validation Error(s): ORM^O01 message is not formatted correctly.Validation Error(s): [facility] Required field missing Danny Kenney R 04/06/2025 10:15:57 AM EDT > naThis lab was reviewed by Theo Mendoza on 04/06/2025 at 10:47 AM EDT ?LAB: CBC (INCLUDES DIFF/PLT) (4068)* Value Reference Range W MULU BLOOD CELL COUNT 4.3 3.8-10.8 - Thousan d/uL * R ED BLOOD CELL COUNT 4.55 3.80-5.10 - Million/ uL * H EMOGLOBIN 12.6 11.7-15.5 - g/dL * H EMATOCRIT 42.4 35.0-45.0 - % * M CV 93.2 80.0-100.0 - fL * M CH 27.7 27.0-33.0 - pg * M CHC 29.7 L 32.0-36.0 - g/dL * R DW 14.1 11.0-15.0 - % * P LATELET COUNT 120 L 140-400 - Thousand/u L * N EUTROPHILS 70.1 - % * A BSOLUTE NEUTROPHILS 3014 5680-7625 - cells/uL * L YMPHOCYTES 21.0 - % * A BSOLUTE LYMPHOCYTES 815 385-8677 - cells/uL * M ONOCYTES 6.8 - % * A BSOLUTE MONOCYTES 292 200-950 - cells/uL * E OSINOPHILS 1.4 - % * A BSOLUTE EOSINOPHILS 60 15-500 - cells/uL * B ASOPHILS 0.7 - % * A BSOLUTE BASOPHILS 30 0-200 - cells/uL * M PV 11.2 7.5-12.5 - fL * Validation Error(s): ORM^O01 message is not formatted correctly.Validation Error(s): [facility]/SendingFacility Required field missing [place] R 04/06/2025 10:15:57 AM EDT > [facility] lab was reviewed by Theo Mendoza on 04/06/2025 at 10:47 AM EDT ?LAB: HEMOGLOBIN A1c (496)* Value Reference Range H EMOGLOBIN A1c 5.5 <5.7 - % * Validation Error(s): ORM^O01 message is not formatted correctly.Validation Error(s): [facility]/SendingFacility Required field missing [place] Danny R 04/06/2025 10:15:57 AM EDT > [facility] lab was reviewed by Theo Mendoza on 04/06/2025 at 10:47 AM EDT ?LAB: TSH (899)* Value Reference Range T SH 0.82 0.40-4.50 - mIU/L * Validation Error(s): ORM^O01 message is not formatted correctly.Validation Error(s): [facility]/Sending[facility]ility Required field missing Steffi Kenneyta R 04/06/2025 10:15:57 AM EDT > [facility] Mendoza on 04/06/2025 at 10:47 AM EDT 2.?Paroxysmal atrial fibrillation?LAB: COMPREHENSIVE METABOLIC PANEL (32988)* Value Reference Range G LUCOSE 116 H 65-99 - mg/dL * U JANETH NITROGEN (BUN) 19 7-25 - mg/dL * C REATININE 1.41 H 0.60-1.00 - mg/dL * B UN/CREATININE RATIO 13 6-22 - (calc) * S ODIUM 145 135-146 - mmol/L * P OTASSIUM 4.1 3.5-5.3 - mmol/L * C HLORIDE 106 98-110 - mmol/L * C ARBON DIOXIDE 34 H 20-32 - mmol/L * C ALCIUM 9.5 8.6-10.4 - mg/dL * P ROTEIN, TOTAL 6.7 6.1-8.1 - g/dL * A LBUMIN 4.4 3.6-5.1 - g/dL * G LOBULIN 2.3 1.9-3.7 - g/dL (calc ) * A LBUMIN/GLOBULIN RATIO 1.9 1.0-2.5 - (calc) * B ILIRUBIN, TOTAL 0.5 0.2-1.2 - mg/dL * A LKALINE PHOSPHATASE 71 37-153 - U/L * A ST 19 10-35 - U/L * A LT 13 6-29 - U/L * E GFR 39 L > OR = 60 - mL/min/1 .73m2 * Validation Error(s): ORM^O01 message is not formatted correctly.Validation Error(s): [facility] Required field missing Danny Kenney R 04/06/2025 10:15:57 AM EDT > [facility] lab was reviewed by Theo Mendoza on 04/06/2025 at 10:47 AM EDT ?LAB: CBC (INCLUDES DIFF/PLT) (0524)* Value Reference Range W MULU BLOOD CELL COUNT 4.3 3.8-10.8 - Thousan d/uL * R ED BLOOD CELL COUNT 4.55 3.80-5.10 - Million/ uL * H EMOGLOBIN 12.6 11.7-15.5 - g/dL * H EMATOCRIT 42.4 35.0-45.0 - % * M CV 93.2 80.0-100.0 - fL * M CH 27.7 27.0-33.0 - pg * M CHC 29.7 L 32.0-36.0 - g/dL * R DW 14.1 11.0-15.0 - % * P LATELET COUNT 120 L 140-400 - Thousand/u L * N EUTROPHILS 70.1 - % * A BSOLUTE NEUTROPHILS 3014 2584-7483 - cells/uL * L YMPHOCYTES 21.0 - % * A BSOLUTE LYMPHOCYTES 145 131-3402 - cells/uL * M ONOCYTES 6.8 - % * A BSOLUTE MONOCYTES 292 200-950 - cells/uL * E OSINOPHILS 1.4 - % * A BSOLUTE EOSINOPHILS 60 15-500 - cells/uL * B ASOPHILS 0.7 - % * A BSOLUTE BASOPHILS 30 0-200 - cells/uL * M PV 11.2 7.5-12.5 - fL * Validation Error(s): ORM^O01 message is not formatted correctly.Validation Error(s): [facility] Required field missing [facility] R 04/06/2025 10:15:57 AM EDT > naThis lab was reviewed by Theo Mendoza on 04/06/2025 at 10:47 AM EDT ?LAB: HEMOGLOBIN A1c (496)* Value Reference Range H EMOGLOBIN A1c 5.5 <5.7 - % * Validation Error(s): ORM^O01 message is not formatted correctly.Validation Error(s): [facility]/SendingFacility Required field missing [facility] R 04/06/2025 10:15:57 AM EDT > naThis lab was reviewed by Theo Mendoza on 04/06/2025 at 10:47 AM EDT ?LAB: TSH (899)* Value Reference Range T SH 0.82 0.40-4.50 - mIU/L * Validation Error(s): ORM^O01 message is not formatted correctly.Validation Error(s): [facility]/SendingFacility Required field missing [facility] R 04/06/2025 10:15:57 AM EDT > naThis lab was reviewed by Theo Mendoza on 04/06/2025 at 10:47 AM EDT * Procedure Codes: * true * Date: Generated for Brendon andrews/Wendi/Bryan on: 0 04/12/2025 11:43 AM EDT
--- OUTSIDE RECORDS SUMMARY | 2025-04-10 11:00 | XMS_ITS ---
Author Organization [facility] PE D GABRIEL Address [address] [place] [address] Care Team Providers Care Nutritional Services Host Name Role Phone Nestor Rao Primary Care Provider Allergies Allergen (clinical drug ingredient) Drug/Non Drug Allergy documented on EMR Reaction Allergy Type Onset Date Status SULFA (uncoded) Unknown Allergy Acti ve amoxicillin / clavulanate Augmentin Unknown Drug Allergy Active ciprofloxacin Cipro Hypotension Drug Allergy A ctive lidocaine Lidocaine Hypotension Drug Allergy Activ e doxycycline Doxycycline stomach upset Drug Allergy Active Results Component Value Reference Range Notes Urinalysis Reviewed date:04/10/2025 02:59:18 PM Interpretation: Performing Lab: Notes/Report: Color/Clarity yellow Leuk neg Nitrite neg Urobili 0.2 Protein neg pH 5.0 Blood trace Sp. Gr. 1.025 Ketone trace Bili neg Glucose neg REASON FOR VISIT possible UTI - urine frequency , dysuria Medications Medication SIG (Take, Route, Frequency, Duration) Notes Start Date End Date Status Atorvastatin Calcium 20 MG 1 tab(s) oral ly once a day; Duration: 90 days Active Memantine HCl 10 mg TAKE 1 TABLET 2 TIME S EACH DAY; Duration: 90 Active diazePAM 2 MG 1 tablet as needed Orally twice a day; Duration: 7 days As needed 03/13/2025 Active Famotidine 20 mg TAKE 1 TABLET 2 TIME S EACH DAY; Duration: 30 Active Mirtazapine 30 mg TAKE 1 TABLET 1 TIME EACH DAY AT BEDTIME; Duration: 90 Active Metoprolol Tartrate 50 MG 1 tab(s) orall y 2 times a day; Duration: 30 days 08/10/2023 Active Albuterol Sulfate HFA 108 (90 Base) MCG/ACT 2 INH inhaled every 6 hours Active Amiodarone HCl 200 MG 1/2 tab orally twi ce a day; Duration: 90 days Active Cefdinir 300 MG one capsule Orally t wice a day; Duration: 5 days 04/10/2025 Active Vital Signs Temperature 98 degrees Fahrenheit 04/10/2025 Heart Rate 88 /min 04/10/2025 Blood pressure systolic 122 mm Hg 04/10/20 25 Blood pressure diastolic 70 mm Hg 025 Height 65.5 in 04/10/2025 Weight 125 lbs 04/10/2025 BMI 20.48 kg/m2 04/10/2025 Encounters Encounter Location Date Provider Diagnosis [facility] [address] [address] 04/10/2025 Nestor Rao Dysuria R30.0 and Cystitis N30.90 Assessments Encounter Date Diagnosis (ICD Code) Assessment Notes Treatment Notes Treatment Clinical Notes Section Notes 04/10/2025 Dysuria (ICD-10 - R30.0) Reviewed urinalysis personally. Has trace blood. No other major problems. However given her symptoms and blood and her overall fragility I think we should cover for cystitis. 04/10/2025 Cystitis (ICD-10 - N30.90) Geovanna has several drug allergies. She is done well with cefdinir before. Will check culture. All reviewed personally, 5 days of twice daily cefdinir as prescribed Plan Of Treatment Medication Medication Name Sig Start Date Stop Date Notes Cefdinir 300 MG one capsule Orally t wice a day; Duration: 5 days 04/10/2025 Treatment Notes Assessment Notes Dysuria Reviewed urinalysis personally. Has trace blood. No other major problems. However given her symptoms and blood and her overall fragility I think we should cover for cystitis. Cystitis Geovanna has several drug allergies. She is done well with cefdinir before. Will check culture. All reviewed personally, 5 days of twice daily cefdinir as prescribed Pending Test Test Name Order Date CULTURE, URINE, ROUTINE (395) 04/10/2025 Next Appt Details Follow Up: prn, Reason: Provider Name:Nestor Rao, 05/01/2025 11:15:00 AM, [address] [facility], [facility], [place], [address], Progress Notes * Geovanna GARNER TDOB: 1 (75 yo F)Acc No.[id number]:04/10/2025 Progress Notes Patient: Geovanna LI Provider: Siobhan Rao MD :1950 A ge:75 Y S ex:Female Date:04/10/2025 Address:[address] [place], [place] [id number] Subjective: * Chief Complaints: * 1 . possible UTI - urine frequency , dysuria. * HPI: g en: Patient presents with a couple of days of cystitis symptoms of urinary frequency and concerns about a UTI. Her dementia makes it difficult for her to give symptoms, but she denies fevers, vomiting, gross hematuria. * Medical History: G 2P2 - 2 c-sections - daughter with CP, Allergic rhinitis, Asthma - treated with Advair several months ago - stopped tx, Chronic dysparuenia, Depression/HUMBERTO, S/p erasmo in 2007, GERD, A-fib, IBS, Sciatic neuralgia, Hyperlipidemia, GERD [Gastroesophageal reflux disease], ASTHMA NOS, Mammogram, Negative Cologuard 08/24. * Medications: T aking Amiodarone HCl 200 MG Tablet 1/2 tab orally twice a day , Taking Metoprolol Tartrate 50 MG Tablet 1 tab(s) orally 2 times a day , Taking Albuterol Sulfate HFA 108 (90 Base) MCG/ACT Aerosol Solution 2 INH inhaled every 6 hours , Taking Famotidine 20 mg Tablet TAKE 1 TABLET 2 TIMES EACH DAY , Taking Mirtazapine 30 mg Tablet TAKE 1 TABLET 1 TIME EACH DAY AT BEDTIME , Taking Memantine HCl 10 mg Tablet TAKE 1 TABLET 2 TIMES EACH DAY , Taking diazePAM 2 MG Tablet 1 tablet as needed Orally twice a day As needed, Taking Atorvastatin Calcium 20 MG Tablet 1 tab(s) orally once a day * Allergies: L idocaine: Hypotension, Cipro: Hypotension, Augmentin, SULFA, Doxycycline: stomach upset - Side Effects. Objective: * Vitals: N urse: dw, Pain: 0, Temp: 98, RR: 18, HR: 88, BP: 122/70, Ht: 65.5, Wt: 125, BMI:20.48. * Examination: G eneral Examination: A lice is pleasant and talkative, oriented x 2, does not remember her medications. This is normal for her. Abdomen soft, no CVA tenderness. Baseline ankle edema. Partial rate regular. Assessment: * Assessment: 1. D ysuria - R30.0 (Primary) 2 . C ystitis - N30.90 Plan: * Treatment: Value Reference Range C olor/Clarity yellow * L euk neg * N itrite neg * U robili 0.2 * P rotein neg * p H 5.0 * B lood trace * S p. Gr. 1.025 * K etone trace * B vaishali neg * G lucose neg Notes: Reviewed urinalysis personally. Has trace blood. No other major problems. However given her symptoms and blood and her overall fragility I think we should cover for cystitis.??2.?Cystitis? Start Cefdinir Capsule, 300 MG, one capsule, Orally, twice a day, 5 days, 10, Refills 0.?? Notes: Geovanna has several drug allergies. She is done well with cefdinir before. Will check culture. All reviewed personally, 5 days of twice daily cefdinir as prescribed? * Procedure Codes: 8 1002 URINALYSIS, Modifiers: QW * Follow Up: p rn * * Sign off status: Completed true * Provider: Siobhan Rao MD Date: 0 04/10/2025 Generated for Brendon andrews/Wendi/eTransmitting on: 0 04/12/2025 11:44 AM EDT History and Physical Notes * HPI (History of Present Illness) Category Sub-Category Detail Notes Category Not es gen Patient presents with a couple of days of cystitis symptoms of urinary frequency and concerns about a UTI. Her dementia makes it difficult for her to give symptoms, but she denies fevers, vomiting, gross hematuria. Examination Category Sub-Category Detail Notes Category Not es General Examination Geovanna is pleasant and talkative, oriented x 2, does not remember her medications. This is normal for her. Abdomen soft, no CVA tenderness. Baseline ankle edema. Partial rate regular
[2025-04-12] VITALS (13 sets, daily range): BP systolic 122–152; BP diastolic 48–78; PULSE 52–64; RESP 14–20; TEMP 36.6–36.8; O2SAT 98–100; BMI 22.3
--- OUTSIDE RECORDS SUMMARY | 2025-04-12 11:44 | XMS_ITS | Encounter Summary ---
Author Organization [facility] Address [address] [place] [address] Care Team Providers Care Sales Training Representative Name Role Phone Nestor Rao MD Primary Care Provider [phone] Encounter Details Date Type Department Care Team (Latest Contact Info) Description 03/30/2025 Travel Social History Tobacco Use Types Packs/Day Years [...] any time in the past 12 m ont, were you homeless or living in a retirement (including now)? No 09/18/2024 Utilities Answer Date Recorded In the past 12 months has th e electric, gas, oil, or water company threatened to shut off services in your home? No 09/18/2024 Comments Unknown Sex and Gender Information Value Date Recorded Sex Assigned at Not on file Legal Sex Female 8:07 PM EDT Gender Identity Not on file Sexual Orientation Not on file documented as of this encounter Plan of Treatment Upcoming Encounters Date Type Department Care Team (Late st Contact Info) Description 04/12/2026 12:30 PM EDT Appointment [facility] [place] [address] [place] [phone] 04/12/2026 2:15 PM EDT [facility] [address] [place] [address] Doyle Grewal MD [address] [place] [address] documented as of this encounter Visit Diagnoses Not on filedocumented in this encounter Additional Health Concerns Assessment Noted Time A fall risk assessment has been complete d for the patient 03/30/2025 3:19 PM EDT A Body Mass Index follow-up plan has been documented for the patient 03/30/2025 4:55 PM EDT documented as of this encounter Care Teams Sales Training Representative Relationship Specialty Start Date End Date Nestor Rao MD [address] [place] [address] [place] [address] PCP - General 01/17/21 documented as of this encounter
--- OUTSIDE RECORDS SUMMARY | 2025-04-12 11:44 | XMS_ITS | Patient Health Record ---
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 Gr. 1.030 Ketone neg Bili neg Glucose neg COMPREHENSIVE METABOLIC PANE L (94722) Reviewed date:11/01/2024 10:03:12 AM Interpretation: Performing Lab:CB, [facility] [address], [place] RyguKE[address] Maciej Kennedy Notes/Report: NON-FASTING; NON-FASTING; NON-FASTING; NON-FASTING GLUCOSE 98 65-99 mg/dL Fasting reference interval UREA NITROGEN (BUN) 15 7-25 mg/dL CREATININE 1.36 0.60-1.00 mg/dL EGFR 41 > OR = 60 mL/min/1.73m2 BUN/CREATININE RATIO 11 6-22 (calc) SODIUM 141 135-146 mmol/L POTASSIUM 3.9 3.5-5.3 mmol/L CHLORIDE 103 98-110 mmol/L CARBON DIOXIDE 28 20-32 mmol/L CALCIUM 9.7 8.6-10.4 mg/dL PROTEIN, TOTAL 6.8 6.1-8.1 g/dL ALBUMIN 4.3 3.6-5.1 g/dL GLOBULIN 2.5 1.9-3.7 g/dL (calc) ALBUMIN/GLOBULIN RATIO 1.7 1.0-2.5 (calc) BILIRUBIN, TOTAL 0.9 0.2-1.2 mg/dL ALKALINE PHOSPHATASE 61 37-153 U/L AST 23 10-35 U/L ALT 13 6-29 U/L CBC (INCLUDES DIFF/PLT) (639 9) Reviewed date:11/01/2024 10:03:12 AM Interpretation: Performing Lab:CB, [facility] [facility] [address], [facility] CenterZzwvAR[address] Maciej Kennedy Notes/Report: NON-FASTING; NON-FASTING; NON-FASTING; NON-FASTING WHITE BLOOD CELL COUNT 5.9 3.8-10.8 Thousand/ uL RED BLOOD CELL COUNT 4.65 3.80-5.10 Million/uL HEMOGLOBIN 13.1 11.7-15.5 g/dL HEMATOCRIT 41.1 35.0-45.0 % MCV 88.4 80.0-100.0 fL MCH 28.2 27.0-33.0 pg MCHC 31.9 32.0-36.0 g/dL For adults, a slight decrease in the calculated MCHC value (in the range of 30 to 32 g/dL) is most likely not clinically significant; however, it should be interpreted with caution in correlation with other red cell parameters and the patient's clinical condition. RDW 13.9 11.0-15.0 % PLATELET COUNT 131 140-400 Thousand/uL MPV 10.6 7.5-12.5 fL ABSOLUTE NEUTROPHILS 4508 [phone] cells/uL ABSOLUTE LYMPHOCYTES [phone] cells/uL ABSOLUTE MONOCYTES 401 200-950 cells/uL ABSOLUTE EOSINOPHILS 71 15-500 cells/uL ABSOLUTE BASOPHILS 53 0-200 cells/uL NEUTROPHILS 76.4 LYMPHOCYTES 14.7 MONOCYTES 6.8 EOSINOPHILS 1.2 BASOPHILS 0.9 TSH (899) Reviewed date:11/01/2024 10:03:12 AM Interpretation: Performing Lab:TRUDI [employer] [facility] [employer] [id number] [employer] [facility] CenterUoewSF[address] Maciej Kenneyd Notes/Report: NON-FASTING; NON-FASTING; NON-FASTING; NON-FASTING TSH 1.01 0.40-4.50 mIU/L CULTURE, URINE, ROUTINE (395 ) Reviewed date:11/01/2024 10:03:12 AM Interpretation: Performing Lab:TRUDI [employer] [employer] [facility] CenterQzmaJY[address] Maciej Kennedy Notes/Report: NON-FASTING; NON-FASTING; NON-FASTING; NON-FASTING CULTURE, URINE, ROUTINE SEE NOTE CULTURE, URINE, ROUTINE Micro Number: [id number] Test Status: Final Specimen Source: Urine, clean catch Specimen Quality: Adequate Result: No Growth Urinalysis Reviewed date:10/30/2024 01:53:29 PM Interpretation: Performing Lab: Notes/Report: Color/Clarity yellow Leuk neg Nitrite neg Urobili 1.0 Protein neg pH 6.5 Blood trace-intact Sp. Gr. 1.015 Ketone neg Bili neg Glucose neg CULTURE, URINE, ROUTINE (395 ) Reviewed date:10/09/2024 11:04:49 AM Interpretation: Performing Lab:TRUDI [employer] [id number] [facility], [facility] CenterTocaGE[address] Maciej Kennedy Notes/Report: NON-FASTING CULTURE, URINE, ROUTINE SEE NOTE CULTURE, URINE, ROUTINE Micro Number: [id number] Test Status: Final Specimen Source: Urine Specimen Quality: Adequate Result: Greater than 100,000 CFU/mL of Escherichia coli COMMENT: Additional non-predominating organism(s) isolated. These organisms, commonly found on external and internal genitalia, are considered colonizers. No further testing performed. E.coli INT MONY AMOX/CLAVULANATE S <=2 AMP/SULBACTAM S <=2 CEFAZOLIN NR <=4 2 CEFEPIME S <=0.12 CEFTAZIDIME S <=1 CEFTRIAXONE S <=0.25 CIPROFLOXACIN S <=0.06 GENTAMICIN S <=1 IMIPENEM S <=0.25 LEVOFLOXACIN S <=0.12 MEROPENEM S <=0.25 NITROFURANTOIN S <=16 PIP/TAZOBACTAM S <=4 TRIMETHOPRIM/SULFA S <=20 S = Susceptible I = Intermediate R = Resistant NS = Not susceptible SDD = Susceptible Dose Dependent * = Not Tested NR = Not Reported NN = See Therapy Comments THERAPY COMMENTS Note 1: For infections other than uncomplicated UTI caused by E. coli, K. pneumoniae or P. mirabilis: Cefazolin is resistant if MONY > or = 8 mcg/mL. (Distinguishing susceptible versus intermediate for isolates with MNOY < or = 4 mcg/mL requires additional testing.) Note 2: For uncomplicated UTI caused by E. coli, K. pneumoniae or P. mirabilis: Cefazolin is susceptible if MONY <32 mcg/mL and predicts susceptible to the oral agents cefaclor, cefdinir, cefpodoxime, cefprozil, cefuroxime, cephalexin and loracarbef. TSH (899) Reviewed date:04/06/2025 10:47:35 AM Interpretation: Performing Lab:TRUDI [employer] [address] [employer] [facility] [place] AgencyIymiUD[address] Maciej Kennedy Notes/Report: TSH 0.82 0.40-4.50 mIU/L HEMOGLOBIN A1c (496) Reviewed date:04/06/2025 10:47:35 AM Interpretation: Performing Lab:TRUD[facility] [employer] [address], [place] GamingLvjxML[address] Maciej Kennedy Notes/Report: HEMOGLOBIN A1c 5.5 <5.7 [...] diagnosis of diabetes in children. According to [place] [employer] (ADA) guidelines, hemoglobin A1c <7.0% represents optimal control in non- diabetic patients. Different metrics may apply to specific patient populations. Standards of Medical Care in Diabetes(ADA). CBC (INCLUDES DIFF/PLT) (639 9) Reviewed date:04/06/2025 10:47:35 AM Interpretation: Performing Lab:TRUDI [employer] [id number] [facility], [place] JznaRM[address] Maciej Kennedy Notes/Report: WHITE BLOOD CELL COUNT [...] MPV 11.2 7.5-12.5 fL ABSOLUTE NEUTROPHILS 3014 1647-9249 cells/uL ABSOLUTE LYMPHOCYTES 755 859-7198 cells/uL ABSOLUTE MONOCYTES 292 200-950 cells/uL ABSOLUTE EOSINOPHILS 60 15-500 cells/uL ABSOLUTE BASOPHILS 30 0-200 cells/uL NEUTROPHILS 70.1 LYMPHOCYTES 21.0 MONOCYTES 6.8 EOSINOPHILS 1.4 BASOPHILS 0.7 COMMENT(S) automated results. Review of peripheral smear confirms COMPREHENSIVE METABOLIC PANE L (07990) Reviewed date:04/06/2025 10:47:35 AM Interpretation: Performing Lab:TRUD[facility] [employer] [id number] [facility] PgquPB[address] Maciej Kennedy Notes/Report: GLUCOSE 116 65-99 mg/dL [...] 19 10-35 U/L ALT 13 6-29 U/L THYROID PANEL WITH TSH (7444 ) Reviewed date:11/13/2024 04:47:46 PM Interpretation: Performing Lab:TRUDI [employer] [facility], [employer] IoexUV[address] Maciej Kennedy Notes/Report: NON-FASTING; NON-FASTING; NON-FASTING; NON-FASTING; NON-FAST T3 UPTAKE 34 22-35 % T4 (THYROXINE), TOTAL 10.5 5.1-11.9 mcg/dL FREE T4 INDEX (T7) 3.6 1.4-3.8 TSH 1.03 0.40-4.50 mIU/L COMPREHENSIVE METABOLIC PANE L (80805) Reviewed date:11/13/2024 04:47:46 PM Interpretation: Performing Lab:TRUDI [address] [facility], Think GamingMkjrRL[address] Maciej Kennedy Notes/Report: NON-FASTING; NON-FASTING; NON-FASTING; NON-FASTING; NON-FAST GLUCOSE 101 65-99 mg/dL Fasting reference interval For someone without known diabetes, a glucose value between 100 and 125 mg/dL is consistent with prediabetes and should be confirmed with a follow-up test. UREA NITROGEN (BUN) 20 7-25 mg/dL CREATININE 1.45 0.60-1.00 mg/dL EGFR 38 > OR = 60 mL/min/1.73m2 BUN/CREATININE RATIO 14 6-22 (calc) SODIUM 145 135-146 mmol/L POTASSIUM 3.9 3.5-5.3 mmol/L CHLORIDE 108 98-110 mmol/L CARBON DIOXIDE 28 20-32 mmol/L CALCIUM 9.1 8.6-10.4 mg/dL PROTEIN, TOTAL 6.6 6.1-8.1 g/dL ALBUMIN 4.2 3.6-5.1 g/dL GLOBULIN 2.4 1.9-3.7 g/dL (calc) ALBUMIN/GLOBULIN RATIO 1.8 1.0-2.5 (calc) BILIRUBIN, TOTAL 0.5 0.2-1.2 mg/dL ALKALINE PHOSPHATASE 60 37-153 U/L AST 18 10-35 U/L ALT 11 6-29 U/L CBC (INCLUDES DIFF/PLT) (639 9) Reviewed date:11/13/2024 04:47:46 PM Interpretation: Performing Lab:TRUDI, [email or web address] [address], [facility] CenterLmlaQC[address] Maciej Kennedy Notes/Report: NON-FASTING; NON-FASTING; NON-FASTING; NON-FASTING; NON-FAST WHITE BLOOD CELL COUNT 4.9 3.8-10.8 Thousand/ uL RED BLOOD CELL COUNT 4.61 3.80-5.10 Million/uL HEMOGLOBIN 12.8 11.7-15.5 g/dL HEMATOCRIT 40.4 35.0-45.0 % MCV 87.6 80.0-100.0 fL MCH 27.8 27.0-33.0 pg MCHC 31.7 32.0-36.0 g/dL For adults, a slight decrease in the calculated MCHC value (in the range of 30 to 32 g/dL) is most likely not clinically significant; however, it should be interpreted with caution in correlation with other red cell parameters and the patient's clinical condition. RDW 13.9 11.0-15.0 % PLATELET COUNT 122 140-400 Thousand/uL MPV 10.4 7.5-12.5 fL ABSOLUTE NEUTROPHILS 3494 2529-0445 cells/uL ABSOLUTE LYMPHOCYTES 066 975-2503 cells/uL ABSOLUTE MONOCYTES 319 200-950 cells/uL ABSOLUTE EOSINOPHILS 39 15-500 cells/uL ABSOLUTE BASOPHILS 59 0-200 cells/uL NEUTROPHILS 71.3 LYMPHOCYTES 20.2 MONOCYTES 6.5 EOSINOPHILS 0.8 BASOPHILS 1.2 VITAMIN B12/FOLATE, SERUM PA RAH (7065) Reviewed date:11/13/2024 04:47:46 PM Interpretation: Performing Lab:TRUDI, [employer] [id number] [facility], [facility] CenterOwxdJB[address] Maciej Kennedy Notes/Report: NON-FASTING; NON-FASTING; NON-FASTING; NON-FASTING; NON-FAST VITAMIN B12 119 322-5984 pg/mL Please Note: Although the reference range for vitamin B12 is 200-1100 pg/mL, it has been reported that between 5 and 10% of patients with values between 200 and 400 pg/mL may experience neuropsychiatric and hematologic abnormalities due to occult B12 deficiency; less than 1% of patients with values above 400 pg/mL will have symptoms. FOLATE, SERUM 16.6 Reference Range Low: <3.4 Borderline: 3.4-5.4 Normal: >5.4 VITAMIN D,25-OH,TOTAL,IA (17 306) Reviewed date:11/13/2024 04:47:46 PM Interpretation: Performing Lab:TRUDI, [employer] [employer] [facility]teB[facility], [facility] CenterJaasCM[address] Maciej Kennedy Notes/Report: NON-FASTING; NON-FASTING; NON-FASTING; NON-FASTING; NON-FAST VITAMIN D,25-OH,TOTAL,IA 42 30-100 ng/mL Vitamin D Status 25-OH Vitamin D: Deficiency: <20 ng/mL Insufficiency: 20 - 29 ng/mL Optimal: > or = 30 ng/mL For 25-OH Vitamin D testing on patients on D2-supplementation and patients for whom quantitation of D2 and D3 fractions is required, the [facility]() 25-OH VIT D, (D2,D3), LC/MS/MS is recommended: order code 24060 (patients >2yrs). See Note 1 Note 1 For additional information, please refer to http://education.ShopText/faq/XUM621 (This link is being provided for informational/ educational purposes only.) Medications Medication SIG (Take, Route, Frequency, Duration) Notes Start Date End Date Status Metoprolol Tartrate 50 MG 1 tab(s) orall y 2 times a day; Duration: 30 days 08/10/2023 Active Albuterol Sulfate HFA 108 (90 Base) MCG/ACT 2 INH inhaled every 6 hours Active Amiodarone HCl 200 MG 1/2 tab orally twi ce a day; Duration: 90 days Active Atorvastatin Calcium 20 MG 1 tab(s) oral ly once a day; Duration: 90 days Active Cefdinir 300 MG one capsule Orally t wice a day; Duration: 5 days 04/10/2025 Active Memantine HCl 10 mg TAKE 1 TABLET 2 TIME S EACH DAY; Duration: 90 Active diazePAM 2 MG 1 tablet as needed Orally twice a day; Duration: 7 days As needed 03/13/2025 Active Famotidine 20 mg TAKE 1 TABLET 2 TIME S EACH DAY; Duration: 30 Active Mirtazapine 30 mg TAKE 1 TABLET 1 TIME EACH DAY AT BEDTIME; Duration: 90 Active Immunizations Vaccine Route Administration Date Status Comme nts Boostrix IM Intramuscular 06/30/2018 Administered Fluzone High Dose IM Intramuscular 07/04/2018 Administered Fluzone High Dose IM Intramuscular 07/23/2020 Administered Fluzone High Dose IM Intramuscular 06/01/2023 Administered Influenza (Fluzone)--Medicare only IM Intramuscular 09/15/2016 Administered Influenza (Fluzone)--Medicare only IM Intramuscular 09/02/2017 Administered Influenza Intradermal Unknown 05/23/2012 Administered Prevnar PCV-20 (Pneumococcal conjugate 20) IM Intramuscular 03/25/2023 Administered Social History Tobacco Use: Social History Observation Description Date Details (start date - stop date) Never Smoker NA - NA Smoking: Question Answer Notes Are you a: nonsmoker Additional Findings: Tobacco Non-User Current no n-smoker Problems Problem Type SNOMED Code ICD Code Onset Dates Problem Status W/U Status Risk Notes Problem Malnutrition of mild degree (Prasad: 75% to less than 90% of standard weight) (16758557) Mild protein-calorie malnutrition (E44.1) Active confirmed Problem Vitamin D deficiency (31638434) Vitamin D deficiency, unspecified (E55.9) Active confirmed Problem Generalized anxiety disorder (90420835) Generalized anxiety disorder (F41.1) Active confirmed Problem Anxiety disorder (423102624) Anxiety disorder, unspecified (F41.9) Active confirmed Problem Paroxysmal atrial fibrillation (112973101) Paroxysmal atrial fibrillation (I48.0) Active confirmed Problem Hyperlipidemia (93836364) Hyperlipemia, idiopathic familial (E78.5) Active confirmed Problem Mild cognitive impairment (992375152) Mild cognitive impairment (G31.84) Active confirmed Problem Gastroesophageal reflux disease (728219967) GERD without esophagitis (K21.9) Active confirmed Problem Memory loss (09592601) Memory loss (R41.3) Active confirmed Problem Mild intermittent asthma (852871089) Mild intermittent asthma without complication (J45.20) Active confirmed Problem Hypoglycemia (347574714) Hypoglycemia (E16.2) Active confirmed Problem Vitamin B12 deficiency (938880774) History of non anemic vitamin B12 deficiency (Z86.39) Active confirmed Problem Sciatica (32845485) Right sided sciatica (M54.31) Active confirmed Problem Sciatica (41698451) Acute right-sided back pain with sciatica (M54.41) Active confirmed Problem Essential hypertension (96236112) Hypertension, unspecified type (I10) Active confirmed Problem Allergic rhinitis (72728654) Allergic rhinitis, unspecified seasonality, unspecified trigger (J30.9) Active confirmed Problem Intracranial hemorrhage (2704622) Intracranial hemorrhage (I62.9) Active confirmed Problem Moderate dementia with agitation, unspecified dementia type (F03.B11) Active confirmed Vital Signs Heart Rate 88 /min 04/10/2025 Temperature 98 degrees Fahrenheit 04/10/2025 Blood pressure diastolic 70 mm Hg 04/10/2025 Height 65.5 in 04/10/2025 Blood pressure systolic 122 mm Hg 04/10/2025 Weight 125 lbs 04/10/2025 BMI 20.48 kg/m2 04/10/2025 Encounters Encounter Location Date Provider Diagnosis [facility] [address] [facility] [address] [place] [address] 12/09/2024 Provider Migration Moderate dementia with agitation, unspecified dementia type F03.B11 [facility] [address] [facility] [address] [place], [place] [address] 04/19/2024 Nestorhill Rao GERD without esophagitis K21.9 [facility] [address] [address] 05/02/2024 [place] Rao Paroxysmal atrial fibrillation I48.0 and GERD without esophagitis K21.9 [facility] [address] [address] 05/23/2024 Nestor Rao Trochanteric bursiti s of right hip M70.61 ; Generalized anxiety disorder F41.1 ; Paroxysmal atrial fibrillation I48.0 ; Hyperlipemia, idiopathic familial E78.5 ; Hypertension, unspecified type I10 ; Memory loss R41.3 and GERD without esophagitis K21.9 [facility] [address] [facility] [address] [place] [address] 08/14/2024 Nestor Rao Mild protein-calorie malnutrition E44.1 ; Cystitis N30.90 ; Memory loss R41.3 and Hospital discharge follow-up Z09 [facility] [address] [facility] [address] [place] [address] 09/04/2024 [place] Rao Mild protein-calorie malnutrition E44.1 ; Memory loss R41.3 ; Mild cognitive impairment G31.84 ; Dizziness R42 and Routine medical exam Z00.00 [facility] [address] [place] [address] 09/27/2024 Nestor Rao Intracranial hemorrhage I62.9 ; Dementia with psychotic disturbance, unspecified dementia severity, unspecified dementia type F03.92 ; Dysuria R30.0 and Hospital discharge follow-up Z09 [facility] [address] [place] [address] 10/12/2024 Sophia McNees Acute cystitis without hematuria N30.00 ; Intracranial hemorrhage I62.9 and Moderate dementia with agitation, unspecified dementia type F03.B11 [facility] [address] [address] 10/30/2024 Sophia McNees Recurrent UTI N39.0 ; Weakness R53.1 and Moderate dementia with agitation, unspecified dementia type F03.B11 [facility] [address] [place] [address] 11/08/2024 Nestor Rao History of non anemi c vitamin B12 deficiency Z86.39 ; Mild protein-calorie malnutrition E44.1 ; Intracranial hemorrhage I62.9 ; Moderate dementia with agitation, unspecified dementia type F03.B11 and Vitamin D deficiency, unspecified E55.9 [facility] [address] [address] 12/19/2024 Nestor Besson Bilateral lower extremity edema R60.0 ; Cellulitis of left lower limb L03.116 ; Cellulitis of right lower limb L03.115 and Moderate dementia with agitation, unspecified dementia type F03.B11 [facility] [address] [address] 01/09/2025 Nestor Besson Mild protein-calorie malnutrition E44.1 and Bilateral impacted cerumen H61.23 [facility] [address] [address] 01/23/2025 Nestor Besson Generalized anxiety disorder F41.1 ; Mild protein-calorie malnutrition E44.1 ; Moderate dementia with agitation, unspecified dementia type F03.B11 and Hospital discharge follow-up Z09 [facility] [address] [address] 02/27/2025 Nestor Besson Moderate dementia with agitation, unspecified dementia type F03.B11 ; Intracranial hemorrhage I62.9 ; Anxiety disorder, unspecified F41.9 ; Paroxysmal atrial fibrillation I48.0 ; Weight loss, unintentional R63.4 and Routine medical exam Z00.00 [facility] [address] [address] 04/10/2025 Nestor Besson Dysuria R30.0 and Cystitis N30.90 [facility] [address] [address] 07/06/2024 Nestor Besson [facility] [address] [place] [address] 08/08/2024 Nestor Besson [facility] [address] [address] 08/11/2024 Nestor Besson GERD without esophagitis K21.9 [facility] [address] [place] [address] 10/12/2024 Sophia McLindseyes [facility] [address] [place] [address] 11/08/2024 Nestor Besson Moderate dementia with agitation, unspecified dementia type F03.B11 [facility] [address] [address] 03/13/2025 Nestor Alvarado [facility] [address] [facility] [place] [address] 04/03/2025 Nestor Rao Hypoglycemia E16.2 and Paroxysmal atrial fibrillation I48.0 Assessments Encounter Date Diagnosis (ICD Code) Assessment Notes Treatment Notes Treatment Clinical Notes Section Notes 05/23/2024 Trochanteric bursitis of right hip (ICD-10 - M70.61) Symptoms consistent with trochanteric bursitis. Diclofenac gel given in the office today to apply daily. Can also use heating pad for pain relief. Patient is scheduled for appointment on 05/23. Will follow up on hip pain then to see if diclofenac gel has helped. 09/04/2024 Mild protein-calorie malnutrition (ICD-10 - E44.1) Will retry mirtazapine prescription, slightly higher dose, follow-up in 6 weeks to see if this has helped, again stop Lexapro. 09/04/2024 Memory loss (ICD-10 - R41.3) Patient has had previous workup, significant risk of Alzheimer disease, does not wish to take medications or do further workup at this point 10/12/2024 Acute cystitis without hematuria (ICD-10 - N30.00) Urine cx reviewed- E. Coli > 100,000 colony count. Treat with cefdinir. Increase oral fluid intake. Return precautions discussed 10/12/2024 Intracranial hemorrhage (ICD-10 - I62.9) No acute neuro deficits 10/30/2024 Recurrent UTI (ICD-10 - N39.0) Reassurance, UA with trace blood only. Will send for culture. Increase oral fluid intake. Labs obtained to rule out additional pathology. May be related to medications, elevated blood pressure, lack of eating/poor nutritional status or early onset UTI. Return precautions discussed. 11/08/2024 Mild protein-calorie malnutrition (ICD-10 - E44.1) 11/08/2024 History of non anemic vitamin B12 deficiency (ICD-10 - Z86.39) 11/08/2024 Moderate dementia with agitation, unspecified dementia type (ICD-10 - F03.B11) 12/09/2024 Moderate dementia with agitation, unspecified dementia type (ICD-10 - F03.B11) 12/19/2024 Cellulitis of left lower limb (ICD-10 - L03.116) No need for antibiotics at this point, mupirocin twice daily, elevation, for short-term follow-up in 2 weeks 12/19/2024 Bilateral lower extremity edema (ICD-10 - R60.0) No indication of volume overload, seems to be a lymphedema/position ing issue, encouraged continued elevation of legs. I think she also suffers from protein calorie malnutrition. Discussed getting some Ensure and trying her on 1 can a day of this. Given her 's own memory loss I am extremely concerned about their home safety environment. 01/09/2025 Mild protein-calorie malnutrition (ICD-10 - E44.1) Patient thinks that she is eating well. I think that she is probably eating very slowly given her dementia and is not eating a good volume. She states that she would drink boost but her states that she refuses. Lengthy discussion with her and her about needing at least 2 supplemental cans of boost or Ensure some complementary high-calorie product daily. I would like to see her back in 2 weeks. She and her have missed multiple appointments because of their memory issues. If they miss in a couple of weeks we will try to reach out to family members. 01/09/2025 Bilateral impacted cerumen (ICD-10 - H61.23) Cerumen impaction resolved. Gave a note to about getting some sweet oil to use 1 drop in each ear at night to help reaccumulation of wax 01/23/2025 Mild protein-calorie malnutrition (ICD-10 - E44.1) Has gained 2 pounds. Follow-up in for 1 month to see how weight gain is going 01/23/2025 Generalized anxiety disorder (ICD-10 - F41.1) Called pharmacy, reconciled medications personally. Patient received a prescription for hydroxyzine, not hydralazine. I have reached out to hospital staff to try to correct this in the record, seems to be doing well. will administer if needed for panic attacks or anxiety 02/27/2025 Intracranial hemorrhage (ICD-10 - I62.9) No evidence of further recurrence. Follow-up with MRI is a great idea, discussed with her how to take her Valium 02/27/2025 Moderate dementia with agitation, unspecified dementia [...] idea given her falls and hemorrhage issues 04/03/2025 Paroxysmal atrial fibrillation (ICD-10 - I48.0) 04/03/2025 Hypoglycemia (ICD-10 - E16.2) 04/10/2025 Dysuria (ICD-10 - R30.0) Reviewed urinalysis personally. Has trace blood. No other major problems. However given her symptoms and blood and her overall fragility I think we should cover for cystitis. 04/10/2025 Cystitis (ICD-10 - N30.90) Geovanna has several drug allergies. She is done well with cefdinir before. Will check culture. All reviewed personally, 5 days of twice daily cefdinir as prescribed 04/19/2024 GERD without esophagitis (ICD-10 - K21.9) Start H2 pamela. Discussed how to take the medication, discussed follow-up in 2 weeks. I will try to review her recent records from cardiology 05/02/2024 Paroxysmal atrial fibrillation (ICD-10 - I48.0) Currently in sinus rhythm with well-controlled rate and no ischemic changes. Given that she has been out of A-fib as best we can tell over the past several months I agree with holding anticoagulation given the high fall risk. 05/02/2024 GERD without esophagitis (ICD-10 - K21.9) Improving on famotidine. No changes in plan, discussed daily compliance. 05/23/2024 Generalized anxiety disorder (ICD-10 - F41.1) Well controlled with Lexapro, continue current medication. 08/14/2024 Mild protein-calorie malnutrition (ICD-10 - E44.1) Will trial mirtazapine for appetite issues and ongoing anxiety. Anxiety seems fairly stable on Lexapro so hopefully switch over to this other SSRI will be as helpful. Short-term follow-up in 3 weeks to make sure things are worse. 08/14/2024 Cystitis (ICD-10 - N30.90) Finish antibiotics. I am not sure that the UTI was actually the cause of her symptoms. 09/27/2024 Intracranial hemorrhage (ICD-10 - I62.9) Stable per outside record review. ASA held at discharge and restarted 09/24. Denies gait changes, weakness, numbess or other focal findings. 09/27/2024 Dementia with psychotic disturbance, unspecified dementia severity, unspecified dementia type (ICD-10 - F03.92) Chronic, stable. Nightly delusions and icnreased agitation / mood flucuations. Plan to dc mirtazapine and start rexulti titration. F/u in 2 weeks to discuss benefit and start 2 mg dosing if well tolerated. Continue memantine 10 mg daily. Neurology apt to establish care next month. 08/11/2024 GERD without esophagitis (ICD-10 - K21.9) 09/27/2024 Dysuria (ICD-10 - R30.0) Dysuria and increased frequency. Denies fever/chills or other systemic sx. UA +leuks & nitrites. Start macrobid 100 mg BID x5 days. 08/14/2024 Memory loss (ICD-10 - R41.3) Seems stable but not in a great place, will continue to monitor closely. Patient is somewhat resistant to taking further memory medications. 05/23/2024 Paroxysmal atrial fibrillation (ICD-10 - I48.0) Well controlled with amiodarone. Patient is not currently using anticoagulation therapy due to history of falls. 12/19/2024 Cellulitis of right lower limb (ICD-10 - L03.115) 11/08/2024 Intracranial hemorrhage (ICD-10 - I62.9) No evidence of recurrence. Blood pressure under good control. 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 Increase to maintenance dose as above. SE profile and MOA discussed. Recommend adding protein to all meals and boost/ensure daily. 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 She actually seems more talkative today with better nutrition and perhaps the effect of the hydroxyzine for her nerves. 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 2 mg samples given, prescription sent to pharmacy. 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 Will continue to stay off the medication, short-term follow-up in 2 weeks 01/23/2025 Hospital discharge follow-up (ICD-10 - Z09) I reviewed ER notes available from emergency department. Reviewed labs, reviewed discharge plan, personally reconciled medication. 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 08/14/2024 Hospital discharge follow-up (ICD-10 - Z09) Personally reviewed H&P, discharge summary, reconciled medicines as above 09/27/2024 Hospital discharge follow-up (ICD-10 - Z09) Recently discharged from [facility] due to occipital lobe ICH. All medical records personally reviewed. 11/08/2024 Vitamin D deficiency, unspecified (ICD-10 - E55.9) 09/04/2024 Routine medical exam (ICD-10 - Z00.00) Aged out of cancer screening, very frail at this point, given her memory issues no indication for other cancer screening. Up-to-date with vaccines, had a Tdap shot elsewhere, does not know if she had the flu shot, declines. 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 Significant memory problems. However is in a safe home environment. Does well with ADLs but does not drive or do her own finances. 05/23/2024 Hypertension, unspecified type (ICD-10 - I10) Well controlled with metoprolol, continue current medication. 02/27/2025 Weight loss, unintentional (ICD-10 - R63.4) Improved weight. Good gain, continue better nutrition. 02/27/2025 Routine medical exam (ICD-10 - Z00.00) Not a candidate for cancer screening given her severe dementia issues. Cognitive impairment screening not noted/done because of her dementia. Non-smoker. Up-to-date with vaccines. is healthcare decision-maker. No recent falls. 05/23/2024 Memory loss (ICD-10 - R41.3) Patient seems to be stable today with no mood or behavior disturbances. Continue memantine. 05/23/2024 GERD without esophagitis (ICD-10 - K21.9) Well controlled with famotidine, continue current medication. Plan Of Treatment Pending Test Test Name Order Date N-CBC 01/05/2014 MRI : Lumbosacral Spine 01/26/2011 MRI : Lumbosacral Spine 05/18/2011 Urinalysis 01/20/2010 Urinalysis 03/26/2008 X ray : Hip, Left 04/15/2012 occult blood 08/03/2008 DEXA Hip and Spine - Screening 0 DEXA Hip and Spine - Screening 2 N-CMP 01/05/2014 [id number] 02/17/2008 EKG : In House 01/05/2007 Holter Monitor : Event Recorder 01/21/20 18 Physical Therapy 09/16/2009 Physical Therapy 12/26/2014 Mammogram : Bilateral 02/07/2013 Mammogram : Bilateral 12/02/2021 Mammogram : Bilateral 01/30/2010 Mammogram : Bilateral 09/04/2013 Holter Monitor, 48 hour 01/07/2022 H-CBC with AUTO DIFF 03/19/2015 H-CMP 03/19/2015 C-CBC 03/31/2010 C-CBC 02/24/2013 C-CBC 09/04/2013 C-CMP 09/04/2013 C-CMP 02/24/2013 C-CMP 03/31/2010 C-LIPID PANEL 03/31/2010 C-LIPID PANEL 02/24/2013 C-LIPID PANEL 09/04/2013 C-TSH 09/04/2013 C-TSH 02/24/2013 C-DAREK 04/28/2012 C-VITAMIN B12 03/31/2010 C-VITAMIN B12 09/25/2014 C-VITAMIN B12 02/24/2013 C-VITAMIN B12 09/04/2013 C-VITAMIN D, 1,25-DIHYDROXY 10/25/2018 C-THYROID PROFILE 09/12/2019 C-URINE CULTURE 04/20/2013 C-MISC CULTURE 12/29/2016 C-VITAMIN D, 25-HYDROXY 09/04/2013 C-VITAMIN D, 25-HYDROXY 09/25/2014 H-DIARRHEA PANEL PCR 03/19/2015 M-Vitamin B12 04/20/2022 M-Vitamin B12 03/18/2023 M-Vitamin D 25 Hydroxy 03/18/2023 M-Vitamin D 25 Hydroxy 04/20/2022 M-Urine Culture 09/21/2022 M-COVID PCR SINGLE RAPID 06/15/2020 Culture, Urine 12/11/2021 CULTURE, URINE, ROUTINE (395) 04/10/2025 Future Test Test Name Order Date C-CBC 08/06/2008 C-CMP 08/06/2008 C-LIPID PANEL 08/06/2008 C-TSH 08/06/2008 M-Vitamin B12 10/29/2020 M-Vitamin D 25 Hydroxy 10/29/2020 M-Methylmalonic Acid 10/29/2020 Next Appt Details Provider Name:Nestor Rao, 05/01/2025 11:15:00 AM, [address], [address], Insurance Providers Payer Name Payer Address Payer Phone Subscriber Number Group Number Insured Name Patient Relationship to Insured Coverage Start Date Coverage End Date [employer] [address] [address] [place] [address] [phone] [id number] Geovanna Garner Self - patient is the insured [facility] [address] [place] [address] [id number] Geovanna Garner Self - patient is the insured Medications Administered Medication Instructions Date of Administration Dosage Notes Ceftriaxone 500 12/15/2013 1000 mg Ceftriaxone 500 04/11/2014 1 g Ceftriaxone 500 08/13/2015 500 mg Ceftriaxone 500 01/08/2017 500 mg Ceftriaxone 500 01/25/2017 500 mg Ceftriaxone 500 09/07/2017 500 mg Cyanocobalamin/B-12 Pt's Own Medication 09/14/2013 Cyanocobalamin/B-12 Pt's Own Medication 09/20/2013 Cyanocobalamin/B-12 Pt's Own Medication 10/05/2013 Cyanocobalamin/B-12 Pt's Own Medication 11/16/2013 Cyanocobalamin/B-12 Pt's Own Medication 12/15/2013 Cyanocobalamin/B-12 Pt's Own Medication 05/26/2016 Cyanocobalamin/B-12 Pt's Own Medication 05/26/2016 1 mL Cyanocobalamin/B-12 Pt's Own Medication 06/04/2016 Cyanocobalamin/B-12 Pt's Own Medication 06/23/2016 1 mL Cyanocobalamin/B-12 Pt's Own Medication 07/02/2016 Cyanocobalamin/B-12 Pt's Own Medication 07/23/2016 1 mL Cyanocobalamin/B-12 Pt's Own Medication 09/18/2016 1 mL Cyanocobalamin/B-12 Pt's Own Medication 12/01/2016 1 mL Cyanocobalamin/B-12 Pt's Own Medication 05/28/2020 1 mL Cyanocobalamin/B-12 Pt's Own Medication 06/12/2020 1 mL Cyanocobalamin/B-12 Pt's Own Medication 09/24/2020 1 mL Dexamethasone 4mg Injection 12/11/2021 4 mg Kenalog 40mg 01/08/2017 40 mg Kenalog 40mg 01/25/2017 40 mg Kenalog 40mg 07/20/2017 40 mg Kenalog 40mg 08/24/2017 40 mg Triamcinolone Acetonide 40mg Injection 03/18/2018 1 mL Triamcinolone Acetonide 40mg Injection 07/21/2019 1 mL Triamcinolone Acetonide 40mg Injection 02/01/2020 1 mL Triamcinolone Acetonide 40mg Injection 11/15/2020 1 mL Triamcinolone Acetonide 40mg Injection 04/18/2021 1 mL Kenalog 11/16/2013 1 Kenalog 12/15/2013 20 mg Kenalog 06/01/2014 1 mL Kenalog 07/24/2014 1 Medical (General) History Medical History History ICD Code - 2 c-sections - daughter with CP Allergic rhinitis Asthma - treated with Advair several mon ths ago - stopped tx Chronic dysparuenia Depression/HUMBERTO s/p erasmo in 2007 GERD A-fib IBS Sciatic neuralgia Hyperlipidemia GERD [Gastroesophageal reflux disease] ASTHMA NOS Mammogram Negative Cologuard 08/24 Surgical History Surgery Date(Month/Year) C-sections cholecystectomy cataract removal-both eyes 2023 Hospitalization History Reason Date(Month/Year) stroke 09/2024 [facility]- UTI 08/07/24-08/08/24 [facility] - AFIB 04/23/23 A-fib [facility] 09/2014
--- OUTSIDE RECORDS SUMMARY | 2025-04-12 11:44 | XMS_ITS | Clinical Summary ---
Author Organization [facility] Address [address] [place] [address] Care Team Providers Care Social Service Coordinator Name Role Phone Nestor Rao MD Primary Care Provider [phone] Allergies Active Allergy Reactions Criticality Noted Date Comments Amoxicillin Unknown - Patient states they do not know rxn details Low 09/17/2024 Amoxicillin-Pot Clavulanate Hives Medium 03/22/2008 Ciprofloxacin Unknown - Patient states they do not know rxn details Low 09/17/2024 Doxycycline Unknown - Patient states they do not know rxn details Low 09/17/2024 Lidocaine Other - please document in the comment field Low 10/19/2017 Hypotension Other Other - please document in the comment field Low 03/22/2008 Sodium Penathol caused hypotension Phenazopyridine Hives Medium 03/22/2008 Sulfa Drugs Unknown - Patient states they do not know rxn details Low 09/17/2024 Medications albuterol 108 (90 Base) MCG/ACT inhaler Inhale 2 puffs Every 4 (four) to 6 (six) hours if needed for wheezing. Active amiodarone (Pacerone) 200 MG tablet Take 0.5 tablets (100 mg) by mouth 2 (two) times a day. Active atorvastatin (Lipitor) 40 MG tablet Take 1 tablet (40 mg) by mouth 1 (one) time each day. Active famotidine (Pepcid) 20 MG tablet Take 1 tablet (20 mg) by mouth 2 (two) times a day. Active memantine (Namenda) 10 MG tablet Take 1 tablet (10 mg) by mouth 2 (two) times a day. Active metoprolol tartrate (Lopressor) 50 MG tablet Take 1 tablet (50 mg) by mouth 2 (two) times a day. Active mirtazapine (Remeron) 30 MG tablet Take 1 tablet (30 mg) by mouth every night. Active brexpiprazole (Rexulti) 1 MG tablet tablet Take 0.5 tablets (0.5 mg) by mouth 1 (one) time each day. 0.5mg for 5 days, then up to 1mg Active hydrALAZINE (Apresoline) 25 MG tablet TAKE 1/2 TABLET 3 TIMES EACH DAY NEEDED FOR ANXIETY 01/22/2025 Active multivitamin-mi nerals-folic acid-coenzyme q10 (Preservision AREDS 2) capsule Take 1 capsule by mouth 2 times a day. Active diazePAM (Valium) 5 MG tabletIndicatio ns:Claustrophob ia Take 1-2 tablets by mouth as needed one hour prior to MRI 2 tablet 02/02/2025 Active Active Problems Problem Noted Date Diagnosed Date Intracerebral hemorrhage, nontraumatic Weakness 09/21/2024 Dementia 09/20/2024 CELINA (acute kidney injury) 09/20/2024 Atrial fibrillation 09/20/2024 Primary hypertension 09/20/2024 Mixed hyperlipidemia 09/20/2024 GERD (gastroesophageal reflux disease) Mood disorder 09/20/2024 Thrombocytopenia 09/20/2024 Intraparenchymal hemorrhage of brain 09/17/2024 Encounters Date Type Department Care Team Description 03/30/2025 2:45 PM EDT Office Visit [facility] [address] [place] [address] Doyle Grewal MD Cavernous malformation (Primary Dx); Pre-procedural laboratory examination; Memory changes 03/30/2025 11:38 AM EDT - 03/30/2025 11:59 PM EDT Hospital Encounter [facility] MRI [address] [place] [phone] Discharge Disposition: Home or Self Care 03/30/2025 Travel 02/02/2025 3:30 PM EDT Office Visit [facility] [address] [place] [address] Doyle Grewal MD Memory changes (Primary Dx); Acute spontaneous intraparenchymal intracranial hemorrhage (CMS/HCC) 02/02/2025 [facility]ill [place] [facility] [address] [place] [id number] Ileana Ron RN Claustrophobia (Primary Dx) 02/02/2025 Travel from Last 3 Months Immunizations Immunization Administration Dates Next Due Influenza, High-dose, Split Virus, Trivalent, Injectable, preservative free 06/01/2023,07/23/2020,07/04/2018 Influenza, injectable, quadrivalent 09/02/2017 Pneumococcal 20-leydi Conj Vaccine 03/25/2023 Tdap 07/07/2024,06/30/2018 Family History Medical History Relation Name Comments Dementia Father Dementia Sister Nonverbal Relation Name Status Comments Father Sister Social History Tobacco Use Types Packs/Day Years [...] money to buy more. Never true 09/18/19 Within the past 12 months, t he [...] any time in the past 12 [facility], were you homeless or living [...] on file Sexual Orientation Not on file Last Filed Vital Signs Vital Sign Reading Time Taken Comments Blood Pressure 108/72 03/30/2025 3:20 PM EDT Pulse 55 03/30/2025 3:20 PM EDT Temperature 36.6 C (97.9 F) 09/21/2024 2:24 PM EST Respiratory Rate 16 09/21/2024 2:24 PM EST Oxygen Saturation 98% 03/30/2025 3:20 PM EDT Inhaled Oxygen Concentration - - Weight 56 kg (123 lb 7.3 oz) 03/30/2025 3:20 PM EDT Height 165.1 cm (5' 5 ) 02/02/2025 2:53 PM EDT Body Mass Index 20.54 02/02/2025 2:53 PM EDT Plan of Treatment Upcoming Encounters Date Type Department Care Team (Late st Contact Info) Description 04/12/2026 12:30 PM EDT Appointment [facility] [address] [place] [address] 04/12/2026 2:15 PM EDT Office Visit [place] [facility] [address] [place] [phone] Doyle Grewal MD [address] [place] [phone] Health Maintenance Due Date Last Done Comments [facility]-Bone Density Scan 1950 [facility]-Depression Screening 1950 [facility]-Hepatitis C Screening 1950 [facility]-Medicare Annual Wellness (AWV) 1950 [facility]-Infant/Child/Adol SDOH Screenings 1950 [address] Colonography 01/19/1996 Colonoscopy 01/19/1996 FIT-DNA 01/19/1996 FIT 01/19/1996 FOBT 01/19/1996 Sigmoidoscopy 01/19/1996 [facility]-Colorectal Cancer Screening 01/19/1996 [facility]-Breast Cancer Screening 2001 [facility]-Zoster Vaccines (1 of 2) 2001 [id number] Vaccine ( season) 2024 09/18/2021, 10/09/2020, 09/11/2020 [facility]- SDOH Screenings 03/18/2025 [facility]-Adult SDOH Screenings 03/18/2025 09/18/2024 [facility]-Influenza Vaccine (#1) 05/07/202506/01, 07/23/2020, 07/04/2018, Additional history exists [facility]-RSV Vaccine: 60+ Years or (1 - 1-dose 75+ series) 2026 [facility]-DTaP,Tdap,and Td Vaccines (3 - Td or Tdap) 07/07/2034 07/07/2024, 06/30/2018 [facility]-Pneumococcal Vaccine: 50+ Years Completed 03/25/2023 HPV Vaccines Aged Out No longer eligi ble based on patient's age to complete this topic [facility]-HIB Vaccines Aged Out No longer e ligible based on patient's age to complete this topic [facility]-Hepatitis A Vaccines Aged Out No longer eligible based on patient's age to complete this topic [facility]-IPV Vaccines Aged Out No longer e ligible based on patient's age to complete this topic [facility]-Rotavirus Vaccines Aged Out No lo nger eligible based on patient's age to complete this topic Procedures Procedure Name Priority Date/Time Associated Diagnosis Comments MR HEAD W AND WO IV CONTRAST Routine 03/30/2025 12:27 PM EDT Acute spontaneous intraparenchymal intracranial hemorrhage (CMS/HCC) from Last 3 Months Results * MR Head w and wo IV Contrast (03/30/2025 12:27 PM EDT) Anatomical Region Laterality Modality Head Magnetic Resonan ce Impressions 04/01/2025 10:33 AM EDT Decrease in the size of left occipital parenchymal hemorrhage, with inherent T1 hyperintense material which demonstrate some restricted diffusion, likely reflecting subacute evolving blood products. No associated enhancing mass. Several punctate foci of susceptibility throughout the supratentorial infratentorial brain may be related to chronic nonspecific microhemorrhage, with amyloid angiopathy a possibility. No acute intracranial process. No abnormal intracranial postcontrast enhancement. Crow Márquez M.D. This report has been electronically signed and verified by the Radiologist whose name is printed above. This report contains privileged and confidential information and is intended solely for the use of the individual or entity to which it is addressed. If you are not the intended recipient of this report, you are hereby notified that any copying, distribution, dissemination or action taken in relation to the contents of this report is strictly prohibited and may be unlawful. If you have received this report in error, please notify the sender immediately at [phone] and permanently delete the original report and destroy any copies or printouts. Narrative 04/01/2025 10:33 AM EDT [facility] - Phone Outpatient NAME: Jeffrey Garner DATE OF EXAM: 03/30/2025 Patient No: [id number] Physician: Pelon Date of : 1950 Past Medical/Surgical History (entered by technologist): Symptoms/Reason For Exam (entered by technologist): Stroke, follow up; Assess for lesion underlying the ICH Tech Notes (entered by technologist): gadobutrol (Gadavist) injection 0.1 mL/kg given IV via rt antecubital; Dx: Acute spontaneous intraparenchymal intracranial hemorrhage. 02/02/25: 75 y.o. female with lt occipital ICH in the setting of dementia and aspirin fro CAD and atrial fibrillation initially p/w worsened confusion, hallucinations, STM x one year, and imbalance. She is left with rt peripheral deficit. She continues with confusion and hallucinations. Confuses her with uncle or father. Balance some better, nothing worse... Indication: Stroke follow-up. Technique: Multiplanar multisequence MRI of the brain with and without administration intravenous contrast. Comparison: Brain MRI from 09/18/2024. Findings: Decrease in the size of left occipital parenchymal hemorrhage, with inherent T1 hyperintense material which demonstrate some restricted diffusion, likely reflecting subacute evolving blood products. No associated enhancing mass. There is some encephalomalacia in the region. No evidence of restricted diffusion to suggest acute territory infarct. No midline shift, lesion, hydrocephalus. No abnormal intracranial postcontrast enhancement. Periventricular and subcortical T2/FLAIR hyperintense foci within the supratentorial brain is likely secondary to small vessel ischemic changes. Several punctate foci of susceptibility throughout the supratentorial infratentorial brain may be related to chronic nonspecific microhemorrhage, with amyloid angiopathy a possibility. Stable age-appropriate ventricular size and configuration. Basal cisterns are patent. Major junction fluids are preserved. Paranasal sinuses are clear. No mastoid effusion. Postsurgical changes of the orbits. Calvarium and overlying soft tissues appear unremarkable. Procedure Note Crow Márquez MD - 04/01/2025 [facility] - Phone Outpatient NAME: Jeffrey Garner DATE OF EXAM: 03/30/2025 Patient No: [id number] Physician: Pelon Date of : 1950 Past Medical/Surgical History (entered by technologist): Symptoms/Reason For Exam (entered by technologist): Stroke, follow up;Assess for lesion underlying the ICH Tech Notes (entered by technologist): gadobutrol (Gadavist) injection 0.1mL/kg given IV via rt antecubital; Dx: Acute spontaneous intraparenchymalintracranial hemorrhage. 02/02/25: 75 y.o. female with lt occipital ICH inthe setting of dementia and aspirin fro CAD and atrial fibrillationinitially p/w worsened confusion, hallucinations, STM x one year, andimbalance. She is left with rt peripheral deficit. She continues withconfusion and hallucinations. Confuses her with uncle joyce. Balance some better, nothing worse... Indication: Stroke follow-up. Technique: Multiplanar multisequence MRI of the brain with and withoutadministration intravenous contrast. Comparison: Brain MRI from 09/18/2024. Findings: Decrease in the size of left occipital parenchymal hemorrhage, withinherent T1 hyperintense material which demonstrate some restricteddiffusion, likely reflecting subacute evolving blood products. Noassociated enhancing mass. There is some encephalomalacia in theregion. No evidence of restricted diffusion to suggest acute territory infarct.No midline shift, lesion, hydrocephalus. No abnormal intracranialpostcontrast enhancement. Periventricular and subcortical T2/FLAIR hyperintense foci within thesupratentorial brain is likely secondary to small vessel ischemicchanges. Several punctate foci of susceptibility throughout the supratentorialinfratentorial brain may be related to chronic nonspecificmicrohemorrhage, with amyloid angiopathy a possibility. Stable age-appropriate ventricular size and configuration. Basal cisternsare patent. Major junction fluids are preserved. Paranasal sinuses are clear. No mastoid effusion. Postsurgical changesof the orbits. Calvarium and overlying soft tissues appear unremarkable. IMPRESSION: Decrease in the size of left occipital parenchymal hemorrhage, withinherent T1 hyperintense material which demonstrate some restricteddiffusion, likely reflecting subacute evolving blood products. Noassociated enhancing mass. Several punctate foci of susceptibility throughout the supratentorialinfratentorial brain may be related to chronic nonspecificmicrohemorrhage, with amyloid angiopathy a possibility. No acute intracranial process. No abnormal intracranial postcontrastenhancement. Crow Márquez M.D. This report has been electronically signed and verified by the Radiologistwhose name is printed above. This report contains privileged and confidential information and isintended solely for the use of the individual or entity to which it isaddressed. If you are not the intended recipient of this report, you arehereby notified that any copying, distribution, dissemination or actiontaken in relation to the contents of this report is strictly prohibitedand may be unlawful. If you have received this report in error, pleasenotify the sender immediately at [phone] and permanently delete theoriginal report and destroy any copies or printouts. Talia Blanton APRN IMG MRI PROCEDURES Final R esult from Last 3 [place] [address] [facility] Advance Directives * Full Code (Latest Code Status on File) Date Activated Date Inactivated Comments 09/21/2024 5:07 AM 09/21/2024 5:34 PM Question Answer Comments Patient has decision-making capacity? Yes * Full Code Date Activated Date Inactivated Comments 09/17/2024 11:51 PM 09/20/2024 5:15 PM Question Answer Comments Patient has decision-making capacity? Yes Care Teams Social Service Coordinator Relationship Specialty Start Date End Date Nestor Rao MD [address] [place] [address] [facility] - General 01/17/21
--- NOTE | 2025-04-12 11:47 | ECG_ITS ---
APPROVED REPORT Exam: Resting ECG HR:61 bpm ECG Measurements Heart Rate 61 AXES MS 178 P 57 QRSd 90 QRS 39 QT 425 T 91 QTc 428 Conclusion Sinus rhythm Unable to properly interpret secondary to motion degraded artifact Electronically signed by : Quang Wing, 04/12/2025 17:30:41
--- NOTE | 2025-04-12 11:50 | PC.NURSE ---
1140 patient arrives to room 8. Labs were obtained by ems. labeled and sent to the lab.
[2025-04-12 12:25] LABS: Albumin Level 4.5 g/dl (3.5-5.0); Chloride 104 mmol/L (98-107); Potassium 4.2 mmoL/L (3.5-5.1); Sodium 140 mmol/L (136-145)
--- NOTE | 2025-04-12 12:26 | CT_ITS ---
FINAL REPORT TECHNIQUE: Axial CT images were performed through the head. Coronal reformatted images were submitted. This study was performed with techniques to keep radiation doses as low as reasonably achievable (ALARA). Individualized dose reduction techniques using automated exposure control or adjustment of mA and/or kV according to the patient's size were employed. CLINICAL HISTORY: Dizziness, weakness, hx of spont ICH COMPARISON: 09/17/2024 FINDINGS: There is mild to moderate atrophy. There is proportional ventriculomegaly. There is no hemorrhage, mass effect, or edema. There is encephalomalacia in the left occipital lobe at the site of the previously noted intraparenchymal hemorrhage. There is a small linear focus of increased attenuation within the region of encephalomalacia. This focus measures approximately 1.0 cm in greatest dimension, image 24 series 3. This is favored to represent dystrophic calcification. The sinuses are normal. IMPRESSION: Encephalomalacia left occipital lobe at site of previously noted intracranial hemorrhage with probable associated dystrophic calcification. A small recurrent hemorrhage is considered less likely. If this is a diagnostic concern, a short interval follow-up CT is recommended. Reviewed, Interpreted and Dictated by Nick Glynn MD Transcribed by Dara Hutchinson Authenticated and [facility]
--- NOTE | 2025-04-12 12:26 | CT_ITS ---
FINAL REPORT TECHNIQUE: NASCET technique utilized for stenosis evaluation. CLINICAL HISTORY: Dizziness, weakness, hx of spont ICH COMPARISON: 09/17/2024 FINDINGS: Lungs are clear. RIGHT CAROTID: No significant stenosis is seen of the cervical common or internal carotid artery. LEFT CAROTID: No significant stenosis seen of the cervical common or internal carotid artery. VERTEBRALS: The vertebrals are patent. The left vertebral artery is dominant. No significant stenosis is present. IMPRESSION: No significant arterial abnormality. Reviewed, Interpreted and Dictated by Nick Glynn MD Transcribed by Elizabeth Rowland Authenticated and [facility]
--- NOTE | 2025-04-12 12:26 | CT_ITS ---
FINAL REPORT TECHNIQUE: thin section axial CT with and without IV contrast supplemented with multiplanar 3-D reconstruction of the head. This study was performed with techniques to keep radiation doses as low as reasonably achievable, (ALARA)individualized dose reduction techniques using automated exposure control or adjustment of mA and/or kV according to the patient's size were employed. CLINICAL HISTORY: Dizziness, weakness, hx of spont ICH COMPARISON: 09/17/2024 FINDINGS: There is normal intracranial branching pattern. 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 There is no abnormal enhancement seen in the region of encephalomalacia in the left occipital lobe. 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 No evidence of abnormal enhancement within encephalomalacia of the left occipital lobe. Density within the region of encephalomalacia is favored to represent dystrophic calcification. Reviewed, Interpreted and Dictated by Nick Glynn MD Transcribed by Elizabeth Rowland Authenticated and [facility]
[2025-04-12 12:28] LABS: Alanine Aminotransferase 18 U/L (12-78); Albumin/Globulin Ratio 1.7 (1.1-1.8); Alkaline Phosphatase 75 U/L (38-126); Anion Gap 10.2 mEq/L (5-15); Aspartate Amino Transferase 34 U/L (14-36); Bilirubin,Total 0.4 mg/dl (0.2-1.3); Blood Urea Nitrogen 25 mg/dl (7-17); Carbon Dioxide 30 mmol/L (22.0-30.0); Creatinine Clearance Estimated 39 mL/min (50-200); Creatinine,Serum 1.10 mg/dl (0.52-1.04); Estimated Glomerular Filt Rate 49 ml/min (>60); GFR (African American) 59 ML/MIN (>60); Globulin 2.7 g/dL (1.3-3.2); Total Protein,Serum 7.2 g/dl (6.3-8.2)
[2025-04-12 12:29] LABS: Calcium 9.4 mg/dl (8.4-10.2); Glucose 103 mg/dl (74-100)
[2025-04-12 12:30] LABS: Hematocrit 40.8 % (37.0-47.0); Hemoglobin 12.7 g/dL (12.2-16.2); Immature Granulocytes % 0.4 %; Mean Corpuscular HGB Conc 31.1 g/dL (31.8-35.4); Mean Corpuscular Hemoglobin 27.8 pg (27.0-31.2); Mean Corpuscular Volume 89.3 fl (81-99); Nucleated Red Blood Cells % 0 %; Platelet Count 95 K/mm3 (142-424); Red Blood Count 4.57 M/mm3 (4.20-5.40); Red Cell Distribution Width-SD 45.2 fL; White Blood Count 4.7 K/mm3 (4.8-10.8)
[2025-04-12] MEDS: MECLIZINE 25MG TABLET 25 MG PO (12:32)
[2025-04-12 12:49] LABS: Bilirubin,Urine Negative (Negative); Color,Urine YELLOW (Yellow); Glucose,Urine (UA) Negative (Negative); Ketones,Urine Negative (Negative); Leukocyte Esterase,Urine Negative (Negative); Microscopic, Urine URINE MICROSCOPIC (MICROSCOPIC); PH,Urine 6.5 (5.0-8.5); Protein,Urine Negative (Negative); Specific Gravity, Urine 1.010 (1.005-1.030); Urobilinogen,Urine 0.2 EU/dl (0.2)
--- NOTE | 2025-04-12 12:55 | PC.NURSE ---
patient going for scans
[2025-04-12 13:03] LABS: Troponin I < 0.01 ng/ml (0.00-0.034)
[2025-04-12 13:06] LABS: Squamous Epithelial Cell,Urine Occasional #/hpf (0-5)
--- NOTE | 2025-04-12 13:09 | PC.NURSE ---
patient back from CT scan
--- NOTE | 2025-04-12 13:38 | PC.NURSE ---
tamara tang at bedside.
[2025-04-12] MEDS: SODIUM CHLORIDE 0.9% 10ML SYR (RAD ONLY) 10 ML IV (13:54)
[2025-04-12] MEDS: IOPAMIDOL-370 (76%);100ML BOTTLE 80 ML IV (13:54)
[2025-04-12] MEDS: 0.9 % SODIUM CHLORIDE 50 ML VIAL IV (13:54)
--- NOTE | 2025-04-12 14:34 | HMH.EDGENADL ---
Discharge Plan Disposition Patient Disposition: Home, Self-Care Condition: Good Prescriptions Prescriptions: New meclizine 25 mg tablet 25 mg PO TID PRN (Reason: dizziness) Qty: 12 0RF No Action escitalopram oxalate 10 mg tablet 10 mg PO DAILY Patient Comments: TAKE 1 TABLET 1 TIME EACH DAY memantine 10 mg tablet 10 mg PO BID Qty: 60 3RF famotidine 20 mg tablet 20 mg PO BID atorvastatin [Lipitor] 20 mg tablet 20 mg PO DAILY Qty: 30 5RF aspirin [Adult Aspirin Regimen] 81 mg tablet,delayed release (DR/EC) 81 mg PO DAILY Qty: 30 5RF metoprolol tartrate 50 mg tablet 50 mg PO BID Qty: 180 1RF Patient Comments: TAKE 1 TABLET 1 TIME DAILY amiodarone 200 mg tablet 100 mg PO BID albuterol sulfate 90 mcg/actuation HFA aerosol inhaler 4 inh inhalation Q4HP PRN (Reason: shortness of breath or wheezing) Rx Instructions: 4 puffs every 4 hours for 48 hours then as needed for shortness of breath or wheezing following cefdinir 300 mg Capsule 300 mg PO BID 3 Days Qty: 6 0RF polyethylene glycol 3350 [Miralax] 17 gram/dose powder 17 g PO DAILY Qty: 510 0RF sennosides [Senna Lax] 8.6 mg tablet 8.6 mg PO HS PRN (Reason: constipation) Qty: 30 0RF meclizine 25 mg tablet 25 mg PO TID PRN (Reason: dizziness) Qty: 30 0RF nitrofurantoin monohyd/m-cryst 100 mg capsule 100 mg PO BID 5 Days Qty: 10 0RF Rx Instructions: must administer with a meal/food hydralazine 25 mg tablet 12.5 mg PO TID PRN (Reason: anxiety) Qty: 30 0RF Referrals Follow up/Referrals: Nestor Rao MD [Primary Care Provider, Internal Medicine] - See instructions Activity Restrictions/Add. Instructions Additional Instructions/Restrictions: Your CT scans and labs were unremarkable. I want you to take Meclizine 25 mg up to 3 times daily as needed for dizziness. There is no need to take this medication, unless you are still having dizziness. If your symptoms worsen or become constant and unremitting, please return to the ER for further evaluation Clinical Impressions Clinical Impression: Vertigo Print Language Print Language: [place] Discharge ED Provider: Quang Wing Adult HPI General Chief complaint: Weakness Stated complaint: Dizziness Time Seen by Provider: 04/12/25 11:42 Mode of Arrival: EMS Source of Information: Patient Description of Symptoms (Recalled from ER Triage Doc. by RN): patient presents to the ER via ambulance for complaints of shakiness that started this morning. patient does not endorse this as a regular occurance for her. Patient is shaking quiter a bit in bed. History of Present Illness HPI narrative: This is a 75-year-old female patient, with past medical history of coronary artery disease, hypertension, hyperlipidemia, paroxysmal atrial fibrillation on amiodarone, and prior spontaneous intraparenchymal hemorrhage, who is presenting to the emergency department today for evaluation of dizziness. The patient states that she woke up this morning in her usual state of health and a few hours after being awake she experienced profound vertigo that lasted for approximately 5 minutes and worsened with movement of her head and neck. She states that following this vertiginous episode she began feeling weak and the combination of the symptoms ultimately prompted her visit to the emergency department today. She denies chest pain or shortness of breath or palpitations. She denies currently feeling dizzy or vertiginous. She has not had any swelling in her lower extremities. She has been able to ambulate without difficulty. She has not had any recent head trauma. Related Data Home Medications ?Medication ?Instructions ?Recorded ?Confirmed escitalopram oxalate 10 mg tablet 10 mg PO DAILY 02/18/24 08/08/24 famotidine 20 mg tablet 20 mg PO BID 05/11/24 08/08/24 albuterol sulfate 90 mcg/actuation 4 inh inhalation Q4HP PRN 08/08/24 aerosol inhaler shortness of breath or wheezing amiodarone 200 mg tablet 100 mg PO BID 08/08/24 08/08/24 Previous Rx's ?Medication ?Instructions ?Recorded memantine 10 mg tablet 10 mg PO BID #60 tabs 03/07/24 aspirin 81 mg tablet,delayed 81 mg PO DAILY #30 tabs 05/11/24 release (Adult Aspirin Regimen) atorvastatin 20 mg tablet (Lipitor) 20 mg PO DAILY #30 tabs 05/11/24 cefdinir 300 mg capsule 300 mg PO BID 3 days #6 caps 08/08/24 meclizine 25 mg tablet 25 mg PO TID PRN dizziness #30 tabs 08/29/24 metoprolol tartrate 50 mg tablet 50 mg PO BID #180 tabs 10/27/24 nitrofurantoin 100 mg PO BID 5 days #10 caps 10/28/24 monohydrate/macrocrystals 100 mg capsule polyethylene glycol 3350 17 17 g PO DAILY #510 grams 01/15/25 gram/dose oral powder (Miralax) sennosides 8.6 mg tablet (Senna 8.6 mg PO HS PRN constipation #30 01/15/25 Lax) tabs hydralazine 25 mg tablet 12.5 mg (1/2 x 25 mg) PO TID PRN 01/20/25 anxiety #30 tabs meclizine 25 mg tablet 25 mg PO TID PRN dizziness #12 tabs 04/12/25 Allergies Allergy/AdvReac Type Severity Reaction Status Date / Time amoxicillin (From Augmentin) Allergy Unknown Verified 08/08/24 07:09 allergy reaction ciprofloxacin (From Cipro) Allergy Unknown Verified 08/08/24 07:09 allergy reaction clavulanic acid (From Allergy Unknown Verified 08/08/24 07:09 Augmentin) allergy reaction doxycycline Allergy Unknown Verified 08/08/24 07:09 allergy reaction lidocaine Allergy Unknown Verified 08/08/24 07:09 allergy reaction Sulfa (Sulfonamide Allergy Unknown Verified 08/08/24 07:09 Antibiotics) allergy reaction PFSH PFSH Disclaimer: The information contained in this section may have been updated after the patient was seen, as this information can be updated by other users. Medical History Chronic kidney disease Generalized weakness Acute UTI Acute pain of right hip Nontraumatic hematoma Constipation Asthenia Viral syndrome Diarrhea Laryngitis Cough Nausea CELINA (acute kidney injury) Cystitis Cerumen impaction Mild cognitive impairment Hypoglycemia Dehydration Coronary artery disease Elevated brain natriuretic peptide (BNP) level Abnormal electrocardiogram [ECG] [EKG] Fatigue HTN (hypertension) Dyspnea Abnormal ECG Abnormal findings on diagnostic imaging of heart and coronary circulation Sinus bradycardia Chronic GERD IBS (irritable bowel syndrome) Hyperlipidemia Depression Dyspareunia Asthma Paroxysmal atrial fibrillation Palpitations Surgical History H/O: section Hx of cholecystectomy Family History Father Hypertension Mother CHF (congestive heart failure) Cancer Daughter Seizure Stroke Social History Smoking Status: Never smoker second hand exposure: No alcohol intake: never counseling given: No current occupational status: retired Travel in the last 8 weeks?: None household members: family housing: house marital status: Have you lived/traveled outside [place] in past 30 days?: No Contact w/someone who lives/traveled outside [place] past 30 days?: No Exposure to someone with infectious disease in past 14 days?: No Do you have a fever (greater than 100.4 F or 38 C)?: No Have you tested positive for COVID-19?: No Exposed to someone with COVID-19 in past 14 days?: No Do you have a sore throat?: No Do you have a cough?: No Do you have any weakness?: No Do you have any diarrhea?: No Are you experiencing any unusual bleeding?: No Do you have any muscle aches/pain?: No Do you have any abdominal pain?: No Are you experiencing loss of taste or smell?: No Other Medical History Have you received the Flu Vaccine for this season: No Have you received the Pneumonia Vaccine: No ROS Obtained: Yes Systems reviewed as appropriate & no additional complaints except as documented Physical Exam General General appearance: other (See MDM) Respiratory Respiratory exam: Present other (See MDM) Cardiovascular Cardiovascular exam: Present other (See MDM) Neurological Exam Neurological exam: Present other (See MDM) Medical Decision Making Medical Records Medical records reviewed: Yes I reviewed the patient's medical records. Screening: Per USPSTF and CDC recommendations, given the prevalence of disease in our region, it is our hospital?s policy to screen for HIV and viral Hepatitis for all patients aged 18 and over and those with ongoing risk factors. Narciso Inquiry Pt receiving controlled substance: No Narciso was queried for this patient: No Vital Signs: 04/12/25 11:50 04/12/25 12:00 04/12/25 12:30 Temperature 98.3 F Temperature Source Oral Pulse Rate 59 L 57 L Pulse Rate [Left Brachial] 64 Respiratory Rate 20 Blood Pressure 134/68 135/63 Blood Pressure [Left Arm] 129/67 Blood Pressure Mean 90 87 Blood Pressure Mean [Left Arm] 87 Blood Pressure Source Blood Pressure Source [Left Arm] Automatic Cuff Blood Pressure Position Blood Pressure Position [Left Arm] Sitting 02 Sat by Pulse Oximetry 100 99 99 Oxygen Delivery Method Room Air 04/12/25 12:46 04/12/25 13:15 04/12/25 13:36 Temperature Temperature Source Pulse Rate 60 58 L 56 L Pulse Rate [Left Brachial] Respiratory Rate Blood Pressure 152/62 H 149/78 H 135/60 Blood Pressure [Left Arm] Blood Pressure Mean Blood Pressure Mean [Left Arm] Blood Pressure Source Blood Pressure Source [Left Arm] Blood Pressure Position Blood Pressure Position [Left Arm] 02 Sat by Pulse Oximetry 98 100 99 Oxygen Delivery Method 04/12/25 14:00 04/12/25 14:16 04/12/25 14:30 Temperature Temperature Source Pulse Rate 58 L 54 L 55 L Pulse Rate [Left Brachial] Respiratory Rate Blood Pressure 140/76 143/63 H Blood Pressure [Left Arm] Blood Pressure Mean Blood Pressure Mean [Left Arm] Blood Pressure Source Blood Pressure Source [Left Arm] Blood Pressure Position Blood Pressure Position [Left Arm] 02 Sat by Pulse Oximetry 99 100 99 Oxygen Delivery Method 04/12/25 15:02 04/12/25 15:31 04/12/25 15:51 Temperature 98 F Temperature Source Pulse Rate 52 L 53 L 54 L Pulse Rate [Left Brachial] Respiratory Rate 14 Blood Pressure 146/63 H 123/48 L 122/52 L Blood Pressure [Left Arm] Blood Pressure Mean Blood Pressure Mean [Left Arm] Blood Pressure Source Blood Pressure Source [Left Arm] Blood Pressure Position Blood Pressure Position [Left Arm] 02 Sat by Pulse Oximetry 98 98 Oxygen Delivery Method Room Air 04/12/25 15:54 Temperature 98.3 F Temperature Source Oral Pulse Rate 52 L Pulse Rate [Left Brachial] Respiratory Rate 20 Blood Pressure 122/52 L Blood Pressure [Left Arm] Blood Pressure Mean Blood Pressure Mean [Left Arm] Blood Pressure Source Manual Cuff/ Auscultation Blood Pressure Source [Left Arm] Blood Pressure Position Sitting Blood Pressure Position [Left Arm] 02 Sat by Pulse Oximetry Oxygen Delivery Method Room Air Lab Data Lab Results 04/12/25 11:40: WBC 4.7 L, RBC 4.57, Hgb 12.7, Hct 40.8, MCV 89.3, MCH 27.8, MCHC 31.1 L, RDW 14.0, Plt Count 95 L, MPV 11.3 H, Neut % (Auto) 63.2, Lymph % (Auto) 26.2, [place] % (Auto) 8.1, Eos % (Auto) 1.5, Baso % (Auto) 0.6, Neut # (Auto) 3.0, Lymph # (Auto) 1.2, [place] # (Auto) 0.4, Eos # (Auto) 0.1, Baso # (Auto) 0.0, Sodium 140, Potassium 4.2, Chloride 104, Carbon Dioxide 30, Anion Gap 10.2, BUN 25 H, Creatinine 1.10 H, Estimated Creat Clear 39, Estimated GFR 49 L, Est GFR ( Amer) 59, Glucose 103 H, Calcium 9.4, Total Bilirubin 0.4, AST 34, ALT 18, Alkaline Phosphatase 75, Troponin I < 0.01, Total Protein 7.2, Albumin 4.5, Globulin 2.7, Albumin/Globulin Ratio 1.7 04/12/25 12:40: Urine Color Yellow, Urine Appearance Clear, Urine pH 6.5, Ur Specific [place] 1.010, Urine Protein Negative, Urine Glucose (UA) Negative, Urine Ketones Negative, Urine Blood Trace-i, Urine Nitrate Negative, Urine Bilirubin Negative, Urine Urobilinogen 0.2, Ur Leukocyte Esterase Negative, Urine RBC 3-5, Urine WBC 3-5, Ur Squamous Epith Cells Occasional, Urine Bacteria None 04/12/25 14:48: Troponin I < 0.01 04/12/25 11:40 04/12/25 11:40 Orders (Tests/Meds): ED MEDICATIONS Discontinued Medications Generic Name Dose Route Start Last Admin Trade Name Jyoti PRN Reason Stop Dose Admin Iopamidol 80 ml 04/12/25 13:53 04/12/25 13:54 Iopamidol-370 (76%);100ml Bottle IV 04/12/25 13:54 80 ml ONCE ONE Administration Meclizine HCl 25 mg 04/12/25 12:26 04/12/25 12:32 Meclizine 25mg Tablet PO 04/12/25 12:27 25 mg ONCE ONE Administration Sodium Chloride 10 ml 04/12/25 13:53 04/12/25 13:54 Sodium Chloride 0.9% 10ml Syr (Rad Only) IV 05/12/25 13:52 10 ml NEEDED PRN Administration Maintain IV Site Sodium Chloride 50 ml 04/12/25 13:53 04/12/25 13:54 0.9 % Sodium Chloride 50 Ml Vial IV 04/12/25 13:54 50 ml ONCE ONE Administration ORDERS Category Date Time Status CT angio head Stat Cat Scan 04/12/25 12:[address] angio neck Stat Cat Scan 04/12/25 12:[address] head/brain wo con Stat Cat Scan 04/12/25 12:26 Completed CMP [Comprehensive Metabolic Panel] Stat Lab 04/12/25 11:40 Completed Complete Blood Count Auto Diff Stat Lab 04/12/25 11:40 Completed Troponin I Q3H Lab 04/12/25 14:48 Completed Troponin I Stat Lab 04/12/25 11:40 Completed Urinalysis and Microscopic Stat Lab 04/12/25 12:40 Completed ECG Data Tracing #1: I reviewed this ECG and interpreted as documented below: EKG personally interpreted by me demonstrates normal sinus rhythm with a rate of 61 bpm, normal axis, no TX prolongation, narrow QRS, no QTc prolongation. No ST elevation. There is baseline artifact which limits the quality of this EKG. Medical Decision Narrative: In summary, this is a 75-year-old female patient who is presenting to the emergency department today for evaluation of dizziness which she describes as vertigo lasting for approximately 5 to 10 minutes onset prior to arrival with associated weakness. Comorbidities include hypertension, hyperlipidemia, atrial fibrillation on amiodarone, coronary artery disease, and dementia which increases the patient's risk for morbidity. On initial evaluation of the patient they were resting comfortably in no acute distress and nontoxic in appearance. They are hemodynamically stable, saturating well room air, and are neurologically intact. On physical examination of the patient she has 5 out of 5 strength in her bilateral upper and lower extremities. Normal sensation in all terminal nerve distributions of her extremities. Finger-nose testing and [id number] testing is normal bilaterally without ataxia or dysmetria. Secondary to her dementia she is not following fine motor movement instructions very well. When attempting to test extraocular movements her eyes are able to move in all 4 directions but she is not able to follow my finger to truly assess for nystagmus. She does not have resting nystagmus with forward gaze. Therefore I was unable to perform a HINTS examination. Her pupils are equal round and reactive to light. No evidence of visual field cuts. Differential diagnosis includes benign paroxysmal positional vertigo versus posterior circulation stroke. The patient does deny a sensation of ear fullness and tinnitus which suggest against lab arthritis, vestibular neuritis, and M?ni?re's disease as the cause of her vertigo. We will assess for myocardial ischemia contributing to her dizziness with troponins. Given that my examination is unreliable to determine peripheral versus central cause of her vertigo, I did elect to proceed with a CTA of the head and neck as well as a CT head without contrast. We also have obtained hematologic labs. Labs personally interpreted by me demonstrate no actionable abnormalities. Her creatinine has improved from prior. There is no evidence of urinary tract infection. Troponins are nonischemic. CTA of the head and neck as well as CT head without contrast was personally interpreted by me. I do not appreciate any evidence of large acute intracranial hemorrhages. Official radiology read is in agreement And states that the patient does have encephalomalacia of the left occipital lobe at the site of her previous intracranial hemorrhage with associated dystrophic calcification. On CTA of the head and neck there is a 3 mm aneurysm noted along the left MCA trifurcation which is stable when compared to prior examinations. Given that there is no acute findings on her CT scans, I do not feel that her vertigo is of central etiology. Patient is able to ambulate without difficulty and her vertigo has completely resolved after receiving meclizine, which further supports that this is a peripheral vertigo in etiology. I have informed the patient and her of our workup findings today. They were overall reassured. At this time all questions have been answered and all parties are agreeable with the decision to discharge home. Critical Care Critical Care Time Critical Care Time: No
[2025-04-12 15:30] LABS: Troponin I < 0.01 ng/ml (0.00-0.034)
== END 2025-04-12 15:56 | disposition home or self-care (01) ==
PROVIDERS: Emergency Provider Student in an Organized Health Care Education/Training Program; PCP Internal Medicine Adolescent Medicine
DX: R42 Dizziness and giddiness (principal); I10 Essential (primary) hypertension; E78.5 Hyperlipidemia, unspecified; Z86.79 Personal history of other diseases of the circulatory system
CPT/HCPCS: 70450; 70496; 70498; 80053; 81001; 84484; 85025; 93005; 99285; Q9967

== ENCOUNTER 2025-04-16 14:42 | Emergency (ER) | payer MEDICARE, OTHER, SELFPAY ==
--- OUTSIDE RECORDS SUMMARY | 2025-02-27 07:30 | XMS_ITS ---
Author Organization [facility]RIEL Address [address] [place] [address] Care Team Providers Care Recruitment Consultant Name Role Phone Nestor Rao Primary Care Provider Allergies Allergen (clinical drug ingredient) Drug/Non Drug Allergy documented on EMR Reaction Allergy Type Onset Date Status SULFA (uncoded) Unknown Allergy Acti ve amoxicillin / clavulanate Augmentin Unknown Drug Allergy Active ciprofloxacin Cipro Hypotension Drug Allergy A ctive lidocaine Lidocaine Hypotension Drug Allergy Activ e doxycycline Doxycycline stomach upset Drug Allergy Active REASON FOR VISIT MED CK, Due for [employer] PAF Medications Medication SIG (Take, Route, Frequency, Duration) Notes Start Date End Date Status Albuterol Sulfate HFA 108 (90 Base) MCG/ACT 2 INH inhaled every 6 hours Active Amiodarone HCl 200 MG 1/2 tab orally twi ce a day; Duration: 90 days Active Metoprolol Tartrate 50 MG 1 tab(s) orall y 2 times a day; Duration: 30 days 08/10/2023 Active Famotidine 20 mg TAKE 1 TABLET 2 TIME S EACH DAY; Duration: 30 Active Memantine HCl 10 MG 1 tab(s) orally 2 ti mes a day; Duration: 90 days Active Mirtazapine 30 MG 1 tab(s) orally once a day (at bedtime); Duration: 90 days 09/04/2024 Active Atorvastatin Calcium 20 MG 1 tab(s) oral ly once a day; Duration: 90 days 08/11/2024 Active Social History Tobacco Use: Social History Observation Description Date Details (start date - stop date) Never Smoker NA - NA Smoking: Question Answer Notes Are you a: nonsmoker Additional Findings: Tobacco Non-User Current no n-smoker Vital Signs Temperature 98.1 degrees Fahrenheit 02/28/20 25 Heart Rate 70 /min 02/27/2025 Blood pressure systolic 138 mm Hg 02/28/20 25 Blood pressure diastolic 82 mm Hg 025 Height 65.5 in 02/27/2025 Weight 124 lbs 02/27/2025 BMI 20.32 kg/m2 02/27/2025 Encounters Encounter Location Date Provider Diagnosis [facility] [address] [address] 02/27/2025 Nestor Rao Moderate dementia wi th agitation, unspecified dementia type F03.B11 ; Intracranial hemorrhage I62.9 ; Anxiety disorder, unspecified F41.9 ; Paroxysmal atrial fibrillation I48.0 ; Weight loss, unintentional R63.4 and Routine medical exam Z00.00 Assessments Encounter Date Diagnosis (ICD Code) Assessment Notes Treatment Notes Treatment Clinical Notes Section Notes 02/27/2025 Moderate dementia with agitation, unspecified dementia type (ICD-10 - F03.B11) Overall seems to be slightly improved on memantine and Aricept. Interestingly, I tried to start her on these medications about 4 years ago when we initially made the diagnosis but she refused at the time. I am very happy she is taking them. They do seem to have helped. I think follow-up with [facility] is a great idea given her falls and hemorrhage issues 02/27/2025 Intracranial hemorrhage (ICD-10 - I62.9) No evidence of further recurrence. Follow-up with MRI is a great idea, discussed with her how to take her Valium 02/27/2025 Anxiety disorder, unspecified (ICD-10 - F41.9) Seems slightly improved, discussed that she would need Valium before the MRI, discussed with her to take this 02/27/2025 Paroxysmal atrial fibrillation (ICD-10 - I48.0) Heart rate regulated, good blood pressure control 02/27/2025 Weight loss, unintentional (ICD-10 - R63.4) Improved weight. Good gain, continue better nutrition. 02/27/2025 Routine medical exam (ICD-10 - Z00.00) Not a candidate for cancer screening given her severe dementia issues. Cognitive impairment screening not noted/done because of her dementia. Non-smoker. Up-to-date with vaccines. is healthcare decision-maker. No recent falls. Plan Of Treatment Treatment Notes Assessment Notes Moderate dementia with agita tion, unspecified dementia type Overall seems to be slightly improved on memantine and Aricept. Interestingly, I tried to start her on these medications about 4 years ago when we initially made the diagnosis but she refused at the time. I am very happy she is taking them. They do seem to have helped. I think follow-up with [facility] is a great idea given her falls and hemorrhage issues Intracranial hemorrhage No evidence of further recurrence. Follow-up with MRI is a great idea, discussed with her how to take her Valium Anxiety disorder, unspecified Seems slig htly improved, discussed that she would need Valium before the MRI, discussed with her to take this Paroxysmal atrial fibrillation Heart rat e regulated, good blood pressure control Weight loss, unintentional Improved weig ht. Good gain, continue better nutrition. Routine medical exam Not a candidate for cancer screening given her severe dementia issues. Cognitive impairment screening not noted/done because of her dementia. Non-smoker. Up-to-date with vaccines. is healthcare decision-maker. No recent falls. Next Appt Details Follow Up: prn, Reason: Provider Name:Nestor Rao, 05/01/2025 11:15:00 AM, [address] [place] [address], [id number], Progress Notes * Geovanna GARNER TDOB: (75 yo F)Acc No.[id number]:02/27/2025 Progress Notes Patient: Geovanna LI Provider: Siobhan Rao MD :1950 A ge:75 Y S ex:Female Date:02/27/2025 Address:[address] [place], [place] [id number] Subjective: * Chief Complaints: * 1 . MED CK. 2. Due for [employer] PAF. * HPI: g en: Here for follow-up of her weight and memory issues and blood pressure. Overall feels a little better. Has gained 4 pounds. No issues with recent falls or neurologic changes over her significantly affected baseline. Has an appointment with [facility] neurovascular, Dr. Grewal, and he has scheduled MRI scanning. She is very nervous about doing this. Has been given Valium and has questions about how to take this. In regard to [employer] practitioner assessment form please see review of systems and assessment/plan below. * ROS: F UNCTIONAL STATUS: ADLS D oes not drive, needs a lot of help with medications, does not do her own finances. Dependent on for most of her ADLs. * Medical History: G 2P2 - 2 c-sections - daughter with CP, Allergic rhinitis, Asthma - treated with Advair several months ago - stopped tx, Chronic dysparuenia, Depression/HUMBERTO, S/p erasmo in 2007, GERD, A-fib, IBS, Sciatic neuralgia, Hyperlipidemia, GERD [Gastroesophageal reflux disease], ASTHMA NOS, Mammogram, Negative Cologuard 08/24. * Surgical History: C -sections , cholecystectomy , cataract removal-both eyes 2023. * Hospitalization/Major Diagno stic Procedure: A -fib H 09/2014, [facility] - AFIB 04/23/23, [facility]- UTI 08/07/24-08/08/24, stroke 09/2024. * Family History: F ather: , diagnosed with Hypertension. M other: , CHF. P aternal Grand Father: . P aternal Grand Mother: . M aternal Grand Father: . M aternal Grand Mother: , diagnosed with Cancer. S jae: alive, 1 brother - leukemia1 sister- CHF. Cindy dahl: alive, daughter- stroke at ; seizures. 1 brother(s) , 3 sister(s) . 1 son(s) , 1 daughter(s) . . Asthma and allergies, seizure disorder in daughter, hypertension in parents,. * Social History: S moking A re you a: n onsmoker, A dditional Findings: Tobacco Non-User C urrent non-smoker. A lcohol Screening: none. Sexually active: yes. * Medications: T aking Atorvastatin Calcium 20 MG Tablet 1 tab(s) orally once a day , Taking Memantine HCl 10 MG Tablet 1 tab(s) orally 2 times a day , Taking Mirtazapine 30 MG Tablet 1 tab(s) orally once a day (at bedtime) , Taking Amiodarone HCl 200 MG Tablet 1/2 tab orally twice a day , Taking Metoprolol Tartrate 50 MG Tablet 1 tab(s) orally 2 times a day , Taking Albuterol Sulfate HFA 108 (90 Base) MCG/ACT Aerosol Solution 2 INH inhaled every 6 hours , Taking Famotidine 20 mg Tablet TAKE 1 TABLET 2 TIMES EACH DAY , Discontinued Mupirocin 2 % Ointment 1 application Externally Twice a day , Medication List reviewed and reconciled with the patient * Allergies: L idocaine: Hypotension, Cipro: Hypotension, Augmentin, SULFA, Doxycycline: stomach upset - Side Effects. Objective: * Vitals: N urse: dw, Pain: 0, Temp: 98.1, RR: 16, HR: 70, BP: 138/82, Ht: 65.5, Wt: 124, BMI:20.32. * Examination: G eneral Examination: General A little bit more talkative today. Seems more engaged, better eye contact. Weight gain noted.. Heart: R egular Rate and Rhythm, no murmur, rubs or gallops. HEENT: p harynx and tonsils normal, TM's normal. Lungs: L CTAB, No wheezes, crackles or rhonchi, Good air movement,. Neurologic Exam: M ore talkative, cranial nerves intact. Strength is equal in all 4 extremities, walks well. Remains significantly cognitively impaired regarding date, medications, upcoming test. Does know orientation x 2. Skin: N ew keratotic nodule in the right side of her nostril consistent with an emerging keratotic horn. Extremities: B rawny skin changes below the knee with some old edema, 2+, diminished pulses. Some old scarring. Assessment: * Assessment: 1. M oderate dementia with agitation, unspecified dementia type - F03.B11 (Primary) ?2. I ntracranial hemorrhage - I62.9 3 . A nxiety disorder, unspecified - F41.9 4 . P aroxysmal atrial fibrillation - I48.0 5 . W eight loss, unintentional - R63.4 6 . R outine medical exam - Z00.00 ? Plan: * Treatment: 2. I ntracranial hemorrhage Notes: No evidence of further recurrence. Follow-up with MRI is a great idea, discussed with her how to take her Valium 3. A nxiety disorder, unspecified Notes: Seems slightly improved, discussed that she would need Valium before the MRI, discussed with her to take this 4. P aroxysmal atrial fibrillation Notes: Heart rate regulated, good blood pressure control 5. W eight loss, unintentional Notes: Improved weight. Good gain, continue better nutrition. 6. R outine medical exam Notes: Not a candidate for cancer screening given her severe dementia issues. Cognitive impairment screening not noted/done because of her dementia. Non-smoker. Up-to-date with vaccines. is healthcare decision-maker. No recent falls. * Procedure Codes: 9 6160 HEALTH RISK [id number] * Follow Up: p rn * * Sign off status: Completed true * Provider: Siobhan Rao MD Date: 0 02/27/2025 Generated for Brendon andrews/Wendi/eTransmitting on: 0 04/16/2025 02:49 PM EDT History and Physical Notes * HPI (History of Present Illness) Category Sub-Category Detail Notes Category Not es gen Here for follow-up of her weight and memory issues and blood pressure. Overall feels a little better. Has gained 4 pounds. No issues with recent falls or neurologic changes over her significantly affected baseline. Has an appointment with [facility] neurovascular, Dr. Grewal, and he has scheduled MRI scanning. She is very nervous about doing this. Has been given Valium and has questions about how to take this. In regard to [employer] practitioner assessment form please see review of systems and assessment/plan below Examination Category Sub-Category Detail Notes Category Not es General Examination HEENT: pharynx and tonsils normal, TM's normal Heart: Regular Rate and Rhy thm, no murmur, rubs or gallops Lungs: LCTAB, No wheezes, c rackles or rhonchi, Good air movement, Extremities: Brawny skin changes below the knee with some old edema, 2+, diminished pulses. Some old scarring Skin: New keratotic nodule in the right side of her nostril consistent with an emerging keratotic horn Neurologic Exam: More talkative, cran ial nerves intact. Strength is equal in all 4 extremities, walks well. Remains significantly cognitively impaired regarding date, medications, upcoming test. Does know orientation x 2 General A little bit more ta lkative today. Seems more engaged, better eye contact. Weight gain noted.
--- OUTSIDE RECORDS SUMMARY | 2025-03-30 11:38 | XMS_ITS | Encounter Summary ---
Author Organization Healthcare Address [address] [place] [address] Care Team Providers Care Home Office Representative Name Role Phone Nestor Rao MD Primary Care Provider [phone] Reason for Visit * Imaging (Routine) - Closed Specialty Diagnoses / Procedures Referred By Contac t Referred To Contact Radiology Diagnoses Acute spontaneous intraparenchymal intracranial hemorrhage (CMS/HCC) Procedures MR Head w and wo IV Contrast Talia Blanton, TECHNOLOGY SOLUTIONS ARCHITECT [address] [address] Phone: tel: fax: Referral ID Status Reason Start Date Expiration Date Visits Re quested Visits Authorized [id number] Closed 09/20/2024 03/22/2026 1 1 Encounter Details Date Type Department Care Team (Latest Contact Info) Description 03/30/2025 11:38 AM EDT - 03/30/2025 11:59 PM EDT Hospital Encounter [facility] MRI [address] [place] [address] Discharge Disposition: Home or Self [...] any time in the past 12 m [facility], were you homeless or living in a mcc (including now)? No 09/18/2024 Utilities Answer Date Recorded In the past 12 months has th e [employer], gas, oil, or water company threatened to [...] Info) Description 04/12/2026 12:30 PM EDT [facility] [address] [place] [address] 04/12/2026 2:15 PM EDT Office Visit [place] [facility] [address] [place] [address] Doyle Grewal MD [address] [place] [address] documented as of this encounter [...] documented as of this encounter Care Teams Home Office Representative Relationship Specialty Start Date End Date Nestor Rao MD [address] [place] [address] PCP - General 01/17/21 documented as of this encounter
--- OUTSIDE RECORDS SUMMARY | 2025-03-30 14:45 | XMS_ITS | Encounter Summary ---
Author Organization Healthcare Address [address] [place] [address] Care Team Providers Care Medical Supervisor Name Role Phone Nestor Rao MD Primary Care Provider [phone] Reason for Referral * Consultation (Urgent) - Authorized Specialty Diagnoses / Procedures Referred By Arnulfo t Referred To Contact Neurology Diagnoses Memory changes Doyle Grewal MD [address] [address] Phone: tel: fax: [place] [facility] [address] [place] [address] Phone: tel: fax: Referral ID Status Reason Start Date Expiration Date Visits Requested Visits Authorized [id number] Authorized Specialty Services Required 03/30/2025 09/29/2026 1 1 Scheduling Instructions ARIEL MEDRANO-PLEASE SCHEDULE FIRST AVAILABLE APPT FOR TREATMENT OF MEMORY CHANGES. * Imaging (Routine) - Pending Review Specialty Diagnoses / Procedures Referred By Contkay t Referred To Contact Radiology Diagnoses Cavernous malformation Procedures MR Head w and wo IV Contrast Doyle Grewal MD [address] [address] Phone: tel: fax: Referral ID Status Reason Start Date Expiration Date V isits Requested Visits Authorized [id number] Pending Review 03/30/2025 09/29/2026 1 1 Reason for Visit * Reason Comments Follow-up Encounter Details Date Type Department Care Team (Late st Contact Info) Description 03/30/2025 2:45 PM EDT Office Visit [place] [facility] [address] [place] [address] Doyle Grewal MD [address] [place] [address] Cavernous malformation (Primary Dx); Pre-procedural laboratory examination; Memory changes Social History Tobacco Use Types Packs/Day Years Used Date Smoking Tobacco: Never Passive Smoke Exposure: Never Smokeless Tobacco: Never Tobacco Cessation:Counseling Given: Not Answered Alcohol Use Standard Drinks/Week Comments Never 0 [...] any time in the past 12 m [facility], were you homeless or living in a usp (including now)? No 09/18/2024 Utilities Answer Date Recorded In the past 12 months has th e [employer], gas, oil, or water company threatened to shut off services in your home? No 09/18/2024 Comments Unknown Sex and Gender Information Value Date Recorded Sex Assigned at Not on file Legal Sex Female 8:07 PM EDT Gender Identity Not on file Sexual Orientation Not on file documented as of this encounter Last Filed Vital Signs Vital Sign Reading Time Taken Comments Blood Pressure 108/72 03/30/2025 3:20 PM EDT Pulse 55 03/30/2025 3:20 PM EDT Temperature - - Respiratory Rate - - Oxygen Saturation 98% 03/30/2025 3:20 PM EDT Inhaled Oxygen Concentration - - Weight 56 kg (123 lb 7.3 oz) 03/30/2025 3:20 PM EDT Height - - Body Mass Index 20.54 02/02/2025 2:53 PM EDT documented in this encounter Miscellaneous Notes * Progress Notes - Jermaine Obando PA - 03/30/2025 2:45 PM EDT Images from the original note were not included. Patient I.D. Geovanna Garner Date of 1950 Encounter Date 03/30/2025 Chief Complaint Possible cavernous malformation History Of Present Illness Geovanna Garner is a 75 y.o. female with history of dementia, CAD on ASA, and atrial fibrillationon who presents for recheck of left occipital ICH with possible cavernous malformation. She is leftwith right peripheral deficit. She continues with confusion and hallucinations. Confuses her with uncle or father. Balance some better, nothing worse. Past Medical History She has a past medical history of Brain bleed ([facility]) (09/16/2023), Dementia ([facility]), Poor vision, and Stroke ([facility]) (09/16/2024). Surgical History She has a past surgical history that includes Cholecystectomy and section, classic. Family History Family History[1] Social History She reports that she has never smoked. She has never been exposed to tobacco smoke. She has never used smokeless tobacco. She reports that she does not drink alcohol and does not use drugs. Medications Current Medications[2] Allergies Amoxicillin-pot clavulanate, Phenazopyridine, Amoxicillin, Ciprofloxacin, Doxycycline, Lidocaine, Other, and Sulfa drugs Review of Systems Reviewed. Pertinent positives and negatives listed in HPI above. Vitals Visit Vitals Smoking Status Never Physical Exam CONSTITUTIONAL: Well developed, well nourished, in no acute distress HEAD: Normocephalic, atraumatic SKIN: Warm, non-diaphoretic, appropriate color EYES: Pupils equal, round, reactive to light, and accommodate appropriately RESPIRATORY: Breathing comfortably on room air without accessory muscle use NEUROLOGICAL: Alert without dystrophy. Speech fluent and intelligible. No cranial nerve deficits noted. Face Symmetric. RUE 5/5 RLE 5/5 LUE 5/5 LLE 5/5 MUSCULOSKELETAL: Appropriate station and nonmagnetic gait PSYCHIATRIC: Pleasant mood and appropriate affect Imaging The following was personally independently reviewed in addition to reading the radiology report: MRI: left occipital cavernous malformation noted without new hemorrhage Assessment and Plan Cavernous malformation Left occipital, no new hemorrhage or stroke symptoms Risk of intervention at this time exceeds benefits Recheck in 1 year with MRI sella Dementia Refer to [facility] Counseling: The patient and family was counseled regarding diagnostic results, prognosis, risks and benefit of treatment options, risk factor reductions, instructions for management, patient and family education, medication changes, impressions, and importance of compliance with treatment. Education provided was verbal counseling. Additional time was spent in care coordination including viewing prior records, reviewing prior labs/studies, obtaining history from the patient/family, discussing the management plan with the patient/family, counseling the patient/family, and documentation of the encounter. LEVEL OF SERVICE: Patient was seen by myself and Dr. Doyle Grewal Total time in minutes spent on face to face and qualifying non-face to face patient care related activities as outlined above on the date of service = KEVIN ATTESTATION by: Jermaine Obando PA-C I saw the patient [id number], obtained and documented the medical history, performed and documented the physical exam, and reviewed imaging. I documented the plan of care in the EMR prior to any revisions made by the attending physician. Thank you. If there are any questions or concerns please feel free to contact us: [facility] Department of Neurosurgery [address], [place] [address] [place] [phone] ; [1] Family History Problem Relation Name Age of Onset Dementia Father Dementia Sister Nonverbal [2] Current Outpatient Medications Medication Sig Dispense Refill albuterol 108 (90 Base) MCG/ACT inhaler Inhale [...] for 5 days, then up to 1mg (Patient not taking: Reported on 02/02/2025) diazePAM (Valium) 5 MG tablet Take 1-2 tablets by mouth as needed one hour prior to MRI 2 tablet 0 famotidine (Pepcid) 20 MG tablet Take 1 tablet (20 mg) by mouth 2 (two) times a day. hydrALAZINE (Apresoline) 25 MG tablet TAKE 1/2 TABLET 3 TIMES EACH DAY NEEDED FOR ANXIETY memantine (Namenda) 10 MG tablet Take 1 tablet (10 mg) by mouth 2 (two) times a day. metoprolol tartrate (Lopressor) 50 MG tablet Take 1 tablet (50 mg) by mouth 2 (two) times a day. mirtazapine (Remeron) 30 MG tablet Take 1 tablet (30 mg) by mouth every night. ryjovfrdzult-aczdmufz-lsmsf acid-coenzyme q10 (Preservision AREDS 2) capsule Take 1 capsule by mouth 2 times a day. No current facility-administered medications for this visit. documented in this encounter Plan of Treatment Upcoming Encounters Date Type Department Care Team (Late st Contact Info) Description 04/12/2026 12:30 PM EDT Appointment [facility] [address] [place] [address] 04/12/2026 2:15 PM EDT Office Visit [place] [facility] [address] [place] [address] Doyle Grewal MD [address] [place] [address] Scheduled Orders Name Type Priority Associated Diagnoses Orde r Schedule MR Head w and wo IV Contrast Imaging Routine Cavernous malformation Expected: 03/30/2026 (Approximate), Expires: 10/01/2026 Basic Metabolic Panel, Plasma Lab Routine Pre-procedural laboratory examination Expected: 03/30/2026 (Approximate), Expires: 10/01/2026 Scheduled Referrals Name Type Priority Associated Diagnoses Order Schedule Ambulatory referral to Neurology Outpatient Referral Routine Memory changes Expected: 04/30/2025, Expires: 10/01/2026 documented as of this encounter Visit Diagnoses Diagnosis Cavernous malformation- Primary Pre-procedural laboratory examination Memory changes documented in this encounter Additional Health Concerns Assessment Noted Time A fall risk assessment has been complete d for the patient 03/30/2025 3:19 PM EDT A Body Mass Index follow-up plan has been documented for the patient 03/30/2025 4:55 PM EDT documented as of this encounter Care Teams Medical Supervisor Relationship Specialty Start Date End Date Nestor Rao MD [address] [place] [address] PCP - General 01/17/21 documented as of this encounter
--- OUTSIDE RECORDS SUMMARY | 2025-04-03 07:50 | XMS_ITS ---
Author Organization [facility] D GABRIEL Address [address] [place] [address] Care Team Providers Care Car Attendant Name Role Phone Nestor Rao Primary Care Provider Results Component Value Reference Range Notes COMPREHENSIVE METABOLIC BRICE Aldrich (09554) Reviewed date:04/06/2025 10:47:35 AM Interpretation: Performing Lab:CB, [facility] [address], [place] YikvVD[address] Maciej Kennedy Notes/Report: GLUCOSE 116 65-99 mg/dL [...] Reviewed date:04/06/2025 10:47:35 AM Interpretation: Performing Lab:[facility] [employer] [address], [place] DysrUM[address] Maciej Kennedy Notes/Report: WHITE BLOOD CELL COUNT [...] MPV 11.2 7.5-12.5 fL ABSOLUTE NEUTROPHILS 3014 8878-0582 cells/uL ABSOLUTE LYMPHOCYTES 756 184-9267 cells/uL ABSOLUTE MONOCYTES 292 200-950 cells/uL ABSOLUTE EOSINOPHILS 60 15-500 cells/uL ABSOLUTE BASOPHILS 30 0-200 cells/uL NEUTROPHILS 70.1 LYMPHOCYTES 21.0 MONOCYTES 6.8 EOSINOPHILS 1.4 BASOPHILS 0.7 COMMENT(S) Review of peripheral smear confirms automated results. HEMOGLOBIN A1c (496) Reviewed date:04/06/2025 10:47:35 AM Interpretation: Performing Lab:[facility] [address], [place] GsklHF[address] Maciej Kennedy Notes/Report: HEMOGLOBIN A1c 5.5 <5.7 [...] diagnosis of diabetes in children. According to [place] Diabetes Association (ADA) guidelines, hemoglobin A1c <7.0% represents optimal control in non- diabetic patients. Different metrics may apply to specific patient populations. Standards of Medical Care in Diabetes(ADA). TSH (899) Reviewed date:04/06/2025 10:47:35 AM Interpretation: Performing Lab:CB, [facility] [address], [place] FjnpNQ[address] Maciej Kennedy Notes/Report: TSH 0.82 0.40-4.50 mIU/L Problems Problem Type SNOMED Code ICD Code Onset Dates Problem Status W/U Status Risk Notes Problem Hypoglycemia (988363432) Hypoglycemia (E16.2) Active confirmed Encounters Encounter Location Date Provider Diagnosis [facility] [address] [place] [address] 04/03/2025 Nestor Rao Hypoglycemia E16.2 a nd Paroxysmal atrial fibrillation I48.0 Assessments Encounter Date Diagnosis (ICD Code) Assessment Notes Treatment Notes Treatment Clinical Notes Section Notes 04/03/2025 Hypoglycemia (ICD-10 - E16.2) 04/03/2025 Paroxysmal atrial fibrillation (ICD-10 - I48.0) Plan Of Treatment Next Appt Details Provider Name:Nestor Rao, 05/01/2025 11:15:00 AM, [address] [place] [address], [phone], Progress Notes * Geovanna GARNER TDOB: (75 yo F)Acc No.[id number]:04/03/2025 Patient: Geovanna LI :1950 A ge:75 Y S ex:Female Address:[address] [place] [phone] Subjective: * Chief Complaints: * * Medical [...] ORM^O01 message is not formatted correctly.Validation Error(s): [facility] [place] Required field missing Danny Kenney R 04/06/2025 10:15:57 AM EDT > naThis lab was reviewed by Theo Mendoza on 04/06/2025 at 10:47 AM EDT ?LAB: CBC (INCLUDES DIFF/PLT) (0800)* Value Reference Range W MULU BLOOD CELL [...] - % * A BSOLUTE NEUTROPHILS 3014 5836-9158 - cells/uL * L YMPHOCYTES 21.0 - % * A BSOLUTE LYMPHOCYTES 616 283-3472 - cells/uL * M ONOCYTES 6.8 - [...] correctly.Validation Error(s): [facility]/SendingFacility Required field missing Pablito [place] R 04/06/2025 10:15:57 AM EDT > [facility] lab was reviewed by Theo Mendoza on 04/06/2025 at 10:47 AM EDT ?LAB: HEMOGLOBIN A1c (496)* Value Reference Range H EMOGLOBIN A1c 5.5 <5.7 - % * Validation Error(s): ORM^O01 message is not formatted correctly.Validation Error(s): [facility]/SendingFacility Required field missing Pablito Danny R 04/06/2025 10:15:57 AM EDT > [facility] lab was reviewed by Theo Mendoza on 04/06/2025 at 10:47 AM EDT ?LAB: TSH (899)* Value Reference Range T SH 0.82 0.40-4.50 - mIU/L * Validation Error(s): ORM^O01 message is not formatted correctly.Validation Error(s): [facility]/SendingFacility Required field missing Steffi Kenneyta R 04/06/2025 10:15:57 AM EDT > [facility] Mendoza on 04/06/2025 at 10:47 AM EDT 2.?Paroxysmal atrial fibrillation?LAB: COMPREHENSIVE METABOLIC PANEL (71720)* Value Reference Range G LUCOSE 116 H [...] ORM^O01 message is not formatted correctly.Validation Error(s): [facility] [place] Required field missing Danny Kenney R 04/06/2025 10:15:57 AM EDT > [facility] lab was reviewed by Theo Mendoza on 04/06/2025 at 10:47 AM EDT ?LAB: CBC (INCLUDES DIFF/PLT) (9075)* Value Reference Range W MULU BLOOD CELL [...] - % * A BSOLUTE NEUTROPHILS 3014 8590-7111 - cells/uL * L YMPHOCYTES 21.0 - % * A BSOLUTE LYMPHOCYTES 768 590-3101 - cells/uL * M ONOCYTES 6.8 - % * A BSOLUTE MONOCYTES 292 200-950 - cells/uL * E OSINOPHILS 1.4 - % * A BSOLUTE EOSINOPHILS 60 15-500 - cells/uL * B ASOPHILS 0.7 - % * A BSOLUTE BASOPHILS 30 0-200 - cells/uL * M PV 11.2 7.5-12.5 - fL * Validation Error(s): ORM^O01 message is not formatted correctly.Validation Error(s): [facility] [place] Required field missing [facility] R 04/06/2025 10:15:57 AM EDT > naThis lab was reviewed by Theo Mendoza on 04/06/2025 at 10:47 AM EDT ?LAB: HEMOGLOBIN A1c (496)* Value Reference Range H EMOGLOBIN A1c 5.5 <5.7 - % * Validation Error(s): ORM^O01 message is not formatted correctly.Validation Error(s): [facility]/Sending[facility]ility Required field missing [facility] R 04/06/2025 10:15:57 AM EDT > naThis lab was reviewed by Theo Mendoza on 04/06/2025 at 10:47 AM EDT ?LAB: TSH (899)* Value Reference Range T SH 0.82 0.40-4.50 - mIU/L * Validation Error(s): ORM^O01 message is not formatted correctly.Validation Error(s): [facility]/SendingFacility Required field missing [facility] R 04/06/2025 10:15:57 AM EDT > naThis lab was reviewed by Theo Mendoza on 04/06/2025 at 10:47 AM EDT * Procedure Codes: * true * Date: Generated for Brendon andrews/Wendi/Bryan on: 0 04/16/2025 02:48 PM EDT
--- OUTSIDE RECORDS SUMMARY | 2025-04-10 11:00 | XMS_ITS ---
Author Organization [facility] D GABRIEL Address [address] [place] [address] Care Team Providers Care Engineering Inspector Name Role Phone Nestor Rao Primary Care [...] date:04/15/2025 08:23:48 PM Interpretation: Performing Lab:CB, [facility] [address], [facility]ismSO[address] Maciej Kennedy Notes/Report: NON-FASTING CULTURE, URINE, ROUTINE SEE NOTE CULTURE, URINE, ROUTINE Micro Number: [id number] Test Status: Final Specimen Source: Urine Specimen [...] 04/10/2025 Encounters Encounter Location Date Provider Diagnosis [facility] [address] [address] 04/10/2025 Nestor Rao Dysuria R30.0 and Cystitis [...] Details Follow Up: prn, Reason: Provider Name:Nestor aRo, 05/01/2025 11:15:00 AM, [address] [place] [address], [phone], Progress Notes * Geovanna GARNER TDOB: (75 yo F)Acc No.[id number]:04/10/2025 Progress Notes Patient: Geovanna LI Provider: Siobhan Rao MD :1950 A ge:75 Y S ex:Female Date:04/10/2025 Address:[address] [place], [place] [id number] Subjective: * Chief Complaints: * 1 . [...] Rao MD Date: 04/10/2025 Generated for Brendon andrews/Wendi/Juliasmitting on: 04/16/2025 02:50 PM EDT History and Physical Notes * [...]
--- NOTE | 2025-04-16 14:37 | ECG_ITS ---
APPROVED REPORT Exam: Resting ECG HR:61 bpm ECG Measurements Heart Rate 61 AXES OK 196 P 55 QRSd 90 QRS 29 QT 457 T 44 QTc 459 Conclusion SINUS RHYTHM POSSIBLE LEFT ATRIAL ENLARGEMENT [-0.1mV P-WAVE IN V1/V2] BORDERLINE ECG UNCONFIRMED REPORT Electronically signed by : TAYLOR ROD, 04/16/2025 23:42:31
[2025-04-16 14:42] VITALS: PULSE 62; RESP 15; O2SAT 99
--- NOTE | 2025-04-16 14:43 | HMH.EDGENADL ---
Discharge Plan Disposition Chief Complaint: Weakness Prescriptions Prescriptions: No Action escitalopram oxalate 10 mg tablet 10 mg PO DAILY Patient Comments: TAKE 1 TABLET 1 TIME EACH DAY memantine 10 mg tablet 10 mg PO BID Qty: 60 3RF famotidine 20 mg tablet 20 mg PO BID atorvastatin [Lipitor] 20 mg tablet 20 mg PO DAILY Qty: 30 5RF aspirin [Adult Aspirin Regimen] 81 mg tablet,delayed release (DR/EC) 81 mg PO DAILY Qty: 30 5RF metoprolol tartrate 50 mg tablet 50 mg PO BID Qty: 180 1RF Patient Comments: TAKE 1 TABLET 1 TIME DAILY amiodarone 200 mg tablet 100 mg PO BID albuterol sulfate 90 mcg/actuation HFA aerosol inhaler 4 inh inhalation Q4HP PRN (Reason: shortness of breath or wheezing) Rx Instructions: 4 puffs every 4 hours for 48 hours then as needed for shortness of breath or wheezing following cefdinir 300 mg Capsule 300 mg PO BID 3 Days Qty: 6 0RF polyethylene glycol 3350 [Miralax] 17 gram/dose powder 17 g PO DAILY Qty: 510 0RF sennosides [Senna Lax] 8.6 mg tablet 8.6 mg PO HS PRN (Reason: constipation) Qty: 30 0RF meclizine 25 mg tablet 25 mg PO TID PRN (Reason: dizziness) Qty: 30 0RF nitrofurantoin monohyd/m-cryst 100 mg capsule 100 mg PO BID 5 Days Qty: 10 0RF Rx Instructions: must administer with a meal/food hydralazine 25 mg tablet 12.5 mg PO TID PRN (Reason: anxiety) Qty: 30 0RF meclizine 25 mg tablet 25 mg PO TID PRN (Reason: dizziness) Qty: 12 0RF Referrals Follow up/Referrals: Nestor Rao MD [Primary Care Provider, Internal Medicine] - See instructions Print Language Print Language: Malay Discharge ED Provider: Nehemias Latham General Adult HPI <Nehemias Latham MD - Last Filed: 04/16/25 15:21> General Chief complaint: Weakness Stated complaint: general weakness Time Seen by Provider: 04/16/25 14:42 Mode of Arrival: EMS Source of Information: Patient Limitations: No Limitations History of Present Illness HPI narrative: Geovanna Garner is a 75 year old female with a past medical history of paroxysmal A-fib, generalized anxiety disorder, hypertension, hyperlipidemia, coronary artery disease, dementia who presents to the emergency department for complaints of an episode of passing out. Patient alert to self and location but does not know the year. Family at the bedside states that she seems a little more confused than normal. Patient states that today, she was sitting up in her chair and was talking to a friend who was in the house with her when she passed out. She states that she felt it coming on but was never passed out for before. She believes that she was out for a couple seconds before coming to. She denies any recent chest pain, shortness of breath, abdominal pain, nausea or vomiting. Reportedly she has been incontinent of urine today, which is unusual for her. Patient states that she feels weak all over. Related Data Home Medications ?Medication ?Instructions ?Recorded ?Confirmed escitalopram oxalate 10 mg tablet 10 mg PO DAILY 02/18/24 08/08/24 famotidine 20 mg tablet 20 mg PO BID 05/11/24 08/08/24 albuterol sulfate 90 mcg/actuation 4 inh inhalation Q4HP PRN 08/08/24 aerosol inhaler shortness of breath or wheezing amiodarone 200 mg tablet 100 mg PO BID 08/08/24 08/08/24 Previous Rx's ?Medication ?Instructions ?Recorded memantine 10 mg tablet 10 mg PO BID #60 tabs 03/07/24 aspirin 81 mg tablet,delayed 81 mg PO DAILY #30 tabs 05/11/24 release (Adult Aspirin Regimen) atorvastatin 20 mg tablet (Lipitor) 20 mg PO DAILY #30 tabs 05/11/24 cefdinir 300 mg capsule 300 mg PO BID 3 days #6 caps 08/08/24 meclizine 25 mg tablet 25 mg PO TID PRN dizziness #30 tabs 08/29/24 metoprolol tartrate 50 mg tablet 50 mg PO BID #180 tabs 10/27/24 nitrofurantoin 100 mg PO BID 5 days #10 caps 10/28/24 monohydrate/macrocrystals 100 mg capsule polyethylene glycol 3350 17 17 g PO DAILY #510 grams 01/15/25 gram/dose oral powder (Miralax) sennosides 8.6 mg tablet (Senna 8.6 mg PO HS PRN constipation #30 05/12/25 Lax) tabs hydralazine 25 mg tablet 12.5 mg (1/2 x 25 mg) PO TID PRN 01/20/25 anxiety #30 tabs meclizine 25 mg tablet 25 mg PO TID PRN dizziness #12 tabs 04/12/25 Allergies Allergy/AdvReac Type Severity Reaction Status Date / Time amoxicillin (From Augmentin) Allergy Unknown Verified 08/08/24 07:09 allergy reaction ciprofloxacin (From Cipro) Allergy Unknown Verified 08/08/24 07:09 allergy reaction clavulanic acid (From Allergy Unknown Verified 08/08/24 07:09 Augmentin) allergy reaction doxycycline Allergy Unknown Verified 08/08/24 07:09 allergy reaction lidocaine Allergy Unknown Verified 08/08/24 07:09 allergy reaction Sulfa (Sulfonamide Allergy Unknown Verified 08/08/24 07:09 Antibiotics) allergy reaction PFSH <Nehemias Latham MD - Last Filed: 04/16/25 15:21> [facility] Disclaimer: The information contained in this section may have been updated after the patient was seen, as this information can be updated by other users. Medical History Chronic kidney disease Generalized weakness Acute UTI Acute pain of right hip Nontraumatic hematoma Constipation Asthenia Viral syndrome Diarrhea Laryngitis Cough Nausea CELINA (acute kidney injury) Cystitis Cerumen impaction Mild cognitive impairment Hypoglycemia Dehydration Coronary artery disease Elevated brain natriuretic peptide (BNP) level Abnormal electrocardiogram [ECG] [EKG] Fatigue HTN (hypertension) Dyspnea Abnormal ECG Abnormal findings on diagnostic imaging of heart and coronary circulation Sinus bradycardia Chronic GERD IBS (irritable bowel syndrome) Hyperlipidemia Depression Dyspareunia Asthma Paroxysmal atrial fibrillation Palpitations Surgical History H/O: section Hx of cholecystectomy Family History Father Hypertension Mother CHF (congestive heart failure) Cancer Daughter Seizure Stroke Social History Smoking Status: Never smoker second hand exposure: No alcohol intake: never counseling given: No current occupational status: retired Travel in the last 8 weeks?: None household members: family housing: house marital status: Have you lived/traveled outside US in past 30 days?: No Contact w/someone who lives/traveled outside US past 30 days?: No Exposure to someone with infectious disease in past 14 days?: No Do you have a fever (greater than 100.4 F or 38 C)?: No Have you tested positive for COVID-19?: No Exposed to someone with COVID-19 in past 14 days?: No Do you have a sore throat?: No Do you have a cough?: No Do you have any weakness?: Yes Do you have any diarrhea?: No Are you experiencing any unusual bleeding?: No Do you have any muscle aches/pain?: No Do you have any abdominal pain?: No Are you experiencing loss of taste or smell?: No Other Medical History Have you received the Flu Vaccine for this season: No Have you received the Pneumonia Vaccine: No <Nehemias Latham MD - Last Filed: 04/16/25 15:21> ROS Obtained: Yes Systems reviewed as appropriate & no additional complaints except as documented Physical Exam <Nehemias Latham MD - Last Filed: 04/16/25 15:21> General General appearance: alert and in no apparent distress Head Head exam: atraumatic Eye Eye exam: Present normal appearance and PERRL ENT ENT exam: Present normal external ear exam Neck Neck exam: Present full ROM Chest Chest inspection: Present symmetric chest wall rise Respiratory Respiratory exam: Present normal lung sounds bilaterally; Absent respiratory distress, wheezes or stridor Cardiovascular Cardiovascular exam: Present regular rate and normal rhythm Abdominal Exam Abdominal exam: Present soft; Absent distention, tenderness, guarding or rebound Extremities Exam Extremities exam: Present normal inspection Back Exam Back exam: Present normal inspection Neurological Exam Neurological exam: Present alert and other (No focal neurological deficits, following commands, moving all extremities.); Absent oriented X3 (Oriented to self and location only) Psychiatric Psychiatric exam: Present normal affect Skin Skin exam: Present warm and dry Medical Decision Making <Nehemias Latham MD - Last Filed: 04/16/25 15:21> Medical Records Screening: Per USPSTF and CDC recommendations, given the prevalence of disease in our region, it is our hospital?s policy to screen for HIV and viral Hepatitis for all patients aged 18 and over and those with ongoing risk factors. Narciso Inquiry Pt receiving controlled substance: No Vital Signs: 04/16/25 14:44 Temperature 98.1 F Temperature Source Oral Pulse Rate [Right Radial] 61 Respiratory Rate 18 Blood Pressure [Right Arm] 153/73 H Blood Pressure Mean [Right Arm] 99 Blood Pressure Source [Right Arm] Automatic Cuff Blood Pressure Position [Right Arm] Supine 02 Sat by Pulse Oximetry 98 Oxygen Delivery Method Room Air Lab Data Lab Results 04/16/25 14:35: Urine Color Yellow, Urine Appearance Clear, Urine pH 7.0, Ur Specific [place] 1.015, Urine Protein Negative, Urine Glucose (UA) Negative, Urine Ketones Negative, Urine Blood Trace-i, Urine Nitrate Negative, Urine Bilirubin Negative, Urine Urobilinogen 0.2, Ur Leukocyte Esterase Negative, Urine RBC None, Urine WBC Occasional, Ur Squamous Epith Cells Occasional, Urine Bacteria Trace 04/16/25 14:52: WBC 5.1, RBC 4.69, Hgb 13.1, Hct 41.5, MCV 88.5, MCH 27.9, MCHC 31.6 L, RDW 14.0, Plt Count 114 L, MPV 10.3, Neut % (Auto) 78.1, Lymph % (Auto) 15.4, [place] % (Auto) 4.9, Eos % (Auto) 0.6, Baso % (Auto) 0.6, Neut # (Auto) 4.0, Lymph # (Auto) 0.8, [place] # (Auto) 0.3, Eos # (Auto) 0.0, Baso # (Auto) 0.0, Sodium 141, Potassium 4.1, Chloride 103, Carbon Dioxide 30, Anion Gap 12.1, BUN 25 H, Creatinine 1.10 H, Estimated Creat Clear 37, Estimated GFR 49 L, Est GFR ( Amer) 59, Glucose 119 H, Calcium 9.4, Phosphorus 3.3, Magnesium 2.4 H, Total Bilirubin 0.5, AST 34, ALT 20, Alkaline Phosphatase 84, Total Protein 7.6, Albumin 4.7, Globulin 2.9, Albumin/Globulin Ratio 1.6, TSH 0.65, Free T4 2.35 H, HCV Ab MICHELLE w/Rflx PCR Qn Negative, HIV Ag/Ab Combo Qual Negative 04/16/25 14:57: VBG pH 7.37, VBG pCO2 51.0, VBG pO2 38.2, VBG HCO3 28.5, VBG Total CO2 30.1 H, VBG O2 Saturation 70.3 H, VBG Base Excess 3.1 H, VBG Lactic Acid 1.5 04/16/25 14:52 04/16/25 14:52 Orders (Tests/Meds): ORDERS Category Date Time Status CT head/brain wo con Stat Cat Scan 04/16/25 14:51 Completed XR chest portable Stat Exams 04/16/25 14:51 Completed CBC w/Auto Diff [Complete Blood Count Auto Diff] Stat Lab 04/16/25 14:52 Completed CMP [Comprehensive Metabolic Panel] Stat Lab 04/16/25 14:52 Results CRP [C-Reactive Protein] Stat Lab 04/16/25 14:52 Results Free T4 (Free Thyroxine) Stat Lab 04/16/25 14:52 Completed HIV Combo Stat Lab 04/16/25 14:52 Completed Hepatitis C Ab Qual. W/ RFX Stat Lab 04/16/25 14:52 Completed Magnesium Stat Lab 04/16/25 14:52 Results Phosphorous Stat Lab 04/16/25 14:52 Results TSH [Thyroid Stimulating Hormone] Stat Lab 04/16/25 14:52 Results UA [Urinalysis and Microscopic] Stat Lab 04/16/25 14:35 Completed VBG [Venous Blood Gas] Stat RT 04/16/25 14:57 Completed ECG Data Tracing #1: I reviewed this ECG and interpreted as documented below: Normal sinus rhythm. No ST elevation or depression. QTc normal at 459. Medical Decision Narrative: Geovanna Garner is a 75 year old female with a past medical history of paroxysmal A-fib, generalized anxiety disorder, hypertension, hyperlipidemia, coronary artery disease, dementia who presents to the emergency department for complaints of an episode of passing out. Patient alert to self and location but does not know the year. Family at the bedside states that she seems a little more confused than normal. Patient states that today, she was sitting up in her chair and was talking to a friend who was in the house with her when she passed out. She states that she felt it coming on but was never passed out for before. She believes that she was out for a couple seconds before coming to. She denies any recent chest pain, shortness of breath, abdominal pain, nausea or vomiting. Reportedly she has been incontinent of urine today, which is unusual for her. Patient states that she feels weak all over. On arrival, patient is mildly hypertensive, heart rate within normal limits, breathing comfortably on room air with oxygen saturation 90% SpO2. Afebrile. Physical exam, as stated above, reveals an overall well-appearing female in no distress. Cardiopulmonary dam is unremarkable. She is GCS 14 due to confusion and is oriented to self and location only. Family states that she seems somewhat more confused than normal. Abdomen is soft, nontender nondistended. Differential diagnosis includes, but is not limited to: Cardiac syncope, vasovagal syncope, electrolyte derangement, dehydration, metabolic derangement, urinary tract infection, ACS, pneumonia, among others. The most morbid conditions were considered and workup was based on these. Workup in the emergency department included: VBG, UA, TSH/free T4, phosphorus level, magnesium level, CMP, CBC with differential, CRP, two-view chest x-ray, CT head without contrast, EKG EKG, as stated above, revealed normal sinus rhythm without ischemic findings. Workup at this time is pending. Patient's care transferred to the oncoming physician, Dr. Melendez, pending completion of her workup. <Karina Melendez, DO - Last Filed: 04/16/25 16:45> Vital Signs: 04/16/25 14:44 Temperature 98.1 F Temperature Source Oral Pulse Rate [Right Radial] 61 Respiratory Rate 18 Blood Pressure [Right Arm] 153/73 H Blood Pressure Mean [Right Arm] 99 Blood Pressure Source [Right Arm] Automatic Cuff Blood Pressure Position [Right Arm] Supine 02 Sat by Pulse Oximetry 98 Oxygen Delivery Method Room Air Lab Data Lab Results 04/16/25 14:35: Urine Color Yellow, Urine Appearance Clear, Urine pH 7.0, Ur Specific [place] 1.015, Urine Protein Negative, Urine Glucose (UA) Negative, Urine Ketones Negative, Urine Blood Trace-i, Urine Nitrate Negative, Urine Bilirubin Negative, Urine Urobilinogen 0.2, Ur Leukocyte Esterase Negative, Urine RBC None, Urine WBC Occasional, Ur Squamous Epith Cells Occasional, Urine Bacteria Trace 04/16/25 14:52: WBC 5.1, RBC 4.69, Hgb 13.1, Hct 41.5, MCV 88.5, MCH 27.9, MCHC 31.6 L, RDW 14.0, Plt Count 114 L, MPV 10.3, Neut % (Auto) 78.1, Lymph % (Auto) 15.4, [place] % (Auto) 4.9, Eos % (Auto) 0.6, Baso % (Auto) 0.6, Neut # (Auto) 4.0, Lymph # (Auto) 0.8, [place] # (Auto) 0.3, Eos # (Auto) 0.0, Baso # (Auto) 0.0, Sodium 141, Potassium 4.1, Chloride 103, Carbon Dioxide 30, Anion Gap 12.1, BUN 25 H, Creatinine 1.10 H, Estimated Creat Clear 37, Estimated GFR 49 L, Est GFR ( Amer) 59, Glucose 119 H, Calcium 9.4, Phosphorus 3.3, Magnesium 2.4 H, Total Bilirubin 0.5, AST 34, ALT 20, Alkaline Phosphatase 84, Total Protein 7.6, Albumin 4.7, Globulin 2.9, Albumin/Globulin Ratio 1.6, TSH 0.65, Free T4 2.35 H, HCV Ab MICHELLE w/Rflx PCR Qn Negative, HIV Ag/Ab Combo Qual Negative 04/16/25 14:57: VBG pH 7.37, VBG pCO2 51.0, VBG pO2 38.2, VBG HCO3 28.5, VBG Total CO2 30.1 H, VBG O2 Saturation 70.3 H, VBG Base Excess 3.1 H, VBG Lactic Acid 1.5 Orders (Tests/Meds): ORDERS Category Date Time Status CT head/brain wo con Stat Cat Scan 04/16/25 14:51 Completed XR chest portable Stat Exams 04/16/25 14:51 Completed CBC w/Auto Diff [Complete Blood Count Auto Diff] Stat Lab 04/16/25 14:52 Completed CMP [Comprehensive Metabolic Panel] Stat Lab 04/16/25 14:52 Results CRP [C-Reactive Protein] Stat Lab 04/16/25 14:52 Results Free T4 (Free Thyroxine) Stat Lab 04/16/25 14:52 Completed HIV Combo Stat Lab 04/16/25 14:52 Completed Hepatitis C Ab Qual. W/ RFX Stat Lab 04/16/25 14:52 Completed Magnesium Stat Lab 04/16/25 14:52 Results Phosphorous Stat Lab 04/16/25 14:52 Results TSH [Thyroid Stimulating Hormone] Stat Lab 04/16/25 14:52 Results UA [Urinalysis and Microscopic] Stat Lab 04/16/25 14:35 Completed VBG [Venous Blood Gas] Stat RT 04/16/25 14:57 Completed Medical Decision Narrative: Geovanna Garner is a 75 year old female with a past medical history of paroxysmal A-fib, generalized anxiety disorder, hypertension, hyperlipidemia, coronary artery disease, dementia who presents to the emergency department for complaints of an episode of passing out. Patient alert to self and location but does not know the year. Family at the bedside states that she seems a little more confused than normal. Patient states that today, she was sitting up in her chair and was talking to a friend who was in the house with her when she passed out. She states that she felt it coming on but was never passed out for before. She believes that she was out for a couple seconds before coming to. She denies any recent chest pain, shortness of breath, abdominal pain, nausea or vomiting. Reportedly she has been incontinent of urine today, which is unusual for her. Patient states that she feels weak all over. On arrival, patient is mildly hypertensive, heart rate within normal limits, breathing comfortably on room air with oxygen saturation 90% SpO2. Afebrile. Physical exam, as stated above, reveals an overall well-appearing female in no distress. Cardiopulmonary dam is unremarkable. She is GCS 14 due to confusion and is oriented to self and location only. Family states that she seems somewhat more confused than normal. Abdomen is soft, nontender nondistended. Differential diagnosis includes, but is not limited to: Cardiac syncope, vasovagal syncope, electrolyte derangement, dehydration, metabolic derangement, urinary tract infection, ACS, pneumonia, among others. The most morbid conditions were considered and workup was based on these. Workup in the emergency department included: VBG, UA, TSH/free T4, phosphorus level, magnesium level, CMP, CBC with differential, CRP, two-view chest x-ray, CT head without contrast, EKG EKG, as stated above, revealed normal sinus rhythm without ischemic findings. Workup at this time is pending. Patient's care transferred to the oncoming physician, Dr. Melendez, pending completion of her workup. Karina Melendez, DO I assumed care of the patient at 1500. Patient's labs were reviewed and interpreted by myself, CBC showed no leukocytosis, hemoglobin was stable. VBG was unremarkable. CMP was unremarkable. Magnesium normal. Thyroid studies unremarkable. UA showed no evidence of infection. CT head was reviewed and interpreted by myself and showed no acute intracranial pathology X-ray was reviewed and interpreted by myself and showed no acute consolidation, pneumothorax, pleural effusion or other acute cardiopulmonary process. After long discussion with the patient's at bedside, he states that patient is currently at her baseline, patient is only alert and oriented to self. Patient is otherwise unremarkable workup at this time I felt the patient was appropriate for discharge home. felt comfortable taking the patient home. Patient was discharged in stable condition return precautions were discussed. Critical Care <Nehemias Latham MD - Last Filed: 04/16/25 15:21> Critical Care Time Critical Care Time: No
[2025-04-16 14:44] VITALS: BP 153/73; PULSE 61; RESP 18; TEMP 36.7; O2SAT 98; BMI 19.1
--- OUTSIDE RECORDS SUMMARY | 2025-04-16 14:50 | XMS_ITS | Clinical Summary ---
Author Organization [facility] Address [address] [place] [address] Care Team Providers Care [employer] Name Role Phone Nestor Rao MD Primary Care Provider [phone] Allergies Active Allergy Reactions Criticality Noted Date [...] Description 03/30/2025 2:45 PM EDT Office Visit [facility] [address] [place] [address] Doyle Grewal MD Cavernous malformation (Primary Dx); Pre-procedural laboratory examination; Memory changes 03/30/2025 11:38 AM EDT - 03/30/2025 11:59 PM EDT Hospital Encounter [facility] [address] [place] [phone] Discharge Disposition: Home or Self Care 03/30/2025 Travel 02/02/2025 3:30 PM EDT Office Visit [facility] [address] [place] [address] Doyle Grewal MD Memory changes (Primary Dx); Acute spontaneous intraparenchymal intracranial hemorrhage (CMS/HCC) 02/02/2025 [facility]ill [place] [facility] [address] [place] [id number] Ileana Ron RN Claustrophobia (Primary Dx) 02/02/2025 [...] any time in the past 12 m [facility], were you homeless or living in a [facility] (including now)? No 09/18/2024 Utilities Answer Date [...] EDT Appointment [facility] [address] [place] [address] 04/12/2026 2:15 PM EDT Office Visit [place] [facility] [address] [place] [phone] Doyle Grewal MD [address] [place] [phone] Health Maintenance Due Date Last Done Comments [facility]-Bone Density Scan 1950 [facility]-Depression Screening 1950 [facility]-Hepatitis C Screening 1950 [facility]-Medicare Annual Wellness (AWV) 1950 [facility]-Infant/Child/Adol SDOH Screenings 1950 [address] Colonography 01/19/1996 Colonoscopy 01/19/1996 FIT-DNA 01/19/1996 FIT 01/19/1996 FOBT 01/19/1996 Sigmoidoscopy 01/19/1996 [facility]-Colorectal Cancer Screening 01/19/1996 [facility]-Breast Cancer Screening 2001 [facility]-Zoster Vaccines (1 of 2) 2001 [facility]-[id number]-11 Vaccine ( season) 2024 09/18/2021, 10/09/2020, 09/11/2020 [...] error, please notify the sender immediately at [phone] and permanently delete the original report and destroy any copies or printouts. Narrative 04/01/2025 10:33 AM EDT [facility] - Phone Outpatient NAME: Jeffrey Garner DATE OF EXAM: 03/30/2025 Patient No: [id number] Physician: Pelon Date of : 1950 Past [...] Garner DATE OF EXAM: 03/30/2025 Patient No: [id number] Physician: Pelon Date of : 1950 Past [...] in error, pleasenotify the sender immediately at [phone] and permanently delete theoriginal report and destroy any copies or printouts. Talia Blanton APRN IMG MRI PROCEDURES Final R esult from Last 3 Months [place] [address] [facility] Advance Directives * Full Code (Latest Code Status on File) Date Activated Date Inactivated Comments 09/21/2024 5:07 AM 09/21/2024 5:34 PM Question Answer Comments Patient has decision-making capacity? Yes * Full Code Date Activated Date Inactivated Comments 09/17/2024 11:51 PM 09/20/2024 5:15 PM Question Answer Comments Patient has decision-making capacity? Yes Care Teams Owner [employer] Relationship Specialty Start Date End Date Nestor Rao MD [address] [place] [address] [facility] - General 01/17/21
--- OUTSIDE RECORDS SUMMARY | 2025-04-16 14:50 | XMS_ITS | Encounter Summary ---
Author Organization Healthcare Address [address] [place] [address] Care Team Providers Care Restaurant Hospitality Manager Name Role Phone Nestor Rao MD Primary Care Provider [phone] Encounter Details Date Type Department Care Team [...] you homeless or living in a senior living (including now)? No 09/18/2024 Utilities Answer Date [...] [facility] [address] [place] [phone] 04/12/2026 2:15 PM EDT [facility] Visit [facility] [address] [place] [address] Doyle Grewal MD [address] [place] [address] documented as of this encounter Visit Diagnoses Not on filedocumented in this encounter Additional Health Concerns Assessment Noted Time A fall risk assessment has been complete d for the patient 03/30/2025 3:19 PM EDT A Body Mass Index follow-up plan has been documented for the patient 03/30/2025 4:55 PM EDT documented as of this encounter Care Teams Restaurant Hospitality Manager Relationship Specialty Start Date End Date Nestor Rao MD [address] [place] [id number] PCP - General 01/17/21 documented as of this encounter
--- OUTSIDE RECORDS SUMMARY | 2025-04-16 14:50 | XMS_ITS | Patient Health Record ---
Author Organization [facility] Address [address] [place] [address] Care Team Providers Care Hod Carrier Name Role Phone Nestor Rao Primary Care Provider [phone] McNeSophia marie Unavailable [phone] Migration, Provider Unavailable Unavailable Allergies Allergen (clinical [...] 1.025 Ketone trace Bili neg Glucose neg COMPREHENSIVE METABOLIC PANE L (52844) Reviewed date:04/06/2025 10:47:35 AM Interpretation: Performing Lab:CB, [facility] [address], [place] QwfeXO[address] Maciej Kennedy Notes/Report: GLUCOSE 116 65-99 mg/dL [...] 9) Reviewed date:04/06/2025 10:47:35 AM Interpretation: Performing Lab:TRUDI, [facility] [place] [facility], United HospitalZqmfEL[address] Maciej Kennedy Notes/Report: WHITE BLOOD CELL COUNT [...] MPV 11.2 7.5-12.5 fL ABSOLUTE NEUTROPHILS [phone] cells/uL ABSOLUTE LYMPHOCYTES 495 844-6547 cells/uL ABSOLUTE MONOCYTES 292 200-950 cells/uL ABSOLUTE EOSINOPHILS 60 15-500 cells/uL ABSOLUTE BASOPHILS 30 0-200 cells/uL NEUTROPHILS 70.1 LYMPHOCYTES 21.0 MONOCYTES 6.8 EOSINOPHILS 1.4 BASOPHILS 0.7 COMMENT(S) automated results. Review of peripheral smear confirms HEMOGLOBIN A1c (496) Reviewed date:04/06/2025 10:47:35 AM Interpretation: Performing Lab:TRUDI [facility] [employer], WamiAzwsWW[address] Maciej Kennedy Notes/Report: HEMOGLOBIN A1c 5.5 <5.7 [...] diagnosis of diabetes in children. According to [place] Diabetes Association (ADA) guidelines, hemoglobin A1c <7.0% represents optimal control in non- diabetic patients. Different metrics may apply to specific patient populations. Standards of Medical Care in Diabetes(ADA). TSH (899) Reviewed date:04/06/2025 10:47:35 AM Interpretation: Performing Lab:TRUDI [facility] [employer], [place] UzrpZR[address] Maciej Kennedy Notes/Report: TSH 0.82 0.40-4.50 mIU/L CULTURE, URINE, ROUTINE (395 ) Reviewed date:04/15/2025 08:23:48 PM Interpretation: Performing Lab:TRUDI [facility] [employer], [place] OmteHY[address] Maciej Kennedy Notes/Report: NON-FASTING CULTURE, URINE, ROUTINE SEE NOTE Result: Greater than 100,000 CFU/mL of Escherichia [...] Not Reported NN = See Therapy Comments CULTURE, URINE, ROUTINE Micro Number: [id number] Test Status: Final Specimen Source: Urine Specimen Quality: Adequate CULTURE, URINE, ROUTINE (395 ) Reviewed date:10/09/2024 11:04:49 AM Interpretation: Performing Lab:TRUDI, [facility] [address], [facility] RochesterHkfaSY[address] Maciej Kennedy Notes/Report: NON-FASTING CULTURE, URINE, ROUTINE SEE NOTE CULTURE, URINE, ROUTINE Micro Number: [id number] Test Status: Final Specimen Source: Urine Specimen [...] (Distinguishing susceptible versus intermediate for isolates with MONY < or = 4 mcg/mL requires additional testing.) Note 2: For uncomplicated UTI caused by E. coli, K. pneumoniae or P. mirabilis: Cefazolin is susceptible if MOYN <32 mcg/mL and predicts susceptible to the oral agents cefaclor, cefdinir, cefpodoxime, cefprozil, cefuroxime, cephalexin and loracarbef. Urinalysis Reviewed date:09/27/2024 03:54:56 PM Interpretation: Performing Lab: Notes/Report: Color/Clarity yellow Leuk small Nitrite positive Urobili 0.2 Protein 30mg pH 5.5 Blood small Sp. Gr. 1.030 Ketone neg Bili neg Glucose neg Urinalysis Reviewed date:10/30/2024 01:53:29 PM Interpretation: Performing Lab: Notes/Report: Color/Clarity yellow Leuk neg Nitrite neg Urobili 1.0 Protein neg pH 6.5 Blood trace-intact Sp. Gr. 1.015 Ketone neg Bili neg Glucose neg THYROID PANEL WITH TSH (7444 ) Reviewed date:11/13/2024 04:47:46 PM Interpretation: Performing Lab:TRUDI [facility] [address], [place] HobbsBgmwYB[address] Maciej Kennedy Notes/Report: NON-FASTING; NON-FASTING; NON-FASTING; NON-FASTING; NON-FAST T3 UPTAKE 34 22-35 % T4 (THYROXINE), TOTAL 10.5 5.1-11.9 mcg/dL FREE T4 INDEX (T7) 3.6 1.4-3.8 TSH 1.03 0.40-4.50 mIU/L COMPREHENSIVE METABOLIC PANE L (69447) Reviewed date:11/13/2024 04:47:46 PM Interpretation: Performing Lab:TRUDI [facility] [address], [place] BumlCZ[address] Maciej Kennedy Notes/Report: NON-FASTING; NON-FASTING; NON-FASTING; NON-FASTING; [...] Reviewed date:11/13/2024 04:47:46 PM Interpretation: Performing Lab:TRUDI, [facility] [address], ParLevel SystemsHslpFS[address] Maciej Kennedy Notes/Report: NON-FASTING; NON-FASTING; NON-FASTING; NON-FASTING; [...] MPV 10.4 7.5-12.5 fL ABSOLUTE NEUTROPHILS 3494 5174-7352 cells/uL ABSOLUTE LYMPHOCYTES 242 807-1200 cells/uL ABSOLUTE MONOCYTES 319 200-950 cells/uL ABSOLUTE EOSINOPHILS 39 15-500 cells/uL ABSOLUTE BASOPHILS 59 0-200 cells/uL NEUTROPHILS 71.3 LYMPHOCYTES 20.2 MONOCYTES 6.5 EOSINOPHILS 0.8 BASOPHILS 1.2 VITAMIN B12/FOLATE, SERUM PA RAH (8508) Reviewed date:11/13/2024 04:47:46 PM Interpretation: Performing Lab:TRUDI, [facility] [address], ParLevel SystemsZiphKV[address] Maciej Kennedy Notes/Report: NON-FASTING; NON-FASTING; NON-FASTING; NON-FASTING; NON-FAST VITAMIN B12 083 917-6756 pg/mL Please Note: Although the reference range [...] 306) Reviewed date:11/13/2024 04:47:46 PM Interpretation: Performing Lab:TRUDI [employer], LinguastatHzcnXJ[address] Maciej Kennedy Notes/Report: NON-FASTING; NON-FASTING; NON-FASTING; NON-FASTING; NON-FAST VITAMIN D,25-OH,TOTAL,IA 42 30-100 ng/mL Vitamin D Status 25-OH Vitamin D: Deficiency: <20 ng/mL Insufficiency: 20 - 29 ng/mL Optimal: > or = 30 ng/mL For 25-OH Vitamin D testing on patients on D2-supplementation and patients for whom quantitation of D2 and D3 fractions is required, the QuestAssureD(TM) 25-OH VIT D, (D2,D3), LC/MS/MS is recommended: order code 05343 (patients >2yrs). See Note 1 Note 1 For additional information, please refer to http://education.Balanced/faq/QPX719 (This link is being provided for informational/ educational purposes only.) CULTURE, URINE, ROUTINE (395 ) Reviewed date:11/01/2024 10:03:12 AM Interpretation: Performing Lab:TRUDI [employer] [address] [employer], LinguastatSzsbBS[address] Maciej Kennedy Notes/Report: NON-FASTING; NON-FASTING; NON-FASTING; NON-FASTING CULTURE, URINE, ROUTINE SEE NOTE CULTURE, URINE, ROUTINE Micro Number: [id number] Test Status: Final Specimen Source: Urine, clean catch Specimen Quality: Adequate Result: No Growth TSH (899) Reviewed date:11/01/2024 10:03:12 AM Interpretation: Performing Lab:TRUDI, [facility] [address], United HospitalUdgmHZ[address] Maciej Kennedy Notes/Report: NON-FASTING; NON-FASTING; NON-FASTING; NON-FASTING TSH 1.01 0.40-4.50 mIU/L CBC (INCLUDES DIFF/PLT) (639 9) Reviewed date:11/01/2024 10:03:12 AM Interpretation: Performing Lab:TRUDI, [facility], United HospitalXjovHL[address] Maciej Kennedy Notes/Report: NON-FASTING; NON-FASTING; NON-FASTING; NON-FASTING [...] MPV 10.6 7.5-12.5 fL ABSOLUTE NEUTROPHILS 4508 1818-5134 cells/uL ABSOLUTE LYMPHOCYTES 952 370-5324 cells/uL ABSOLUTE MONOCYTES 401 200-950 cells/uL ABSOLUTE EOSINOPHILS 71 15-500 cells/uL ABSOLUTE BASOPHILS 53 0-200 cells/uL NEUTROPHILS 76.4 LYMPHOCYTES 14.7 MONOCYTES 6.8 EOSINOPHILS 1.2 BASOPHILS 0.9 COMPREHENSIVE METABOLIC PANE L (81045) Reviewed date:11/01/2024 10:03:12 AM Interpretation: Performing Lab:TRUDI, [facility] [address], United HospitalFtcdGD[address] Maciej Kennedy Notes/Report: NON-FASTING; NON-FASTING; NON-FASTING; NON-FASTING [...] 23 10-35 U/L ALT 13 6-29 U/L Medications Medication SIG (Take, Route, Frequency, Duration) [...] Vaccine Route Administration Date Status Comme nts Prevnar PCV-20 (Pneumococcal conjugate 20) IM Intramuscular 03/25/2023 Administered Influenza Intradermal Unknown 05/23/2012 Administered Influenza (Fluzone)--Medicare only IM Intramuscular 09/15/2016 Administered Influenza (Fluzone)--Medicare only IM Intramuscular 09/02/2017 Administered Fluzone High Dose IM Intramuscular 07/04/2018 Administered Fluzone High Dose IM Intramuscular 07/23/2020 Administered Fluzone High Dose IM Intramuscular 06/01/2023 Administered Boostrix IM Intramuscular 06/30/2018 Administered Social History Tobacco Use: Social History [...] to less than 90% of standard weight) (63498883) Mild protein-calorie malnutrition (E44.1) Active confirmed Problem Vitamin D deficiency (87897289) Vitamin D deficiency, unspecified (E55.9) Active confirmed Problem Generalized anxiety disorder (93682614) Generalized anxiety disorder (F41.1) Active confirmed Problem Anxiety disorder (732325996) Anxiety disorder, unspecified (F41.9) Active confirmed Problem Paroxysmal atrial fibrillation (713135048) Paroxysmal atrial fibrillation (I48.0) Active confirmed Problem Hyperlipidemia (89274104) Hyperlipemia, idiopathic familial (E78.5) Active confirmed Problem Mild cognitive impairment (733358294) Mild cognitive impairment (G31.84) Active confirmed Problem Gastroesophageal reflux disease (633310997) GERD without esophagitis (K21.9) Active confirmed Problem Memory loss (30733586) Memory loss (R41.3) Active confirmed Problem Mild intermittent asthma (388303494) Mild intermittent asthma without complication (J45.20) Active confirmed Problem Hypoglycemia (821239722) Hypoglycemia (E16.2) Active confirmed Problem Vitamin B12 deficiency (341217561) History of non anemic vitamin B12 deficiency (Z86.39) Active confirmed Problem Sciatica (26698016) Right sided sciatica (M54.31) Active confirmed Problem Sciatica (80430185) Acute right-sided back pain with sciatica (M54.41) Active confirmed Problem Essential hypertension (78730524) Hypertension, unspecified type (I10) Active confirmed Problem Allergic rhinitis (98818010) Allergic rhinitis, unspecified seasonality, unspecified trigger (J30.9) Active confirmed Problem Intracranial hemorrhage (9361669) Intracranial hemorrhage (I62.9) Active confirmed Problem Moderate dementia with agitation, unspecified dementia type (F03.B11) Active confirmed Vital Signs Heart Rate 88 /min 04/10/2025 Temperature 98 degrees Fahrenheit 04/10/2025 Blood pressure diastolic 70 mm Hg 04/10/2025 Height 65.5 in 04/10/2025 Blood pressure systolic 122 mm Hg 04/10/2025 Weight 125 lbs 04/10/2025 BMI 20.48 kg/m2 04/10/2025 Encounters Encounter Location Date Provider Diagnosis [facility] [address] [place] [facility] [address] [place] [address] 12/09/2024 Provider Migration Moderate dementia with agitation, unspecified dementia type F03.B11 [facility] [place] [address] [place] [address] 04/19/2024 Nestor Besson GERD without esophagitis K21.9 [facility] [place] [facility] [address] [address] 05/02/2024 Nestor Besson Paroxysmal atrial fibrillation I48.0 and GERD without esophagitis K21.9 [facility] [place] [address] [address] 05/23/2024 Nestor Besson Trochanteric bursiti s of right hip M70.61 ; Generalized anxiety disorder F41.1 ; Paroxysmal atrial fibrillation I48.0 ; Hyperlipemia, idiopathic familial E78.5 ; Hypertension, unspecified type I10 ; Memory loss R41.3 and GERD without esophagitis K21.9 [facility] [place] [address] [place] [address] [place] [address] 08/14/2024 Nestor Besson Mild protein-calorie malnutrition E44.1 ; Cystitis N30.90 ; Memory loss R41.3 and Hospital discharge follow-up Z09 [facility] [place] [address] [place] [address] [place] [address] 09/04/2024 Nestor Besson Mild protein-calorie malnutrition E44.1 ; Memory loss R41.3 ; Mild cognitive impairment G31.84 ; Dizziness R42 and Routine medical exam Z00.00 [facility] [place] [address] [place] [address] [place] [address] 09/27/2024 Nestor Rao Intracranial hemorrhage I62.9 ; Dementia with psychotic disturbance, unspecified dementia severity, unspecified dementia type F03.92 ; Dysuria R30.0 and [facility] Z09 [facility] [address] [facility] [address] [place] [address] 10/12/2024 Sophia McNees Acute cystitis without hematuria N30.00 ; Intracranial hemorrhage I62.9 and Moderate dementia with agitation, unspecified dementia type F03.B11 [facility] [address] [address] 10/30/2024 Sophia McNees Recurrent UTI N39.0 ; Weakness R53.1 and Moderate dementia with agitation, unspecified dementia type F03.B11 [facility] [place] [address] [facility] [address] [place] [address] 11/08/2024 Nestor Rao History of non anemi c vitamin B12 deficiency Z86.39 ; Mild protein-calorie malnutrition E44.1 ; Intracranial hemorrhage I62.9 ; Moderate dementia with agitation, unspecified dementia type F03.B11 and Vitamin D deficiency, unspecified E55.[address] [facility] [address] [address] 12/19/2024 Nestor Rao Bilateral lower extremity edema R60.0 ; Cellulitis of left lower limb L03.116 ; Cellulitis of right lower limb L03.115 and Moderate dementia with agitation, unspecified dementia type F03.B11 [facility] [address] 01/09/2025 Nestor Rao Mild protein-calorie malnutrition E44.1 and Bilateral impacted cerumen H61.[address] [facility] [address] [address] 01/23/2025 Nestor Rao Generalized anxiety disorder F41.1 ; Mild protein-calorie malnutrition E44.1 ; Moderate dementia with agitation, unspecified dementia type F03.B11 and Hospital discharge follow-up Z09 [address] [address] 02/27/2025 Nestor Rao Moderate dementia with agitation, unspecified dementia type F03.B11 ; Intracranial hemorrhage I62.9 ; Anxiety disorder, unspecified F41.9 ; Paroxysmal atrial fibrillation I48.0 ; Weight loss, unintentional R63.4 and Routine medical exam Z00.00 [facility] [place] [facility] [address] [address] 04/10/2025 Nestor Besson Dysuria R30.0 and Cystitis N30.90 [facility] [place] [facility] [address] [address] 07/06/2024 Nestor Besson [facility] [address] [facility] [address] [place] [address] 08/08/2024 Nestor Besson [facility] [place] [address] [address] 08/11/2024 Nestor Besson GERD without esophagitis K21.9 [facility] [address] [place] [address] 10/12/2024 Sophia McNees [facility] [address] [facility] [address] [place] [address] 11/08/2024 Nestor Besson Moderate dementia with agitation, unspecified dementia type F03.B11 [facility] [place] [facility] [address] [address] 03/13/2025 Nestor Besson [facility] [address] [place] [address] 04/03/2025 Nestor Besson Hypoglycemia E16.2 and Paroxysmal atrial fibrillation I48.0 Assessments Encounter Date Diagnosis (ICD Code) Assessment Notes Treatment Notes Treatment Clinical Notes Section Notes 04/19/2024 GERD without esophagitis (ICD-10 - K21.9) [...] Well controlled with Lexapro, continue current medication. 05/23/2024 Trochanteric bursitis of right hip (ICD-10 - M70.61) Symptoms consistent with trochanteric bursitis. Diclofenac gel given in the office today to apply daily. Can also use heating pad for pain relief. Patient is scheduled for appointment on 05/23. Will follow up on hip pain then to see if diclofenac gel has helped. 08/11/2024 GERD without esophagitis (ICD-10 - K21.9) 08/14/2024 Mild protein-calorie malnutrition (ICD-10 - E44.1) [...] was actually the cause of her symptoms. 09/04/2024 Mild protein-calorie malnutrition (ICD-10 - E44.1) Will retry mirtazapine prescription, slightly higher dose, follow-up in 6 weeks to see if this has helped, again stop Lexapro. 09/27/2024 Intracranial hemorrhage (ICD-10 - I62.9) Stable [...] Neurology apt to establish care next month. 10/12/2024 Acute cystitis without hematuria (ICD-10 - N30.00) Urine cx reviewed- E. Coli > 100,000 colony count. Treat with cefdinir. Increase oral fluid intake. Return precautions discussed 10/12/2024 Intracranial hemorrhage (ICD-10 - I62.9) No acute neuro deficits 09/04/2024 Memory loss (ICD-10 - R41.3) Patient has had previous workup, significant risk of Alzheimer disease, does not wish to take medications or do further workup at this point 10/30/2024 Recurrent UTI (ICD-10 - N39.0) Reassurance, [...] days of twice daily cefdinir as prescribed 01/23/2025 Moderate dementia with agitation, unspecified dementia [...] MRI, discussed with her to take this 12/19/2024 Cellulitis of right lower limb (ICD-10 - L03.115) 11/08/2024 Intracranial hemorrhage (ICD-10 - I62.9) No evidence of recurrence. Blood pressure under good control. No indication for anticoagulation at this point 10/30/2024 Moderate dementia with agitation, unspecified dementia type (ICD-10 - F03.B11) called back and clarified home meds, ran out of Rexuti samples, script at pharmacy waiting to be picked up 09/27/2024 Dysuria (ICD-10 - R30.0) Dysuria and increased frequency. Denies fever/chills or other systemic sx. UA +leuks & nitrites. Start macrobid 100 mg BID x5 days. 10/12/2024 Moderate dementia with agitation, unspecified dementia type (ICD-10 - F03.B11) Tolerating Rexulti well. Increase to maintenance dose as above. SE profile and MOA discussed. Recommend adding protein to all meals and boost/ensure daily. Will clarify home meds list with and start weaning mirtazapine if still taking 10/30/2024 Weakness (ICD-10 - R53.1) 09/04/2024 Mild cognitive impairment (ICD-10 - G31.84) 08/14/2024 Memory loss (ICD-10 - R41.3) Seems stable but not in a great place, will continue to monitor closely. Patient is somewhat resistant to taking further memory medications. 05/23/2024 Paroxysmal atrial fibrillation (ICD-10 - I48.0) Well controlled with amiodarone. Patient is not currently using anticoagulation therapy due to history of falls. 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 08/14/2024 Hospital discharge follow-up (ICD-10 - Z09) Personally reviewed H&P, discharge summary, reconciled medicines as above 09/04/2024 Dizziness (ICD-10 - R42) Resolved, I reviewed ER records 09/27/2024 Hospital discharge follow-up (ICD-10 - Z09) Recently discharged from [facility] due to occipital lobe ICH. All medical records personally reviewed. 11/08/2024 Moderate dementia with agitation, unspecified dementia [...] labs, reviewed discharge plan, personally reconciled medication. 02/27/2025 Paroxysmal atrial fibrillation (ICD-10 - I48.0) Heart rate regulated, good blood pressure control 05/23/2024 Hypertension, unspecified type (ICD-10 - I10) Well controlled with metoprolol, continue current medication. 02/27/2025 Weight loss, unintentional (ICD-10 - R63.4) Improved weight. Good gain, continue better nutrition. 11/08/2024 Vitamin D deficiency, unspecified (ICD-10 - [...] drive or do her own finances. 05/23/2024 Memory loss (ICD-10 - R41.3) Patient seems to be stable today with no mood or behavior disturbances. Continue memantine. 02/27/2025 Routine medical exam (ICD-10 - Z00.00) Not a candidate for cancer screening given her severe dementia issues. Cognitive impairment screening not noted/done because of her dementia. Non-smoker. Up-to-date with vaccines. is healthcare decision-maker. No recent falls. 05/23/2024 GERD without esophagitis (ICD-10 - K21.9) Well controlled with famotidine, continue current medication. Plan Of Treatment Pending Test Test Name Order Date N-CBC 01/05/2014 MRI : Lumbosacral Spine 05/18/2011 MRI : Lumbosacral Spine 01/26/2011 Urinalysis 03/26/2008 Urinalysis 01/20/2010 X ray : Hip, Left 04/15/2012 occult blood 08/03/2008 DEXA Hip and Spine - Screening 0 DEXA Hip and Spine - Screening 2 N-CMP 01/05/2014 A-smmdovd-chfu 02/17/2008 EKG : In House 01/05/2007 Holter Monitor : Event Recorder 01/21/20 18 Physical Therapy 09/16/2009 Physical Therapy 12/26/2014 Mammogram : Bilateral 02/07/2013 Mammogram : Bilateral 09/04/2013 Mammogram : Bilateral 01/30/2010 Mammogram : Bilateral 12/02/2021 Holter Monitor, 48 hour 01/07/2022 H-CBC with AUTO DIFF 03/19/2015 H-CMP 03/19/2015 C-CBC 02/24/2013 C-CBC 09/04/2013 C-CBC 03/31/2010 C-CMP 03/31/2010 C-CMP 09/04/2013 C-CMP 02/24/2013 C-LIPID PANEL 02/24/2013 C-LIPID PANEL 09/04/2013 C-LIPID PANEL 03/31/2010 C-TSH 09/04/2013 C-TSH 02/24/2013 C-DAREK 04/28/2012 C-VITAMIN B12 02/24/2013 C-VITAMIN B12 09/04/2013 C-VITAMIN B12 03/31/2010 C-VITAMIN B12 09/25/2014 C-VITAMIN D, 1,25-DIHYDROXY 10/25/2018 C-THYROID PROFILE 09/12/2019 C-URINE CULTURE 04/20/2013 C-MISC CULTURE 12/29/2016 C-VITAMIN D, 25-HYDROXY 09/04/2013 C-VITAMIN D, 25-HYDROXY 09/25/2014 H-DIARRHEA PANEL PCR 03/19/2015 M-Vitamin B12 04/20/2022 M-Vitamin B12 03/18/2023 M-Vitamin D 25 Hydroxy 03/18/2023 M-Vitamin D 25 Hydroxy 04/20/2022 M-Urine Culture 09/21/2022 M-COVID PCR SINGLE RAPID 06/15/2020 Culture, Urine 12/11/2021 Future Test Test Name Order Date C-CBC 08/06/2008 C-CMP 08/06/2008 C-LIPID PANEL 08/06/2008 C-TSH 08/06/2008 M-Vitamin B12 10/29/2020 M-Vitamin D 25 Hydroxy 10/29/2020 M-Methylmalonic Acid 10/29/2020 Next Appt Details Provider Name:Nestor Rao, 05/01/2025 11:15:00 AM, [address], [address], Insurance Providers Payer Name Payer Address Payer Phone Subscriber Number Group Number Insured Name Patient Relationship to Insured Coverage Start Date Coverage End Date [employer] [address] [address] [place] [address] [phone] [id number] Geovanna Garner Self - patient is the insured [facility] [address] [place] [address] [id number] Geovanna Garner Self - patient is the [...] 2023 Hospitalization History Reason Date(Month/Year) stroke 09/2024 [facility]- UTI 08/07/24-08/08/24 [facility] - AFIB 04/23/23 A-fib H 09/2014
--- NOTE | 2025-04-16 14:51 | XR_ITS ---
FINAL REPORT TECHNIQUE: Single view chest CLINICAL HISTORY: AMS, concern for pneumonia COMPARISON: 08/18/2024 FINDINGS: A single view of the chest was obtained. The heart and mediastinum are within normal limits. The lungs are clear. There is no pneumothorax. IMPRESSION: No acute cardiopulmonary process. Reviewed, Interpreted and Dictated by Edyta Song MD Transcribed by Mago Cross Authenticated and [facility]
--- NOTE | 2025-04-16 14:51 | CT_ITS ---
FINAL REPORT TECHNIQUE: Noncontrast exam This study was performed with techniques to keep radiation doses as low as reasonably achievable, (ALARA). Individualized dose reduction techniques using automated exposure control or adjustment of mA and/or kV according to the patient''s size were employed. CLINICAL HISTORY: Syncope, confusion COMPARISON: 04/12/2025 FINDINGS: Again seen is left lobe encephalomalacia. Linear hypodensities within the encephalomalacia are stable and consistent with calcification. There is mild generalized atrophy. Ventricles are normal. There is no hemorrhage. No mass effect is seen. Bone windows show no evidence of fracture. IMPRESSION: Stable exam without acute findings Reviewed, Interpreted and Dictated by Edyta Song MD Transcribed by Mago Cross Authenticated and . [facility]
[2025-04-16 15:01] LABS: Lactate Venous 1.5 mmol/L (0.4-2.0); VBG HCO3 28.5 mmol/L (23-30); VBG PH 7.37 mmol/L (7.31-7.41); VBG PO2 38.2 mmol/L (28-40)
[2025-04-16 15:02] LABS: Microscopic, Urine URINE MICROSCOPIC (MICROSCOPIC)
[2025-04-16 15:05] LABS: Bilirubin,Urine Negative (Negative); Color,Urine YELLOW (Yellow); Glucose,Urine (UA) Negative (Negative); Ketones,Urine Negative (Negative); Leukocyte Esterase,Urine Negative (Negative); PH,Urine 7.0 (5.0-8.5); Protein,Urine Negative (Negative); Specific Gravity, Urine 1.015 (1.005-1.030); Urobilinogen,Urine 0.2 EU/dl (0.2)
[2025-04-16 15:05] LABS: VBG PCO2 51.0 mmol/L (35-51)
[2025-04-16 15:06] LABS: Hematocrit 41.5 % (37.0-47.0); Hemoglobin 13.1 g/dL (12.2-16.2); Immature Granulocytes % 0.4 %; Mean Corpuscular HGB Conc 31.6 g/dL (31.8-35.4); Mean Corpuscular Hemoglobin 27.9 pg (27.0-31.2); Mean Corpuscular Volume 88.5 fl (81-99); Nucleated Red Blood Cells % 0 %; Platelet Count 114 K/mm3 (142-424); Red Blood Count 4.69 M/mm3 (4.20-5.40); Red Cell Distribution Width-SD 45.0 fL; White Blood Count 5.1 K/mm3 (4.8-10.8)
[2025-04-16 15:10] LABS: Albumin Level 4.7 g/dl (3.5-5.0); Chloride 103 mmol/L (98-107)
[2025-04-16 15:11] LABS: Potassium 4.1 mmoL/L (3.5-5.1); Sodium 141 mmol/L (136-145)
[2025-04-16 15:13] LABS: Alanine Aminotransferase 20 U/L (12-78); Anion Gap 12.1 mEq/L (5-15); Aspartate Amino Transferase 34 U/L (14-36); Blood Urea Nitrogen 25 mg/dl (7-17); Carbon Dioxide 30 mmol/L (22.0-30.0); Creatinine Clearance Estimated 37 mL/min (50-200); Creatinine,Serum 1.10 mg/dl (0.52-1.04); Estimated Glomerular Filt Rate 49 ml/min (>60); GFR (African American) 59 ML/MIN (>60)
[2025-04-16 15:14] LABS: Albumin/Globulin Ratio 1.6 (1.1-1.8); Alkaline Phosphatase 84 U/L (38-126); Bilirubin,Total 0.5 mg/dl (0.2-1.3); Calcium 9.4 mg/dl (8.4-10.2); Globulin 2.9 g/dL (1.3-3.2); Glucose 119 mg/dl (74-100); Magnesium 2.4 mg/dl (1.6-2.3); Phosphorous 3.3 mg/dl (2.5-4.5); Total Protein,Serum 7.6 g/dl (6.3-8.2)
[2025-04-16 15:15] VITALS: PULSE 62; RESP 17; O2SAT 100
[2025-04-16 15:20] LABS: Bacteria,Urine Trace /lpf; Squamous Epithelial Cell,Urine Occasional #/hpf (0-5); WBC,Urine Occasional #/hpf (0-3)
[2025-04-16 15:49] LABS: Free T4 (Free Thyroxine) 2.35 ng/dl (0.78-2.19)
[2025-04-16 15:53] LABS: Thyroid Stimulating Hormone 0.65 uIU/mL (0.465-4.68)
[2025-04-16 16:20] LABS: Hepatitis C Ab Qual. W/ RFX NEGATIVE (Negative)
[2025-04-16 16:30] VITALS: PULSE 57; RESP 19; O2SAT 100
[2025-04-16 16:49] LABS: C-Reactive Protein < 0.3 mg/L (0-4)
[2025-04-16 17:02] VITALS: BP 148/70; PULSE 66; RESP 14; TEMP 36.7; O2SAT 97
[2025-04-16 17:04] VITALS: BP 130/71; PULSE 61; RESP 16; TEMP 36.6; O2SAT 96
== END 2025-04-16 17:05 | disposition home or self-care (01) ==
PROVIDERS: Emergency Provider Student in an Organized Health Care Education/Training Program; PCP Internal Medicine Adolescent Medicine
DX: R53.1 Weakness (principal); R40.2410 Glasgow coma scale score 13-15, unspecified time; I48.0 Paroxysmal atrial fibrillation; I10 Essential (primary) hypertension; E78.5 Hyperlipidemia, unspecified; F41.1 Generalized anxiety disorder; Z86.79 Personal history of other diseases of the circulatory system
CPT/HCPCS: 70450; 71045; 80053; 81001; 82803; 83735; 84100; 84439; 84443; 85025; 86140; 86803; 87389; 93005; 99285

== ENCOUNTER 2025-05-08 04:19 | Emergency (ER) | payer MEDICARE, OTHER, SELFPAY ==
--- OUTSIDE RECORDS SUMMARY | 2025-03-30 11:38 | XMS_ITS | Encounter Summary ---
Author Organization Healthcare Address [address] [place] [address] Care Team Providers Care Skoog Operator Name Role Phone Nestor Rao MD Primary Care Provider [phone] Reason for Visit * Imaging (Routine) - Closed Specialty Diagnoses / Procedures Referred By Contac t Referred To Contact Radiology Diagnoses Acute spontaneous intraparenchymal intracranial hemorrhage (CMS/HCC) Procedures MR Head w and wo IV Contrast Talia Blanton, AIR TRAFFIC CONTROL EQUIPMENT REPAIRER [address] [address] Phone: tel: fax: Referral ID Status Reason Start Date Expiration Date Visits Re quested Visits Authorized [id number] Closed 09/20/2024 03/22/2026 1 1 Encounter Details Date Type Department Care Team (Latest Contact Info) Description 03/30/2025 11:38 AM EDT - 03/30/2025 11:59 PM EDT Hospital Encounter [facility] MRI [address] [place] [address] Discharge Disposition: Home or Self [...] any time in the past 12 m [facility], were you homeless or living in a fdc (including now)? No 09/18/2024 Utilities Answer Date Recorded In the past 12 months has th e [employer], gas, oil, or water company threatened to [...] Info) Description 04/12/2026 12:30 PM EDT Appointment [facility] [address] [place] [address] 04/12/2026 2:15 PM EDT Office Visit [place] [facility] [address] [place] [address] Doyle Grewal MD [address] [place] [address] documented as of this encounter [...] documented as of this encounter Care Teams Skoog Operator Relationship Specialty Start Date End Date Nestor Rao MD [address] [place] [address] PCP - General 01/17/21 documented as of this encounter
--- OUTSIDE RECORDS SUMMARY | 2025-03-30 14:45 | XMS_ITS | Encounter Summary ---
Author Organization Healthcare Address [address] [place] [address] Care Team Providers Care Vehicle Fuel Systems Converter Name Role Phone Nestor Rao MD Primary Care Provider [phone] Reason for Referral * Consultation (Urgent) - Authorized Specialty Diagnoses / Procedures Referred By Arnulfo t Referred To Contact Neurology Diagnoses Memory changes Doyle Grewal MD [address] [address] Phone: tel: fax: [place] [facility] [address] [place] [address] Phone: tel: fax: Referral ID Status Reason Start Date Expiration Date Visits Requested Visits Authorized [id number] Authorized Specialty Services Required 03/30/2025 09/29/2026 1 1 Scheduling Instructions ARIEL MEDRANO-PLEASE SCHEDULE FIRST AVAILABLE APPT FOR TREATMENT OF MEMORY CHANGES. * Imaging (Routine) - Pending Review Specialty Diagnoses / Procedures Referred By Contkay t Referred To Contact Radiology Diagnoses Cavernous malformation Procedures MR Head w and wo IV Contrast Doyle Grewal MD [address] [address] Phone: tel: fax: Referral ID Status Reason Start Date Expiration Date V isits Requested Visits Authorized [id number] Pending Review 03/30/2025 09/29/2026 1 1 Reason for Visit * Reason Comments Follow-up Encounter Details Date Type Department Care Team (Late st Contact Info) Description 03/30/2025 2:45 PM EDT Office Visit [place] [facility] [address] [place] [address] Doyle Grewal MD [address] [place] [address] Cavernous malformation (Primary Dx); Pre-procedural [...] any time in the past 12 m [facility], were you homeless or living in a longterm (including now)? No 09/18/2024 Utilities Answer Date Recorded In the past 12 months has th e [employer], gas, oil, or water company threatened to [...] a past medical history of Brain bleed (CMS/[facility]) (09/16/2023), Dementia ([facility]), Poor vision, and Stroke ([facility]) (09/16/2024). Surgical History She has a past [...] year with MRI sella Dementia Refer to [facility] Counseling: The patient and [...] Jermaine Obando PA-C I saw the patient [id number], obtained and documented the medical history, performed and documented the physical exam, and reviewed imaging. I documented the plan of care in the EMR prior to any revisions made by the attending physician. Thank you. If there are any questions or concerns please feel free to contact us: [facility] Department of Neurosurgery [address], [place] [address] [place] [phone] ; [1] Family History Problem Relation Name [...] tablet (30 mg) by mouth every night. pvdcjqluokaf-eqssgjac-rsaoc acid-coenzyme q10 (Preservision AREDS 2) capsule Take 1 capsule by mouth 2 times a day. No current facility-administered medications for this visit. documented in this encounter Plan of Treatment Upcoming Encounters Date Type Department Care Team (Late st Contact Info) Description 04/12/2026 12:30 PM EDT Appointment [facility] [address] [place] [address] 04/12/2026 2:15 PM EDT Office Visit [place] [facility] [address] [place] [address] Doyle Grewal MD [address] [place] [address] Scheduled Orders Name Type Priority [...] documented as of this encounter Care Teams Vehicle Fuel Systems Converter Relationship Specialty Start Date End Date Nestor Rao MD [address] [place] [address] PCP - General 01/17/21 documented as of this encounter
--- OUTSIDE RECORDS SUMMARY | 2025-04-03 07:50 | XMS_ITS ---
Author Organization [facility] D GABRIEL Address [address] [place] [address] Care Team Providers Care Electrocardiogram Technician Name Role Phone Nestor Rao Primary Care Provider Results Component Value Reference Range Notes COMPREHENSIVE METABOLIC PANRajendra Aldrich (24300) Reviewed date:04/06/2025 10:47:35 AM Interpretation: Performing Lab:CB, [facility] [address], [place] MrnmSR[address] Maciej Kennedy Notes/Report: GLUCOSE 116 65-99 mg/dL [...] Reviewed date:04/06/2025 10:47:35 AM Interpretation: Performing Lab:[facility] [employer] [address], [place] [id number] Maciej Kennedy Notes/Report: WHITE BLOOD CELL COUNT [...] MPV 11.2 7.5-12.5 fL ABSOLUTE NEUTROPHILS 3014 5284-3645 cells/uL ABSOLUTE LYMPHOCYTES 467 969-5948 cells/uL ABSOLUTE MONOCYTES 292 200-950 cells/uL ABSOLUTE EOSINOPHILS 60 15-500 cells/uL ABSOLUTE BASOPHILS 30 0-200 cells/uL NEUTROPHILS 70.1 LYMPHOCYTES 21.0 MONOCYTES 6.8 EOSINOPHILS 1.4 BASOPHILS 0.7 COMMENT(S) Review of peripheral smear confirms automated results. HEMOGLOBIN A1c (496) Reviewed date:04/06/2025 10:47:35 AM Interpretation: Performing Lab:[facility] [employer] [address], [place] [id number] Maciej Kennedy Notes/Report: HEMOGLOBIN A1c 5.5 <5.7 [...] diagnosis of diabetes in children. According to [place] Diabetes Association (ADA) guidelines, hemoglobin A1c <7.0% represents optimal control in non- diabetic patients. Different metrics may apply to specific patient populations. Standards of Medical Care in Diabetes(ADA). TSH (899) Reviewed date:04/06/2025 10:47:35 AM Interpretation: Performing Lab:CB, [facility] [address], [place]kevUY[address] Maciej Kennedy Notes/Report: TSH 0.82 0.40-4.50 mIU/L Problems Problem Type SNOMED Code ICD Code Onset Dates Problem Status W/U Status Risk Notes Problem Hypoglycemia (E16.2) Active confirmed Encounters Encounter Location Date Provider Diagnosis [facility] [address] [place] [phone] 04/03/2025 Nestor Rao Hypoglycemia E16.2 a nd Paroxysmal atrial fibrillation I48.0 Assessments Encounter Date Diagnosis (ICD Code) Assessment Notes Treatment Notes Treatment Clinical Notes Section Notes 04/03/2025 Hypoglycemia (ICD-10 - E16.2) 04/03/2025 Paroxysmal atrial fibrillation (ICD-10 - I48.0) Plan Of Treatment Next Appt Details Provider Name:Nestor Rao, 07/05/2025 10:30:00 AM, [address] [place] [address], [phone], Progress Notes * Geovanna GARNER TDOB: (75 yo F)Acc No.[id number]:04/03/2025 Patient: Geovanna LI :1950 A ge:75 Y S ex:Female Address:[address] [place] [phone] Subjective: * Chief Complaints: * * Medical [...] Danny R 04/06/2025 10:15:57 AM EDT > [facility] by Theo Mendoza on 04/06/2025 at 10:47 AM EDT ?LAB: CBC (INCLUDES DIFF/PLT) (6409)* Value Reference Range W MULU BLOOD CELL [...] - % * A BSOLUTE NEUTROPHILS 3014 9412-0645 - cells/uL * L YMPHOCYTES 21.0 - % * A BSOLUTE LYMPHOCYTES 230 356-9028 - cells/uL * M ONOCYTES 6.8 - % * A BSOLUTE MONOCYTES 292 200-950 - cells/uL * E OSINOPHILS 1.4 - % * A BSOLUTE EOSINOPHILS 60 15-500 - cells/uL * B ASOPHILS 0.7 - % * A BSOLUTE BASOPHILS 30 0-200 - cells/uL * M PV 11.2 7.5-12.5 - fL * Validation Error(s): ORM^O01 message is not formatted correctly.Validation Error(s): [facility] [place] Required field missing Milaca [place] R 04/06/2025 10:15:57 AM EDT > [facility] lab was reviewed by Theo Mendoza on 04/06/2025 at 10:47 AM EDT ?LAB: HEMOGLOBIN A1c (496)* Value Reference Range H EMOGLOBIN A1c 5.5 <5.7 - % * Validation Error(s): ORM^O01 message is not formatted correctly.Validation Error(s): [facility]/Sending[facility]ility Required field missing Pablito Danny R 04/06/2025 10:15:57 AM EDT > [facility] reviewed by Theo Mendoza on 04/06/2025 at 10:47 AM EDT ?LAB: TSH (899)* Value Reference Range T SH 0.82 0.40-4.50 - mIU/L * Validation Error(s): ORM^O01 message is not formatted correctly.Validation Error(s): [facility]ending[facility]ility Required field missing Pablito Danny R 04/06/2025 10:15:57 AM EDT > [facility] reviewed by Theo Mendoza on 04/06/2025 at 10:47 AM EDT 2.?Paroxysmal atrial fibrillation?LAB: COMPREHENSIVE METABOLIC PANEL (03199)* Value Reference Range G LUCOSE 116 H [...] formatted correctly.Validation Error(s): [facility]ending[facility]ility Required field missing Danny Kenney R 04/06/2025 10:15:57 AM EDT > [facility] lab was reviewed by Theo Mendoza on 04/06/2025 at 10:47 AM EDT ?LAB: CBC (INCLUDES DIFF/PLT) (4549)* Value Reference Range W MULU BLOOD CELL [...] - % * A BSOLUTE NEUTROPHILS 3014 8883-8267 - cells/uL * L YMPHOCYTES 21.0 - % * A BSOLUTE LYMPHOCYTES 715 941-5587 - cells/uL * M ONOCYTES 6.8 - % * A BSOLUTE MONOCYTES 292 200-950 - cells/uL * E OSINOPHILS 1.4 - % * A BSOLUTE EOSINOPHILS 60 15-500 - cells/uL * B ASOPHILS 0.7 - % * A BSOLUTE BASOPHILS 30 0-200 - cells/uL * M PV 11.2 7.5-12.5 - fL * Validation Error(s): ORM^O01 message is not formatted correctly.Validation Error(s): [facility] [place] Required field missing [facility] R 04/06/2025 10:15:57 AM EDT > [facility] was reviewed by Theo Mendoza on 04/06/2025 at 10:47 AM EDT ?LAB: HEMOGLOBIN A1c (496)* Value Reference Range H EMOGLOBIN A1c 5.5 <5.7 - % * Validation Error(s): ORM^O01 message is not formatted correctly.Validation Error(s): [facility] [place] Required field missing [facility] R 04/06/2025 10:15:57 AM EDT > naThis lab was reviewed by Theo Mendoza on 04/06/2025 at 10:47 AM EDT ?LAB: TSH (899)* Value Reference Range T SH 0.82 0.40-4.50 - mIU/L * Validation Error(s): ORM^O01 message is not formatted correctly.Validation Error(s): [facility]/SendingFacility Required field missing [facility] R 04/06/2025 10:15:57 AM EDT > naThis lab was reviewed by Theo Mendoza on 04/06/2025 at 10:47 AM EDT * Procedure Codes: * true * Date: Generated for Printi ng/Faxing/Bryan on: 0 05/08/2025 04:28 AM EDT
--- OUTSIDE RECORDS SUMMARY | 2025-04-10 11:00 | XMS_ITS ---
Author Organization [facility] D GABRIEL Address [address] [place] [address] Care Team Providers Care Weight Tester Name Role Phone Nestor Rao Primary Care Provider [phone] Allergies Allergen (clinical drug ingredient) Drug/Non Drug [...] date:04/15/2025 08:23:48 PM Interpretation: Performing Lab:CB, [facility] [address], [facility] Maciej Kennedy Notes/Report: NON-FASTING CULTURE, URINE, ROUTINE SEE NOTE CULTURE, URINE, ROUTINE Micro Number: [id number] Test Status: Final Specimen Source: Urine Specimen [...] 04/10/2025 Encounters Encounter Location Date Provider Diagnosis [facility] [address] [address] 04/10/2025 Nestor Rao Dysuria R30.0 and Cystitis [...] Reason: Provider Name:Nestor Rao, 07/05/2025 10:30:00 AM, [address] [place] [address], [phone], Progress Notes * Geovanna GARNER TDOB: (75 yo F)Acc No.[id number]:04/10/2025 Progress Notes Patient: Geovanna LI Provider: Siobhan Rao MD :1950 A ge:75 Y S ex:Female Date:04/10/2025 Address:[address] [place], [place] [id number] Subjective: * Chief Complaints: * 1 . possible UTI - urine frequency , dysuria. * HPI: g en: Patient presents with a couple of days of cystitis symptoms of urinary frequency and concerns about a UTI. Her dementia makes it difficult for her to give symptoms, but she denies fevers, vomiting, gross hematuria. * Medical History: Jung 2P2 - 2 c-sections - daughter with CP, Allergic rhinitis, Asthma - treated with Advair several months ago - stopped tx, Chronic dysparuenia, Depression/HUMBERTO, S/p eramso in 2007, GERD, A-fib, IBS, Sciatic neuralgia, [...] Date: 04/10/2025 Generated for Brendon andrews/Wendi/eTransmitting on: 05/08/2025 04:29 AM EDT History and Physical Notes * [...]
--- OUTSIDE RECORDS SUMMARY | 2025-05-01 07:15 | XMS_ITS ---
Author Organization [facility] D GABRIEL Address [address] [place] [address] Care Team Providers Care Signalman Name Role Phone Nestor Rao Primary Care Provider [phone] Allergies Allergen (clinical drug ingredient) Drug/Non Drug Allergy documented on EMR Reaction Allergy Type Onset Date Status SULFA (uncoded) Unknown Allergy Acti ve amoxicillin / clavulanate Augmentin Unknown Drug Allergy Active ciprofloxacin Cipro Hypotension Drug Allergy A ctive lidocaine Lidocaine Hypotension Drug Allergy Activ e doxycycline Doxycycline stomach upset Drug Allergy Active REASON FOR VISIT Wellness Medications Medication SIG (Take, Route, Frequency, Duration) Notes Start Date End Date Status Pyridium 100 MG 1 tab Orally twice a day; Duration: 2 days As needed 05/01/2025 Active Atorvastatin Calcium 20 MG 1 tab(s) oral ly once a day; Duration: 90 days Active diazePAM 2 mg TAKE 1 TABLET 2 TIME S EACH DAY NEEDED; Duration: 7 04/17/2025 Active Famotidine 20 mg 1 tablet orally twic e a day; Duration: 90 days Active Amiodarone HCl 200 MG 1/2 tab orally twi ce a day; Duration: 90 days Active Metoprolol Tartrate 50 MG 1 tab(s) orall y 2 times a day; Duration: 30 days 08/10/2023 Active Albuterol Sulfate HFA 108 (90 Base) MCG/ACT 2 INH inhaled every 6 hours Active Mirtazapine 30 mg TAKE 1 TABLET 1 TIME EACH DAY AT BEDTIME; Duration: 90 Active Memantine HCl 10 mg TAKE 1 TABLET 2 TIME S EACH DAY; Duration: 90 Active Social History Tobacco Use: Social History Observation Description Date Details (start date - stop date) Never Smoker NA - NA Smoking: Question Answer Notes Are you a: nonsmoker Additional Findings: Tobacco Non-User Current no n-smoker Vital Signs Temperature 97.7 degrees Fahrenheit 05/01/20 25 Heart Rate 88 /min 05/01/2025 Blood pressure systolic 140 mm Hg 05/01/20 25 Blood pressure diastolic 80 mm Hg 025 Height 65.5 in 05/01/2025 Weight 123 lbs 05/01/2025 BMI 20.15 kg/m2 05/01/2025 Encounters Encounter Location Date Provider Diagnosis [address] [address] 05/01/2025 Nestor Rao Paroxysmal atrial fibrillation I48.0 ; Hyperlipemia, idiopathic familial E78.5 ; Hypertension, unspecified type I10 ; Urinary frequency R35.0 ; Anxiety disorder, unspecified F41.9 ; Mild protein-calorie malnutrition E44.1 ; Strain of trapezius muscle, unspecified laterality, initial encounter S46.819A ; Moderate dementia with agitation, unspecified dementia type F03.B11 and Encounter for well adult exam without abnormal findings Z00.00 Assessments Encounter Date Diagnosis (ICD Code) Assessment Notes Treatment Notes Treatment Clinical Notes Section Notes 05/01/2025 Paroxysmal atrial fibrillation (ICD-10 - I48.0) HR and bp well controlled on amiodarone and metoprolol, pt denies racing heart or palpitations, no need for regimen change 05/01/2025 Hyperlipemia, idiopathic familial (ICD-10 - E78.5) well maintained on atorvastatin, continuing to monitor for side effects, no need for regimen change 05/01/2025 Hypertension, unspecified type (ICD-10 - I10) BP rechecked in office today 124/88 pt states she checks her bp at home and runs around 120s/80s normally no need for regimen change, well maintained on amiodarone and metoprolol 05/01/2025 Urinary frequency (ICD-10 - R35.0) She was just treated with 5 days of macrobid after UTI in hospital. Finished antibiotics last week. She reports urinary frequenct and slight burning. Advised pt to get otc azo pyridium and monitor symptoms. If no improvement or worsening symptoms return to clinic. Pt and voice understanding 05/01/2025 Anxiety disorder, unspecified (ICD-10 - F41.9) Mood stable using diazepam about three times a week. well controlled, no need for regimen change 05/01/2025 Mild protein-calorie malnutrition (ICD-10 - E44.1) weight is well maintained. pt is drinking ensure to maintain nutrition and weight 05/01/2025 Strain of trapezius muscle, unspecified laterality, initial encounter (ICD-10 - S46.819A) Pt states her trap muscles pop occasionally. Advised heat for tension relief and symptomatic relief 05/01/2025 Moderate dementia with agitation, unspecified dementia type (ICD-10 - F03.B11) 05/01/2025 Encounter for well adult exam without abnormal findings (ICD-10 - Z00.00) pt has not had any recent falls She is cautious of keeping her balance, taking her time, using assistance when needed and avoiding falls when she can She will get her flu and pneumonia shot in a June she reports no changes in mood She sometimes does not eat as much as she should but is supplementing with ensure, she understands she should drink more water to stay hydrated. Dementia/3 word screening not done because of diagnosis of dementia. Depression screening not done because of dementia and anxiety. Symptoms seem to be well-controlle d. Still having hallucinations . However not causing behavioral problems. Aged out of cancer screening. Vaccines will be done in June. 05/01/2025 Other f/u in 2 months for prevnar 21 and flu shot Plan Of Treatment Medication Medication Name Sig Start Date Stop Date Notes Pyridium 100 MG 1 tab Orally twice a day; Duration: 2 days 05/01/2025 Famotidine 20 mg 1 tablet orally twic e a day; Duration: 90 days Treatment Notes Assessment Notes Paroxysmal atrial fibrillation HR and bp well controlled on amiodarone and metoprolol, pt denies racing heart or palpitations, no need for regimen change Hyperlipemia, idiopathic familial well m aintained on atorvastatin, continuing to monitor for side effects, no need for regimen change Hypertension, unspecified type BP rechecked in office today 124/88 pt states she checks her bp at home and runs around 120s/80s normally no need for regimen change, well maintained on amiodarone and metoprolol Urinary frequency She was just treated with 5 days of macrobid after UTI in hospital. Finished antibiotics last week. She reports urinary frequenct and slight burning. Advised pt to get otc azo pyridium and monitor symptoms. If no improvement or worsening symptoms return to clinic. Pt and voice understanding Anxiety disorder, unspecified Mood stabl e using diazepam about three times a week. well controlled, no need for regimen change Mild protein-calorie malnutrition weight is well maintained. pt is drinking ensure to maintain nutrition and weight Strain of trapezius muscle, unspecified laterality, initial encounter Pt states her trap muscles pop occasionally. Advised heat for tension relief and symptomatic relief Encounter for well adult som [place] without abnormal findings pt has not had any recent falls She is cautious of keeping her balance, taking her time, using assistance when needed and avoiding falls when she can She will get her flu and pneumonia shot in a June she reports no changes in mood She sometimes does not eat as much as she should but is supplementing with ensure, she understands she should drink more water to stay hydrated. Other f/u in 2 months for prevnar 21 and flu shot Next Appt Details Follow Up: 2 Months, Reason: Provider Name:Nestor Rao, 07/05/2025 10:30:00 AM, [address] [place] [address], [id number], Progress Notes * Geovanna GARNER TDOB: (75 yo F)Acc No.[id number]:05/01/2025 Progress Notes Patient: Geovanna LI Provider: Siobhan Rao MD :1950 A ge:75 Y S ex:Female Date:05/01/2025 Address:[address] [place], [place] [id number] Subjective: * Chief Complaints: * 1 . Wellness. * HPI: g en: Geovanna presents with her today for a wellness exam. She recently had a UTI which she was given macrobid bid for 5 days and finished last week, but she still has some slight burning. Would like to be reassured that infection is gone. Denies chest pain, palpitations, or shortness of breath. She states her appetite is okay and is also drinking ensure, she also says she could be drinking more water. BP rechecked in office 124/88. * Medical History: G 2P2 - 2 [...] Diagno stic Procedure: A -fib H 09/2014, [facility] - AFIB 04/23/23, [facility]- UTI 08/07/24-08/08/24, stroke 09/2024. * Family History: F ather: , diagnosed with Hypertension. M other: , CHF. P aternal Grand Father: . P aternal Grand Mother: . M aternal Grand Father: . M aternal Grand Mother: , diagnosed with Cancer. S jae: alive, 1 brother - leukemia1 sister- CHF. C nabila: alive, daughter- stroke at ; seizures. 1 brother(s) , 3 sister(s) . 1 son(s) , 1 daughter(s) . . Asthma and allergies, seizure disorder in daughter, hypertension in parents,. * Social History: S moking A re you a: n onsmoker, A dditional Findings: Tobacco Non-User C urrent non-smoker. L iving Will: yes. Alcohol Screening: none. Sexually active: yes. * Medications: T aking Amiodarone HCl 200 MG Tablet 1/2 tab orally twice a day , Taking Metoprolol Tartrate 50 MG Tablet 1 tab(s) orally 2 times a day , Taking Albuterol Sulfate HFA 108 (90 Base) MCG/ACT Aerosol Solution 2 INH inhaled every 6 hours , Taking Mirtazapine 30 mg Tablet TAKE 1 TABLET 1 TIME EACH DAY AT BEDTIME , Taking Memantine HCl 10 mg Tablet TAKE 1 TABLET 2 TIMES EACH DAY , Taking Atorvastatin Calcium 20 MG Tablet 1 tab(s) orally once a day , Taking diazePAM 2 mg Tablet TAKE 1 TABLET 2 TIMES EACH DAY NEEDED , Taking Famotidine 20 mg Tablet TAKE 1 TABLET 2 TIMES EACH DAY , Discontinued Cefdinir 300 MG Capsule one capsule Orally twice a day , Medication List reviewed and reconciled with the patient * Allergies: L idocaine: Hypotension, Cipro: Hypotension, Augmentin, SULFA, Doxycycline: stomach upset - Side Effects. Objective: * Vitals: N urse:sw, Pain:0, Temp:97.7, RR:18, HR:88, BP:140/80, Ht: 65.5, Wt:123, BMI:20.15. * Examination: G eneral Examination: General P leasant and Cooperative, NAD on RA,. Heart: R egular Rate and Rhythm, no murmur, rubs or gallops. Lungs: L CTAB, No wheezes, crackles or rhonchi, Good air movement,. Skin: w ithout acute rashes. Assessment: * Assessment: 1. P aroxysmal atrial fibrillation - I48.0 (Primary) 2 . H yperlipemia, idiopathic familial - E78.5 3 . H ypertension, unspecified type - I10 ?4. U rinary frequency - R35.0 5 . A nxiety disorder, unspecified - F41.9 6. M ild protein-calorie malnutrition - E44.1 7 . S train of trapezius muscle, unspecified laterality, initial encounter - S46.921V 8 . M oderate dementia with agitation, unspecified dementia type - F03.B11 9 . E ncounter for well adult exam without abnormal findings - Z00.00 Plan: * Treatment: 2. H yperlipemia, idiopathic familial Notes: well maintained on atorvastatin, continuing to monitor for side effects, no need for regimen change 3. H ypertension, unspecified type Notes: BP rechecked in office today 124/88 pt states she checks her bp at home and runs around 120s/80s normally no need for regimen change, well maintained on amiodarone and metoprolol 4. U rinary frequency Start Pyridium Tablet, 100 MG, 1 tab, Orally, twice a day As needed, 2 days, 4 Tablet, Refills 1.? Notes: She was just treated with 5 days of macrobid after UTI in hospital. Finished antibiotics last week. She reports urinary frequenct and slight burning. Advised pt to get otc azo pyridium and monitor symptoms. If no improvement or worsening symptoms return to clinic. Pt and voice understanding 5. A nxiety disorder, unspecified Notes: Mood stable using diazepam about three times a week. well controlled, no need for regimen change 6. M ild protein-calorie malnutrition Refill Famotidine Tablet, 20 mg, 1 tablet, orally, twice a day, 90 days, 180 Tablet, Refills 1.? Notes: weight is well maintained. pt is drinking ensure to maintain nutrition and weight ? 7. S train of trapezius muscle, unspecified laterality, initial encounter Notes: Pt states her trap muscles pop occasionally. Advised heat for tension relief and symptomatic relief 8. E ncounter for well adult exam without abnormal findings Notes: pt has not had any recent falls She is cautious of keeping her balance, taking her time, using assistance when needed and avoiding falls when she can She will get her flu and pneumonia shot in a June she reports no changes in mood She sometimes does not eat as much as she should but is supplementing with ensure, she understands she should drink more water to stay hydrated. Clinical Notes: Dementia/3 word screening not done because of diagnosis of dementia. Depression screening not done because of dementia and anxiety. Symptoms seem to be well-controlled. Still having hallucinations. However not causing behavioral problems. Aged out of cancer screening. Vaccines will be done in June. 9. O thers Notes: f/u in 2 months for prevnar 21 and flu shot * Procedure Codes: G 2211 Complex e/m visit add on, G0439 ANNUAL WELLNESS VST; PPS SUBSQT VST, 1170F FUNCTIONAL STATUS ASSESSMENT, G8399 PT W/DXA DOCUMENT OR ORDER, 1123F ADVANCED DIRECTIVE - HAS A LIVING WILL, G2099 Pt 66+ frailty and adv ill, G2100 Pt 66+ frailty and med dem, G8420 BMI documented as normal, no follow up required., G9717 DOC PT HAS ACTIV DX DEPR/BIPOLR D/O, G9903 Pt scrn tbco id as non user, 1036F TOBACCO NON- USER, G8752 Most recent systolic blood pressure < 140mmhg, G8754 Most recent diastolic blood pressure < 90mmhg, G9744 PATIENT NOT ELIG D/T ACTIVE DX HTN * Follow Up: 2 Months * * Sign off status: Completed true * Provider: Siobhan Rao MD Date: 0 05/01/2025 Generated for Brendon andrews/Wendi/Michaelitting on: 05/08/2025 04:28 AM EDT History and Physical Notes * HPI (History of Present Illness) Category Sub-Category Detail Notes Category Not es gen Geovanna presents with her today for a wellness exam. She recently had a UTI which she was given macrobid bid for 5 days and finished last week, but she still has some slight burning. Would like to be reassured that infection is gone. Denies chest pain, palpitations, or shortness of breath. She states her appetite is okay and is also drinking ensure, she also says she could be drinking more water. BP rechecked in office 124/88 Examination Category Sub-Category Detail Notes Category Not es General Examination Heart: Regular Rate and Rhythm, no murmur, rubs or gallops Lungs: LCTAB, No wheezes, c rackles or rhonchi, Good air movement, Skin: without acute rashes General Pleasant and Coopera tive, NAD on RA,
[2025-05-08 04:29] VITALS: BP 137/81; PULSE 65; RESP 22; TEMP 36.7; O2SAT 100; BMI 27.1
--- OUTSIDE RECORDS SUMMARY | 2025-05-08 04:29 | XMS_ITS | Patient Health Record ---
Author Organization [facility] Address [address] [place] [address] Care Team Providers Care Mud Grinder Name Role Phone Nestor Rao Primary Care Provider McSophia Fuentes Unavailable [phone] Migration, Provider Unavailable Unavailable Allergies Allergen (clinical drug ingredient) Drug/Non Drug Allergy documented on EMR Reaction Allergy Type Onset Date Status SULFA (uncoded) Unknown Allergy Acti ve amoxicillin / clavulanate Augmentin Unknown Drug Allergy Active ciprofloxacin Cipro Hypotension Drug Allergy A ctive lidocaine Lidocaine Hypotension Drug Allergy Activ e doxycycline Doxycycline stomach upset Drug Allergy Active Results Component Value Reference Range Notes COMPREHENSIVE METABOLIC PANE L (02632) Reviewed date:04/06/2025 10:47:35 AM Interpretation: Performing Lab:CB, [facility] Vhet[address]87 [facility], Redwood LLCGklqVJ[address] Maciej Kennedy Notes/Report: GLUCOSE 116 65-99 mg/dL [...] Reviewed date:04/06/2025 10:47:35 AM Interpretation: Performing Lab:TRUDI [place]-[address]Cl[address], RaynforestOstoHP[address] Maciej Kennedy Notes/Report: WHITE BLOOD CELL COUNT [...] MPV 11.2 7.5-12.5 fL ABSOLUTE NEUTROPHILS 3014 [phone] cells/uL ABSOLUTE LYMPHOCYTES 580 645-8430 cells/uL ABSOLUTE MONOCYTES 292 200-950 cells/uL ABSOLUTE EOSINOPHILS 60 15-500 cells/uL ABSOLUTE BASOPHILS 30 0-200 cells/uL NEUTROPHILS 70.1 LYMPHOCYTES 21.0 MONOCYTES 6.8 EOSINOPHILS 1.4 BASOPHILS 0.7 COMMENT(S) automated results. Review of peripheral smear confirms HEMOGLOBIN A1c (496) Reviewed date:04/06/2025 10:47:35 AM Interpretation: Performing Lab:TRUDI [place] Wgrs[address], AugurHmdvHN[address] Maciej Kennedy Notes/Report: HEMOGLOBIN A1c 5.5 <5.7 [...] diagnosis of diabetes in children. According to [place] Diabetes Association (ADA) guidelines, hemoglobin A1c <7.0% represents optimal control in non- diabetic patients. Different metrics may apply to specific patient populations. Standards of Medical Care in Diabetes(ADA). TSH (899) Reviewed date:04/06/2025 10:47:35 AM Interpretation: Performing Lab:TRUDI [place]-[address]Cl[address] [place], [place] JtebLB[address] Maciej Kennedy Notes/Report: TSH 0.82 0.40-4.50 mIU/L Urinalysis Reviewed date:10/30/2024 01:53:29 PM Interpretation: Performing Lab: Notes/Report: Color/Clarity yellow Leuk neg Nitrite neg Urobili 1.0 Protein neg pH 6.5 Blood trace-intact Sp. Gr. 1.015 Ketone neg Bili neg Glucose neg Urinalysis Reviewed date:09/27/2024 03:54:56 PM Interpretation: Performing Lab: Notes/Report: Color/Clarity yellow Leuk small Nitrite positive Urobili 0.2 Protein 30mg pH 5.5 Blood small Sp. Gr. 1.030 Ketone neg Bili neg Glucose neg Urinalysis Reviewed date:04/10/2025 02:59:18 PM Interpretation: Performing Lab: Notes/Report: Color/Clarity yellow Leuk neg Nitrite neg Urobili 0.2 Protein neg pH 5.0 Blood trace Sp. Gr. 1.025 Ketone trace Bili neg Glucose neg CULTURE, URINE, ROUTINE (395 ) Reviewed date:10/09/2024 11:04:49 AM Interpretation: Performing Lab:TRUDI [place] [address], Redwood LLCCxukOH[address] Maciej Kennedy Notes/Report: NON-FASTING CULTURE, URINE, ROUTINE SEE NOTE CULTURE, URINE, ROUTINE Micro Number: [id number] Test Status: Final Specimen Source: Urine Specimen [...] cefdinir, cefpodoxime, cefprozil, cefuroxime, cephalexin and loracarbef. CULTURE, URINE, ROUTINE (395 ) Reviewed date:11/01/2024 10:03:12 AM Interpretation: Performing Lab:TRUDI [place]-Vikas Dor[address] [facility] ServiceseIL[address] Maciej Kennedy Notes/Report: NON-FASTING; NON-FASTING; NON-FASTING; NON-FASTING CULTURE, URINE, ROUTINE SEE NOTE CULTURE, URINE, ROUTINE Micro Number: [id number] Test Status: Final Specimen Source: Urine, clean catch Specimen Quality: Adequate Result: No Growth CULTURE, URINE, ROUTINE (395 ) Reviewed date:04/15/2025 08:23:48 PM Interpretation: Performing Lab:TRUDI SecloreShopClues.come[address], Redwood LLCCqojRB[address] Maciej Kennedy Notes/Report: NON-FASTING CULTURE, URINE, ROUTINE [...] Therapy Comments CULTURE, URINE, ROUTINE Micro Number: [id number] Test Status: Final Specimen Source: Urine Specimen Quality: Adequate TSH (899) Reviewed date:11/01/2024 10:03:12 AM Interpretation: Performing Lab:TRUDI Se[place]oreA[place] Jdrj[address] [facility], Redwood LLCSsvmHQ[address] Maciej Kennedy Notes/Report: NON-FASTING; NON-FASTING; NON-FASTING; NON-FASTING TSH 1.01 0.40-4.50 mIU/L CBC (INCLUDES DIFF/PLT) (639 9) Reviewed date:11/01/2024 10:03:12 AM Interpretation: Performing Lab:TRUDI SecloreShopClues.come13[address] [facility], Redwood LLCZmgdWX[address] Maciej Kennedy Notes/Report: NON-FASTING; NON-FASTING; NON-FASTING; NON-FASTING [...] MPV 10.6 7.5-12.5 fL ABSOLUTE NEUTROPHILS 4508 0964-8029 cells/uL ABSOLUTE LYMPHOCYTES 570 792-6577 cells/uL ABSOLUTE MONOCYTES 401 200-950 cells/uL ABSOLUTE EOSINOPHILS 71 15-500 cells/uL ABSOLUTE BASOPHILS 53 0-200 cells/uL NEUTROPHILS 76.4 LYMPHOCYTES 14.7 MONOCYTES 6.8 EOSINOPHILS 1.2 BASOPHILS 0.9 COMPREHENSIVE METABOLIC PANE L (65740) Reviewed date:11/01/2024 10:03:12 AM Interpretation: Performing Lab:TRUDI [place] Tstz[address], ShopClues.comQnvhTV[address] Maciej Kennedy Notes/Report: NON-FASTING; NON-FASTING; NON-FASTING; NON-FASTING [...] 23 10-35 U/L ALT 13 6-29 U/L THYROID PANEL WITH TSH (7444 ) Reviewed date:11/13/2024 04:47:46 PM Interpretation: Performing Lab:TRUDI, [place] Otzz[address], AugurPfzdWG[address] Maciej Kennedy Notes/Report: NON-FASTING; NON-FASTING; NON-FASTING; NON-FASTING; NON-FAST T3 UPTAKE 34 22-35 % T4 (THYROXINE), TOTAL 10.5 5.1-11.9 mcg/dL FREE T4 INDEX (T7) 3.6 1.4-3.8 TSH 1.03 0.40-4.50 mIU/L COMPREHENSIVE METABOLIC PANE L (44700) Reviewed date:11/13/2024 04:47:46 PM Interpretation: Performing Lab:TRUDI, Quick2LAUNCH Oynt[address] [place], AugurWekqFH[address] Maciej Kennedy Notes/Report: NON-FASTING; NON-FASTING; NON-FASTING; NON-FASTING; [...] 9) Reviewed date:11/13/2024 04:47:46 PM Interpretation: Performing Lab:TRUDI [employer] Corporatione[address], AugurZjcnZI[address] Maciej Kennedy Notes/Report: NON-FASTING; NON-FASTING; NON-FASTING; NON-FASTING; [...] MPV 10.4 7.5-12.5 fL ABSOLUTE NEUTROPHILS 3494 9891-6459 cells/uL ABSOLUTE LYMPHOCYTES 000 148-3774 cells/uL ABSOLUTE MONOCYTES 319 200-950 cells/uL ABSOLUTE EOSINOPHILS 39 15-500 cells/uL ABSOLUTE BASOPHILS 59 0-200 cells/uL NEUTROPHILS 71.3 LYMPHOCYTES 20.2 MONOCYTES 6.5 EOSINOPHILS 0.8 BASOPHILS 1.2 VITAMIN B12/FOLATE, SERUM PA RAH (9417) Reviewed date:11/13/2024 04:47:46 PM Interpretation: Performing Lab:[facility] Maciej Kennedy Notes/Report: NON-FASTING; NON-FASTING; NON-FASTING; NON-FASTING; NON-FAST VITAMIN B12 594 962-3930 pg/mL Please Note: Although the reference range [...] <3.4 Borderline: 3.4-5.4 Normal: >5.4 VITAMIN D,25-OH,TOTAL,IA (54 755) Reviewed date:11/13/2024 04:47:46 PM Interpretation: Performing Lab:TRUDI Quick2LAUNCH Uyyz5179 [facility] HrgyJG[address] Maciej Kennedy Notes/Report: NON-FASTING; NON-FASTING; NON-FASTING; NON-FASTING; [...] D, (D2,D3), LC/MS/MS is recommended: order code 79001 (patients >2yrs). See Note 1 Note 1 For additional information, please refer to http://education.[employer]/faq/JWW885 (This link is being provided for informational/ educational purposes only.) Medications Medication SIG (Take, Route, Frequency, Duration) Notes Start Date End Date Status Amiodarone HCl 200 MG 1/2 tab orally twi ce a day; Duration: 90 days Active Metoprolol Tartrate 50 MG 1 tab(s) orall y 2 times a day; Duration: 30 days 08/10/2023 Active Albuterol Sulfate HFA 108 (90 Base) MCG/ACT 2 INH inhaled every 6 hours Active Mirtazapine 30 mg TAKE 1 TABLET 1 TIME EACH DAY AT BEDTIME; Duration: 90 Active Pyridium 100 MG 1 tab Orally twice a day; Duration: 2 days As needed 05/01/2025 Active Memantine HCl 10 mg TAKE 1 TABLET 2 TIME S EACH DAY; Duration: 90 Active Atorvastatin Calcium 20 MG 1 tab(s) oral ly once a day; Duration: 90 days Active diazePAM 2 mg TAKE 1 TABLET 2 TIME S EACH DAY NEEDED; Duration: 7 04/17/2025 Active Famotidine 20 mg 1 tablet orally twic e a day; Duration: 90 days Active Immunizations Vaccine Route Administration Date Status [...] to less than 90% of standard weight) (37214920) Mild protein-calorie malnutrition (E44.1) Active confirmed Problem Vitamin D deficiency (83417428) Vitamin D deficiency, unspecified (E55.9) Active confirmed Problem Generalized anxiety disorder (20868569) Generalized anxiety disorder (F41.1) Active confirmed Problem Anxiety disorder (771753285) Anxiety disorder, unspecified (F41.9) Active confirmed Problem Paroxysmal atrial fibrillation (600992884) Paroxysmal atrial fibrillation (I48.0) Active confirmed Problem Hyperlipidemia (59394263) Hyperlipemia, idiopathic familial (E78.5) Active confirmed Problem Mild cognitive impairment (673475698) Mild cognitive impairment (G31.84) Active confirmed Problem Gastroesophageal reflux disease (033096301) GERD without esophagitis (K21.9) Active confirmed Problem Memory loss (89538882) Memory loss (R41.3) Active confirmed Problem Mild intermittent asthma (615045343) Mild intermittent asthma without complication (J45.20) Active confirmed Problem Hypoglycemia (173589273) Hypoglycemia (E16.2) Active confirmed Problem Vitamin B12 deficiency (107049861) History of non anemic vitamin B12 deficiency (Z86.39) Active confirmed Problem Sciatica (84827083) Right sided sciatica (M54.31) Active confirmed Problem Sciatica (59556104) Acute right-sided back pain with sciatica (M54.41) Active confirmed Problem Essential hypertension (31139099) Hypertension, unspecified type (I10) Active confirmed Problem Allergic rhinitis (55023265) Allergic rhinitis, unspecified seasonality, unspecified trigger (J30.9) Active confirmed Problem Intracranial hemorrhage (6621162) Intracranial hemorrhage (I62.9) Active confirmed Problem Moderate dementia with agitation, unspecified dementia type (F03.B11) Active confirmed Vital Signs Heart Rate 88 /min 05/01/2025 Temperature 97.7 degrees Fahrenheit 05/01/2025 Blood pressure diastolic 80 mm Hg 05/01/2025 Height 65.5 in 05/01/2025 Blood pressure systolic 140 mm Hg 05/01/2025 Weight 123 lbs 05/01/2025 BMI 20.15 kg/m2 05/01/2025 Encounters Encounter Location Date Provider Diagnosis [facility] [address] [place] [address] 12/09/2024 Provider Migration Moderate dementia with agitation, unspecified dementia type F03.B11 [facility] [address] [address] 05/23/2024 Nestor Besson Trochanteric bursiti s of right hip M70.61 ; Generalized anxiety disorder F41.1 ; Paroxysmal atrial fibrillation I48.0 ; Hyperlipemia, idiopathic familial E78.5 ; Hypertension, unspecified type I10 ; Memory loss R41.3 and GERD without esophagitis K21.9 [facility] [address] [place] [address] 08/14/2024 Nestor Besson Mild protein-calorie malnutrition E44.1 ; Cystitis N30.90 ; Memory loss R41.3 and Hospital discharge follow-up Z09 [facility] [place] [address] [place] [address] 09/04/2024 Nestor Besson Mild protein-calorie malnutrition E44.1 ; Memory loss R41.3 ; Mild cognitive impairment G31.84 ; Dizziness R42 and Routine medical exam Z00.00 [facility] [address] [place], [place] [address] 09/27/2024 Nestor Besson Intracranial hemorrhage I62.9 ; Dementia with psychotic disturbance, unspecified dementia severity, unspecified dementia type F03.92 ; Dysuria R30.0 and Hospital discharge follow-up Z09 [facility] [place] [address] [place] [address] 10/12/2024 Sophia Dang Acute cystitis without hematuria N30.00 ; Intracranial hemorrhage I62.9 and Moderate dementia with agitation, unspecified dementia type F03.B11 [facility] [address] [address] 10/30/2024 Sophia Laurence Recurrent UTI N39.0 ; Weakness R53.1 and Moderate dementia with agitation, unspecified dementia type F03.B11 [facility] [place] [address] [place] [address] 11/08/2024 Nestor Rao History of non anemi c vitamin B12 deficiency Z86.39 ; Mild protein-calorie malnutrition E44.1 ; Intracranial hemorrhage I62.9 ; Moderate dementia with agitation, unspecified dementia type F03.B11 and Vitamin D deficiency, unspecified E55.9 [facility] [address] [address] 12/19/2024 Nestor Rao Bilateral lower extremity edema R60.0 ; Cellulitis of left lower limb L03.116 ; Cellulitis of right lower limb L03.115 and Moderate dementia with agitation, unspecified dementia type F03.B11 [facility] [address] [address] 01/09/2025 Nestor Rao Mild protein-calorie malnutrition E44.1 and Bilateral impacted cerumen H61.[address] [address] 01/23/2025 Nestor Rao Generalized anxiety disorder F41.1 ; Mild protein-calorie malnutrition E44.1 ; Moderate dementia with agitation, unspecified dementia type F03.B11 and Hospital discharge follow-up Z09 [facility] [address] [address] 02/27/2025 Nestor Rao Moderate dementia with agitation, unspecified dementia type F03.B11 ; Intracranial hemorrhage I62.9 ; Anxiety disorder, unspecified F41.9 ; Paroxysmal atrial fibrillation I48.0 ; Weight loss, unintentional R63.4 and Routine medical exam Z00.[address] [address] 04/10/2025 Nestor Rao Dysuria R30.0 and Cystitis N30.90 [facility] [address] [address] 05/01/2025 Nestorhill Rao Paroxysmal atrial fibrillation I48.0 ; Hyperlipemia, idiopathic familial E78.5 ; Hypertension, unspecified type I10 ; Urinary frequency R35.0 ; Anxiety disorder, unspecified F41.9 ; Mild protein-calorie malnutrition E44.1 ; Strain of trapezius muscle, unspecified laterality, initial encounter S46.819A ; Moderate dementia with agitation, unspecified dementia type F03.B11 and Encounter for well adult exam without abnormal findings Z00.00 [facility] [address] [address] 07/06/2024 Nestor Besson [facility] [address] [facility] [address] [place] [address] 08/08/2024 Nestor Besson [facility] [address] [place] [address] 08/11/2024 Nestorhill Rao GERD without esophagitis K21.9 [facility] [address] [facility] [address] [place] [address] 10/12/2024 Sophia McNees [facility] [address] [facility] [address] [place] [address] 11/08/2024 Nestor Besson Moderate dementia with agitation, unspecified dementia type F03.B11 [facility] [address] [address] 03/13/2025 Nestor Besson [facility] [address] [place] [address] 04/03/2025 Nestor Rubioson Hypoglycemia E16.2 and Paroxysmal atrial fibrillation I48.0 Assessments Encounter Date Diagnosis (ICD Code) Assessment Notes Treatment Notes Treatment Clinical Notes Section Notes 02/27/2025 Intracranial hemorrhage (ICD-10 - I62.9) No [...] - I48.0) 04/03/2025 Hypoglycemia (ICD-10 - E16.2) 05/01/2025 Paroxysmal atrial fibrillation (ICD-10 - I48.0) HR and bp well controlled on amiodarone and metoprolol, pt denies racing heart or palpitations, no need for regimen change 05/01/2025 Hyperlipemia, idiopathic familial (ICD-10 - E78.5) well maintained on atorvastatin, continuing to monitor for side effects, no need for regimen change 04/10/2025 Dysuria (ICD-10 - R30.0) Reviewed urinalysis [...] of twice daily cefdinir as prescribed 01/23/2025 Mild protein-calorie malnutrition (ICD-10 - E44.1) [...] if needed for panic attacks or anxiety 01/09/2025 Mild protein-calorie malnutrition (ICD-10 - E44.1) [...] at night to help reaccumulation of wax 12/09/2024 Moderate dementia with agitation, unspecified dementia type (ICD-10 - F03.B11) 11/08/2024 Moderate dementia with agitation, unspecified dementia type (ICD-10 - F03.B11) 11/08/2024 Mild protein-calorie malnutrition (ICD-10 - E44.1) 12/19/2024 Cellulitis of left lower limb (ICD-10 - L03.116) No need for antibiotics at this point, mupirocin twice daily, elevation, for short-term follow-up in 2 weeks 12/19/2024 Bilateral lower extremity edema (ICD-10 - R60.0) No indication of volume overload, seems to be a lymphedema/positio yanci issue, encouraged continued elevation of legs. I think she also suffers from protein calorie malnutrition. Discussed getting some Ensure and trying her on 1 can a day of this. Given her 's own memory loss I am extremely concerned about their home safety environment. 11/08/2024 History of non anemic vitamin B12 deficiency (ICD-10 - Z86.39) 10/12/2024 Acute cystitis without hematuria (ICD-10 - N30.00) Urine cx reviewed- E. Coli > 100,000 colony count. Treat with cefdinir. Increase oral fluid intake. Return precautions discussed 10/12/2024 Intracranial hemorrhage (ICD-10 - I62.9) No acute neuro deficits 09/27/2024 Intracranial hemorrhage (ICD-10 - I62.9) Stable [...] Neurology apt to establish care next month. 09/04/2024 Mild protein-calorie malnutrition (ICD-10 - E44.1) Will retry mirtazapine prescription, slightly higher dose, follow-up in 6 weeks to see if this has helped, again stop Lexapro. 10/30/2024 Recurrent UTI (ICD-10 - N39.0) Reassurance, UA with trace blood only. Will send for culture. Increase oral fluid intake. Labs obtained to rule out additional pathology. May be related to medications, elevated blood pressure, lack of eating/poor nutritional status or early onset UTI. Return precautions discussed. 09/04/2024 Memory loss (ICD-10 - R41.3) Patient has had previous workup, significant risk of Alzheimer disease, does not wish to take medications or do further workup at this point 08/14/2024 Mild protein-calorie malnutrition (ICD-10 - E44.1) [...] was actually the cause of her symptoms. 08/11/2024 GERD without esophagitis (ICD-10 - K21.9) 05/23/2024 Generalized anxiety disorder (ICD-10 - F41.1) [...] to see if diclofenac gel has helped. 10/30/2024 Weakness (ICD-10 - R53.1) 05/23/2024 Paroxysmal atrial fibrillation (ICD-10 - I48.0) Well controlled with amiodarone. Patient is not currently using anticoagulation therapy due to history of falls. 08/14/2024 Memory loss (ICD-10 - R41.3) Seems stable but not in a great place, will continue to monitor closely. Patient is somewhat resistant to taking further memory medications. 10/30/2024 Moderate dementia with agitation, unspecified dementia [...] and start weaning mirtazapine if still taking 09/27/2024 Dysuria (ICD-10 - R30.0) Dysuria and increased frequency. Denies fever/chills or other systemic sx. UA +leuks & nitrites. Start macrobid 100 mg BID x5 days. 11/08/2024 Intracranial hemorrhage (ICD-10 - I62.9) No evidence of recurrence. Blood pressure under good control. No indication for anticoagulation at this point 12/19/2024 Cellulitis of right lower limb (ICD-10 - L03.115) 01/23/2025 Moderate dementia with agitation, unspecified dementia type (ICD-10 - F03.B11) Dementia seems fairly stable. She actually seems more talkative today with better nutrition and perhaps the effect of the hydroxyzine for her nerves. Will follow-up in 1 month 05/01/2025 Hypertension, unspecified type (ICD-10 - I10) BP rechecked in office today 124/88 pt states she checks her bp at home and runs around 120s/80s normally no need for regimen change, well maintained on amiodarone and metoprolol 02/27/2025 Anxiety disorder, unspecified (ICD-10 - F41.9) Seems slightly improved, discussed that she would need Valium before the MRI, discussed with her to take this 02/27/2025 Paroxysmal atrial fibrillation (ICD-10 - I48.0) Heart rate regulated, good blood pressure control 05/01/2025 Urinary frequency (ICD-10 - R35.0) She was just treated with 5 days of macrobid after UTI in hospital. Finished antibiotics last week. She reports urinary frequenct and slight burning. Advised pt to get otc azo pyridium and monitor symptoms. If no improvement or worsening symptoms return to clinic. Pt and voice understanding 01/23/2025 Hospital discharge follow-up (ICD-10 - Z09) I reviewed ER notes available from emergency department. Reviewed labs, reviewed discharge plan, personally reconciled medication. 11/08/2024 Moderate dementia with agitation, unspecified dementia [...] the medication, short-term follow-up in 2 weeks 09/27/2024 Hospital discharge follow-up (ICD-10 - Z09) Recently discharged from [facility] due to occipital lobe ICH. All medical records personally reviewed. 09/04/2024 Dizziness (ICD-10 - R42) Resolved, I reviewed ER records 08/14/2024 Hospital discharge follow-up (ICD-10 - Z09) Personally reviewed H&P, discharge summary, reconciled medicines as above 05/23/2024 Hyperlipemia, idiopathic familial (ICD-10 - E78.5) Well controlled with atorvastatin, continue current medication. 05/23/2024 Hypertension, unspecified type (ICD-10 - I10) Well controlled with metoprolol, continue current medication. 09/04/2024 Routine medical exam (ICD-10 - Z00.00) [...] not drive or do her own finances. 11/08/2024 Vitamin D deficiency, unspecified (ICD-10 - E55.9) 05/01/2025 Anxiety disorder, unspecified (ICD-10 - F41.9) Mood stable using diazepam about three times a week. well controlled, no need for regimen change 02/27/2025 Weight loss, unintentional (ICD-10 - R63.4) Improved weight. Good gain, continue better nutrition. 02/27/2025 Routine medical exam (ICD-10 - Z00.00) Not a candidate for cancer screening given her severe dementia issues. Cognitive impairment screening not noted/done because of her dementia. Non-smoker. Up-to-date with vaccines. is healthcare decision-maker. No recent falls. 05/01/2025 Mild protein-calorie malnutrition (ICD-10 - E44.1) weight is well maintained. pt is drinking ensure to maintain nutrition and weight 05/23/2024 Memory loss (ICD-10 - R41.3) Patient seems to be stable today with no mood or behavior disturbances. Continue memantine. 05/23/2024 GERD without esophagitis (ICD-10 - K21.9) Well controlled with famotidine, continue current medication. 05/01/2025 Strain of trapezius muscle, unspecified laterality, [...] dementia and anxiety. Symptoms seem to be well-controll ed. Still having hallucination s. However not causing behavioral problems. Aged out of cancer screening. Vaccines will be done in June. 05/01/2025 Other f/u in 2 months for prevnar 21 and flu shot Plan Of Treatment Pending Test Test Name Order Date N-CBC 01/05/2014 MRI : Lumbosacral Spine 01/26/2011 MRI : Lumbosacral Spine 05/18/2011 Urinalysis 03/26/2008 Urinalysis 01/20/2010 X ray : Hip, Left 04/15/2012 occult blood 08/03/2008 DEXA Hip and Spine - Screening 0 DEXA Hip and Spine - Screening 2 N-CMP 01/05/2014 V-neocfyv-thbu 02/17/2008 EKG : In House 01/05/2007 Holter Monitor : Event Recorder 01/21/20 18 Physical Therapy 12/26/2014 Physical Therapy 09/16/2009 Mammogram : Bilateral 01/30/2010 Mammogram : Bilateral 09/04/2013 Mammogram : Bilateral 02/07/2013 Mammogram : Bilateral 12/02/2021 Holter Monitor, 48 hour 01/07/2022 H-CBC with AUTO DIFF 03/19/2015 H-CMP 03/19/2015 C-CBC 02/24/2013 C-CBC 03/31/2010 C-CBC 09/04/2013 C-CMP 09/04/2013 C-CMP 03/31/2010 C-CMP 02/24/2013 C-LIPID PANEL 02/24/2013 C-LIPID PANEL [...] 10/29/2020 Next Appt Details Provider Name:Nestor Rao, 07/05/2025 10:30:00 AM, [address], [address], Insurance Providers Payer Name Payer Address Payer Phone Subscriber Number Group Number Insured Name Patient Relationship to Insured Coverage Start Date Coverage End Date [facility] [address] [address] [place] [address] [id number] Geovanna Garner Self - patient is the insured [facility] CLAIM[facility] [address] [place] [address] [id number] Geovanna Garner Self - patient is the [...]
--- OUTSIDE RECORDS SUMMARY | 2025-05-08 04:29 | XMS_ITS | Encounter Summary ---
Author Organization Healthcare Address [address] [place] [address] Care Team Providers Care Commercial Mortgage Broker Name Role Phone Nestor Rao MD Primary Care Provider [phone] Encounter Details Date Type Department Care Team [...] were you homeless or living in a assisted (including now)? No 09/18/2024 Utilities Answer Date [...] Info) Description 04/12/2026 12:30 PM EDT Appointment [facility] [address] [place] [phone] 04/12/2026 2:15 PM EDT [facility] Visit [facility] [address] [place] [address] Doyle Grewal MD [address] [place] [address] documented as of this encounter Visit Diagnoses Not on filedocumented in this encounter Additional Health Concerns Assessment Noted Time A fall risk assessment has been complete d for the patient 03/30/2025 3:19 PM EDT A Body Mass Index follow-up plan has been documented for the patient 03/30/2025 4:55 PM EDT documented as of this encounter Care Teams Commercial Mortgage Broker Relationship Specialty Start Date End Date Nestor Rao MD [address] [place] [address] PCP - General 01/17/21 documented as of this encounter
--- OUTSIDE RECORDS SUMMARY | 2025-05-08 04:30 | XMS_ITS | Clinical Summary ---
Author Organization [facility] Address [address] [place] [address] Care Team Providers Care Project Estimator Name Role Phone Nestor Rao MD Primary Care Provider [phone] Allergies Active Allergy Reactions Criticality Noted Date [...] Noted Date Diagnosed Date Intracerebral hemorrhage, nontraumatic 5 Weakness 09/21/2024 Dementia 09/20/2024 CELINA (acute kidney injury) 09/20/2024 Atrial fibrillation 09/20/2024 Primary hypertension 09/20/2024 Mixed hyperlipidemia 09/20/2024 GERD (gastroesophageal reflux disease) Mood disorder 09/20/2024 Thrombocytopenia 09/20/2024 Intraparenchymal hemorrhage of brain 09/17/2024 Encounters Date Type Department Care Team Description 03/30/2025 2:45 PM EDT [facility] Visit [place] [facility] [address] [place] [phone] Doyle Grewal MD Cavernous malformation (Primary Dx); Pre-procedural laboratory examination; Memory changes 03/30/2025 11:38 AM EDT - 03/30/2025 11:59 PM EDT Hospital Encounter [facility] [address] [place] [address] Discharge Disposition: Home or Self Care 03/30/2025 Travel from Last 3 Months Immunizations Immunization [...] any time in the past 12 m [facility], were you homeless or living in a jail (including now)? No 09/18/2024 Utilities Answer Date Recorded In the past 12 months has th [employer], gas, oil, or water company threatened [...] Info) Description 04/12/2026 12:30 PM EDT Appointment [facility] [address] [place] [address] 04/12/2026 2:15 PM EDT Office Visit [place] [facility] [address] [place] [address] Doyle Grewal MD [address] [place] [address] Health Maintenance Due Date Last Done Comments [facility]-Bone Density Scan 1950 [facility]-Depression Screening 1950 [facility]-Hepatitis C Screening 1950 [facility]-Medicare Annual Wellness (AWV) 1950 [facility]-/Child/Adol SDOH Screenings 1950 [address] Colonography 01/19/1996 Colonoscopy 01/19/1996 FIT-DNA 01/19/1996 FIT 01/19/1996 FOBT 01/19/1996 Sigmoidoscopy 01/19/1996 [facility]-Colorectal Cancer Screening 01/19/1996 [facility]-Breast Cancer Screening 2001 [facility]-Zoster Vaccines (1 of 2) 2001 [id number] Vaccine (4 - season) 2024 09/18/2021, 10/09/2020, 09/11/2020 [facility]- SDOH [...] error, please notify the sender immediately at [phone] and permanently delete the original report and destroy any copies or printouts. Narrative 04/01/2025 10:33 AM EDT [facility] - Phone Outpatient NAME: Geovanna Garner DATE OF EXAM: 03/30/2025 Patient No: [id number] Physician: Pelon Date of : 1950 Past [...] 04/01/2025 [facility] - Phone Outpatient NAME: Geovanna Garner DATE OF EXAM: 03/30/2025 Patient No: [id number] Physician: Pelon Date of : 1950 Past [...] withconfusion and hallucinations. Confuses her with uncle ojyce. Balance some better, nothing worse... Indication: Stroke [...] in error, pleasenotify the sender immediately at [phone] and permanently delete theoriginal report and destroy any copies or printouts. Talia Blanton APRN IMG MRI PROCEDURES Final R esult from Last 3 Months Insurance [employer] MEDICARE Advance Directives * Full Code (Latest Code Status on File) Date Activated Date Inactivated Comments 09/21/2024 5:07 AM 09/21/2024 5:34 PM Question Answer Comments Patient has decision-making capacity? Yes * Full Code Date Activated Date Inactivated Comments 09/17/2024 11:51 PM 09/20/2024 5:15 PM Question Answer Comments Patient has decision-making capacity? Yes Care Teams Project Estimator Relationship Specialty Start Date End Date Nestor Rao MD [address] [place] [address] PCP - General 01/17/21
--- NOTE | 2025-05-08 04:31 | HMH.EDGENADL ---
Discharge Plan Prescriptions Prescriptions: No Action escitalopram oxalate 10 mg tablet 10 mg PO DAILY Patient Comments: TAKE 1 TABLET 1 TIME EACH DAY memantine 10 mg tablet 10 mg PO BID Qty: 60 3RF famotidine 20 mg tablet 20 mg PO BID atorvastatin [Lipitor] 20 mg tablet 20 mg PO DAILY Qty: 30 5RF aspirin [Adult Aspirin Regimen] 81 mg tablet,delayed release (DR/EC) 81 mg PO DAILY Qty: 30 5RF metoprolol tartrate 50 mg tablet 50 mg PO BID Qty: 180 0RF Patient Comments: TAKE 1 TABLET 1 TIME DAILY amiodarone 200 mg tablet 100 mg PO BID albuterol sulfate 90 mcg/actuation HFA aerosol inhaler 4 inh inhalation Q4HP PRN (Reason: shortness of breath or wheezing) Rx Instructions: 4 puffs every 4 hours for 48 hours then as needed for shortness of breath or wheezing following cefdinir 300 mg Capsule 300 mg PO BID 3 Days Qty: 6 0RF polyethylene glycol 3350 [Miralax] 17 gram/dose powder 17 g PO DAILY Qty: 510 0RF sennosides [Senna Lax] 8.6 mg tablet 8.6 mg PO HS PRN (Reason: constipation) Qty: 30 0RF meclizine 25 mg tablet 25 mg PO TID PRN (Reason: dizziness) Qty: 30 0RF nitrofurantoin monohyd/m-cryst 100 mg capsule 100 mg PO BID 5 Days Qty: 10 0RF Rx Instructions: must administer with a meal/food hydralazine 25 mg tablet 12.5 mg PO TID PRN (Reason: anxiety) Qty: 30 0RF meclizine 25 mg tablet 25 mg PO TID PRN (Reason: dizziness) Qty: 12 0RF Referrals Follow up/Referrals: Nestor Rao MD [Primary Care Provider, Internal Medicine] - See instructions Print Language Print Language: Polish Discharge ED Provider: Will Orozco Adult HPI General Stated complaint: bleeding from bowels, weak Time Seen by Provider: 05/08/25 04:31 Related Data Home Medications ?Medication ?Instructions ?Recorded ?Confirmed escitalopram oxalate 10 mg tablet 10 mg PO DAILY 02/18/24 08/08/24 famotidine 20 mg tablet 20 mg PO BID 05/11/24 08/08/24 albuterol sulfate 90 mcg/actuation 4 inh inhalation Q4HP PRN 08/08/24 aerosol inhaler shortness of breath or wheezing amiodarone 200 mg tablet 100 mg PO BID 08/08/24 08/08/24 Previous Rx's ?Medication ?Instructions ?Recorded memantine 10 mg tablet 10 mg PO BID #60 tabs 03/07/24 aspirin 81 mg tablet,delayed 81 mg PO DAILY #30 tabs 05/11/24 release (Adult Aspirin Regimen) atorvastatin 20 mg tablet (Lipitor) 20 mg PO DAILY #30 tabs 05/11/24 cefdinir 300 mg capsule 300 mg PO BID 3 days #6 caps 08/08/24 meclizine 25 mg tablet 25 mg PO TID PRN dizziness #30 tabs 08/29/24 nitrofurantoin 100 mg PO BID 5 days #10 caps 10/28/24 monohydrate/macrocrystals 100 mg capsule polyethylene glycol 3350 17 17 g PO DAILY #510 grams 01/15/25 gram/dose oral powder (Miralax) sennosides 8.6 mg tablet (Senna 8.6 mg PO HS PRN constipation #30 01/15/25 Lax) tabs hydralazine 25 mg tablet 12.5 mg (1/2 x 25 mg) PO TID PRN 01/20/25 anxiety #30 tabs meclizine 25 mg tablet 25 mg PO TID PRN dizziness #12 tabs 04/12/25 metoprolol tartrate 50 mg tablet 50 mg PO BID #180 tabs 04/25/25 Allergies Allergy/AdvReac Type Severity Reaction Status Date / Time amoxicillin (From Augmentin) Allergy Unknown Verified 08/08/24 07:09 allergy reaction ciprofloxacin (From Cipro) Allergy Unknown Verified 08/08/24 07:09 allergy reaction clavulanic acid (From Allergy Unknown Verified 08/08/24 07:09 Augmentin) allergy reaction doxycycline Allergy Unknown Verified 08/08/24 07:09 allergy reaction lidocaine Allergy Unknown Verified 08/08/24 07:09 allergy reaction Sulfa (Sulfonamide Allergy Unknown Verified 08/08/24 07:09 Antibiotics) allergy reaction PFSH PFS Disclaimer: The information contained in this section may have been updated after the patient was seen, as this information can be updated by other users. Medical History Chronic kidney disease Generalized weakness Acute UTI Acute pain of right hip Nontraumatic hematoma Constipation Asthenia Viral syndrome Diarrhea Laryngitis Cough Nausea CELINA (acute kidney injury) Cystitis Cerumen impaction Mild cognitive impairment Hypoglycemia Dehydration Coronary artery disease Elevated brain natriuretic peptide (BNP) level Abnormal electrocardiogram [ECG] [EKG] Fatigue HTN (hypertension) Dyspnea Abnormal ECG Abnormal findings on diagnostic imaging of heart and coronary circulation Sinus bradycardia Chronic GERD IBS (irritable bowel syndrome) Hyperlipidemia Depression Dyspareunia Asthma Paroxysmal atrial fibrillation Palpitations Surgical History H/O: section Hx of cholecystectomy Family History Father Hypertension Mother CHF (congestive heart failure) Cancer Daughter Seizure Stroke Social History Smoking Status: Never smoker second hand exposure: No alcohol intake: never counseling given: No current occupational status: retired Travel in the last 8 weeks?: None household members: family housing: house marital status: Have you lived/traveled outside [place] in past 30 days?: No Contact w/someone who lives/traveled outside US past 30 days?: No Exposure to someone with infectious disease in past 14 days?: No Do you have a fever (greater than 100.4 F or 38 C)?: No Have you tested positive for COVID-19?: No Exposed to someone with COVID-19 in past 14 days?: No Do you have a sore throat?: No Do you have a cough?: No Do you have any weakness?: No Do you have any diarrhea?: No Are you experiencing any unusual bleeding?: Yes Do you have any muscle aches/pain?: No Do you have any abdominal pain?: No Are you experiencing loss of taste or smell?: No Other Medical History Have you received the Flu Vaccine for this season: No Have you received the Pneumonia Vaccine: No Medical Decision Making Medical Records Screening: Per USPSTF and CDC recommendations, given the prevalence of disease in our region, it is our hospital?s policy to screen for HIV and viral Hepatitis for all patients aged 18 and over and those with ongoing risk factors. Orders (Tests/Meds): ORDERS Category Date Time Status Occult Blood,Stool Stat Lab 05/08/25 04:28 Ordered
--- NOTE | 2025-05-08 04:40 | ECG_ITS ---
APPROVED REPORT Exam: Resting ECG HR:60 bpm ECG Measurements Heart Rate 60 AXES QRSd 90 QRS 62 QT 432 T 74 QTc 432 Conclusion Sinus rhythm POSSIBLE RIGHT VENTRICULAR CONDUCTION DELAY [RSR (QR) IN V1/V2] No STEMI Electronically signed by : SKY PENNY, 05/09/2025 03:16:30
--- NOTE | 2025-05-08 04:42 | HMH.EDGENADL ---
Discharge Plan Disposition Patient Disposition: Home, Self-Care Condition: Good Prescriptions Prescriptions: No Action escitalopram oxalate 10 mg tablet 10 mg PO DAILY Patient Comments: TAKE 1 TABLET 1 TIME EACH DAY memantine 10 mg tablet 10 mg PO BID Qty: 60 3RF famotidine 20 mg tablet 20 mg PO BID atorvastatin [Lipitor] 20 mg tablet 20 mg PO DAILY Qty: 30 5RF aspirin [Adult Aspirin Regimen] 81 mg tablet,delayed release (DR/EC) 81 mg PO DAILY Qty: 30 5RF metoprolol tartrate 50 mg tablet 50 mg PO BID Qty: 180 0RF Patient Comments: TAKE 1 TABLET 1 TIME DAILY amiodarone 200 mg tablet 100 mg PO BID albuterol sulfate 90 mcg/actuation HFA aerosol inhaler 4 inh inhalation Q4HP PRN (Reason: shortness of breath or wheezing) Rx Instructions: 4 puffs every 4 hours for 48 hours then as needed for shortness of breath or wheezing following cefdinir 300 mg Capsule 300 mg PO BID 3 Days Qty: 6 0RF polyethylene glycol 3350 [Miralax] 17 gram/dose powder 17 g PO DAILY Qty: 510 0RF sennosides [Senna Lax] 8.6 mg tablet 8.6 mg PO HS PRN (Reason: constipation) Qty: 30 0RF meclizine 25 mg tablet 25 mg PO TID PRN (Reason: dizziness) Qty: 30 0RF nitrofurantoin monohyd/m-cryst 100 mg capsule 100 mg PO BID 5 Days Qty: 10 0RF Rx Instructions: must administer with a meal/food hydralazine 25 mg tablet 12.5 mg PO TID PRN (Reason: anxiety) Qty: 30 0RF meclizine 25 mg tablet 25 mg PO TID PRN (Reason: dizziness) Qty: 12 0RF Referrals Follow up/Referrals: Nestor Rao MD [Primary Care Provider, Internal Medicine] - See instructions Referral Note: Please follow up with patient regarding normal bowel regimen to avoid constipation then large use of laxatives followed by diarrhea Activity Restrictions/Add. Instructions Additional Instructions/Restrictions: You were evaluated in the ER and are believed to be appropriate for discharge at this time. Continue taking your home medications as prescribed. Make an appointment with Dr. Roa for re-evaluation in 2 to 3 days. Please discuss with him a more regular, gentle daily bowel regimen to avoid constipation followed by diarrhea. Drink plenty of water and eat a high-fiber diet to help support normal bowel movements. Return to the ER with any new, worsening, or otherwise concerning symptoms. Clinical Impressions Clinical Impression: Constipation, Diarrhea, Vaso vagal episode Instructions Patient Instructions: DI for Constipation Print Language Print Language: [place] Discharge ED Provider: Will Orozco General Adult HPI General Chief complaint: Abdominal Pain Stated complaint: bleeding from bowels, weak Time Seen by Provider: 05/08/25 04:31 Mode of Arrival: Wheelchair Source of Information: Patient and Significant Other Description of Symptoms (Recalled from ER Triage Doc. by RN): pt reports she has been constipated and took an exlax for abdominal pain relief. pt then had a large bowel movement that felt like it burst pt and significant other reports no blood seen History of Present Illness HPI narrative: 75-year-old female presents to the ER after a large bowel movement. Patient and reports she was recently constipated for the last 4 to 5 days. In the last 12 hours she took multiple doses of Ex-Lax, tonight prior to arrival she had a very large bowel movement. reports it was soft and brown in color, he did not appreciate any blood. Patient reported to him that she felt like something burst as she had the big bowel movement. She denies seeing any blood but thought she could be bleeding. She has no history of hemorrhoids, she has not had any vomiting or diarrhea. No fevers or chills. There was no blood on the paper. Patient and are both poor historians and cannot describe the event well. I continued asking questions to better delineate what happened because patient is not describing pain or other specific event. Patient reported I was upsetting her by asking questions about pain and the type of bowel movement and her other symptoms but I explained it was unclear to me what her symptoms and presentation to the ER were for. After continued discussion with patient and there was not actual burst, popping, bleeding, or pain, but rather a very large bowel movement and when she had this large bowel movement she felt lightheaded. Patient did not pass out. Ultimately feeling lightheaded as the bowel movement dropped into the commode was what prompted her to come to the ER. She has had previous urinary tract infection but denies dysuria or hematuria. No chest pain or difficulty breathing, no palpitations. No headache, numbness, tingling, or localizing weakness. Patient reports pain at the anus but no other pain. She states she has generalized weakness but this has been going on persistently for a while and is not new or worsened tonight. Review of records demonstrates she has been seen in the ER twice in the last month for those symptoms with dizziness and syncope/presyncope. Related Data Home Medications ?Medication ?Instructions ?Recorded ?Confirmed escitalopram oxalate 10 mg tablet 10 mg PO DAILY 02/18/24 08/08/24 famotidine 20 mg tablet 20 mg PO BID 05/11/24 08/08/24 albuterol sulfate 90 mcg/actuation 4 inh inhalation Q4HP PRN 08/08/24 aerosol inhaler shortness of breath or wheezing amiodarone 200 mg tablet 100 mg PO BID 08/08/24 08/08/24 Previous Rx's ?Medication ?Instructions ?Recorded memantine 10 mg tablet 10 mg PO BID #60 tabs 03/07/24 aspirin 81 mg tablet,delayed 81 mg PO DAILY #30 tabs 05/11/24 release (Adult Aspirin Regimen) atorvastatin 20 mg tablet (Lipitor) 20 mg PO DAILY #30 tabs 05/11/24 cefdinir 300 mg capsule 300 mg PO BID 3 days #6 caps 08/08/24 meclizine 25 mg tablet 25 mg PO TID PRN dizziness #30 tabs 08/29/24 nitrofurantoin 100 mg PO BID 5 days #10 caps 10/28/24 monohydrate/macrocrystals 100 mg capsule polyethylene glycol 3350 17 17 g PO DAILY #510 grams 01/15/25 gram/dose oral powder (Miralax) sennosides 8.6 mg tablet (Senna 8.6 mg PO HS PRN constipation #30 01/15/25 Lax) tabs hydralazine 25 mg tablet 12.5 mg (1/2 x 25 mg) PO TID PRN 01/20/25 anxiety #30 tabs meclizine 25 mg tablet 25 mg PO TID PRN dizziness #12 tabs 04/12/25 metoprolol tartrate 50 mg tablet 50 mg PO BID #180 tabs 04/25/25 Allergies Allergy/AdvReac Type Severity Reaction Status Date / Time amoxicillin (From Augmentin) Allergy Unknown Verified 08/08/24 07:09 allergy reaction ciprofloxacin (From Cipro) Allergy Unknown Verified 08/08/24 07:09 allergy reaction clavulanic acid (From Allergy Unknown Verified 08/08/24 07:09 Augmentin) allergy reaction doxycycline Allergy Unknown Verified 08/08/24 07:09 allergy reaction lidocaine Allergy Unknown Verified 08/08/24 07:09 allergy reaction Sulfa (Sulfonamide Allergy Unknown Verified 08/08/24 07:09 Antibiotics) allergy reaction PFSH PFS Disclaimer: The information contained in this section may have been updated after the patient was seen, as this information can be updated by other users. Medical History Chronic kidney disease Generalized weakness Acute UTI Acute pain of right hip Nontraumatic hematoma Constipation Asthenia Viral syndrome Diarrhea Laryngitis Cough Nausea CELINA (acute kidney injury) Cystitis Cerumen impaction Mild cognitive impairment Hypoglycemia Dehydration Coronary artery disease Elevated brain natriuretic peptide (BNP) level Abnormal electrocardiogram [ECG] [EKG] Fatigue HTN (hypertension) Dyspnea Abnormal ECG Abnormal findings on diagnostic imaging of heart and coronary circulation Sinus bradycardia Chronic GERD IBS (irritable bowel syndrome) Hyperlipidemia Depression Dyspareunia Asthma Paroxysmal atrial fibrillation Palpitations Surgical History H/O: section Hx of cholecystectomy Family History Father Hypertension Mother CHF (congestive heart failure) Cancer Daughter Seizure Stroke Social History Smoking Status: Unknown if ever smoked second hand exposure: No alcohol intake: never counseling given: No current occupational status: retired Travel in the last 8 weeks?: None household members: family housing: house marital status: Have you lived/traveled outside [place] in past 30 days?: No Contact w/someone who lives/traveled outside US past 30 days?: No Exposure to someone with infectious disease in past 14 days?: No Do you have a fever (greater than 100.4 F or 38 C)?: No Have you tested positive for COVID-19?: No Exposed to someone with COVID-19 in past 14 days?: No Do you have a sore throat?: No Do you have a cough?: No Do you have any weakness?: No Do you have any diarrhea?: No Are you experiencing any unusual bleeding?: Yes Do you have any muscle aches/pain?: No Do you have any abdominal pain?: No Are you experiencing loss of taste or smell?: No Other Medical History Have you received the Flu Vaccine for this season: No Have you received the Pneumonia Vaccine: No ROS Obtained: Yes Systems reviewed as appropriate & no additional complaints except as documented Per HPI Physical Exam General General appearance: alert and in no apparent distress Head Head exam: atraumatic and normocephalic Eye Eye exam: Present PERRL and EOMI ENT ENT exam: Present mucous membranes moist Neck Neck exam: Present normal inspection and full ROM Chest Chest inspection: Present symmetric chest wall rise Respiratory Respiratory exam: Present normal lung sounds bilaterally; Absent respiratory distress, wheezes or stridor Cardiovascular Cardiovascular exam: Present regular rate and normal rhythm Abdominal Exam Abdominal exam: Present soft; Absent distention, tenderness, guarding or rebound Rectal Exam Rectal exam: Present normal rectal tone and heme (-) stool; Absent black stool, bloody stool, fecal impaction, hemorrhoids or mass comment: I does appear to be mild irritation at the anus, possibly a very tiny posterior fissure but no bleeding. No internal hemorrhoids appreciated. Extremities Exam Extremities exam: Present full ROM and edema (+1 BLE edema) Neurological Exam Neurological exam: Present alert and oriented X3; Absent motor sensory deficit Psychiatric Psychiatric exam: Present normal affect and normal mood Skin Skin exam: Present warm and dry Medical Decision Making Medical Records Medical records reviewed: Yes I reviewed the patient's medical records. Screening: Per USPSTF and CDC recommendations, given the prevalence of disease in our region, it is our hospital?s policy to screen for HIV and viral Hepatitis for all patients aged 18 and over and those with ongoing risk factors. Narciso Inquiry Pt receiving controlled substance: No Vital Signs: 05/08/25 04:29 Temperature 98.0 F Temperature Source Oral Pulse Rate [Right] 65 Respiratory Rate 22 Blood Pressure [Right Arm] 137/81 Blood Pressure Mean [Right Arm] 99 02 Sat by Pulse Oximetry 100 Oxygen Delivery Method Room Air Lab Data Lab Results 05/08/25 04:26: Stool Occult Blood Negative 05/08/25 04:45: WBC 4.9, RBC 4.61, Hgb 13.0, Hct 40.1, MCV 87.0, MCH 28.2, MCHC 32.4, RDW 14.2, Plt Count 119 L, MPV 9.5, Neut % (Auto) 59.1, Lymph % (Auto) 28.7, Grand % (Auto) 9.4 H, Eos % (Auto) 1.8, Baso % (Auto) 0.8, Neut # (Auto) 2.9, Lymph # (Auto) 1.4, Grand # (Auto) 0.5, Eos # (Auto) 0.1, Baso # (Auto) 0.0, Sodium 143, Potassium 3.7, Chloride 108 H, Carbon Dioxide 28, Anion Gap 10.7, BUN 24 H, Creatinine 1.20 H, Estimated Creat Clear 47, Estimated GFR 44 L, Est GFR ( Amer) 53 L, Glucose 118 H, Calcium 9.6, Total Bilirubin 0.5, AST 34, ALT 16, Alkaline Phosphatase 86, Troponin I < 0.01, Total Protein 7.0, Albumin 4.4, Globulin 2.6, Albumin/Globulin Ratio 1.7 05/08/25 05:27: Urine Color Yellow, Urine Appearance Clear, Urine pH 7.0, Ur Specific [place] 1.010, Urine Protein Negative, Urine Glucose (UA) Negative, Urine Ketones Negative, Urine Blood Negative, Urine Nitrate Negative, Urine Bilirubin Negative, Urine Urobilinogen 0.2, Ur Leukocyte Esterase Negative, Urine RBC Occasional, Urine WBC None, Ur Squamous Epith Cells Occasional, Urine Bacteria None 05/08/25 04:45 05/08/25 04:45 Orders (Tests/Meds): ED MEDICATIONS Discontinued Medications Generic Name Dose Route Start Last Admin Trade Name Ericq PRN Reason Stop Dose Admin Lactated Ringer's 500 mls @ 999 mls/hr 05/08/25 04:40 05/08/25 05:43 Lactated Ringer's 500ml IV 05/08/25 05:10 Infused .Q31M ONE Infusion ORDERS Category Date Time Status CBC w/Auto Diff [Complete Blood Count Auto Diff] Stat Lab 05/08/25 04:45 Completed CMP [Comprehensive Metabolic Panel] Stat Lab 05/08/25 04:45 Completed Occult Blood,Stool Stat Lab 05/08/25 04:26 Completed Trop I [Troponin I] Stat Lab 05/08/25 04:45 Completed Troponin I Q3H Lab 05/08/25 07:45 Ordered Troponin I Q3H Lab 05/08/25 10:45 Ordered Urinalysis and Microscopic Stat Lab 05/08/25 05:27 Completed ECG Request Stat Y 05/08/25 04:40 Ordered Medical Decision Narrative: In summary, this 75-year-old female with history of UTI, vertigo, constipation, dementia, CAD, hyperlipidemia, hypertension presents to the emergency department today with large bowel movement. On initial evaluation patient is hemodynamically stable, afebrile, alert, oriented, cardiopulmonary exam benign, abdominal exam benign, soft, nontender, nondistended, rectal exam with normal tone, mild irritation at the anus with very tiny posterior fissure but no bleeding, no hemorrhoids, normal brown colored soft stool in the rectal vault. I believe it is most likely that patient felt lightheaded during her large bowel movement due to a vagal response, however differential diagnosis also includes but is not limited to ACS, arrhythmia, electrolyte abnormality, dehydration, urinary tract infection, anemia, GI bleed, among others. Patient has no neurologic deficits that would be concerning for acute neurologic insult. Based on these concerns, I ordered Hemoccult stool, hematologic and serum labs, EKG, urinalysis. ECG personally interpreted demonstrates sinus rhythm, rate 60, normal RI and QTc, no STEMI. Patient received small bolus of IV fluids for treatment. Labs personally reviewed demonstrate no leukocytosis or anemia, slight thrombocytopenia is somewhat improved from prior, Hemoccult stool negative. CMP nonactionable, kidney dysfunction similar to prior, creatinine 1.2, previously 1.1. Patient is receiving a small amount of IV fluids in the ER which will help support kidney function. Troponin undetectably low less than 0.01 further reassurance against cardiac etiology though I had very low suspicion for cardiac etiology to start with. Because patient has very reassuring labs as well as a benign exam, occult negative stool, I do not believe she requires any imaging at this time. Patient attempted to give a urine sample but contaminated it with stool. She continues passing soft, brown stool. Cath was performed to obtain clean urine. UA negative for findings of infection. On reassessment patient is resting comfortably. She states she feels well. I reviewed all labs with the patient and at length. We discussed better use of her home bowel regimen since patient is not taking them as prescribed and when she gets constipated takes large doses of laxatives which then results in large bowel movements and diarrhea. I recommended close follow-up with her primary care doctor to discuss regular bowel regimen. Patient and were given instructions on continued symptomatic monitoring and management, close follow-up, and strict return precautions for the ER. They indicated understanding and the patient was discharged in stable condition. Critical Care Critical Care Time Critical Care Time: No
[2025-05-08 04:44] LABS: Occult Blood,Stool Negative (Negative)
[2025-05-08] MEDS: RINGERS SOLUTION,LACTATED 500 ML 999 ML IV (04:45)
[2025-05-08 04:55] LABS: Hematocrit 40.1 % (37.0-47.0); Hemoglobin 13.0 g/dL (12.2-16.2); Immature Granulocytes % 0.2 %; Mean Corpuscular HGB Conc 32.4 g/dL (31.8-35.4); Mean Corpuscular Hemoglobin 28.2 pg (27.0-31.2); Mean Corpuscular Volume 87.0 fl (81-99); Nucleated Red Blood Cells % 0 %; Platelet Count 119 K/mm3 (142-424); Red Blood Count 4.61 M/mm3 (4.20-5.40); Red Cell Distribution Width-SD 45.5 fL; White Blood Count 4.9 K/mm3 (4.8-10.8)
[2025-05-08 05:05] LABS: Albumin Level 4.4 g/dl (3.5-5.0); Chloride 108 mmol/L (98-107); Potassium 3.7 mmoL/L (3.5-5.1); Sodium 143 mmol/L (136-145)
[2025-05-08 05:08] LABS: Alanine Aminotransferase 16 U/L (12-78); Albumin/Globulin Ratio 1.7 (1.1-1.8); Alkaline Phosphatase 86 U/L (38-126); Anion Gap 10.7 mEq/L (5-15); Aspartate Amino Transferase 34 U/L (14-36); Bilirubin,Total 0.5 mg/dl (0.2-1.3); Blood Urea Nitrogen 24 mg/dl (7-17); Carbon Dioxide 28 mmol/L (22.0-30.0); Creatinine Clearance Estimated 47 mL/min (50-200); Creatinine,Serum 1.20 mg/dl (0.52-1.04); Estimated Glomerular Filt Rate 44 ml/min (>60); GFR (African American) 53 ML/MIN (>60); Globulin 2.6 g/dL (1.3-3.2); Total Protein,Serum 7.0 g/dl (6.3-8.2)
[2025-05-08 05:09] LABS: Calcium 9.6 mg/dl (8.4-10.2); Glucose 118 mg/dl (74-100)
[2025-05-08 05:20] LABS: Troponin I < 0.01 ng/ml (0.00-0.034)
[2025-05-08 05:38] LABS: Bilirubin,Urine Negative (Negative); Color,Urine YELLOW (Yellow); Glucose,Urine (UA) Negative (Negative); Ketones,Urine Negative (Negative); Leukocyte Esterase,Urine Negative (Negative); Microscopic, Urine URINE MICROSCOPIC (MICROSCOPIC); PH,Urine 7.0 (5.0-8.5); Protein,Urine Negative (Negative); Specific Gravity, Urine 1.010 (1.005-1.030); Urobilinogen,Urine 0.2 EU/dl (0.2)
[2025-05-08 05:55] LABS: RBC,Urine Occasional #/hpf (0-3); Squamous Epithelial Cell,Urine Occasional #/hpf (0-5)
[2025-05-08 06:02] VITALS: BP 147/67; PULSE 61; RESP 20; TEMP 36.7; O2SAT 100
== END 2025-05-08 06:05 | disposition home or self-care (01) ==
PROVIDERS: Emergency Provider Emergency Medicine; PCP Internal Medicine Adolescent Medicine
DX: R55 Syncope and collapse (principal); R19.7 Diarrhea, unspecified; K59.00 Constipation, unspecified; E78.5 Hyperlipidemia, unspecified; I10 Essential (primary) hypertension; F41.1 Generalized anxiety disorder
CPT/HCPCS: 80053; 81001; 82272; 84484; 85025; 93005; 99284; G0328; J7120

== ENCOUNTER 2025-05-23 11:30 | Emergency (ER) | payer MEDICARE, OTHER, SELFPAY ==
--- OUTSIDE RECORDS SUMMARY | 2025-03-30 11:38 | XMS_ITS | Encounter Summary ---
Author Organization Healthcare Address [address] [place] [address] Care Team Providers Care Rag Production Worker Name Role Phone Nestor Rao MD Primary Care Provider [phone] Reason for Visit * Imaging (Routine) - Closed Specialty Diagnoses / Procedures Referred By Contac t Referred To Contact Radiology Diagnoses Acute spontaneous intraparenchymal intracranial hemorrhage (CMS/HCC) Procedures MR Head w and wo IV Contrast Talia Blanton, EQUIPMENT SERVICE ENGINEER [address] [address] Phone: tel: fax: Referral ID Status Reason Start Date Expiration Date Visits Re quested Visits Authorized [id number] Closed 09/20/2024 03/22/2026 1 1 Encounter Details Date Type Department Care Team (Latest Contact Info) Description 03/30/2025 11:38 AM EDT - 03/30/2025 11:59 PM EDT Hospital Encounter [facility] MRI [address] [place] [address] Discharge Disposition: Home or Self Care Social History Tobacco Use Types Packs/Day Years Used Date Smoking Tobacco: Never Passive Smoke Exposure: Never Smokeless Tobacco: Never Alcohol Use Standard Drinks/Week Comments Never 0 (1 standard drink = 0.6 oz pur e alcohol) Humiliation, Afraid, Rape, and Kick questionnair e Answer Date Recorded Within the last year, have y ou been afraid of your partner or ex-partner? No 09/18/2024 Within the last year, have y ou been humiliated or emotionally abused in other ways by your partner or ex-partner? No Within the last year, have y ou been kicked, hit, slapped, or otherwise physically hurt by your partner or ex-partner? No 09/18/2024 Within the last year, have y ou been raped or forced to have any kind of sexual activity by your partner or ex-partner? No 09/18/2024 Hunger Vital Sign Answer Date Recorded Within the past 12 months, y ou worried that your food would run out before you got the money to buy more. Never true 09/18/19 25 Within the past 12 months, t he food you bought just didn't last and you didn't have money to get more. Never true 09/18/2024 PRAPARE - Transportation Answer Date Re corded In the past 12 months, has l ack of transportation kept you from medical appointments or from getting medications? No 09/06 In the past 12 months, has l ack of transportation kept you from meetings, work, or from getting things needed for daily living? No 09/18/2024 Housing Stability Vital Sign Answer Sourav e Recorded In the last 12 months, was t here a time when you were not able to pay the mortgage or rent on time? No 09/18/2024 In the past 12 months, how m any times have you moved where you were living? 1 09/18/2024 At any time in the past 12 m [facility], were you homeless or living in a alf (including now)? No 09/18/2024 Utilities Answer Date Recorded In the past 12 months has th e [employer], gas, oil, or water company threatened to shut off services in your home? No 09/18/2024 Comments Unknown Sex and Gender Information Value Date Recorded Sex Assigned at Not on file Legal Sex Female 8:07 PM EDT Gender Identity Not on file Sexual Orientation Not on file documented as of this encounter Medications at Time of Discharge albuterol 108 (90 Base) MCG/ACT inhaler Inhale 2 puffs Every 4 (four) to 6 (six) hours if needed for wheezing. amiodarone (Pacerone) 200 MG tablet Take 0.5 tablets (100 mg) by mouth 2 (two) times a day. atorvastatin (Lipitor) 40 MG tablet Take 1 tablet (40 mg) by mouth 1 (one) time each day. brexpiprazole (Rexulti) 1 MG tablet tablet Take 0.5 tablets (0.5 mg) by mouth 1 (one) time each day. 0.5mg for 5 days, then up to 1mg diazePAM (Valium) 5 MG tabletIndications :Claustrophobia Take 1-2 tablets by mouth as needed one hour prior to MRI 2 tablet 02/02/2025 famotidine (Pepcid) 20 MG tablet Take 1 tablet (20 mg) by mouth 2 (two) times a day. hydrALAZINE (Apresoline) 25 MG tablet TAKE 1/2 TABLET 3 TIMES EACH DAY NEEDED FOR ANXIETY 01/22/2025 memantine (Namenda) 10 MG tablet Take 1 tablet (10 mg) by mouth 2 (two) times a day. metoprolol tartrate (Lopressor) 50 MG tablet Take 1 tablet (50 mg) by mouth 2 (two) times a day. mirtazapine (Remeron) 30 MG tablet Take 1 tablet (30 mg) by mouth every night. multivitamin-mine rals-folic acid-coenzyme q10 (Preservision AREDS 2) capsule Take 1 capsule by mouth 2 times a day. documented as of this encounter Plan of Treatment Upcoming Encounters Date Type Department Care Team (Late st Contact Info) Description 04/12/2026 12:30 PM EDT Appointment [facility] [address] [place] [address] 04/12/2026 2:15 PM EDT Office [facility] [place] [facility] [address] [place] [address] Doyle Grewal MD [address] [place] [address] documented as of this encounter Procedures Procedure Name Priority Date/Time Associated Diagnosis Comments MR HEAD W AND WO IV CONTRAST Routine 03/30/2025 12:27 PM EDT Acute spontaneous intraparenchymal intracranial hemorrhage (CMS/HCC) documented in this encounter Visit Diagnoses Not on filedocumented in this encounter Administered Medications Inactive Administered Medications - up to 3 most recent administrations Medication Order MAR Action Action Date Dose Rate Site gadobutrol (Gadavist) injection 0.1 mL/kg 0.1 mL/kg, Intravenous, Once in imaging, 1 dose, Starting on Wed03/30/25 at 1146, Until Wed03/30/25 at 1212, Routine, Imaging Protocol Orders Given 03/30/2025 12:12 PM EDT 5.6 mL Right Antecubital documented in this encounter Additional Health Concerns Assessment Noted Time A fall risk assessment has been complete d for the patient 03/30/2025 3:19 PM EDT A Body Mass Index follow-up plan has been documented for the patient 03/30/2025 4:55 PM EDT documented as of this encounter Care Teams Rag Production Worker Relationship Specialty Start Date End Date Nestor Rao MD [address] [place] [address] PCP - General 01/17/21 documented as of this encounter
--- OUTSIDE RECORDS SUMMARY | 2025-03-30 14:45 | XMS_ITS | Encounter Summary ---
Author Organization Healthcare Address [address] [place] [address] Care Team Providers Care Conveyor System Operator Name Role Phone Nestor Rao MD Primary Care Provider [phone] Reason for Referral * Consultation (Urgent) - Authorized Specialty Diagnoses / Procedures Referred By Arnulfo t Referred To Contact Neurology Diagnoses Memory changes Doyle Grewal MD [address] [address] Phone: tel: fax: [facility] [address], [address] [place] [address] Phone: tel: fax: Referral ID Status Reason Start Date Expiration Date Visits Requested Visits Authorized [id number] Authorized Specialty Services Required 03/30/2025 09/29/2026 1 1 Scheduling Instructions ARIEL MEDRANO-PLEASE SCHEDULE FIRST AVAILABLE APPT FOR TREATMENT OF MEMORY CHANGES. * Imaging (Routine) - Pending Review Specialty Diagnoses / Procedures Referred By Contkay t Referred To Contact Radiology Diagnoses Cavernous malformation Procedures MR Head w and wo IV Contrast Doyle Grewal MD [address] [address] Phone: tel: fax: Referral ID Status Reason Start Date Expiration Date V isits Requested Visits Authorized [id number] Pending Review 03/30/2025 09/29/2026 1 1 Reason for Visit * Reason Comments Follow-up Encounter Details Date Type Department Care Team (Late st Contact Info) Description 03/30/2025 2:45 PM EDT Office Visit [place] [facility] [address], [address] [place] [address] Doyle Grewal MD [address] [place] [address] Cavernous malformation (Primary Dx); Pre-procedural [...] time in the past 12 m [facility], were you homeless or living in a detention (including now)? No 09/18/2024 Utilities Answer Date Recorded In the past 12 months has th e [employer], gas, oil, or water company threatened to [...] a past medical history of Brain bleed (CMS/[facility]) (09/16/2023), Dementia ([facility]), Poor vision, and Stroke ([facility]) (09/16/2024). Surgical History She has [...] year with MRI sella Dementia Refer to the [facility] Counseling: The patient and family [...] Jermaine Obando PA-C I saw the patient [id number], obtained and documented the medical history, performed and documented the physical exam, and reviewed imaging. I documented the plan of care in the EMR prior to any revisions made by the attending physician. Thank you. If there are any questions or concerns please feel free to contact us: [facility] Department of Neurosurgery [address], [place] [address] [place] [id number] ; [1] Family History Problem Relation Name [...] tablet (30 mg) by mouth every night. eusikaigajdr-dvrmhiab-shxbv acid-coenzyme q10 (Preservision AREDS 2) capsule Take 1 capsule by mouth 2 times a day. No current facility-administered medications for this visit. documented in this encounter Plan of Treatment Upcoming Encounters Date Type Department Care Team (Late st Contact Info) Description 04/12/2026 12:30 PM EDT Appointment [facility] [address] [place] [address] 04/12/2026 2:15 PM EDT Office Visit [place] [facility] [address] [place] [address] Doyle Grewal MD [address] [place] [address] Scheduled Orders Name Type Priority [...] documented as of this encounter Care Teams Conveyor System Operator Relationship Specialty Start Date End Date Nestor Rao MD [address] [place] [address] PCP - General 01/17/21 documented as of this encounter
--- OUTSIDE RECORDS SUMMARY | 2025-04-03 07:50 | XMS_ITS ---
Author Organization [facility] D GABRIEL Address [address] [place] [address] Care Team Providers Care Chief Engineering Division Name Role Phone Nestor Rao Primary Care Provider Results Component Value Reference Range Notes COMPREHENSIVE METABOLIC PANRajendra Aldrich (39108) Reviewed date:04/06/2025 10:47:35 AM Interpretation: Performing Lab:CB, [facility] [address], [place] MjhbTC[address] Maciej Kennedy Notes/Report: GLUCOSE 116 65-99 mg/dL [...] Reviewed date:04/06/2025 10:47:35 AM Interpretation: Performing Lab:[facility] [employer] [address], [place] YqcdXS[address] Maciej Kennedy Notes/Report: WHITE BLOOD CELL COUNT [...] MPV 11.2 7.5-12.5 fL ABSOLUTE NEUTROPHILS 3014 1876-0019 cells/uL ABSOLUTE LYMPHOCYTES 862 733-1614 cells/uL ABSOLUTE MONOCYTES 292 200-950 cells/uL ABSOLUTE EOSINOPHILS 60 15-500 cells/uL ABSOLUTE BASOPHILS 30 0-200 cells/uL NEUTROPHILS 70.1 LYMPHOCYTES 21.0 MONOCYTES 6.8 EOSINOPHILS 1.4 BASOPHILS 0.7 COMMENT(S) Review of peripheral smear confirms automated results. HEMOGLOBIN A1c (496) Reviewed date:04/06/2025 10:47:35 AM Interpretation: Performing Lab:[facility] [employer] [address], [place] PvmjZU[address] Maciej Kennedy Notes/Report: HEMOGLOBIN A1c 5.5 <5.7 [...] diagnosis of diabetes in children. According to [place] Diabetes Association (ADA) guidelines, hemoglobin A1c <7.0% represents optimal control in non- diabetic patients. Different metrics may apply to specific patient populations. Standards of Medical Care in Diabetes(ADA). TSH (899) Reviewed date:04/06/2025 10:47:35 AM Interpretation: Performing Lab:CB, [facility] [address], [place] JywyWV[address] Maciej Kennedy Notes/Report: TSH 0.82 0.40-4.50 mIU/L Problems Problem Type SNOMED Code ICD Code Onset Dates Problem Status W/U Status Risk Notes Problem Hypoglycemia (300705508) Hypoglycemia (E16.2) Active confirmed Encounters Encounter Location Date Provider Diagnosis [facility] [address] [place] [address] 04/03/2025 Nestor Rao Hypoglycemia E16.2 a nd Paroxysmal atrial fibrillation I48.0 Assessments Encounter Date Diagnosis (ICD Code) Assessment Notes Treatment Notes Treatment Clinical Notes Section Notes 04/03/2025 Hypoglycemia (ICD-10 - E16.2) 04/03/2025 Paroxysmal atrial fibrillation (ICD-10 - I48.0) Plan Of Treatment Next Appt Details Provider Name:Nestor Rao, 07/05/2025 10:30:00 AM, [address] [place] [address], [phone], Progress Notes * Geovanna GARNER TDOB: (75 yo F)Acc No.[id number]:04/03/2025 Patient: Geovanna LI :1950 A ge:75 Y S ex:Female Address:[address] [place] [phone] Subjective: * Chief Complaints: * * Medical [...] ORM^O01 message is not formatted correctly.Validation Error(s): [facility] [place] Required field missing Danny Kenney R 04/06/2025 10:15:57 AM EDT > naThis lab was reviewed by Theo Mendoza on 04/06/2025 at 10:47 AM EDT ?LAB: CBC (INCLUDES DIFF/PLT) (3352)* Value Reference Range W MULU BLOOD CELL [...] - % * A BSOLUTE NEUTROPHILS 3014 1342-4592 - cells/uL * L YMPHOCYTES 21.0 - % * A BSOLUTE LYMPHOCYTES 973 453-6456 - cells/uL * M ONOCYTES 6.8 - [...] correctly.Validation Error(s): [facility]/SendingFacility Required field missing Pablito Rumney R 04/06/2025 10:15:57 AM EDT > [facility] lab was reviewed by Theo Mendoza on 04/06/2025 at 10:47 AM EDT ?LAB: HEMOGLOBIN A1c (496)* Value Reference Range H EMOGLOBIN A1c 5.5 <5.7 - % * Validation Error(s): ORM^O01 message is not formatted correctly.Validation Error(s): [facility]/Sending[facility]ility Required field missing Pablito Danny R 04/06/2025 10:15:57 AM EDT > [facility] lab was reviewed by Theo Mendoza on 04/06/2025 at 10:47 AM EDT ?LAB: TSH (899)* Value Reference Range T SH 0.82 0.40-4.50 - mIU/L * Validation Error(s): ORM^O01 message is not formatted correctly.Validation Error(s): [facility]/Sending[facility]ility Required field missing Steffi Kenneyta R 04/06/2025 10:15:57 AM EDT > [facility] Theo Mendoza on 04/06/2025 at 10:47 AM EDT 2.?Paroxysmal atrial fibrillation?LAB: COMPREHENSIVE METABOLIC PANEL (77445)* Value Reference Range G LUCOSE 116 H [...] ORM^O01 message is not formatted correctly.Validation Error(s): [facility] [place] Required field missing Danny Kenney R 04/06/2025 10:15:57 AM EDT > [facility] lab was reviewed by Theo Mendoza on 04/06/2025 at 10:47 AM EDT ?LAB: CBC (INCLUDES DIFF/PLT) (3438)* Value Reference Range W MULU BLOOD CELL [...] - % * A BSOLUTE NEUTROPHILS 3014 6783-9949 - cells/uL * L YMPHOCYTES 21.0 - % * A BSOLUTE LYMPHOCYTES 015 285-1145 - cells/uL * M ONOCYTES 6.8 - % * A BSOLUTE MONOCYTES 292 200-950 - cells/uL * E OSINOPHILS 1.4 - % * A BSOLUTE EOSINOPHILS 60 15-500 - cells/uL * B ASOPHILS 0.7 - % * A BSOLUTE BASOPHILS 30 0-200 - cells/uL * M PV 11.2 7.5-12.5 - fL * Validation Error(s): ORM^O01 message is not formatted correctly.Validation Error(s): [facility] [place] Required field missing [facility] R 04/06/2025 10:15:57 AM EDT > naThis lab was reviewed by Theo Mendoza on 04/06/2025 at 10:47 AM EDT ?LAB: HEMOGLOBIN A1c (496)* Value Reference Range H EMOGLOBIN A1c 5.5 <5.7 - % * Validation Error(s): ORM^O01 message is not formatted correctly.Validation Error(s): [facility]/SendingFacility Required field missing [facility] R 04/06/2025 10:15:57 AM EDT > naThis lab was reviewed by Theo Mendoza on 04/06/2025 at 10:47 AM EDT ?LAB: TSH (899)* Value Reference Range T SH 0.82 0.40-4.50 - mIU/L * Validation Error(s): ORM^O01 message is not formatted correctly.Validation Error(s): [facility]/SendingFacility Required field missing [facility] R 04/06/2025 10:15:57 AM EDT > naThis lab was reviewed by Teho Mendoza on 04/06/2025 at 10:47 AM EDT * Procedure Codes: * true * Date: Generated for Brendon andrews/Wendi/Bryan on: 0 05/23/2025 11:51 AM EDT
--- OUTSIDE RECORDS SUMMARY | 2025-04-10 11:00 | XMS_ITS ---
Author Organization [facility] D GABRIEL Address [address] [place] [address] Care Team Providers Care Mixed Livestock Farmer Name Role Phone Nestor Rao Primary Care [...] 1.025 Ketone trace Bili neg Glucose neg CULTURE, URINE, ROUTINE (395 ) Reviewed date:04/15/2025 08:23:48 PM Interpretation: Performing Lab:CB, [facility] [place] [id number], [facility] Center[facility]rumXB[address] Maciej Kennedy Notes/Report: NON-FASTING CULTURE, URINE, ROUTINE SEE NOTE CULTURE, URINE, ROUTINE Micro Number: [id number] Test Status: Final Specimen Source: Urine Specimen Quality: Adequate Result: Greater than 100,000 CFU/mL of Escherichia coli E.coli INT MONY AMOX/CLAVULANATE S 4 AMP/SULBACTAM S 4 CEFAZOLIN I 2 CEFEPIME S <=0.12 CEFTAZIDIME S <=0.5 CEFTRIAXONE S <=0.25 CIPROFLOXACIN R >=4 GENTAMICIN S <=1 IMIPENEM S <=0.25 LEVOFLOXACIN R >=8 MEROPENEM S <=0.25 NITROFURANTOIN S <=16 PIP/TAZOBACTAM S <=4 TRIMETHOPRIM/SULFA S <=20 S = Susceptible I = Intermediate R = Resistant NS = Not susceptible SDD = Susceptible Dose Dependent * = Not Tested NR = Not Reported NN = See Therapy Comments REASON FOR VISIT possible UTI - urine [...] 04/10/2025 Encounters Encounter Location Date Provider Diagnosis [facility] [address] [address] 04/10/2025 Nestor Rao Dysuria R30.0 and Cystitis [...] days of twice daily cefdinir as prescribed Next Appt Details Follow Up: prn, Reason: Provider Name:Nestor Rao, 07/05/2025 10:30:00 AM, [address] [place] [address], [id number], Progress Notes * Geovanna GARNER TDOB: (75 yo F)Acc No.[id number]:04/10/2025 Progress Notes Patient: Geovanna LI Provider: Siobhan Rao MD :1950 A ge:75 Y S ex:Female Date:04/10/2025 Address:[address] [place], [place] [id number] Subjective: * Chief Complaints: * 1 . possible UTI - urine frequency , dysuria. * HPI: g en: Patient presents with a couple of days of cystitis symptoms of urinary frequency and concerns about a UTI. Her dementia makes it difficult for her to give symptoms, but she denies fevers, vomiting, gross hematuria. * Medical History: uJng 2P2 - 2 c-sections - daughter with [...] Plan: * Treatment: Value Reference Range C ULTURE SEE NOTE A - * This lab was reviewed by Wayne Rao on 04/15/2025 at 20:23 PM EDT ?LAB: Urinalysis (Collection Date & Time - 04/10/2025)* Value Reference Range C olor/Clarity yellow * [...] true * Provider: Siobhan Rao MD Date: 04/10/2025 Generated for Brendon andrews/Wendi/eTransmitting on: 0 05/23/2025 11:52 AM EDT History and Physical Notes * [...]
--- OUTSIDE RECORDS SUMMARY | 2025-05-01 07:15 | XMS_ITS ---
Author Organization [facility] D GABRIEL Address [address] [place] [address] Care Team Providers Care Senior Process Engineer Name Role Phone Nestor Rao Primary Care [...] 05/01/2025 Encounters Encounter Location Date Provider Diagnosis [address] [address] 05/01/2025 Nestor Rao Paroxysmal atrial fibrillation I48.0 [...] Reason: Provider Name:Nestor Rao, 07/05/2025 10:30:00 AM, [address] [place] [address], [id number], Progress Notes * Geovanna GARNER TDOB: (75 yo F)Acc No.[id number]:05/01/2025 Progress Notes Patient: Geovanna LI Provider: Siobhan Rao MD :1950 A ge:75 Y S ex:Female Date:05/01/2025 Address:[address] [place], [place] [id number] Subjective: * Chief Complaints: * 1 . [...] Diagno stic Procedure: A -fib H 09/2014, [facility] - AFIB 04/23/23, [facility]- UTI 08/07/24-08/08/24, stroke 09/2024. * Family History: [...] trapezius muscle, unspecified laterality, initial encounter - S46.636I 8 . M oderate dementia with agitation, [...] 0 05/01/2025 Generated for Brendon andrews/Wendi/Michaelitting on: 0 05/23/2025 11:51 AM EDT History and Physical Notes * [...]
[2025-05-23 11:43] VITALS: BP 153/58; PULSE 94; RESP 20; TEMP 36.8; O2SAT 100; BMI 21.2
--- NOTE | 2025-05-23 11:52 | CT_ITS ---
FINAL REPORT TECHNIQUE: After the administration of intravenous contrast, axial images were obtained through the abdomen and pelvis by computed tomography. This study was performed with technique to keep radiation doses as low as reasonably achievable, (ALARA). Individualized dose reduction techniques using automated exposure control or adjustment of the MA and/or KV according to the patient's size were employed. CLINICAL HISTORY: LLQ abdominal pain COMPARISON: 09/17/2024 FINDINGS: Abdomen: The lung bases are clear. The liver is normal in size and attenuation. Patient is status postcholecystectomy. There is mild biliary ductal dilatation, likely related to cholecystectomy change. The spleen is unremarkable. The adrenals are normal. The pancreas is unremarkable. The kidneys enhance appropriately. The aorta is normal in caliber. There is no free fluid or adenopathy. Bowel is unremarkable. Pelvis: The appendix is not identified. There is moderate sigmoid diverticulosis without evidence of diverticulitis. Again seen is a cystic mass in the left adnexa measuring 48 x 21 mm which is unchanged and likely benign. Uterus is normal for patient's age. The urinary bladder is mildly distended. There is no free fluid or adenopathy. IMPRESSION: No acute intra-abdominal process. Reviewed, Interpreted and Dictated by Edyta Song MD Transcribed by Mago Cross Authenticated and [facility]
--- OUTSIDE RECORDS SUMMARY | 2025-05-23 11:52 | XMS_ITS | Encounter Summary ---
Author Organization Healthcare Address [address] [place] [address] Care Team Providers Care Kindergarten Aide Name Role Phone Nestor Rao MD Primary Care Provider [phone] Encounter Details Date Type Department Care Team [...] were you homeless or living in a halfway (including now)? No 09/18/2024 Utilities Answer Date [...] Info) Description 04/12/2026 12:30 PM EDT Appointment [facility] [address] [place] [id number] 04/12/2026 2:15 PM EDT [facility] Visit [facility] [address] [place] [address] Doyle Grewal MD [address] [place] [address] documented as of this encounter Visit Diagnoses Not on filedocumented in this encounter Additional Health Concerns Assessment Noted Time A fall risk assessment has been complete d for the patient 03/30/2025 3:19 PM EDT A Body Mass Index follow-up plan has been documented for the patient 03/30/2025 4:55 PM EDT documented as of this encounter Care Teams Kindergarten Aide Relationship Specialty Start Date End Date Nestor Rao MD [address] [place] [id number] PCP - General 01/17/21 documented as of this encounter
--- OUTSIDE RECORDS SUMMARY | 2025-05-23 11:52 | XMS_ITS | Patient Health Record ---
Author Organization [facility] Address [address] [place] [address] Care Team Providers Care Soil Biology Teacher Name Role Phone Nestor Rao Primary Care Provider McSophia Fuentes Unavailable [phone] Migration, Provider Unavailable Unavailable Allergies Allergen (clinical [...] Reference Range Notes COMPREHENSIVE METABOLIC PANE L (21754) Reviewed date:04/06/2025 10:47:35 AM Interpretation: Performing Lab:CB, [facility] Lndn[address] [facility]te[facility], [facility] HospitalXwfnMJ[address] Maciej Kennedy Notes/Report: GLUCOSE 116 65-99 mg/dL [...] Reviewed date:04/06/2025 10:47:35 AM Interpretation: Performing Lab:TRUDI [facility] [address], [place] DataHxltZT[address] Maciej Kennedy Notes/Report: WHITE BLOOD CELL COUNT [...] MPV 11.2 7.5-12.5 fL ABSOLUTE NEUTROPHILS 3014 7405-1034 cells/uL ABSOLUTE LYMPHOCYTES 896 007-0617 cells/uL ABSOLUTE MONOCYTES 292 200-950 cells/uL ABSOLUTE EOSINOPHILS 60 15-500 cells/uL ABSOLUTE BASOPHILS 30 0-200 cells/uL NEUTROPHILS 70.1 LYMPHOCYTES 21.0 MONOCYTES 6.8 EOSINOPHILS 1.4 BASOPHILS 0.7 COMMENT(S) automated results. Review of peripheral smear confirms HEMOGLOBIN A1c (496) Reviewed date:04/06/2025 10:47:35 AM Interpretation: Performing Lab:[facility]I [facility] Nofj[address], Creativity SoftwareVbcqPE[address] Maciej Kennedy Notes/Report: HEMOGLOBIN A1c 5.5 <5.7 [...] diagnosis of diabetes in children. According to [place] Diabetes Association (ADA) guidelines, hemoglobin A1c <7.0% represents optimal control in non- diabetic patients. Different metrics may apply to specific patient populations. Standards of Medical Care in Diabetes(ADA). TSH (899) Reviewed date:11/01/2024 10:03:12 AM Interpretation: Performing Lab:TRUDI [facility] [address], [place] NujbLK[address] Maciej Kennedy Notes/Report: NON-FASTING; NON-FASTING; NON-FASTING; NON-FASTING TSH 1.01 0.40-4.50 mIU/L TSH (899) Reviewed date:04/06/2025 10:47:35 AM Interpretation: Performing Lab:TRUDI [facility] [address], [place] WgcaQP[address] Maciej Kennedy Notes/Report: TSH 0.82 0.40-4.50 mIU/L CULTURE, URINE, ROUTINE (395 ) Reviewed date:11/01/2024 10:03:12 AM Interpretation: Performing Lab:TRUDI [facility] [address], [place] OemrOX[address] Maciej Kennedy Notes/Report: NON-FASTING; NON-FASTING; NON-FASTING; NON-FASTING CULTURE, URINE, ROUTINE SEE NOTE CULTURE, URINE, ROUTINE Micro Number: [id number] Test Status: Final Specimen Source: Urine, clean catch Specimen Quality: Adequate Result: No Growth THYROID PANEL WITH TSH (7444 ) Reviewed date:11/13/2024 04:47:46 PM Interpretation: Performing Lab:TRUDI [facility] [address], [place] SuzzXE[address] Maciej Kennedy Notes/Report: NON-FASTING; NON-FASTING; NON-FASTING; NON-FASTING; NON-FAST T3 UPTAKE 34 22-35 % T4 (THYROXINE), TOTAL 10.5 5.1-11.9 mcg/dL FREE T4 INDEX (T7) 3.6 1.4-3.8 TSH 1.03 0.40-4.50 mIU/L COMPREHENSIVE METABOLIC PANE L (84496) Reviewed date:11/13/2024 04:47:46 PM Interpretation: Performing Lab:TRUDI [facility] Tljh[address] [place], [facility] HospitalDiwfGE[address] Maciej Kennedy Notes/Report: NON-FASTING; NON-FASTING; NON-FASTING; NON-FASTING; [...] Reviewed date:11/13/2024 04:47:46 PM Interpretation: Performing Lab:TRUDI [facility] Nklk[address] [facility], [facility] HospitalUjxdKC[address] Maciej Kennedy Notes/Report: NON-FASTING; NON-FASTING; NON-FASTING; NON-FASTING; [...] MPV 10.4 7.5-12.5 fL ABSOLUTE NEUTROPHILS 3494 7989-8820 cells/uL ABSOLUTE LYMPHOCYTES 534 851-4949 cells/uL ABSOLUTE MONOCYTES 319 200-950 cells/uL ABSOLUTE EOSINOPHILS 39 15-500 cells/uL ABSOLUTE BASOPHILS 59 0-200 cells/uL NEUTROPHILS 71.3 LYMPHOCYTES 20.2 MONOCYTES 6.5 EOSINOPHILS 0.8 BASOPHILS 1.2 VITAMIN B12/FOLATE, SERUM PA RAH (7065) Reviewed date:11/13/2024 04:47:46 PM Interpretation: Performing Lab:TRUDI, [facility] [address], [place] MarsPszfVL[address] Maciej Kennedy Notes/Report: NON-FASTING; NON-FASTING; NON-FASTING; NON-FASTING; NON-FAST VITAMIN B12 171 228-9826 pg/mL Please Note: Although the reference range [...] Borderline: 3.4-5.4 Normal: >5.4 VITAMIN D,25-OH,TOTAL,IA (17 141) Reviewed date:11/13/2024 04:47:46 PM Interpretation: Performing Lab:RTUDI, [facility] [address], [place] VebvQX[address] Maciej Kennedy Notes/Report: NON-FASTING; NON-FASTING; NON-FASTING; NON-FASTING; [...] D, (D2,D3), LC/MS/MS is recommended: order code 25844 (patients >2yrs). See Note 1 Note 1 For additional information, please refer to http://education.Atticous/faq/OKR680 (This link is being provided for informational/ educational purposes only.) Urinalysis Reviewed date:09/27/2024 03:54:56 PM Interpretation: Performing [...] trace Bili neg Glucose neg Urinalysis Reviewed date:10/30/2024 01:53:29 PM Interpretation: Performing Lab: Notes/Report: Color/Clarity yellow Leuk neg Nitrite neg Urobili 1.0 Protein neg pH 6.5 Blood trace-intact Sp. Gr. 1.015 Ketone neg Bili neg Glucose neg CULTURE, URINE, ROUTINE (395 ) Reviewed date:10/09/2024 11:04:49 AM Interpretation: Performing Lab:CB, [facility] Aaot1179 [facility], [facility] HospitalQupaVX[address] Maciej Kennedy Notes/Report: NON-FASTING CULTURE, URINE, ROUTINE SEE NOTE CULTURE, URINE, ROUTINE Micro Number: [id number] Test Status: Final Specimen Source: Urine Specimen [...] loracarbef. CULTURE, URINE, ROUTINE (395 ) Reviewed date:04/15/2025 08:23:48 PM Interpretation: Performing Lab:TRUDI, [facility] Riql3701 [facility], [facility] HospitalZinrLI[address] Maciej Kennedy Notes/Report: NON-FASTING CULTURE, URINE, ROUTINE [...] Therapy Comments CULTURE, URINE, ROUTINE Micro Number: [id number] Test Status: Final Specimen Source: Urine Specimen Quality: Adequate CBC (INCLUDES DIFF/PLT) (639 9) Reviewed date:11/01/2024 10:03:12 AM Interpretation: Performing Lab:TRUDI, [facility] [address], Creativity SoftwareFdooJM[address] Maciej Kennedy Notes/Report: NON-FASTING; NON-FASTING; NON-FASTING; NON-FASTING [...] MPV 10.6 7.5-12.5 fL ABSOLUTE NEUTROPHILS 4508 4541-2303 cells/uL ABSOLUTE LYMPHOCYTES 271 733-6721 cells/uL ABSOLUTE MONOCYTES 401 200-950 cells/uL ABSOLUTE EOSINOPHILS 71 15-500 cells/uL ABSOLUTE BASOPHILS 53 0-200 cells/uL NEUTROPHILS 76.4 LYMPHOCYTES 14.7 MONOCYTES 6.8 EOSINOPHILS 1.2 BASOPHILS 0.9 COMPREHENSIVE METABOLIC PANE L (99767) Reviewed date:11/01/2024 10:03:12 AM Interpretation: Performing Lab:TRUDI, [facility] [address], Creativity SoftwareAzpwCN[address] Maciej Kennedy Notes/Report: NON-FASTING; NON-FASTING; NON-FASTING; NON-FASTING [...] to less than 90% of standard weight) (67946816) Mild protein-calorie malnutrition (E44.1) Active confirmed Problem Vitamin D deficiency (45463371) Vitamin D deficiency, unspecified (E55.9) Active confirmed Problem Generalized anxiety disorder (85502645) Generalized anxiety disorder (F41.1) Active confirmed Problem Anxiety disorder (524505587) Anxiety disorder, unspecified (F41.9) Active confirmed Problem Paroxysmal atrial fibrillation (736657814) Paroxysmal atrial fibrillation (I48.0) Active confirmed Problem Hyperlipidemia (59478263) Hyperlipemia, idiopathic familial (E78.5) Active confirmed Problem Mild cognitive impairment (584949292) Mild cognitive impairment (G31.84) Active confirmed Problem Gastroesophageal reflux disease (803637952) GERD without esophagitis (K21.9) Active confirmed Problem Memory loss (02048677) Memory loss (R41.3) Active confirmed Problem Mild intermittent asthma (856509344) Mild intermittent asthma without complication (J45.20) Active confirmed Problem Hypoglycemia (005289276) Hypoglycemia (E16.2) Active confirmed Problem Vitamin B12 deficiency (550366826) History of non anemic vitamin B12 deficiency (Z86.39) Active confirmed Problem Sciatica (23419327) Right sided sciatica (M54.31) Active confirmed Problem Sciatica (70231773) Acute right-sided back pain with sciatica (M54.41) Active confirmed Problem Essential hypertension (14996494) Hypertension, unspecified type (I10) Active confirmed Problem Allergic rhinitis (33811643) Allergic rhinitis, unspecified seasonality, unspecified trigger (J30.9) Active confirmed Problem Intracranial hemorrhage (0189313) Intracranial hemorrhage (I62.9) Active confirmed Problem Moderate dementia with agitation, unspecified dementia type (F03.B11) Active confirmed Vital Signs Heart Rate 88 /min 05/01/2025 Temperature 97.7 degrees Fahrenheit 05/01/2025 Blood pressure diastolic 80 mm Hg 05/01/2025 Height 65.5 in 05/01/2025 Blood pressure systolic 140 mm Hg 05/01/2025 Weight 123 lbs 05/01/2025 BMI 20.15 kg/m2 05/01/2025 Encounters Encounter Location Date Provider Diagnosis [facility] [address] [place] [address] 12/09/2024 Provider Migration Moderate dementia with agitation, unspecified dementia type F03.B11 [facility] [address] [address] 05/23/2024 Nestor Besson Trochanteric bursiti s of right hip M70.61 ; Generalized anxiety disorder F41.1 ; Paroxysmal atrial fibrillation I48.0 ; Hyperlipemia, idiopathic familial E78.5 ; Hypertension, unspecified type I10 ; Memory loss R41.3 and GERD without esophagitis K21.9 [facility] [address] [place] [address] 08/14/2024 Nestor Besson Mild protein-calorie malnutrition E44.1 ; Cystitis N30.90 ; Memory loss R41.3 and Hospital discharge follow-up Z09 [facility] [address] [place] [address] 09/04/2024 Nestor Besson Mild protein-calorie malnutrition E44.1 ; Memory loss R41.3 ; Mild cognitive impairment G31.84 ; Dizziness R42 and Routine medical exam Z00.00 [facility] [address] [place], [place] [address] 09/27/2024 Nestor Besson Intracranial hemorrhage I62.9 ; Dementia with psychotic disturbance, unspecified dementia severity, unspecified dementia type F03.92 ; Dysuria R30.0 and Hospital discharge follow-up Z09 [facility] [address] [place] [address] 10/12/2024 Sophia Dang Acute cystitis without hematuria N30.00 ; Intracranial hemorrhage I62.9 and Moderate dementia with agitation, unspecified dementia type F03.B11 [facility] [address] [address] 10/30/2024 Sophia Laurence Recurrent UTI N39.0 ; Weakness R53.1 and Moderate dementia with agitation, unspecified dementia type F03.B11 [facility] [address] [place] [address] 11/08/2024 Nestor Rao History of non anemi c vitamin B12 deficiency Z86.39 ; Mild protein-calorie malnutrition E44.1 ; Intracranial hemorrhage I62.9 ; Moderate dementia with agitation, unspecified dementia type F03.B11 and Vitamin D deficiency, unspecified E55.9 [facility] [address] [address] 12/19/2024 Nestor Rao Bilateral lower extremity edema R60.0 ; Cellulitis of left lower limb L03.116 ; Cellulitis of right lower limb L03.115 and Moderate dementia with agitation, unspecified dementia type F03.B11 [facility] [address] [address] 01/09/2025 Nestor Rao Mild protein-calorie malnutrition E44.1 and Bilateral impacted cerumen H61.[address] [address] 01/23/2025 Nestor Rao Generalized anxiety disorder F41.1 ; Mild protein-calorie malnutrition E44.1 ; Moderate dementia with agitation, unspecified dementia type F03.B11 and Hospital discharge follow-up Z09 [facility] [address] [address] 02/27/2025 Nestor Rao Moderate dementia with agitation, unspecified dementia type F03.B11 ; Intracranial hemorrhage I62.9 ; Anxiety disorder, unspecified F41.9 ; Paroxysmal atrial fibrillation I48.0 ; Weight loss, unintentional R63.4 and Routine medical exam Z00.[address] [address] 04/10/2025 Nestor Rao Dysuria R30.0 and Cystitis N30.90 [facility] [address] [address] 05/01/2025 Nestor Besson Paroxysmal atrial fibrillation I48.0 ; Hyperlipemia, idiopathic familial E78.5 ; Hypertension, unspecified type I10 ; Urinary frequency R35.0 ; Anxiety disorder, unspecified F41.9 ; Mild protein-calorie malnutrition E44.1 ; Strain of trapezius muscle, unspecified laterality, initial encounter S46.819A ; Moderate dementia with agitation, unspecified dementia type F03.B11 and Encounter for well adult exam without abnormal findings Z00.00 [facility] [address] [address] 07/06/2024 Nestor Besson [facility] [address] [facility] [address] [place] [address] 08/08/2024 Nestor Besson [facility] [address] [place] [address] 08/11/2024 Nestor Besson GERD without esophagitis K21.9 [facility] [address] [facility] [address] [place] [address] 10/12/2024 Sophia McNees [facility] [address] [facility] [address] [place] [address] 11/08/2024 Nestor Besson Moderate dementia with agitation, unspecified dementia type F03.B11 [facility] [address] [place] [address] 03/13/2025 Nestor Besson [facility] [address] [place] [address] 04/03/2025 Nestor Besson Hypoglycemia E16.2 and Paroxysmal atrial fibrillation I48.0 Assessments Encounter Date Diagnosis (ICD Code) Assessment Notes Treatment Notes Treatment Clinical Notes Section Notes 05/23/2024 Generalized anxiety disorder (ICD-10 - F41.1) [...] days of twice daily cefdinir as prescribed 05/01/2025 Paroxysmal atrial fibrillation (ICD-10 - I48.0) [...] change, well maintained on amiodarone and metoprolol 01/23/2025 Moderate dementia with agitation, unspecified dementia [...] - Z09) Recently discharged from [facility] due to occipital lobe ICH. [...] return to clinic. Pt and voice understanding 02/27/2025 Weight loss, unintentional (ICD-10 - R63.4) Improved weight. Good gain, continue better nutrition. 05/01/2025 Anxiety disorder, unspecified (ICD-10 - F41.9) Mood stable using diazepam about three times a week. well controlled, no need for regimen change 11/08/2024 Vitamin D deficiency, unspecified (ICD-10 - [...] Well controlled with metoprolol, continue current medication. 05/23/2024 Memory loss (ICD-10 - R41.3) Patient [...] heat for tension relief and symptomatic relief 05/23/2024 GERD without esophagitis (ICD-10 - K21.9) Well controlled with famotidine, continue current medication. 05/01/2025 Moderate dementia with agitation, unspecified dementia [...] and Spine - Screening 2 N-CMP 01/05/2014 K-iuclmcz-evhk 02/17/2008 EKG : In House 01/05/2007 Holter [...] Provider Name:Nestor Rao, 07/05/2025 10:30:00 AM, [address], [address], Insurance Providers Payer Name Payer Address Payer Phone Subscriber Number Group Number Insured Name Patient Relationship to Insured Coverage Start Date Coverage End Date [facility] MEDICARE [address] [address] [place] [address] [id number] Geovanna Garner Self - patient is the insured [facility] CLAIMS [address] [place] [address] [id number] Geovanna Garner Self - patient is the [...]
--- OUTSIDE RECORDS SUMMARY | 2025-05-23 11:52 | XMS_ITS | Clinical Summary ---
Author Organization [facility] Address [address] [place] [address] Care Team Providers Care Personal Vehicle Advisor Name Role Phone Nestor Rao MD Primary Care Provider [phone] Allergies Active Allergy Reactions Criticality Noted Date [...] Description 03/30/2025 2:45 PM EDT Office Visit [place] [facility] [address] [place] [address] Doyle Grewal MD Cavernous malformation (Primary Dx); Pre-procedural laboratory examination; Memory changes 03/30/2025 11:38 AM EDT - 03/30/2025 11:59 PM EDT Hospital Encounter [facility] MRI [address] [place] [address] Discharge Disposition: Home or Self [...] In the past 12 months has th [employer], gas, oil, or water company threatened [...] Info) Description 04/12/2026 12:30 PM EDT [facility] [address] [place] [address] 04/12/2026 2:15 PM EDT Office Visit [place] [facility] [address] [place] [address] Doyle Grewal MD [address] [place] [address] Health Maintenance Due Date Last Done Comments [facility]-Bone Density Scan 1950 [facility]-Depression Screening 1950 [facility]-Hepatitis C Screening 1950 [facility]-Medicare Annual Wellness (AWV) 1950 [facility]-/Child/Adol SDOH Screenings 1950 [address] Colonography 01/19/1996 Colonoscopy 01/19/1996 FIT-DNA 01/19/1996 FIT 01/19/1996 FOBT 01/19/1996 Sigmoidoscopy 01/19/1996 [facility]-Colorectal Cancer Screening 01/19/1996 [facility]-Breast Cancer Screening 2001 [facility]-Zoster Vaccines (1 of 2) 2001 [facility]- SDOH Screenings 03/18/2025 [facility]-Adult SDOH Screenings 03/18/2025 09/18/2024 OIW-TESGA-07 Vaccine ( - season) 2025 09/18/2021, 10/09/2020, 09/11/2020 [facility]-Influenza Vaccine (#1) 05/07/202506/01, 07/23/2020, 07/04/2018, Additional [...] error, please notify the sender immediately at [phone] and permanently delete the original report and destroy any copies or printouts. Narrative 04/01/2025 10:33 AM EDT [facility] - Phone Outpatient NAME: Geovanna Garner DATE OF EXAM: 03/30/2025 Patient No: [id number] Physician: Pelon Date of : 1950 Past [...] Garner DATE OF EXAM: 03/30/2025 Patient No: [id number] Physician: Pelon Date of : 1950 Past [...] in error, pleasenotify the sender immediately at [phone] and permanently delete theoriginal report and destroy [...] Patient has decision-making capacity? Yes Care Teams Personal Vehicle Advisor Relationship Specialty Start Date End Date Nestor Rao MD [address] [place] [address] PCP - General 01/17/21
[2025-05-23] MEDS: ACETAMINOPHEN 1,000MG/100ML VIAL 1000 MG IV (12:04)
[2025-05-23 12:07] LABS: Microscopic, Urine URINE MICROSCOPIC (MICROSCOPIC)
[2025-05-23 12:11] LABS: Hematocrit 39.4 % (37.0-47.0); Hemoglobin 12.5 g/dL (12.2-16.2); Immature Granulocytes % 0.2 %; Mean Corpuscular HGB Conc 31.7 g/dL (31.8-35.4); Mean Corpuscular Hemoglobin 27.8 pg (27.0-31.2); Mean Corpuscular Volume 87.6 fl (81-99); Nucleated Red Blood Cells % 0 %; Platelet Count 135 K/mm3 (142-424); Red Blood Count 4.50 M/mm3 (4.20-5.40); Red Cell Distribution Width-SD 45.8 fL; White Blood Count 4.8 K/mm3 (4.8-10.8)
[2025-05-23 12:15] LABS: Albumin Level 4.4 g/dl (3.5-5.0); Chloride 104 mmol/L (98-107); Sodium 141 mmol/L (136-145)
[2025-05-23 12:16] LABS: Bilirubin,Urine Negative (Negative); Color,Urine YELLOW (Yellow); Glucose,Urine (UA) Negative (Negative); Ketones,Urine Negative (Negative); Leukocyte Esterase,Urine Negative (Negative); PH,Urine 7.0 (5.0-8.5); Protein,Urine Negative (Negative); Specific Gravity, Urine 1.015 (1.005-1.030); Urobilinogen,Urine 1.0 EU/dl (0.2)
[2025-05-23 12:16] LABS: Potassium 4.1 mmoL/L (3.5-5.1)
[2025-05-23 12:18] LABS: Alanine Aminotransferase 16 U/L (12-78); Albumin/Globulin Ratio 1.7 (1.1-1.8); Alkaline Phosphatase 73 U/L (38-126); Anion Gap 10.1 mEq/L (5-15); Aspartate Amino Transferase 33 U/L (14-36); Bilirubin,Total 0.8 mg/dl (0.2-1.3); Blood Urea Nitrogen 23 mg/dl (7-17); Calcium 9.5 mg/dl (8.4-10.2); Carbon Dioxide 31 mmol/L (22.0-30.0); Creatinine Clearance Estimated 38 mL/min (50-200); Creatinine,Serum 1.20 mg/dl (0.52-1.04); Estimated Glomerular Filt Rate 44 ml/min (>60); GFR (African American) 53 ML/MIN (>60); Globulin 2.6 g/dL (1.3-3.2); Glucose 102 mg/dl (74-100); Lipase 143 U/L (23-300); Total Protein,Serum 7.0 g/dl (6.3-8.2)
[2025-05-23 12:30] VITALS: BP 153/63; PULSE 54; O2SAT 100
--- NOTE | 2025-05-23 12:39 | HMH.EDGENADL ---
Discharge Plan Disposition Patient Disposition: Home, Self-Care Prescriptions Prescriptions: No Action escitalopram oxalate 10 mg tablet 10 mg PO DAILY Patient Comments: TAKE 1 TABLET 1 TIME EACH DAY memantine 10 mg tablet 10 mg PO BID Qty: 60 3RF famotidine 20 mg tablet 20 mg PO BID atorvastatin [Lipitor] 20 mg tablet 20 mg PO DAILY Qty: 30 5RF aspirin [Adult Aspirin Regimen] 81 mg tablet,delayed release (DR/EC) 81 mg PO DAILY Qty: 30 5RF metoprolol tartrate 50 mg tablet 50 mg PO BID Qty: 180 0RF Patient Comments: TAKE 1 TABLET 1 TIME DAILY amiodarone 200 mg tablet 100 mg PO BID albuterol sulfate 90 mcg/actuation HFA aerosol inhaler 4 inh inhalation Q4HP PRN (Reason: shortness of breath or wheezing) Rx Instructions: 4 puffs every 4 hours for 48 hours then as needed for shortness of breath or wheezing following cefdinir 300 mg Capsule 300 mg PO BID 3 Days Qty: 6 0RF polyethylene glycol 3350 [Miralax] 17 gram/dose powder 17 g PO DAILY Qty: 510 0RF sennosides [Senna Lax] 8.6 mg tablet 8.6 mg PO HS PRN (Reason: constipation) Qty: 30 0RF meclizine 25 mg tablet 25 mg PO TID PRN (Reason: dizziness) Qty: 30 0RF nitrofurantoin monohyd/m-cryst 100 mg capsule 100 mg PO BID 5 Days Qty: 10 0RF Rx Instructions: must administer with a meal/food hydralazine 25 mg tablet 12.5 mg PO TID PRN (Reason: anxiety) Qty: 30 0RF meclizine 25 mg tablet 25 mg PO TID PRN (Reason: dizziness) Qty: 12 0RF Referrals Follow up/Referrals: Nestor Rao MD [Primary Care Provider, Internal Medicine] - See instructions Activity Restrictions/Add. Instructions Additional Instructions/Restrictions: Please follow-up with your primary care doctor. You do have a cyst in your left abdomen. If your pain worsens, please return to the emergency department. Clinical Impressions Clinical Impression: Abdominal pain, acute, left lower quadrant Instructions Patient Instructions: DI for Acute Abdominal Pain Print Language Print Language: Danish Discharge ED Provider: Ashley Gant Adult HPI General Chief complaint: Abdominal Pain Stated complaint: Weak, dizzy, pain R side Time Seen by Provider: 05/23/25 11:49 Mode of Arrival: Ambulatory Source of Information: Patient Description of Symptoms (Recalled from ER Triage Doc. by RN): patient presents to the ED for left lower abdominal pain. patient stated the pain started this morning. obbby has not experienced N/V/D with it. last bowel movement 3 days ago. History of Present Illness HPI narrative: This a 75-year-old female with history of hypertension, dementia, CAD, HLD, and atrial fibrillation who presents emergency department with left lower quadrant abdominal pain. Patient states she had a sudden onset of severe left lower quadrant abdominal pain. She said her symptoms are somewhat improved, however are still persistent. Denies any recent fever, nausea, vomiting, chest pain, shortness of breath, dysuria, constipation, or diarrhea. Reports history of cholecystectomy. Related Data Home Medications ?Medication ?Instructions ?Recorded ?Confirmed escitalopram oxalate 10 mg tablet 10 mg PO DAILY 02/18/24 08/08/24 famotidine 20 mg tablet 20 mg PO BID 05/11/24 08/08/24 albuterol sulfate 90 mcg/actuation 4 inh inhalation Q4HP PRN 08/08/24 aerosol inhaler shortness of breath or wheezing amiodarone 200 mg tablet 100 mg PO BID 08/08/24 08/08/24 Previous Rx's ?Medication ?Instructions ?Recorded memantine 10 mg tablet 10 mg PO BID #60 tabs 03/07/24 aspirin 81 mg tablet,delayed 81 mg PO DAILY #30 tabs 05/11/24 release (Adult Aspirin Regimen) atorvastatin 20 mg tablet (Lipitor) 20 mg PO DAILY #30 tabs 05/11/24 cefdinir 300 mg capsule 300 mg PO BID 3 days #6 caps 08/08/24 meclizine 25 mg tablet 25 mg PO TID PRN dizziness #30 tabs 08/29/24 nitrofurantoin 100 mg PO BID 5 days #10 caps 10/28/24 monohydrate/macrocrystals 100 mg capsule polyethylene glycol 3350 17 17 g PO DAILY #510 grams 01/15/25 gram/dose oral powder (Miralax) sennosides 8.6 mg tablet (Senna 8.6 mg PO HS PRN constipation #30 01/15/25 Lax) tabs hydralazine 25 mg tablet 12.5 mg (1/2 x 25 mg) PO TID PRN 01/20/25 anxiety #30 tabs meclizine 25 mg tablet 25 mg PO TID PRN dizziness #12 tabs 04/12/25 metoprolol tartrate 50 mg tablet 50 mg PO BID #180 tabs 04/25/25 Allergies Allergy/AdvReac Type Severity Reaction Status Date / Time amoxicillin (From Augmentin) Allergy Unknown Verified 08/08/24 07:09 allergy reaction ciprofloxacin (From Cipro) Allergy Unknown Verified 08/08/24 07:09 allergy reaction clavulanic acid (From Allergy Unknown Verified 08/08/24 07:09 Augmentin) allergy reaction doxycycline Allergy Unknown Verified 08/08/24 07:09 allergy reaction lidocaine Allergy Unknown Verified 08/08/24 07:09 allergy reaction Sulfa (Sulfonamide Allergy Unknown Verified 08/08/24 07:09 Antibiotics) allergy reaction PFSH PFS Disclaimer: The information contained in this section may have been updated after the patient was seen, as this information can be updated by other users. Medical History Chronic kidney disease Generalized weakness Acute UTI Acute pain of right hip Nontraumatic hematoma Constipation Asthenia Viral syndrome Diarrhea Laryngitis Cough Nausea CELINA (acute kidney injury) Cystitis Cerumen impaction Mild cognitive impairment Hypoglycemia Dehydration Coronary artery disease Elevated brain natriuretic peptide (BNP) level Abnormal electrocardiogram [ECG] [EKG] Fatigue HTN (hypertension) Dyspnea Abnormal ECG Abnormal findings on diagnostic imaging of heart and coronary circulation Sinus bradycardia Chronic GERD IBS (irritable bowel syndrome) Hyperlipidemia Depression Dyspareunia Asthma Paroxysmal atrial fibrillation Palpitations Surgical History H/O: section Hx of cholecystectomy Family History Father Hypertension Mother CHF (congestive heart failure) Cancer Daughter Seizure Stroke Social History Smoking Status: Never smoker second hand exposure: No alcohol intake: never counseling given: No current occupational status: retired Travel in the last 8 weeks?: None household members: family housing: house marital status: Have you lived/traveled outside [place] in past 30 days?: No Contact w/someone who lives/traveled outside [place] past 30 days?: No Exposure to someone with infectious disease in past 14 days?: No Do you have a fever (greater than 100.4 F or 38 C)?: No Have you tested positive for COVID-19?: No Exposed to someone with COVID-19 in past 14 days?: No Do you have a sore throat?: No Do you have a cough?: No Do you have any weakness?: No Do you have any diarrhea?: No Are you experiencing any unusual bleeding?: No Do you have any muscle aches/pain?: No Do you have any abdominal pain?: No Are you experiencing loss of taste or smell?: No Other Medical History Have you received the Flu Vaccine for this season: No Have you received the Pneumonia Vaccine: No ROS Obtained: Yes All systems reviewed & no additional complaints except as documented Physical Exam General General appearance: alert and in no apparent distress Head Head exam: atraumatic Eye Eye exam: Present normal appearance, PERRL and EOMI ENT ENT exam: Present mucous membranes moist Neck Neck exam: Present normal inspection and full ROM; Absent tenderness Chest Chest inspection: Present symmetric chest wall rise; Absent tenderness Respiratory Respiratory exam: Absent respiratory distress, wheezes or accessory muscle use Cardiovascular Cardiovascular exam: Present regular rate and normal rhythm Abdominal Exam Abdominal exam: Present soft; Absent guarding Abdominal tenderness: Present LLQ (Mild left lower quadrant tenderness) Extremities Exam Extremities exam: Present full ROM; Absent tenderness Neurological Exam Neurological exam: Present alert and oriented X3 Psychiatric Psychiatric exam: Present normal affect Skin Skin exam: Present warm and dry Medical Decision Making Medical Records Screening: Per USPSTF and CDC recommendations, given the prevalence of disease in our region, it is our hospital?s policy to screen for HIV and viral Hepatitis for all patients aged 18 and over and those with ongoing risk factors. Narciso Inquiry Pt receiving controlled substance: No Narciso was queried for this patient: No Vital Signs: 05/23/25 11:43 05/23/25 12:30 Temperature 98.2 F Temperature Source Oral Pulse Rate 54 L Pulse Rate [Left Radial] 94 H Respiratory Rate 20 Blood Pressure 153/63 H Blood Pressure [Left Arm] 153/58 H Blood Pressure Mean [Left Arm] 89 Blood Pressure Source [Left Arm] Automatic Cuff Blood Pressure Position [Left Arm] Sitting 02 Sat by Pulse Oximetry 100 100 Oxygen Delivery Method Room Air Room Air Lab Data Lab results reviewed: Yes I reviewed the patient's lab results. Lab Results 05/23/25 11:50: Urine Color Yellow, Urine Appearance Clear, Urine pH 7.0, Ur Specific [place] 1.015, Urine Protein Negative, Urine Glucose (UA) Negative, Urine Ketones Negative, Urine Blood Negative, Urine Nitrate Negative, Urine Bilirubin Negative, Urine Urobilinogen 1.0, Ur Leukocyte Esterase Negative, Urine RBC None, Urine WBC Occasional, Ur Squamous Epith Cells Occasional, Urine Bacteria Trace 05/23/25 11:55: WBC 4.8, RBC 4.50, Hgb 12.5, Hct 39.4, MCV 87.6, MCH 27.8, MCHC 31.7 L, RDW 14.3, Plt Count 135 L, MPV 9.7, Neut % (Auto) 77.1, Lymph % (Auto) 14.9, [place] % (Auto) 6.4, Eos % (Auto) 0.6, Baso % (Auto) 0.8, Neut # (Auto) 3.7, Lymph # (Auto) 0.7, [place] # (Auto) 0.3, Eos # (Auto) 0.0, Baso # (Auto) 0.0, Sodium 141, Potassium 4.1, Chloride 104, Carbon Dioxide 31 H, Anion Gap 10.1, BUN 23 H, Creatinine 1.20 H, Estimated Creat Clear 38, Estimated GFR 44 L, Est GFR ( Amer) 53 L, Glucose 102 H, Calcium 9.5, Total Bilirubin 0.8, AST 33, ALT 16, Alkaline Phosphatase 73, Total Protein 7.0, Albumin 4.4, Globulin 2.6, Albumin/Globulin Ratio 1.7, Lipase 143 05/23/25 11:55 05/23/25 11:55 Orders (Tests/Meds): ED MEDICATIONS Generic Name Dose Route Start Last Admin Trade Name Freq PRN Reason Stop Dose Admin Sodium Chloride 10 ml 05/23/25 13:06 05/23/25 13:06 Sodium Chloride 0.9% 10ml Syr (Rad Only) IV 06/22/25 13:05 10 ml NEEDED PRN Administration Maintain IV Site Discontinued Medications Generic Name Dose Route Start Last Admin Trade Name Freq PRN Reason Stop Dose Admin Acetaminophen 1,000 mg 05/23/25 11:52 05/23/25 12:04 Acetaminophen 1,000mg/100ml Vial IV 05/23/25 11:53 1,000 mg ONCE ONE Administration Iopamidol 75 ml 05/23/25 13:06 05/23/25 13:06 Iopamidol-370 (76%);100ml Bottle IV 05/23/25 13:07 75 ml ONCE ONE Administration ORDERS Category Date Time Status CT abdomen pelvis w con Stat Cat Scan 05/23/25 11:52 Completed CBC w/Auto Diff [Complete Blood Count Auto Diff] Stat Lab 05/23/25 11:55 Completed CMP [Comprehensive Metabolic Panel] Stat Lab 05/23/25 11:55 Completed Lactate Venous Stat Lab 05/23/25 11:52 Ordered Lipase Stat Lab 05/23/25 11:55 Completed UA [Urinalysis and Microscopic] Stat Lab 05/23/25 11:50 Completed Medical Decision Narrative: This is a 75-year-old female presenting the emergency department with left lower quadrant abdominal pain. Differential diagnosis includes but is not limited to: Diverticulitis, constipation, UTI, renal stone, ovarian cyst On my initial assessment, the patient is hemodynamically stable in no acute distress. She has mild left lower quadrant abdominal pain on my exam, however states the majority of her symptoms have improved. Considering the described severity of her symptoms in addition to her other medical comorbidities and age, we decided to proceed with laboratory and CT scan for further evaluation. UA with no acute infectious process. CBC without leukocytosis or anemia. CMP with creatinine of 1.2. CT personally interpreted with no acute findings on my read. She does have diverticulosis without evidence of diverticulitis. There is a cystic structure in the left adnexa. Radiology reads in agreement. On my reassessment, patient has had no recurrence of pain. Her abdominal exam is now completely benign. She is stable for discharge home. I did inform her of incidental finding of diverticulosis and left adnexal cyst. I recommended PCP follow-up and return to the emergency department if her symptoms worsen. Critical Care Critical Care Time Critical Care Time: No
--- NOTE | 2025-05-23 12:44 | PC.NURSE ---
patient being taken via wheelchair to radiology
[2025-05-23 12:52] LABS: Bacteria,Urine Trace /lpf; Squamous Epithelial Cell,Urine Occasional #/hpf (0-5); WBC,Urine Occasional #/hpf (0-3)
[2025-05-23] MEDS: SODIUM CHLORIDE 0.9% 10ML SYR (RAD ONLY) 10 ML IV (13:06)
[2025-05-23] MEDS: IOPAMIDOL-370 (76%);100ML BOTTLE 75 ML IV (13:06)
--- NOTE | 2025-05-23 13:06 | PC.NURSE ---
patient back from CT scan, call light in reach
--- NOTE | 2025-05-23 13:17 | PC.NURSE ---
RN received a phone call from radiology staff after CT scan about the IV leaking . upon assessment of the IV the patients IV access site is raised, hard and purple appearing. IV access removed, 4x4 and coban placed around site and heat applied to area. new IV access obtained in Right AC. call light in reach, no needs at this time.
[2025-05-23 14:40] VITALS: BP 114/65; PULSE 52; RESP 16; TEMP 36.7; O2SAT 100
== END 2025-05-23 14:44 | disposition home or self-care (01) ==
PROVIDERS: Emergency Provider Student in an Organized Health Care Education/Training Program; PCP Internal Medicine Adolescent Medicine
DX: R10.32 Left lower quadrant pain (principal); I10 Essential (primary) hypertension; K21.9 Gastro-esophageal reflux disease without esophagitis; K58.9 Irritable bowel syndrome, unspecified
CPT/HCPCS: 74177; 80053; 81001; 83690; 85025; 96374; 99284; J0131; Q9967